=== PATIENT | male | born 1940 | race Caucasian/White ===

== ENCOUNTER 2018-03-20 19:47 | Observation (INO) | payer OTHER ==
--- OUTSIDE RECORDS SUMMARY | 2018-03-20 19:49 | XMS REPORT | Clinical Summary ---
:1940 Author Organization [facility] Address [address] [place] [address] Phone Care Team Providers Name Role Phone Unavailable Primary Care Provider Unavailable Allergies Active Allergy Reactions Severity Noted Date Comments Codeine Other (See Comments) 10/01/2017 Fainted, low BP Current Medications Prescription Sig. Disp. Refills Start Date End Date Status lisinopril Take 10 mg by Active (PRINIVIL,ZESTRIL) 10 mouth daily. MG tablet amLODIPine (NORVASC) Take 2.5 mg by Active 2.5 MG tablet mouth daily. pravastatin Take 40 mg by Active (PRAVACHOL) 40 MG mouth daily. tablet travoprost (TRAVATAN Place 1 drop Active Z) 0.004 % Drop into both eyes ophthalmic drops nightly. traMADol (ULTRAM) 50 Take 1 tablet 30 tablet 0 10/11/2017 10/21/2017 mg tablet (50 mg total) by mouth every 6 (six) hours as needed for up to 10 days. Max Daily Amount: 200 mg ondansetron Take 1 tablet 20 tablet 0 10/11/2017 10/18/2017 (ZOFRAN-ODT) 4 MG (4 mg total) by disintegrating tablet mouth every 8 (eight) hours as needed for up to 7 days. tamsulosin (FLOMAX) Take 1 capsule 30 capsule 0 10/12/2017 11/11/2017 0.4 mg Cp24 24 hr (0.4 mg total) capsule by mouth daily for 30 days. docusate sodium Take 1 capsule 10 capsule 0 10/11/2017 10/18/2017 (COLACE) 100 MG (100 mg total) capsule by mouth 2 (two) times daily for 7 days. polyethylene glycol Take 17 g by 14 each 0 10/11/2017 10/18/2017 (GLYCOLAX) 17 gram mouth daily as packet needed for up to 7 days. HYDROcodone-acetamino Take 1 tablet 30 tablet 0 10/11/2017 10/21/2017 phen (NORCO 10-325) by mouth every 10-325 mg per tablet 4 (four) hours as needed for up to 10 days. Max Daily Amount: 6 tablets aspirin 81 MG EC Take 1 tablet 30 tablet 0 10/12/2017 11/11/2017 tablet (81 mg total) by mouth daily for 30 days. pantoprazole Take 1 tablet 60 tablet 0 10/11/2017 11/10/2017 (PROTONIX) 40 MG (40 mg total) tablet by mouth 2 (two) times daily for 30 days. lidocaine (LIDODERM) Place 1 patch 30 patch 0 10/11/2017 11/10/2017 5 % patch onto the skin daily as needed for up to 30 days Remove & Discard patch within 12 hours or as directed by MD. 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 Hypertension 10/01/2017 Encounters Date Type Specialty Care Team Description 03/08/2018 Orders Only Research Davy Research exam MD Vik (Primary Dx) 11/23/2017 Outside Orders Central Scheduling Yessica Bhatti of MD Vik participant in clinical trial (Primary Dx);Malignant neoplasm of pancreas, unspecified location of malignancy (HCC) 11/05/2017 Hospital Encounter Radiology Davy, Malignant neoplasm MD Vik of body of pancreas (HCC) 11/05/2017 Orders Only Lab Davy Malignant neoplasm MD Vki of body of pancreas (HCC) 10/25/2017 Orders Only Yayo Peng, Malignant neoplasm SUSHANT Caballero of body of pancreas (HCC) (Primary Dx) 10/06/2017 Documentation Vik Tang MD 10/06/2017 Documentation Vik Tang MD 10/06/2017 Procedure Pass 10/06/2017 Surgery Davy, PANCREATECTOMY,W/ MD Vik SPLENECTOMY 10/05/2017 Anesthesia Event Trae Hollins CRNA 10/02/2017 Anesthesia Event Gastroenterology Jessica Hatfield CRNA 10/02/2017 Procedure Pass Gastroenterology 10/02/2017 Surgery Gastroenterology Hardeep, TARI [facility] ENDOSCOPY,ULTRASOUND Hardeep Felix MD 10/01/2017 Hospital Encounter General Internal [facility] - Medicine MD Wendy hypertension;Pancrea 10/11/2017 Kylie Amanda tic mass;Splenic Tricia infarct;Pancreatic MD Karishma adenocarcinoma Chiquita Currie (HCC);Drug-induced MD Maria Guadalupe constipation;Chest Carey, Heather pain, unspecified MD Brigido type;Fever, Darrell, unspecified fever Liban cause;LeukocytosisElfego MD unspecified type;Hypophosphatasi a;Urinary retention;Hypokalemi a after 03/19/2017 Social History Tobacco Use Types Packs/Day Years Used Date Former Smoker Sex Assigned at Date Recorded Not on file Last Filed Vital Signs Vital Sign Reading Time Taken Blood Pressure 154/74 10/11/2017 9:17 PM CDT Pulse 73 10/11/2017 9:17 PM CDT Temperature 36.4 C (97.6 F) 10/11/2017 9:17 PM CDT Respiratory Rate 18 10/11/2017 9:17 PM CDT Oxygen Saturation 97% 10/11/2017 9:17 PM CDT Inhaled Oxygen Concentration - - Weight 87.3 kg (192 lb 8 oz) 10/01/2017 8:11 PM CDT Height 185.4 cm (6' 1") 10/01/2017 8:11 PM CDT Body Mass Index 25.4 10/01/2017 8:11 PM CDT Plan of Treatment Not on file Implants Implanted Type Area Tinning Equipment Tender Device Expiration Model / Identifier Date Serial / Lot Dev Laser Tiss Brooke Device Laser Tissue Welding - Salbu-Green Solder Investigational N/A: LASER TISSUE 34 / Implanted: Qty: 1 on 10/06/2017 by Vik Bhatti MD Devices Pancreas WELD[employer] ALBU-GREEN SOLDER / Dev Laser Tiss Brooke Device Laser Tissue Welding - Sd-Albumin Lamina Investigational N/A: LASER TISSUE DEVICE LASER TISSUE WELDING / Implanted: Qty: 1 on 10/06/2017 by Vik Bhatti MD Devices Pancreas WELDING INC D-ALBUMIN LAMINA / Cath Exp Silv Soak Carbon Electrodes Supervisor 12.5cmx [id number] - Sna Pain N/A: MICHEAL-ABAD [id number] 01/03/2020 [id number] / Implanted: Qty: 1 on 10/06/2017 by Vik Bhatti MD Mgmt/Stimulator Abdomen K NA / [id number] Cath Exp Silv Soak Carbon Electrodes Supervisor 12.5cmx [id number] - Sna Pain N/A: MICHEAL-CLAR [id number] 08/30/2019 [id number] / Implanted: Qty: 1 on 10/06/2017 by Vik Bhatti MD Mgmt/Stimulator Abdomen K NA / [id number] Block Nrv C-Blk 1-7ml/Hr 600ml [id number] - Sna Pain N/A: PRIYAYARD [id number] 11/21/2019 [id number] / Implanted: Qty: 1 on 10/06/2017 by Vik Bhatti MD Mgmt/Stimulator Abdomen HEALTH NA / [id number] Procedures Procedure Name Priority Date/Time Associated Diagnosis Comments PANCREATECTOMY,W/ 10/06/2017 8:15 AM Malignant neoplasm of SPLENECTOMY CDT pancreas, unspecified location of malignancy (HCC) UPPER 10/02/2017 11:00 AM pancreatic mass ENDOSCOPY,ULTRASOUND CDT after 03/19/2017 Results US abdomen complete (11/05/2017 1:27 PM)Only the most recent of2 resultswithin the time period is included. Specimen Performing Laboratory [facility] FINAL REPORT TECHNIQUE: Grayscale ultrasound of the abdomen. INDICATION: 77-year-old man after surgery. COMPARISON: Abdomen and pelvis CT 10/11/2017. FINDINGS: MIDLINE VASCULATURE: The visualized inferior vena cava is patent. Portal vein is patent. The maximum visualized aortic diameter is 2.2 cm. LIVER: The liver is normal in size and echogenicity. Smooth liver contour. No focal lesions. BILIARY: Gallbladder: No gallstones or sludge. Borderline distention of the gallbladder, which measures 4 cm in transverse dimension. No gallbladder wall thickening or pericholecystic fluid. Negative sonographic Estrada sign. Common bile duct measures 0.4 cm, within normal limits. No intrahepatic biliary ductal dilatation. PANCREAS: Prior distal pancreatectomy. SPLEEN: Prior splenectomy. PERITONEUM: No free fluid. KIDNEYS: The right kidney measures 11.4 cm and the left kidney measures 13.2 cm. No hydronephrosis. No sonographically evident solid mass lesion. IMPRESSION: Prior distal pancreatectomy and splenectomy. Nonspecific borderline distention of the gallbladder. Signed: Ann Barton MD Report Verified Date/Time:11/05/2017 15:21:33 Reading Location: [facility] P006J Ultrasound Reading Room Procedure Note Interface, External Ris In - 11/05/2017 3:23 PM CDT FINAL REPORT TECHNIQUE: Grayscale ultrasound of the abdomen. INDICATION: 77-year-old man after surgery. COMPARISON: Abdomen and pelvis CT 10/11/2017. FINDINGS: MIDLINE VASCULATURE: The visualized inferior vena cava is patent. Portal vein is patent. The maximum visualized aortic diameter is 2.2 cm. LIVER: The liver is normal in size and echogenicity. Smooth liver contour. No focal lesions. BILIARY: Gallbladder: No gallstones or sludge. Borderline distention of the gallbladder, which measures 4 cm in transverse dimension. No gallbladder wall thickening or pericholecystic fluid. Negative sonographic Estrada sign. Common bile duct measures 0.4 cm, within normal limits. No intrahepatic biliary ductal dilatation. PANCREAS: Prior distal pancreatectomy. SPLEEN: Prior splenectomy. PERITONEUM: No free fluid. KIDNEYS: The right kidney measures 11.4 cm and the left kidney measures 13.2 cm. No hydronephrosis. No sonographically evident solid mass lesion. IMPRESSION: Prior distal pancreatectomy and splenectomy. Nonspecific borderline distention of the gallbladder. Signed: Ann Barton MD Report Verified Date/Time: 11/05/2017 15:21:33 Reading Location: [facility] P006J Ultrasound Reading Room and Creatinine (11/05/2017 11:24 AM) Component Value Ref Range BUN 9 7 - 21 mg/dL Creatinine 0.81 0.57 - 1.25 mg/dL EGFR 92Comment: ESTIMATED GFR IS NOT ACCURATE mL/min/1.73 sq m CREATININE CLEARANCE IN PREDICTING GLOMERULAR FILTRATION RATE. ESTIMATED GFR IS NOT APPLICABLE FOR DIALYSIS PATIENTS. Specimen Performing Laboratory Blood [facility] [address] [address] CBC with platelet count + automated diff (11/05/2017 11:24 AM)Only the most recent of8 resultswithin the time period is included. Component Value Ref Range WBC 7.2 3.5 - 10.5 K/L RBC 4.67 4.63 - 6.08 M/L Hemoglobin 13.3 (L) 13.7 - 17.5 GM/DL Hematocrit 41.0 40.1 - 51.0 % MCV 87.8 79.0 - 92.2 fL MCH 28.5 25.7 - 32.2 pg MCHC 32.4 32.3 - 36.5 GM/DL RDW 14.5 (H) 11.6 - 14.4 % Platelets 298 150 - 450 K/CU MM MPV 10.8 9.4 - 12.4 fL nRBC 0 0 - 0 /100 WBC % Neutros 53 % % Lymphs 24 % % Monos 10 % % Eos 12 % % Baso 1 % # Neutros 3.79 1.78 - 5.38 K/L # Lymphs 1.72 1.32 - 3.57 K/L # Monos 0.70 0.30 - 0.82 K/L # Eos 0.88 (H) 0.04 - 0.54 K/L # Baso 0.04 0.01 - 0.08 K/L Immature Granulocytes-Relative 0 0 - 1 % Specimen Performing Laboratory Blood [address] [address] Urinalysis w/ Microscopic (11/05/2017 11:24 AM) Component Value Ref Range Color, UA Yellow Clarity, UA Hazy Specific [place], UA 1.010 1.001 - 1.035 pH, UA 7.0 5.0 - 8.0 Protein, UA Negative Negative Glucose, UA Negative Negative Ketones, UA Negative Negative Bilirubin, UA Negative Negative Blood, UA Negative Negative Nitrite, UA Negative Negative Leukocytes, UA Negative Negative Urobilinogen, UA 0.2 0.2 - 1.0 mg/dL RBC, UA 1 /HPF WBC, UA 0 /HPF Specimen Source Specimen Performing Laboratory Urine [address] [address] CBC with platelet count + automated diff (11/05/2017 11:24 AM)Only the most recent of8 resultswithin the time period is included. Specimen Performing Laboratory Blood Narrative The following orders were created for panel order CBC with platelet count + automated diff. Procedure Abnormality Status --------- ------ CBC with platelet count ...[[id number]]AbnormalFinal result Please view results for these tests on the individual orders. Sodium (11/05/2017 11:24 AM) Component Value Ref Range Sodium 138 136 - 145 meq/L Specimen Performing Laboratory Blood [address] [address] Potassium (11/05/2017 11:24 AM) Component Value Ref Range Potassium 5.0 3.5 - 5.1 meq/L Specimen Performing Laboratory Blood [address] [address] Phosphorus (11/05/2017 11:24 AM)Only the most recent of6 resultswithin the time period is included. Component Value Ref Range Phosphorus 4.1 2.3 - 4.7 mg/dL Specimen Performing Laboratory Blood [address] [address] Magnesium (11/05/2017 11:24 AM)Only the most recent of6 resultswithin the time period is included. Component Value Ref Range Magnesium 2.0 1.6 - 2.6 mg/dL Specimen Performing Laboratory [address] [address] Lipase (11/05/2017 11:24 AM)Only the most recent of6 resultswithin the time period is included. Component Value Ref Range Lipase 22 8 - 78 U/L Specimen Performing Laboratory Blood [address] [address] Glucose (11/05/2017 11:24 AM) Component Value Ref Range Glucose 113 (H) 70 - 105 mg/dL Specimen Performing Laboratory [address] [address] Chloride (11/05/2017 11:24 AM) Component Value Ref Range Chloride 102 98 - 107 meq/L Specimen Performing Laboratory [address] [address] Calcium (11/05/2017 11:24 AM)Only the most recent of2 resultswithin the time period is included. Component Value Ref Range Calcium 10.0 8.4 - 10.2 mg/dL Specimen Performing Laboratory Blood [address] [address] Amylase (11/05/2017 11:24 AM)Only the most recent of3 resultswithin the time period is included. Component Value Ref Range Amylase 47 25 - 125 U/L Specimen Performing Laboratory Blood [address] [address] Hepatic function panel (11/05/2017 11:24 AM)Only the most recent of8 resultswithin the time period is included. Component Value Ref Range Protein, Total 7.0 6.0 - 8.3 gm/dL Albumin 4.3 3.5 - 5.0 g/dL Total Bilirubin 0.4 0.2 - 1.2 mg/dL Bilirubin, Direct 0.2 0.1 - 0.5 mg/dL Alkaline Phosphatase 96 40 - 150 U/L AST 27 5 - 34 U/L ALT 24 6 - 55 U/L Specimen Performing Laboratory Blood [address] [address] RHYTHM STRIP - SCAN (10/13/2017 11:20 AM)CT abdomen/pelvis with IV contrast ( 3:35 PM) Specimen Performing Laboratory [facility] Narrative FINAL REPORT CT OF THE ABDOMEN AND PELVIS CLINICAL HISTORY:Pancreatic adenocarcinoma status post distal pancreatectomy and splenectomy, fever TECHNIQUE: CT of the abdomen and pelvis is performed with intravenous contrast administration. This exam was performed according to our departmental dose-optimization program which includes automated exposure control, adjustment of the mA and/or kV according to patient size and/or use of iterative reconstruction technique. COMPARISON FILM:CT of the abdomen and pelvis from 09/25/2017 DISCUSSION: LOWER THORAX: Minimal subsegmental bibasilar atelectasis and consolidation. Trace left pleural effusion. Focal linear hypodensity in a segmental branch of the left lower lobe pulmonary artery seen only on the first image of the axial series. HEPATOBILIARY: Cholelithiasis. Unchanged indeterminate subcentimeter hypodensities in the liver. Main portal vein is patent. No biliary ductal dilation. PANCREAS: Findings of distal pancreatectomy. No drainable peripancreatic fluid collection. SPLEEN: Surgically absent. No drainable fluid collection in the splenic bed. ADRENALS: No nodule. KIDNEYS/URETERS: No obstructing renal or ureteral calculi. No hydronephrosis or hydroureter. PELVIC ORGANS/BLADDER: Unremarkable. GI TRACT: Moderate colonic diverticulosis. No pericolonic inflammatory change. No definite bowel wall thickening or distention. PERITONEUM/RETROPERITONEUM: Minimal stranding in the left upper quadrant. No drainable fluid collection. A surgically placed drainage catheter is seen in the left subphrenic region. Trace foci of air at the anterior midline, likely related to recent surgery and presence of drainage catheter. LYMPH NODES: No upper abdominal, retroperitoneal, mesenteric, or pelvic lymphadenopathy. VESSELS: Abdominal aorta normal in caliber. BONES AND SOFT TISSUES: No destructive osseous lesion. Degenerative changes in the lumbar spine. IMPRESSION: 1. Expected postsurgical changes related to distal pancreatectomy and splenectomy. No drainable fluid collection in the surgical bed. 2. Apparent linear hypodensity in a segmental branch of the left lower lobe pulmonary artery is likely related to volume averaging artifact, however if there is clinical suspicion of a small pulmonary embolism, this could be further evaluated with contrast-enhanced chest CT. 3. Unchanged indeterminate subcentimeter hypodensities in the liver. Recommend attention on follow-up examination. 4. Trace left pleural effusion and minimal bibasilar atelectasis. Signed: Stephen Horne MD Report Verified Date/Time:10/11/2017 16:07:26 Reading Location: [address] Body Reading Room Procedure Note Interface, External Ris In - 10/11/2017 4:09 PM CDT FINAL REPORT CT OF THE ABDOMEN AND PELVIS CLINICAL HISTORY: Pancreatic adenocarcinoma status post distal pancreatectomy and splenectomy, fever TECHNIQUE: CT of the abdomen and pelvis is performed with intravenous contrast administration. This exam was performed according to our departmental dose-optimization program which includes automated exposure control, adjustment of the mA and/or kV according to patient size and/or use of iterative reconstruction technique. COMPARISON FILM: CT of the abdomen and pelvis from 09/25/2017 DISCUSSION: LOWER THORAX: Minimal subsegmental bibasilar atelectasis and consolidation. Trace left pleural effusion. Focal linear hypodensity in a segmental branch of the left lower lobe pulmonary artery seen only on the first image of the axial series. HEPATOBILIARY: Cholelithiasis. Unchanged indeterminate subcentimeter hypodensities in the liver. Main portal vein is patent. No biliary ductal dilation. PANCREAS: Findings of distal pancreatectomy. No drainable peripancreatic fluid collection. SPLEEN: Surgically absent. No drainable fluid collection in the splenic bed. ADRENALS: No nodule. KIDNEYS/URETERS: No obstructing renal or ureteral calculi. No hydronephrosis or hydroureter. PELVIC ORGANS/BLADDER: Unremarkable. GI TRACT: Moderate colonic diverticulosis. No pericolonic inflammatory change. No definite bowel wall thickening or distention. PERITONEUM/RETROPERITONEUM: Minimal stranding in the left upper quadrant. No drainable fluid collection. A surgically placed drainage catheter is seen in the left subphrenic region. Trace foci of air at the anterior midline, likely related to recent surgery and presence of drainage catheter. LYMPH NODES: No upper abdominal, retroperitoneal, mesenteric, or pelvic lymphadenopathy. VESSELS: Abdominal aorta normal in caliber. BONES AND SOFT TISSUES: No destructive osseous lesion. Degenerative changes in the lumbar spine. IMPRESSION: 1. Expected postsurgical changes related to distal pancreatectomy and splenectomy. No drainable fluid collection in the surgical bed. 2. Apparent linear hypodensity in a segmental branch of the left lower lobe pulmonary artery is likely related to volume averaging artifact, however if there is clinical suspicion of a small pulmonary embolism, this could be further evaluated with contrast-enhanced chest CT. 3. Unchanged indeterminate subcentimeter hypodensities in the liver. Recommend attention on follow-up examination. 4. Trace left pleural effusion and minimal bibasilar atelectasis. Signed: Stephen Horne MD Report Verified Date/Time: 10/11/2017 16:07:26 Reading Location: [facility] C013Y CT Body Reading Room Basic Metabolic Panel (10/11/2017 5:03 AM)Only the most recent of8 resultswithin the time period is included. Component Value Ref Range Sodium 135 (L) 136 - 145 meq/L Potassium 3.4 (L) 3.5 - 5.1 meq/L Chloride 99 98 - 107 meq/L CO2 26 22 - 29 meq/L BUN 8 7 - 21 mg/dL Creatinine 0.67 0.57 - 1.25 mg/dL Glucose 114 (H) 70 - 105 mg/dL Calcium 8.9 8.4 - 10.2 mg/dL EGFR 114Comment: ESTIMATED GFR IS NOT ACCURATE mL/min/1.73 sq m CREATININE CLEARANCE IN PREDICTING GLOMERULAR FILTRATION RATE. ESTIMATED GFR IS NOT APPLICABLE FOR DIALYSIS PATIENTS. Specimen Performing Laboratory Blood - Arm, Left [address] [address] Amylase, body fluid (10/09/2017 5:14 PM)Only the most recent of2 resultswithin the time period is included. Component Value Ref Range Amylase, Fluid >[address] U/L Specimen Performing Laboratory Body Fluid - CHIVO Drain [address] [address] Narrative Absence of reference range indicates that normals have not been defined. Assay performance has not been validated for this type of specimen. XR chest 1 view portable / bedside (10/09/2017 11:02 AM) Specimen Performing Laboratory [facility] Narrative FINAL REPORT CHEST ONE VIEW HISTORY: Fever COMPARISON: CT chest of 10/03/2017 FINDINGS: Single portable AP examination of the chest was performed. Mild bibasilar airspace consolidation suggestive of atelectasis or pneumonia, similar in appearance to the prior chest CT. No pleural effusions or pneumothorax are identified. Cardiac shadow normal in size. Degenerative changes are present in the spine and acromioclavicular joints. IMPRESSION: Unchanged bibasilar atelectasis versus pneumonia. Signed: Mary Ingram MD Report Verified Date/Time:10/09/2017 11:20:08 Reading Location: [facility] C0T Transitional Reading Room Procedure Note Interface, External Ris In - 10/09/2017 11:22 AM CDT FINAL REPORT CHEST ONE VIEW HISTORY: Fever COMPARISON: CT chest of 10/03/2017 FINDINGS: Single portable AP examination of the chest was performed. Mild bibasilar airspace consolidation suggestive of atelectasis or pneumonia, similar in appearance to the prior chest CT. No pleural effusions or pneumothorax are identified. Cardiac shadow normal in size. Degenerative changes are present in the spine and acromioclavicular joints. IMPRESSION: Unchanged bibasilar atelectasis versus pneumonia. Signed: Mary Ingram MD Report Verified Date/Time: 10/09/2017 11:20:08 Reading Location: [facility] C013T Transitional Reading Room Troponin I (10/09/2017 9:40 AM)Only the most recent of3 resultswithin the time period is included. Component Value Ref Range Troponin I 0.03 0.00 - 0.03 ng/mL Specimen Performing Laboratory Blood [address] [address] Narrative Troponin I (TnI) levels must be interpreted in the context of the presenting symptoms and the clinical findings. Elevated TnI levels indicate myocardial damage, but are not specific for ischemic heart disease. Elevated TnI levels are seen in patients with other cardiac conditions (including myocarditis and congestive heart failure), and slight TnI elevations occur in patients with other conditions, including sepsis, renal failure, acidosis, acute neurological disease, and persistent tachyarrhythmia. ECHOCARDIOGRAM REPORT - SCAN (10/08/2017 6:20 PM)Calcium, Ionized (10/08/2017 3:31 PM)Only the most recent of5 resultswithin the time period is included. Component Value Ref Range Calcium, Ion 1.05 (L) 1.12 - 1.27 mmol/L pH, Blood 7.41 Specimen Performing Laboratory Blood - Arm, Right [address] [address] Creatine Kinase (CK), Total and MB (10/08/2017 3:31 PM) Component Value Ref Range Total CK 268 (H) 29 - 200 U/L CK-MB 2.9 0.0 - 6.6 ng/mL MB Relative Index 1.1 % Specimen Performing Laboratory Blood [address] [address] Narrative CK-MB Reference Range: <6.7Normal 6.7-10.0Borderline >10.0 Abnormal 2D Echo W/Doppler(CW/PW/Color) (10/08/2017 1:10 PM) Component Value Ref Range Ejection Fraction Specimen Performing Laboratory [facility] ECHO [facility] Narrative Transthoracic Echocardiography Report (TTE) Demographics Patient NameJULIANN MURRIETA Date of Study2017 CRAWLEY Male Visit [id number] Unknown Room Number 1530 Number Date of 1940Referring Ayah Carey MD Age 77 year(s)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 Pollock [facility] Patient Care Director Juan Coleman Interpreting Francesco Love MD Physician Procedure Type of Study TTE procedure:2DECHO W DOPPLER(CW/PW/COLOR) (STAT) Indications:Acute Chest Pain/ Suspected CAD. Clinical History HLD;HTN;CANCER HGB 11.4 HCT 33.5 % Height: 73 inches Weight: 87.09 kg (192 lbs) BSA: 2.11 m^2 BMI: 25.33 kg/m^2 HR: 83 bpm BP: 144/69 mmHg Summary 1. Normal left ventricular chamber size. Normal wall thickness. Normal overall left ventricular systolic function. No apparent segmental wall motion abnormalities. Estimated LVEF by qualitative assessment is normal (>60%) . Grade 1 diastolic dysfunction (impaired relaxation and low-normal LA pressure). LA size is normal . 2. Normal right ventricle structure and function. Normal right atrium. Unable to estimate peak systolic PA pressure; inadequate TR velocity signal. 3. Aortic valve sclerosis. No other significant valvular abnormalities. Previous Study No prior exam available for comparison. Signature Findings Left Ventricle Normal left ventricular chamber size. Normal wall thickness. Normal overall left ventricular systolic function. No apparent segmental wall motion abnormalities. Estimated LVEF by qualitative assessment is normal (>60%) . Grade 1 diastolic dysfunction (impaired relaxation and low-normal LA pressure). Left AtriumLA size is normal . Right VentricleNormal right ventricle structure and function. Right Atrium Normal right atrium. Aortic Valve Mild AoV cusp thickening. Mild AoV cusp calcification. There is no aortic regurgitation. Mitral Valve Mild MV leaflet thickening. Trace mitral regurgitation. Tricuspid ValveA trace of tricuspid regurgitation. Unable to estimate peak systolic PA pressure; inadequate TR velocity signal. Pulmonic Valve Normal PV structure and function by limited views and Doppler. AortaAortic root size (SInus of Valsalva diameter) is normal . PericardiumNo evidence of pericardial effusion. IVC/SVC/PA/PV/PleuralThe estimated RA pressure by IVC dynamics indeterminate . Chambers/Structures Left Atrium LA Dimension: 3.86 cmLA Area: 22.93 cm^2 LA Volume: 69.39 ml LA Vol. Index: 33 ml/m^2 Left Ventricle LVIDd: 4.35 cm LV Septum Diastolic: 1.03 cm LV PW Diastolic: 0.97 cm LVOT Diameter: 2.18 cm Aorta Ao Root S of Ruby.: 3.51 cm Doppler/Quantitative Measurements LVOT Peak Velocity: 1.11 m/s Peak Gradient: 4.9 mmHg Mean Velocity: 0.69 m/s Mean Gradient: 2.32 mmHg LVOT Diameter: 2.18 cmLVOT VTI: 21.72 cm LVOT Area: 3.73 cm^2LVOT SV:81.03 ml LVOT CO: 6.73 l/min LVOT CI: 3.19 l/min/m^2 Procedure Note Interface, External Ris In - 10/08/2017 5:44 PM CDT Transthoracic Echocardiography Report (TTE) Demographics Patient Name JULIANN MURRIETA Date of Study 10/08/2017 ROTAN Gender Male Visit Number [id number] Race Unknown Room Number 1530 Number Date of 1940 Referring Physician Heather Carey MD Age 77 year(s) [employer] Marti Pollock [facility] Patient Care Director Juan Love MD Physician Procedure Type of Study TTE procedure:2DECHO W DOPPLER(CW/PW/COLOR) (STAT) Indications:Acute Chest Pain/ Suspected CAD. Clinical History HLD;HTN;CANCER HGB 11.4 HCT 33.5 % Height: 73 inches Weight: 87.09 kg (192 lbs) BSA: 2.11 m^2 BMI: 25.33 kg/m^2 HR: 83 bpm BP: 144/69 mmHg Summary 1. Normal left ventricular chamber size. Normal wall thickness. Normal overall left ventricular systolic function. No apparent segmental wall motion abnormalities. Estimated LVEF by qualitative assessment is normal (>60%) . Grade 1 diastolic dysfunction (impaired relaxation and low-normal LA pressure). LA size is normal . 2. Normal right ventricle structure and function. Normal right atrium. Unable to estimate peak systolic PA pressure; inadequate TR velocity signal. 3. Aortic valve sclerosis. No other significant valvular abnormalities. Previous Study No prior exam available for comparison. Signature Findings Left Ventricle Normal left ventricular chamber size. Normal wall thickness. Normal overall left ventricular systolic function. No apparent segmental wall motion abnormalities. Estimated LVEF by qualitative assessment is normal (>60%) . Grade 1 diastolic dysfunction (impaired relaxation and low-normal LA pressure). Left Atrium LA size is normal . Right Ventricle Normal right ventricle structure and function. Right Atrium Normal right atrium. Aortic Valve Mild AoV cusp thickening. Mild AoV cusp calcification. There is no aortic regurgitation. Mitral Valve Mild MV leaflet thickening. Trace mitral regurgitation. Tricuspid Valve A trace of tricuspid regurgitation. Unable to estimate peak systolic PA pressure; inadequate TR velocity signal. Pulmonic Valve Normal PV structure and function by limited views and Doppler. Aorta Aortic root size (SInus of Valsalva diameter) is normal . Pericardium No evidence of pericardial effusion. IVC/SVC/PA/PV/Pleural The estimated RA pressure by IVC dynamics indeterminate . Chambers/Structures Left Atrium LA Dimension: 3.86 cm LA Area: 22.93 cm^2 LA Volume: 69.39 ml LA Vol. Index: 33 ml/m^2 Left Ventricle LVIDd: 4.35 cm LV Septum Diastolic: 1.03 cm LV PW Diastolic: 0.97 cm LVOT Diameter: 2.18 cm Aorta Ao Root S of Ruby.: 3.51 cm Doppler/Quantitative Measurements LVOT Peak Velocity: 1.11 m/s Peak Gradient: 4.9 mmHg Mean Velocity: 0.69 m/s Mean Gradient: 2.32 mmHg LVOT Diameter: 2.18 cm LVOT VTI: 21.72 cm LVOT Area: 3.73 cm^2 LVOT SV:81.03 ml LVOT CO: 6.73 l/min LVOT CI: 3.19 l/min/m^2 ECG 12 lead (10/08/2017 8:58 AM) Specimen Performing Laboratory Plerts MUSE Narrative Ventricular Rate 90 BPM Atrial Rate 90 BPM P-R Interval 168 ms QRS Duration 86 ms Q-T Interval 368 ms QTC Calculation(Bazett) 450 ms P [place] 49 degrees R Elgin 36 degrees T Elgin 14 degrees Normal sinus rhythm ST abnormality, possible digitalis effect Abnormal ECG When compared with ECG of 06-OCT-2017 07:25, Premature supraventricular complexes are no longer Present Confirmed by MD GUERRERO JOSEPH P ([id number]) on 10/08/2017 2:53:40 PM Procedure Note Interface, External Ris In - 10/08/2017 2:53 PM CDT Ventricular Rate 90 BPM Atrial Rate 90 BPM P-R Interval 168 ms QRS Duration 86 ms Q-T Interval 368 ms QTC Calculation(Bazett) 450 ms P [place] 49 degrees R [place]gin 36 degrees T [place]gin 14 degrees Normal sinus rhythm ST abnormality, possible digitalis effect Abnormal ECG When compared with ECG of 06-OCT-2017 07:25, Premature supraventricular complexes are no longer Present Confirmed by MD GUERRERO JOSEPH P ([id number]) on 10/08/2017 2:53:40 PM TRANSFUSION SERVICE REPORT - SCAN (10/07/2017 5:41 PM)Tissue Exam (10/06/2017 12:45 PM)Only the most recent of2 resultswithin the time period is included. Component Value Ref Range Case Report Surgical Pathology Report Case: [id number] Authorizing Provider:Vik BhattiJOANNEollected: 10/06/2017 1245 Ordering Location: [address] Received: 10/06/2017 1305 Service Pathologist: Gissel Villanueva MD Specimen:Pancreas, DISTAL PANCREAS AND SPLEEN DIAGNOSIS DISTAL PANCREAS AND SPLEEN, DISTAL PANCREATECTOMY AND SPLENECTOMY: - ADENOSQUAMOUS CARCINOMA - MODERATELY DIFFERENTIATED - TUMOR SIZE 3.5 CM (GREATEST DIMENSION, see comment) - TUMOR EXTENDS TO PERIPANCREATIC FAT - LYMPHOVASCULAR INVASION PRESENT - PERINEURAL INVASION PRESENT - PANCREATIC MARGIN, NEGATIVE FOR CARCINOMA - ONE OF 23 LYMPH NODES, POSITIVE FOR CARCINOMA BY DIRECT EXTENSION (1/23) - 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 Microscopic evaluation of a tissue slice encompassing the whole alfred-white surface (submitted in slides A2-A5), and shows a 3.5 cm focus of invasive carcinoma (A2 and A3). The rest of the alfred-white focus is composed of marked chronic pancreatitis. 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 Tumor Size:Greatest dimension in Centimeters (cm): 3.5 Centimeters (cm) Tumor Extension:Tumor invades peripancreatic soft tissues Treatment Effect:No known presurgical therapy Lymphovascular Invasion:Present Perineural Invasion:Present MARGINS Margins: Proximal Pancreatic Parenchymal Margin:Uninvolved by invasive carcinoma :Involved by pancreatic high-grade intraepithelial neoplasia Distance of Invasive Carcinoma from Margin:1.5 Centimeters (cm) LYMPH NODES Regional Lymph Nodes: Number of Lymph Nodes Involved:1 Number of Lymph Nodes Examined:23 PATHOLOGIC STAGE CLASSIFICATION(pTNM, AJCC 8th Edition) Primary Tumor (pT):pT2 Regional Lymph Nodes (pN):pN1 ADDITIONAL FINDINGS Additional Pathologic Findings:Chronic pancreatitis CPT Code(s) 83092, 71120, 60900, 93862 x1 CLINICAL HISTORY Pancreatic tumor GROSS DESCRIPTION A. Received fresh labeled "pancreas, distal and spleen" is a 7.5 x 5.5 x 3 cm portion of distal pancreas with attached 13 x 9 x 3.5 cm and 300 gm spleen. There is a 5.5 x 3.5 x 2.5 cm alfred-white ill-circ umscribed mass within the pancreas. The distance to the distal margin cannot be assessed due to the ill-circumscription of the mass. The mass appears to be abutting the renal vein and the anterior pancr eatic surface that is inked blue. The pancreatic duct appears to be abutted by the mass. The soft tissue surrounding the external surface of the pancreas is alfred-yellow and fatty with the involvement by the tumor not determined due to the ill-circumscription of the tumor. The grossly uninvolved pancreas is alfred-pink and lobulated but hard to distinguish from the tumor. The splenic capsule is alfred-brown a nd smooth with no grossly identifiable adhesions or masses.The spleen has a aflred-red cut surface with no identifiable nodules or masses. The renal vein appears to be firm and atherosclerotic with approxi mately 75% lumen obliteration. Multiple alfred-brown lymph nodes are identified ranging from 0.1 to 0.2 cm in maximum dimension. The proximal pancreatic resection margin is inked blue. The anterior peripan creatic soft tissue is inked blue and the posterior peripancreatic soft tissue is inked black. Photographs are taken. Countersinker sections are submitted as follows: A1, proximal pancreatic resection margin en face; A2 to A4, anterior superior distal pancreas submitted in its entirety consecutively from proximal to d istal in three consecutive sections with the cut surface inked orange. A5 to A7, anterior inferior distal pancreas submitted in its entirety consecutively from proximal to distal with the cut surface in ked orange; A8 to A11, telesales representative sections of the posterior pancreas; A12 to A15, telesales representative sections of the anterior pancreas to include A13 to A15, tumor and pancreas with splenic vein followi ng light decal; A16, telesales representative section of the spleen; A17, five possible whole lymph nodes; A18, five possible whole lymph nodes; A19, four possible whole lymph nodes; A20, anterior peripancreatic fat; A21, posterior peripancreatic fat. TQ/pl MICROSCOPIC DESCRIPTION Microscopic examination is performed and the findings are incorporated in the diagnostic line. Immunostains for CK5/6 and p63 were performed with appropriate controls. The tumor is positive for p63 (nuclear) and positive for CK5/6. Specimen Performing Laboratory Tissue - Pancreas [address] [address] [facility] (ABG,NA,K,H&H,GLUCOSE) (10/06/2017 12:36 PM)Only the most recent of2 resultswithin the time period is included. Specimen Performing Laboratory Blood, Arterial Narrative The following orders were created for panel order [facility] (ABG,NA,K,H&H,GLUCOSE). Procedure Abnormality Status --------- ------ Blood gas, arterial[[id number]]AbnormalFinal result Sodium Na-Stat Lab[[id number]] NormalFinal result Potassium-Stat Lab[[id number]] AbnormalFinal result Glucose-Stat Lab[[id number]] AbnormalFinal result HGB/HCT (H&H)-Stat Lab[[id number]] Abnormal Final result Please view results for these tests on the individual orders. Potassium-Stat Lab (10/06/2017 12:36 PM)Only the most recent of2 resultswithin the time period is included. Component Value Ref Range Potassium 3.3 (L) 3.6 - 5.5 meq/L Specimen Performing Laboratory Blood, Arterial [address] [address] Sodium Na-Stat Lab (10/06/2017 12:36 PM)Only the most recent of2 resultswithin the time period is included. Component Value Ref Range Sodium 137 135 - 148 meq/L Specimen Performing Laboratory Blood, Arterial [address] [address] Glucose-Stat Lab (10/06/2017 12:36 PM)Only the most recent of2 resultswithin the time period is included. Component Value Ref Range Glucose 142 (H) 70 - 110 mg/dL Specimen Performing Laboratory Blood, [address] [address] HGB/HCT (H&H)-Stat Lab (10/06/2017 12:36 PM)Only the most recent of2 resultswithin the time period is included. Component Value Ref Range Hemoglobin 11.6 (L) 13.0 - 16.8 g/dL Hematocrit 34.0 (L) 40.0 - 50.0 % Specimen Performing Laboratory Blood, Arterial [address] [address] Blood gas, arterial (10/06/2017 12:36 PM)Only the most recent of2 resultswithin the time period is included. Component Value Ref Range pH, Arterial 7.41 7.35 - 7.45 pCO2, Arterial 34 (L) 35 - 45 mmHg pO2, Arterial 194 (H) 80 - 90 mmHg O2 Sat, Arterial 99.3 (H) 96.0 - 97.0 % HCO3, Arterial 21 21 - 29 mmol/L Base Excess, Arterial -3.5 (L) -2.0 - 3.0 mmol/L Patient Temperature 37.0 C FIO2 21.0 % Specimen Performing Laboratory Blood, Arterial [address] [address] ANESTHESIA SPINAL BLOCK (10/06/2017 8:48 AM) Narrative Estevan Hartman MD 10/06/20178:48 AM Spinal Block Patient location during procedure: OR Start time: 10/06/2017 8:31 AM End time: 10/06/2017 8:42 AM Reason for block: procedure for pain, at surgeon's request and post-op pain management Staffing Anesthesiologist: ESTEVAN HARTMAN Preanesthetic Checklist Completed: patient identified, site marked, surgical consent, pre-op evaluation, timeout performed, IV checked, risks and benefits discussed and monitors and equipment checked Spinal Block Patient position: sitting Prep: Betadine Patient monitoring: heart rate, vehicle monitor technician and continuous pulse ox Approach: midline Location: L3-4 Injection technique: single-shot Needle Needle type: Pencan Needle gauge: 25 G Needle length: 13 cm Assessment Sensory level: T10 Events: cerebrospinal fluid Additional Notes Pt tolerated the procedure well. Procedure Note Estevan Hartman MD - 10/06/2017 8:46 AM CDT Spinal Block Patient location during procedure: OR Start time: 10/06/2017 8:31 AM End time: 10/06/2017 8:42 AM Reason for block: procedure for pain, at surgeon's request and post-op pain management Staffing Anesthesiologist: ESTEVAN HARTMAN Preanesthetic Checklist Completed: patient identified, site marked, surgical consent, pre-op evaluation , timeout performed, IV checked, risks and benefits discussed and monitors and equipment checked Spinal Block Patient position: sitting Prep: Betadine Patient monitoring: heart rate, vehicle monitor technician and continuous pulse ox Approach: midline Location: L3-4 Injection technique: single-shot Needle Needle type: Pencan Needle gauge: 25 G Needle length: 13 cm Assessment Sensory level: T10 Events: cerebrospinal fluid Additional Notes Pt tolerated the procedure well. Type and screen, automated (10/06/2017 5:04 AM) Component Value Ref Range ABO/RH AUTOMATED (BEAKER) A NEGATIVE Ab Scrn NEGATIVE Specimen Performing Laboratory Blood - Hand, [facility] [address] [place] [id number] MR abdomen without & with IV contrast (10/05/2017 3:55 AM) Specimen Performing Laboratory Plerts RIS Narrative FINAL REPORT History: Liver lesions Comparison: CT dated 10/03/2017 Technique : Multiplanar imaging with multiple sequences of the abdomen was performed utilizing a 1.5 luna magnet with and without the administration of gadolinium contrast. Comment: In the right lower lobe, there is an area of consolidation that could represent atelectasis or pneumonitis. There are no focal or diffuse abnormalities of the osseous structures. The subcutaneous soft tissues as well as the musculature are within normal limits. The adrenal glands, kidneys, stomach, and duodenum are within normal limits. There is no abdominal or retroperitoneal lymphadenopathy. The visualized portions of the large and small bowel are within normal limits. There are several small hepatic cysts. The largest cyst is seen in segment 4 measuring up to 1.0 cm. Several tiny punctate arterial foci of enhancement are seen towards the periphery of the liver particularly anteriorly and most likely represent areas of vascular shunting. In the body/tail of the pancreas, there is a hypoenhancing T2 hyperintense mass measuring up to 3.4 x 3.2 cm. The findings are most concerning for a pancreatic neoplasm. There is abutment of the splenic vein and splenic artery. There is also stranding adjacent to the celiac trunk. There is thrombosis in the splenic vein near the hilum. The patient does have numerous suspected splenic infarcts. No ascites is identified. The portal vein measures up to a maximum of 1.3 cm in diameter. There is no portal or superior mesenteric venous thrombosis. Impression: 1. Multiple small hepatic cysts. Tiny punctate peripheral foci of arterial hepatic enhancement more likely represent vascular shunting. No definitive findings of hepatic metastatic disease are seen. Close MRI follow-up is recommended. 2. Hypoenhancing pancreatic body mass most consistent with pancreatic adenocarcinoma. 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 There is probable encasement of the celiac trunk. 3. Splenic infarcts. 4. Cholelithiasis. Signed: Marylu Allen MD Report Verified Date/Time:10/05/2017 08:03:49 Reading Location: [facility] Diagnostic Imaging Reading Room - [place] [address] Procedure Note Interface, External Ris In - 10/05/2017 8:06 AM CDT FINAL REPORT History: Liver lesions Comparison: CT dated 10/03/2017 Technique : Multiplanar imaging with multiple sequences of the abdomen was performed utilizing a 1.5 luna magnet with and without the administration of gadolinium contrast. Comment: In the right lower lobe, there is an area of consolidation that could represent atelectasis or pneumonitis. There are no focal or diffuse abnormalities of the osseous structures. The subcutaneous soft tissues as well as the musculature are within normal limits. The adrenal glands, kidneys, stomach, and duodenum are within normal limits. There is no abdominal or retroperitoneal lymphadenopathy. The visualized portions of the large and small bowel are within normal limits. There are several small hepatic cysts. The largest cyst is seen in segment 4 measuring up to 1.0 cm. Several tiny punctate arterial foci of enhancement are seen towards the periphery of the liver particularly anteriorly and most likely represent areas of vascular shunting. In the body/tail of the pancreas, there is a hypoenhancing T2 hyperintense mass measuring up to 3.4 x 3.2 cm. The findings are most concerning for a pancreatic neoplasm. There is abutment of the splenic vein and splenic artery. There is also stranding adjacent to the celiac trunk. There is thrombosis in the splenic vein near the hilum. The patient does have numerous suspected splenic infarcts. No ascites is identified. The portal vein measures up to a maximum of 1.3 cm in diameter. There is no portal or superior mesenteric venous thrombosis. Impression: 1. Multiple small hepatic cysts. Tiny punctate peripheral foci of arterial hepatic enhancement more likely represent vascular shunting. No definitive findings of hepatic metastatic disease are seen. Close MRI follow-up is recommended. 2. Hypoenhancing pancreatic body mass most consistent with pancreatic adenocarcinoma. 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 There is probable encasement of the celiac trunk. 3. Splenic infarcts. 4. Cholelithiasis. Signed: Marylu Allen MD Report Verified Date/Time: 10/05/2017 08:03:49 Reading Location: [facility] Diagnostic Imaging Reading Room - [place] [address] 112 /aPTT (10/04/2017 6:03 AM)Only the most recent of2 resultswithin the time period is included. Component Value Ref Range Protime 16.2 (H) 11.7 - 14.7 seconds INR 1.3 <=5.9 PTT 33.2 22.5 - 36.0 seconds Specimen Performing Laboratory Blood - Arm, [place] [address] Narrative RECOMMENDED COUMADIN/WARFARIN INR THERAPY RANGES STANDARD DOSE: 2.0 - 3.0 Includes: PROPHYLAXIS for venous thrombosis, systemic embolization; TREATMENT for venous thrombosis and/or pulmonary embolus. HIGH RISK: Target INR is 2.5-3.5 for patients with mechanical heart valves. Carbohydrate antigen 19-9 (CA 19-9) (10/03/2017 5:35 PM) Component Value Ref Range CA 19-9 634 (H) <34 U/mL Comment: This test was performed using the Siemens (Taifatech) Chemiluminescent method. Values obtained from different assay methods cannot be used interchangeably. CA19-9 levels, regardless of value, should not be interpreted as absolute evidence of the presence or absence of disease. Specimen Performing Laboratory Blood - Arm, Left [facility] [employer] [address] [facility] [place] [address] Narrative Performing Lab E[facility] [address] [place] [address] Mary Childress MD, PhD CT abd/pelvis - pancreas evaluation (10/03/2017 12:16 PM) Specimen Performing Laboratory GE RIS Narrative Addendum Begins REPORT STATUS:A ADDENDUM: The following addendum is being made to comply with coding criteria, and does not substantially change the findings or recommendations of the original report. Additional technique: CT of the abdomen is also performed without contrast. Signed: Stephen Horne MD Report Verified Date/Time:10/08/2017 12:45:18 Reading Location: [facility] Diagnostic Imaging Reading Room - [place] [address] Addendum Ends FINAL REPORT CT OF THE CHEST, ABDOMEN, AND PELVIS CLINICAL HISTORY:Pancreatic mass seen on outside imaging TECHNIQUE: CT of the chest, abdomen, and pelvis is performed with intravenous contrast administration. This exam was performed according to our departmental dose-optimization program which includes automated exposure control, adjustment of the mA and/or kV according to patient size and/or use of iterative reconstruction technique. COMPARISON FILM:None DISCUSSION: LINES/TUBES: None. LUNGS/AIRWAYS: Linear atelectasis in the right lower lobe. Minimal subsegmental atelectasis in the left lower lobe. Trachea and major airways are otherwise clear. PLEURA: No effusion or pneumothorax. HEART AND MEDIASTINUM: The visualized thyroid is unremarkable. No mediastinal or hilar lymphadenopathy. No pericardial effusion. Coronary artery calcifications. HEPATOBILIARY: Few indeterminate subcentimeter hypodensities, largest measuring 9 mm in segment IV. The liver is mildly heterogeneous. Sludge in the gallbladder lumen. Main portal vein is patent. No biliary ductal dilation. PANCREAS: There is a 3.2 cm hypoenhancing mass in the pancreatic body with abutment of the splenic vein and splenic artery. There is also stranding adjacent to the celiac trunk. Thrombus is seen in the splenic vein at the hilum. There is pancreatic tail atrophy. SPLEEN: Heterogeneous enhancement of the spleen. There is a geographic 8.5 cm hypodensity in the inferior pole, likely representing an evolving infarct. ADRENALS: No nodule. KIDNEYS/URETERS: No hydronephrosis or hydroureter. No solid lesion. PELVIC ORGANS/BLADDER: Enlarged, heterogeneous prostate. Bladder unremarkable. GI TRACT: Severe colonic diverticulosis. No bowel wall thickening or distention. PERITONEUM/RETROPERITONEUM: No free fluid or free air. LYMPH NODES: No upper abdominal, retroperitoneal, mesenteric, or pelvic lymphadenopathy. VESSELS: Scattered aortoiliac atherosclerotic calcifications. BONES AND SOFT TISSUES: Degenerative changes in the thoracolumbar spine. No destructive osseous lesion. IMPRESSION: 1. The 3.2 cm hypoenhancing mass in the pancreatic body is concerning for pancreatic adenocarcinoma. 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 There is likely encasement of the celiac trunk. 2. Subcentimeter indeterminate hypodensities are too small to characterize in the liver, but may represent metastatic disease. Comparison with older outside imaging studies to assess chronicity would be of benefit. 3. No specific findings of intrathoracic metastatic disease. 4. Severe colonic diverticulosis. 5. Cholelithiasis. Signed: Stephen Horne MD Report Verified Date/Time:10/03/2017 13:09:28 Reading Location: [facility] C013Y CT Body Reading Room Procedure Note Interface, External Ris In - 10/08/2017 12:47 PM CDT Addendum Begins REPORT STATUS:A ADDENDUM: The following addendum is being made to comply with coding criteria, and does not substantially change the findings or recommendations of the original report. Additional technique: CT of the abdomen is also performed without contrast. Signed: Stephen Horne MD Report Verified Date/Time: 10/08/2017 12:45:18 Reading Location: [facility] Diagnostic Imaging Reading Room - [facility] F1 1[address] Addendum Ends FINAL REPORT CT OF THE CHEST, ABDOMEN, AND PELVIS CLINICAL HISTORY: Pancreatic mass seen on outside imaging TECHNIQUE: CT of the chest, abdomen, and pelvis is performed with intravenous contrast administration. This exam was performed according to our departmental dose-optimization program which includes automated exposure control, adjustment of the mA and/or kV according to patient size and/or use of iterative reconstruction technique. COMPARISON FILM: None DISCUSSION: LINES/TUBES: None. LUNGS/AIRWAYS: Linear atelectasis in the right lower lobe. Minimal subsegmental atelectasis in the left lower lobe. Trachea and major airways are otherwise clear. PLEURA: No effusion or pneumothorax. HEART AND MEDIASTINUM: The visualized thyroid is unremarkable. No mediastinal or hilar lymphadenopathy. No pericardial effusion. Coronary artery calcifications. HEPATOBILIARY: Few indeterminate subcentimeter hypodensities, largest measuring 9 mm in segment IV. The liver is mildly heterogeneous. Sludge in the gallbladder lumen. Main portal vein is patent. No biliary ductal dilation. PANCREAS: There is a 3.2 cm hypoenhancing mass in the pancreatic body with abutment of the splenic vein and splenic artery. There is also stranding adjacent to the celiac trunk. Thrombus is seen in the splenic vein at the hilum. There is pancreatic tail atrophy. SPLEEN: Heterogeneous enhancement of the spleen. There is a geographic 8.5 cm hypodensity in the inferior pole, likely representing an evolving infarct. ADRENALS: No nodule. KIDNEYS/URETERS: No hydronephrosis or hydroureter. No solid lesion. PELVIC ORGANS/BLADDER: Enlarged, heterogeneous prostate. Bladder unremarkable. GI TRACT: Severe colonic diverticulosis. No bowel wall thickening or distention. PERITONEUM/RETROPERITONEUM: No free fluid or free air. LYMPH NODES: No upper abdominal, retroperitoneal, mesenteric, or pelvic lymphadenopathy. VESSELS: Scattered aortoiliac atherosclerotic calcifications. BONES AND SOFT TISSUES: Degenerative changes in the thoracolumbar spine. No destructive osseous lesion. IMPRESSION: 1. The 3.2 cm hypoenhancing mass in the pancreatic body is concerning for pancreatic adenocarcinoma. 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 There is likely encasement of the celiac trunk. 2. Subcentimeter indeterminate hypodensities are too small to characterize in the liver, but may represent metastatic disease. Comparison with older outside imaging studies to assess chronicity would be of benefit. 3. No specific findings of intrathoracic metastatic disease. 4. Severe colonic diverticulosis. 5. Cholelithiasis. Signed: Stephen Horne MD Report Verified Date/Time: 10/03/2017 13:09:28 Reading Location: [facility] C013Y CT Body Reading Room chest with IV contrast (10/03/2017 12:16 PM) Specimen Performing Laboratory [facility] Narrative Addendum Begins REPORT STATUS:A ADDENDUM: The following addendum is being made to comply with coding criteria, and does not substantially change the findings or recommendations of the original report. Additional technique: CT of the abdomen is also performed without contrast. Signed: Stephen Horne MD Report Verified Date/Time:10/08/2017 12:45:18 Reading Location: [facility] Diagnostic Imaging Reading Room - [facility] F1 1[address] Addendum Ends FINAL REPORT CT OF THE CHEST, ABDOMEN, AND PELVIS CLINICAL HISTORY:Pancreatic mass seen on outside imaging TECHNIQUE: CT of the chest, abdomen, and pelvis is performed with intravenous contrast administration. This exam was performed according to our departmental dose-optimization program which includes automated exposure control, adjustment of the mA and/or kV according to patient size and/or use of iterative reconstruction technique. COMPARISON FILM:None DISCUSSION: LINES/TUBES: None. LUNGS/AIRWAYS: Linear atelectasis in the right lower lobe. Minimal subsegmental atelectasis in the left lower lobe. Trachea and major airways are otherwise clear. PLEURA: No effusion or pneumothorax. HEART AND MEDIASTINUM: The visualized thyroid is unremarkable. No mediastinal or hilar lymphadenopathy. No pericardial effusion. Coronary artery calcifications. HEPATOBILIARY: Few indeterminate subcentimeter hypodensities, largest measuring 9 mm in segment IV. The liver is mildly heterogeneous. Sludge in the gallbladder lumen. Main portal vein is patent. No biliary ductal dilation. PANCREAS: There is a 3.2 cm hypoenhancing mass in the pancreatic body with abutment of the splenic vein and splenic artery. There is also stranding adjacent to the celiac trunk. Thrombus is seen in the splenic vein at the hilum. There is pancreatic tail atrophy. SPLEEN: Heterogeneous enhancement of the spleen. There is a geographic 8.5 cm hypodensity in the inferior pole, likely representing an evolving infarct. ADRENALS: No nodule. KIDNEYS/URETERS: No hydronephrosis or hydroureter. No solid lesion. PELVIC ORGANS/BLADDER: Enlarged, heterogeneous prostate. Bladder unremarkable. GI TRACT: Severe colonic diverticulosis. No bowel wall thickening or distention. PERITONEUM/RETROPERITONEUM: No free fluid or free air. LYMPH NODES: No upper abdominal, retroperitoneal, mesenteric, or pelvic lymphadenopathy. VESSELS: Scattered aortoiliac atherosclerotic calcifications. BONES AND SOFT TISSUES: Degenerative changes in the thoracolumbar spine. No destructive osseous lesion. IMPRESSION: 1. The 3.2 cm hypoenhancing mass in the pancreatic body is concerning for pancreatic adenocarcinoma. 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 There is likely encasement of the celiac trunk. 2. Subcentimeter indeterminate hypodensities are too small to characterize in the liver, but may represent metastatic disease. Comparison with older outside imaging studies to assess chronicity would be of benefit. 3. No specific findings of intrathoracic metastatic disease. 4. Severe colonic diverticulosis. 5. Cholelithiasis. Signed: Stephen Horne MD Report Verified Date/Time:10/03/2017 13:09:28 Reading Location: [facility] C013Y CT Body Reading Room Procedure Note Interface, External Ris In - 10/08/2017 12:47 PM CDT Addendum Begins REPORT STATUS:A ADDENDUM: The following addendum is being made to comply with coding criteria, and does not substantially change the findings or recommendations of the original report. Additional technique: CT of the abdomen is also performed without contrast. Signed: Stephen Horne MD Report Verified Date/Time: 10/08/2017 12:45:18 Reading Location: [facility] Diagnostic Imaging Reading Room - [facility] F1 1120 Addendum Ends FINAL REPORT CT OF THE CHEST, ABDOMEN, AND PELVIS CLINICAL HISTORY: Pancreatic mass seen on outside imaging TECHNIQUE: CT of the chest, abdomen, and pelvis is performed with intravenous contrast administration. This exam was performed according to our departmental dose-optimization program which includes automated exposure control, adjustment of the mA and/or kV according to patient size and/or use of iterative reconstruction technique. COMPARISON FILM: None DISCUSSION: LINES/TUBES: None. LUNGS/AIRWAYS: Linear atelectasis in the right lower lobe. Minimal subsegmental atelectasis in the left lower lobe. Trachea and major airways are otherwise clear. PLEURA: No effusion or pneumothorax. HEART AND MEDIASTINUM: The visualized thyroid is unremarkable. No mediastinal or hilar lymphadenopathy. No pericardial effusion. Coronary artery calcifications. HEPATOBILIARY: Few indeterminate subcentimeter hypodensities, largest measuring 9 mm in segment IV. The liver is mildly heterogeneous. Sludge in the gallbladder lumen. Main portal vein is patent. No biliary ductal dilation. PANCREAS: There is a 3.2 cm hypoenhancing mass in the pancreatic body with abutment of the splenic vein and splenic artery. There is also stranding adjacent to the celiac trunk. Thrombus is seen in the splenic vein at the hilum. There is pancreatic tail atrophy. SPLEEN: Heterogeneous enhancement of the spleen. There is a geographic 8.5 cm hypodensity in the inferior pole, likely representing an evolving infarct. ADRENALS: No nodule. KIDNEYS/URETERS: No hydronephrosis or hydroureter. No solid lesion. PELVIC ORGANS/BLADDER: Enlarged, heterogeneous prostate. Bladder unremarkable. GI TRACT: Severe colonic diverticulosis. No bowel wall thickening or distention. PERITONEUM/RETROPERITONEUM: No free fluid or free air. LYMPH NODES: No upper abdominal, retroperitoneal, mesenteric, or pelvic lymphadenopathy. VESSELS: Scattered aortoiliac atherosclerotic calcifications. BONES AND SOFT TISSUES: Degenerative changes in the thoracolumbar spine. No destructive osseous lesion. IMPRESSION: 1. The 3.2 cm hypoenhancing mass in the pancreatic body is concerning for pancreatic adenocarcinoma. 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 There is likely encasement of the celiac trunk. 2. Subcentimeter indeterminate hypodensities are too small to characterize in the liver, but may represent metastatic disease. Comparison with older outside imaging studies to assess chronicity would be of benefit. 3. No specific findings of intrathoracic metastatic disease. 4. Severe colonic diverticulosis. 5. Cholelithiasis. Signed: Stephen Horne MD Report Verified Date/Time: 10/03/2017 13:09:28 Reading Location: [facility] C013Y CT Body Reading Room RT OF PROCEDURE - ENDOSCOPY URL (10/02/2017 1:08 PM)Fine Needle Aspirate ( 10/02/2017 11:48 AM) Component Value Ref Range Cytology See Separate Report Specimen Performing Laboratory [place] [address] Fine Needle Aspirate by Clinician (10/02/2017 11:48 AM) Component Value Ref Range Case Report Medical Cytology Report Case: [id number] Authorizing Provider:Ravi Meier MDCollected: 10/02/2017 1148 Ordering Location: [address] Received: 10/04/2017 0819 Service Pathologist: Tera Villar MD Specimen:Pancreas, Pancreas mass routine cyto in CRR DIAGNOSIS BODY OF PANCREAS MASS, FNA BY CLINICIAN (CYTOSPINS AND CELL BLOCK OF ASPIRATE): - POSITIVE FOR MALIGNANCY - ADENOCARCINOMA, DUCTAL TYPE Signing Pathologist Direct Phone Line: [phone] CPT Code(s) 34064, 49225 CLINICAL DATA (3.9 x 2.4 cm) irregular mass identified in the body of the pancreas SPECIMEN SOURCE BODY OF PANCREAS MASS FNA GROSS DESCRIPTION Prepared cell block(A2) and 4 cytospins from 22 ml in cytorich red fixative Collected: [id number] Received: [id number] Technical component was performed at [facility], Department of Pathology, [address] [place] [id number], Professional component was performed [facility], at Department of Pathology, [address] [place] [id number], Specimen Performing Laboratory Fine Needle Aspirate - Pancreas [address] [address] Prothrombin time/INR (10/02/2017 5:15 AM) Component Value Ref Range Protime 15.8 (H) 11.7 - 14.7 seconds INR 1.3 <=5.9 Specimen Performing Laboratory Blood - Arm, Left [address] [address] Narrative RECOMMENDED COUMADIN/WARFARIN INR THERAPY RANGES STANDARD DOSE: 2.0 - 3.0 Includes: PROPHYLAXIS for venous thrombosis, systemic embolization; TREATMENT for venous thrombosis and/or pulmonary embolus. HIGH RISK: Target INR is 2.5-3.5 for patients with mechanical heart valves. after 03/19/2017
--- OUTSIDE RECORDS SUMMARY | 2018-03-20 19:50 | XMS REPORT ---
:1940 [facility] Address [address] [place] [id number] Care Team Providers Name Role Phone VIK BHATTI Unavailable Unavailable GREGGKATHY SHELBI Unavailable Unavailable Problems This patient has no known problems. Allergies, Adverse Reactions, Alerts This patient has no known allergies or adverse reactions. Medications This patient has no known medications. Results Test Description Test Time Test Comments Text Results Atomic Results Result Comments URINALYSIS W/ MICROSCOPIC 2017-11-05 15:32:00 Test Item Value Reference Range Comments COLOR (BEAKER) (test qvjl=691) Yellow CLARITY (BEAKER) (test opcj=560) Hazy SPECIFIC GRAVITY UA (BEAKER) (test xnxm=694) 1.010 1.001-1.035 PH UA (BEAKER) (test auho=217) 7.0 5.0-8.0 PROTEIN UA (BEAKER) (test xzmm=184) Negative Negative GLUCOSE UA (BEAKER) (test mwza=117) Negative Negative KETONES UA (BEAKER) (test bskp=543) Negative Negative BILIRUBIN UA (BEAKER) (test ella=709) Negative Negative BLOOD UA (BEAKER) (test hdaa=172) Negative Negative NITRITE UA (BEAKER) (test ihsz=738) Negative Negative LEUKOCYTE ESTERASE UA (BEAKER) (test wrkj=189) Negative Negative UROBILINOGEN UA (BEAKER) (test ryvs=697) 0.2 mg/dL 0.2-1.0 RBC UA (BEAKER) (test lbkl=446) 1 /HPF WBC UA (BEAKER) (test lypn=947) 0 /HPF SOURCE(BEAKER) (test bfiv=6448) U/S, ABDOMINAL, [id number] 15:21:00Reason for exam:->post op f/ uFINAL REPORT TECHNIQUE: Grayscale ultrasound of the abdomen. INDICATION: 77-year-old man after surgery. COMPARISON: Abdomen and pelvis CT 10/11/2017. FINDINGS: MIDLINE VASCULATURE: The visualized inferior vena cava is patent. Portal vein is patent. The maximum visualized aortic diameter is 2.2 cm. LIVER: The liver is normal in size and echogenicity. Smooth liver contour. No focal lesions. BILIARY:Gallbladder: No gallstones or sludge. Borderline distention of the gallbladder, which measures 4 cm in transverse dimension. No gallbladder wall thickening or pericholecystic fluid. Negative sonographic Estrada sign.Common bile duct measures 0.4 cm, within normal limits. No intrahepatic biliary ductal dilatation. PANCREAS: Prior distal pancreatectomy. SPLEEN: Prior splenectomy. PERITONEUM: No free fluid. KIDNEYS: The right kidney measures 11.4 cm and the left kidney measures 13.2 cm. No hydronephrosis. No sonographically evident solid mass lesion. IMPRESSION:Prior distal pancreatectomy and splenectomy. Nonspecific borderline distention of the gallbladder. Signed: Ann JonesMDReport Verified Date/Time: 11/05/2017 15: 21:33 Reading Location: [address] Ultrasound Reading Room [id number] 11 :55:00 Test Item Value Reference Range Comments POTASSIUM (BEAKER) (test njsm=689) 5.0 meq/L 3.5-5.1 [id number] 11:55:00 Test Item Value Reference Range Comments MAGNESIUM (BEAKER) (test fdbg=594) 2.0 mg/dL 1.6-2.6 [id number] 11:55:00 Test Item Value Reference Range Comments PHOSPHORUS (BEAKER) (test dpbv=288) 4.1 mg/dL 2.3-4.7 [id number] 11:55:00 Test Item Value Reference Range Comments SODIUM (BEAKER) (test mvxa=384) 138 meq/L 136-145 HEPATIC FUNCTION [id number] 11:55:00 Test Item Value Reference Range Comments TOTAL PROTEIN (BEAKER) (test wygm=885) 7.0 gm/dL 6.0-8.3 ALBUMIN (BEAKER) (test fhdz=2998) 4.3 g/dL 3.5-5.0 BILIRUBIN TOTAL (BEAKER) (test dpzd=077) 0.4 mg/dL 0.2-1.2 BILIRUBIN DIRECT (BEAKER) (test vrdf=809) 0.2 mg/dL 0.1-0.5 ALKALINE PHOSPHATASE (BEAKER) (test udfz=892) 96 U/L 40-150 AST (SGOT) (BEAKER) (test vwfj=363) 27 U/L 5-34 ALT (SGPT) (BEAKER) (test huzz=338) 24 U/L 6-55 [id number] 11:55:00 Test Item Value Reference Range Comments AMYLASE (BEAKER) (test dtcn=629) 47 U/L 25-125 [id number] 11:55:00 Test Item Value Reference Range Comments CALCIUM (BEAKER) (test oddm=331) 10.0 mg/dL 8.4-10.2 [id number] 11:55:00 Test Item Value Reference Range Comments CHLORIDE (BEAKER) (test bfwq=024) 102 meq/L 98-107 [id number] 11:55:00 Test Item Value Reference Range Comments GLUCOSE RANDOM (BEAKER) (test fxee=936) 113 mg/dL 70-105 [id number] 11:55:00 Test Item Value Reference Range Comments LIPASE (BEAKER) (test trjc=051) 22 U/L 8-78 BUN AND [id number] 11:55:00 Test Item Value Reference Range Comments BLOOD UREA NITROGEN 9 mg/dL 7-21 (BEAKER) (test ebce=968) CREATININE (BEAKER) (test 0.81 mg/dL 0.57-1.25 yvot=443) EGFR (BEAKER) (test 92 mL/min/1.73 sq m ESTIMATED GFR IS NOT govy=5925) ACCURATE CREATININE CLEARANCE IN PREDICTING GLOMERULAR FILTRATION RATE. ESTIMATED GFR IS NOT APPLICABLE FOR DIALYSIS PATIENTS. CBC W/PLT COUNT & AUTO [id number] 11:39:00 Test Item Value Reference Range Comments WHITE BLOOD CELL COUNT (BEAKER) (test vsog=115) 7.2 K/ L 3.5-10.5 RED BLOOD CELL COUNT (BEAKER) (test licj=516) 4.67 M/ L 4.63-6.08 HEMOGLOBIN (BEAKER) (test hxfw=725) 13.3 GM/DL 13.7-17.5 HEMATOCRIT (BEAKER) (test cvyr=939) 41.0 % 40.1-51.0 MEAN CORPUSCULAR VOLUME (BEAKER) (test citv=653) 87.8 fL 79.0-92.2 MEAN CORPUSCULAR HEMOGLOBIN (BEAKER) (test 28.5 pg 25.7-32.2 obum=030) MEAN CORPUSCULAR HEMOGLOBIN CONC (BEAKER) (test 32.4 GM/DL 32.3-36.5 kjhf=354) RED CELL DISTRIBUTION WIDTH (BEAKER) (test 14.5 % 11.6-14.4 lgrg=932) PLATELET COUNT (BEAKER) (test xgyn=436) 298 K/CU MM 150-450 MEAN PLATELET VOLUME (BEAKER) (test fbrf=633) 10.8 fL 9.4-12.4 NUCLEATED RED BLOOD CELLS (BEAKER) (test 0 /100 WBC 0-0 sfra=354) NEUTROPHILS RELATIVE PERCENT (BEAKER) (test 53 % wwav=980) LYMPHOCYTES RELATIVE PERCENT (BEAKER) (test 24 % spec=570) MONOCYTES RELATIVE PERCENT (BEAKER) (test 10 % lqym=208) EOSINOPHILS RELATIVE PERCENT (BEAKER) (test 12 % ipus=744) BASOPHILS RELATIVE PERCENT (BEAKER) (test 1 % pyoa=783) NEUTROPHILS ABSOLUTE COUNT (BEAKER) (test 3.79 K/ L 1.78-5.38 vfnk=209) LYMPHOCYTES ABSOLUTE COUNT (BEAKER) (test 1.72 K/ L 1.32-3.57 svkt=036) MONOCYTES ABSOLUTE COUNT (BEAKER) (test 0.70 K/ L 0.30-0.82 oklc=277) EOSINOPHILS ABSOLUTE COUNT (BEAKER) (test 0.88 K/ L 0.04-0.54 sows=193) BASOPHILS ABSOLUTE COUNT (BEAKER) (test 0.04 K/ L 0.01-0.08 caow=054) IMMATURE GRANULOCYTES-RELATIVE PERCENT (BEAKER) 0 % 0-1 (test ilkr=4479) TISSUE [id number] 17:34:00Surgical Pathology Report Case: [id number] Authorizing Provider: Vik Bhatti MD Collected: 10/06/2017 1245 Ordering Location: [address] Received: 10/06/2017 1305 Service Pathologist: Gissel Villanueva MD Specimen: Pancreas, DISTAL PANCREAS AND SPLEEN DISTAL PANCREAS AND SPLEEN, DISTAL PANCREATECTOMY AND SPLENECTOMY:- ADENOSQUAMOUS CARCINOMA- MODERATELY DIFFERENTIATED- TUMOR SIZE 3.5 CM (GREATEST DIMENSION, see comment)- TUMOR EXTENDS TO PERIPANCREATIC FAT- LYMPHOVASCULAR INVASION PRESENT- PERINEURAL INVASION PRESENT- PANCREATIC MARGIN, NEGATIVE FOR CARCINOMA- ONE OF 23 LYMPH NODES, POSITIVE FOR CARCINOMA BY DIRECT EXTENSION (1/23)- 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 Microscopic evaluation of a tissue slice encompassing the whole alfred-white surface (submitted in slides A2-A5 ), and shows a 3.5 cm focus of invasive carcinoma (A2 and A3). The rest of the alfred-white focus is composed of marked chronic pancreatitis. 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 Tumor Size: Greatest dimension in Centimeters (cm): 3.5 Centimeters (cm) Tumor Extension: Tumor invades peripancreatic soft tissues Treatment Effect: No known presurgical therapy Lymphovascular Invasion: Present Perineural Invasion: Present MARGINS Margins: Proximal Pancreatic Parenchymal Margin: Uninvolved by invasive carcinoma : Involved by pancreatic high-gradeintraepithelial neoplasia Distance of Invasive Carcinoma from Margin: 1.5 Centimeters (cm)LYMPH NODES Regional Lymph Nodes: Number of Lymph Nodes Involved: 1 Number of LymphNodes Examined: 23 PATHOLOGIC STAGE CLASSIFICATION (pTNM, AJCC 8th Edition) Primary Tumor (pT): pT2 Regional Lymph Nodes (pN): pN1 ADDITIONAL FINDINGS Additional Pathologic Findings: Chronic pancreatitis 08632, 92191, 14123, 01577 [id number] tumorA. Received fresh labeled "pancreas , distal and spleen" is a 7.5 x 5.5 x 3 cm portion of distal pancreas with attached 13 x 9 x 3.5 cmand 300 gm spleen. There is a 5.5 x 3.5 x 2.5 cm alfred- white ill-circumscribed mass within the pancreas. The distance to the distal margin cannot be assessed due to the ill-circumscription of the mass. The mass appears to be abutting the renal vein and the anterior pancreatic surface that is inked blue.The pancreatic duct appears to be abutted by the mass. The soft tissue surrounding the external surface of the pancreas is alfred-yellow and fatty with the involvement by the tumor not determined due to the ill-circumscription of the tumor. The grossly uninvolved pancreas is alfred-pink and lobulated but hard to distinguish from the tumor. The splenic capsule is alfred-brown and smooth with no grossly identifiable adhesions or masses.The spleen has a alfred-red cut surface with no identifiable nodules or masses. The renal vein appears to be firm and atherosclerotic with approximately 75% lumen obliteration. Multiple alfred -brown lymph nodes are identified ranging from 0.1 to 0.2 cm in maximum dimension. The proximal pancreatic resection margin is inked blue. The anterior peripancreatic soft tissue is inked blueand the posterior peripancreatic soft tissue is inked black. Photographs are taken. Jumpbasting Facing Baster sections are submitted as follows: A1, proximal pancreatic resection margin en face; A2 to A4 , anterior superior distal pancreas submitted in its entirety consecutively from proximal to distal in three consecutive sections with the cut surface inked orange. A5 to A7, anterior inferior distal pancreas submitted in its entirety consecutively from proximal to distal with the cut surface inked orange ; A8 to A11, hobbies and crafts sales representative sections of the posterior pancreas; A12 to A15, hobbies and crafts sales representative sections of the anterior pancreas to include A13 to A15, tumor and pancreas with splenic vein following light decal; A16, hobbies and crafts sales representative section of the spleen; A17, five possible whole lymph nodes; A18, five possible whole lymph nodes; A19, four possible whole lymph nodes; A20, anterior peripancreatic fat; A21, posterior peripancreatic fat. TQ/plMicroscopic examination is performed and the findings are incorporated in the diagnostic line. Immunostains for CK5/6 and p63 were performed with appropriate controls. 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 This exam was performed according to ourdepartmental dose-optimization program which includes automated exposure control, [...] on the first image of the axial series.HEPATOBILIARY : Cholelithiasis. Unchanged indeterminate subcentimeter hypodensities in the liver. Mainportal vein is patent. No biliary ductal dilation.PANCREAS: Findings of distal pancreatectomy. No drainable peripancreatic fluid collection. SPLEEN: Surgically absent. No drainable fluid collection in the splenic bed. ADRENALS: No nodule. KIDNEYS/URETERS: No obstructing renal or ureteral calculi. No hydronephrosis or hydroureter.PELVIC ORGANS/BLADDER: Unremarkable. GI TRACT: Moderate colonic diverticulosis. No pericolonic inflammatory change. No definite bowel wall thickening or distention. PERITONEUM/RETROPERITONEUM: Minimal stranding in the left upper quadrant. No drainable fluid collection. A surgically placed drainage catheter is seen in the left subphrenic region. Trace foci of air at the anterior midline, likely related to recent surgery and presence of drainage catheter.LYMPH NODES: No upper abdominal, retroperitoneal, mesenteric, or pelvic lymphadenopathy.VESSELS: Abdominal aorta normalin caliber. BONES AND SOFT TISSUES: No destructive osseous lesion. Degenerative changes in the lumbar spine. IMPRESSION:1. Expected postsurgical changes related to distal pancreatectomy and splenectomy. No drainable fluid collection in the surgical bed.2. Apparent linear hypodensity in a segmental branch of the left lower lobe pulmonary artery is likely related to volume averaging artifact , however if there is clinical suspicion of a small pulmonary embolism, this could be further evaluated with contrast-enhanced chest CT.3. Unchanged indeterminate subcentimeter hypodensities in the liver. Recommend attention on follow-up examination.4. Trace left pleural effusion and minimal bibasilar atelectasis. Signed: Stephen Kowalski MDReport Verified Date/Time: 10/11/2017 16:07 :26 Reading Location: [facility] C013Y CT Body Reading Room U/S, ABDOMINAL, [id number] 14:13:00Reason for exam:->Post surgical resection Research ProtocolFINAL REPORT TECHNIQUE: Grayscale ultrasound of the abdomen. INDICATION: 77-year-old man after surgery for research protocol. COMPARISON: Abdomen MRI 10/05/2017. FINDINGS: MIDLINE VASCULATURE: The visualized inferior vena cava is patent. Portal vein is patent. The abdominal aorta is not clearly visualized secondary to overlying bowel gas LIVER: Smooth liver contour. Echogenicity is within normal limits. No focal lesions. BILIARY:Gallbladder: Multiple gallstones. No gallbladderwall thickening, pericholecystic fluid, or distention. Negative sonographic Estrada sign.Common bile duct measures 0.5 cm, within normal limits. No intrahepatic biliary ductal dilatation. PANCREAS: Incompletely visualized due to overlying bowel gas. SPLEEN: Interval splenectomy. PERITONEUM: No free fluid. KIDNEYS: Normal in size bilaterally. No hydronephrosis. No sonographically evident solid mass lesion. IMPRESSION:Interval splenectomy. Cholelithiasis. Signed: Ann Jones MDReport Verified Date/Time: 10/11/2017 14:13:03 Reading Location: [facility] P006J Ultrasound Reading Room [id number] 08:42:00 Test Item Value Reference Range Comments LIPASE (BEAKER) (test zixr=172) 10 U/L 878 HEPATIC FUNCTION [id number] 08:42:00 Test Item Value Reference Range Comments TOTAL PROTEIN (BEAKER) (test hing=274) 5.8 gm/dL 6.0-8.3 ALBUMIN (BEAKER) (test oxux=7090) 3.4 g/dL 3.5-5.0 BILIRUBIN TOTAL (BEAKER) (test lmnp=085) 0.6 mg/dL 0.2-1.2 BILIRUBIN DIRECT (BEAKER) (test xfcc=872) 0.3 mg/dL 0.1-0.5 ALKALINE PHOSPHATASE (BEAKER) (test pskq=155) 93 U/L 40-150 AST (SGOT) (BEAKER) (test iypc=869) 57 U/L 5-34 ALT (SGPT) (BEAKER) (test mxzc=972) 60 U/L 6-55 [id number] 06:45:00 Test Item Value Reference Range Comments PHOSPHORUS (BEAKER) (test jifc=399) 3.9 mg/dL 2.3-4.7 [id number] 06:45:00 Test Item Value Reference Range Comments MAGNESIUM (BEAKER) (test tfuh=482) 2.0 mg/dL 1.6-2.6 BASIC METABOLIC [id number] 06:45:00 Test Item Value Reference Range Comments SODIUM (BEAKER) (test 135 meq/L 136-145 uxrt=479) POTASSIUM (BEAKER) (test 3.4 meq/L 3.5-5.1 wjou=729) CHLORIDE (BEAKER) (test 99 meq/L 98-107 zmal=596) CO2 (BEAKER) (test 26 meq/L 22-29 cpvd=944) BLOOD UREA NITROGEN 8 mg/dL 7-21 (BEAKER) (test ykdb=354) CREATININE (BEAKER) (test 0.67 mg/dL 0.57-1.25 ejqu=677) GLUCOSE RANDOM (BEAKER) 114 mg/dL 70-105 (test gbgr=482) CALCIUM (BEAKER) (test 8.9 mg/dL 8.4-10.2 vtrn=180) EGFR (BEAKER) (test 114 mL/min/1.73 sq m ESTIMATED GFR IS NOT wxxn=4716) ACCURATE CREATININE CLEARANCE IN PREDICTING GLOMERULAR FILTRATION RATE. ESTIMATED GFR IS NOT APPLICABLE FOR DIALYSIS PATIENTS. CBC W/PLT COUNT & AUTO [id number] 06:18:00 Test Item Value Reference Range Comments WHITE BLOOD CELL COUNT (BEAKER) (test civs=928) 10.1 K/ L 3.5-10.5 RED BLOOD CELL COUNT (BEAKER) (test ljsd=358) 4.15 M/ L 4.63-6.08 HEMOGLOBIN (BEAKER) (test cold=304) 11.8 GM/DL 13.7-17.5 HEMATOCRIT (BEAKER) (test loxa=085) 35.6 % 40.1-51.0 MEAN CORPUSCULAR VOLUME (BEAKER) (test qita=482) 85.8 fL 79.0-92.2 MEAN CORPUSCULAR HEMOGLOBIN (BEAKER) (test 28.4 pg 25.7-32.2 tadt=849) MEAN CORPUSCULAR HEMOGLOBIN CONC (BEAKER) (test 33.1 GM/DL 32.3-36.5 ptrv=520) RED CELL DISTRIBUTION WIDTH (BEAKER) (test 12.9 % 11.6-14.4 lpkg=055) PLATELET COUNT (BEAKER) (test eqof=583) 432 K/CU MM 150-450 MEAN PLATELET VOLUME (BEAKER) (test jxfj=016) 10.6 fL 9.4-12.4 NUCLEATED RED BLOOD CELLS (BEAKER) (test 0 /100 WBC 0-0 pjfd=698) NEUTROPHILS RELATIVE PERCENT (BEAKER) (test 61 % rhlj=298) LYMPHOCYTES RELATIVE PERCENT (BEAKER) (test 14 % lluf=263) MONOCYTES RELATIVE PERCENT (BEAKER) (test 10 % vvbz=580) EOSINOPHILS RELATIVE PERCENT (BEAKER) (test 11 % dqot=934) BASOPHILS RELATIVE PERCENT (BEAKER) (test 0 % xfnw=337) NEUTROPHILS ABSOLUTE COUNT (BEAKER) (test 6.14 K/ L 1.78-5.38 hpjn=508) LYMPHOCYTES ABSOLUTE COUNT (BEAKER) (test 1.41 K/ L 1.32-3.57 hsfg=890) MONOCYTES ABSOLUTE COUNT (BEAKER) (test 0.97 K/ L 0.30-0.82 pjxj=145) EOSINOPHILS ABSOLUTE COUNT (BEAKER) (test 1.12 K/ L 0.04-0.54 vkyq=376) BASOPHILS ABSOLUTE COUNT (BEAKER) (test 0.04 K/ L 0.01-0.08 fjfh=320) IMMATURE GRANULOCYTES-RELATIVE PERCENT (BEAKER) 4 % 0-1 (test kkof=3039) [id number] 10:39:00 Test Item Value Reference Range Comments PHOSPHORUS (BEAKER) (test xoih=106) 3.3 mg/dL 2.3-4.7 [id number] 10:39:00 Test Item Value Reference Range Comments MAGNESIUM (BEAKER) (test yxmf=563) 1.8 mg/dL 1.6-2.6 BASIC METABOLIC [id number] 10:39:00 Test Item Value Reference Range Comments SODIUM (BEAKER) (test 135 meq/L 136-145 ztam=923) POTASSIUM (BEAKER) (test 3.3 meq/L 3.5-5.1 fdzi=272) CHLORIDE (BEAKER) (test 100 meq/L 98-107 uvgn=071) CO2 (BEAKER) (test 26 meq/L 22-29 qifh=445) BLOOD UREA NITROGEN 9 mg/dL 7-21 (BEAKER) (test mkkm=228) CREATININE (BEAKER) (test 0.67 mg/dL 0.57-1.25 crba=722) GLUCOSE RANDOM (BEAKER) 110 mg/dL 70-105 (test dwow=259) CALCIUM (BEAKER) (test 8.7 mg/dL 8.4-10.2 qudp=609) EGFR (BEAKER) (test 114 mL/min/1.73 sq m ESTIMATED GFR IS NOT dirf=4224) ACCURATE CREATININE CLEARANCE IN PREDICTING GLOMERULAR FILTRATION RATE. ESTIMATED GFR IS NOT APPLICABLE FOR DIALYSIS PATIENTS. CBC W/PLT COUNT & AUTO [id number] 06:42:00 Test Item Value Reference Range Comments WHITE BLOOD CELL COUNT (BEAKER) (test gzsr=710) 10.4 K/ L 3.5-10.5 RED BLOOD CELL COUNT (BEAKER) (test siff=347) 4.02 M/ L 4.63-6.08 HEMOGLOBIN (BEAKER) (test adoc=220) 11.5 GM/DL 13.7-17.5 HEMATOCRIT (BEAKER) (test hjij=826) 34.5 % 40.1-51.0 MEAN CORPUSCULAR VOLUME (BEAKER) (test srgu=283) 85.8 fL 79.0-92.2 MEAN CORPUSCULAR HEMOGLOBIN (BEAKER) (test 28.6 pg 25.7-32.2 ohwj=472) MEAN CORPUSCULAR HEMOGLOBIN CONC (BEAKER) (test 33.3 GM/DL 32.3-36.5 zqvs=553) RED CELL DISTRIBUTION WIDTH (BEAKER) (test 12.7 % 11.6-14.4 lqop=290) PLATELET COUNT (BEAKER) (test fzem=278) 389 K/CU MM 150-450 MEAN PLATELET VOLUME (BEAKER) (test thoh=390) 10.6 fL 9.4-12.4 NUCLEATED RED BLOOD CELLS (BEAKER) (test 0 /100 WBC 0-0 lhdq=514) NEUTROPHILS RELATIVE PERCENT (BEAKER) (test 72 % bmpu=488) LYMPHOCYTES RELATIVE PERCENT (BEAKER) (test 10 % tvtd=303) MONOCYTES RELATIVE PERCENT (BEAKER) (test 7 % wfoz=348) EOSINOPHILS RELATIVE PERCENT (BEAKER) (test 8 % uyzw=726) BASOPHILS RELATIVE PERCENT (BEAKER) (test 0 % pdvh=398) NEUTROPHILS ABSOLUTE COUNT (BEAKER) (test 7.51 K/ L 1.78-5.38 nzbr=782) LYMPHOCYTES ABSOLUTE COUNT (BEAKER) (test 1.06 K/ L 1.32-3.57 bxuu=072) MONOCYTES ABSOLUTE COUNT (BEAKER) (test 0.76 K/ L 0.30-0.82 clxs=374) EOSINOPHILS ABSOLUTE COUNT (BEAKER) (test 0.84 K/ L 0.04-0.54 wadp=177) BASOPHILS ABSOLUTE COUNT (BEAKER) (test 0.02 K/ L 0.01-0.08 pivb=232) IMMATURE GRANULOCYTES-RELATIVE PERCENT (BEAKER) 2 % 0-1 (test qspq=3356) AMYLASE, BODY [id number] 18:24:00 Test Item Value Reference Range Comments AMYLASE FLUID (BEAKER) (test zmap=838) > U/L Absence of reference range indicates that normals have not been defined.Assay performance has not been validated for this type of specimen.RAD, CHEST, 1 VIEW , NON [id number] 11:20:00Reason for exam:->feverShould this be performed at the bedside?->YesFINAL REPORT CHEST ONE VIEW HISTORY: Fever COMPARISON: [...] IMPRESSION: Unchanged bibasilar atelectasis versus pneumonia. Signed: aMry Ingram MDReport Verified Date/Time: 10/09/2017 11:20: 08 Reading Location: [address] Transitional Reading Room 11:20 AMTROPONIN [id number] 10:37:00 Test Item Value Reference Range Comments TROPONIN I (BEAKER) (test nmcb=234) 0.03 ng/mL 0.00-0.03 Troponin I (TnI) levels must be interpreted [...] failure, acidosis, acute neurological disease, and persistent tachyarrhythmia.[id number] 10:29:00 Test Item Value Reference Range Comments MAGNESIUM (BEAKER) (test 1.9 mg/dL 1.6-2.6 Specimen slightly hemolyzed gmom=669) [id number] 10:29:00 Test Item Value Reference Range Comments PHOSPHORUS (BEAKER) (test 2.5 mg/dL 2.3-4.7 Specimen slightly hemolyzed baxw=395) BASIC METABOLIC [id number] 10:29:00 Test Item Value Reference Range Comments SODIUM (BEAKER) (test 134 meq/L 136-145 nzls=687) POTASSIUM (BEAKER) (test 3.8 meq/L 3.5-5.1 Specimen slightly tokc=898) hemolyzed CHLORIDE (BEAKER) (test 101 meq/L 98-107 lsoq=739) CO2 (BEAKER) (test 19 meq/L 22-29 igax=673) BLOOD UREA NITROGEN 12 mg/dL 7-21 (BEAKER) (test ahcx=491) CREATININE (BEAKER) (test 0.70 mg/dL 0.57-1.25 Specimen slightly vinm=407) hemolyzed GLUCOSE RANDOM (BEAKER) 142 mg/dL 70-105 (test qdcu=654) CALCIUM (BEAKER) (test 8.5 mg/dL 8.4-10.2 pqyd=061) EGFR (BEAKER) (test 109 mL/min/1.73 sq m ESTIMATED GFR IS NOT oczg=0529) ACCURATE CREATININE CLEARANCE IN PREDICTING GLOMERULAR FILTRATION RATE. ESTIMATED GFR IS NOT APPLICABLE FOR DIALYSIS PATIENTS. HEPATIC FUNCTION [id number] 10:29:00 Test Item Value Reference Range Comments TOTAL PROTEIN (BEAKER) (test 5.8 gm/dL 6.0-8.3 Specimen slightly hemolyzed vegy=782) ALBUMIN (BEAKER) (test 3.4 g/dL 3.5-5.0 Specimen slightly hemolyzed dzrz=4958) BILIRUBIN TOTAL (BEAKER) (test 0.6 mg/dL 0.2-1.2 Specimen slightly hemolyzed vpeu=385) BILIRUBIN DIRECT (BEAKER) (test 0.2 mg/dL 0.1-0.5 Specimen slightly hemolyzed fnfm=027) ALKALINE PHOSPHATASE (BEAKER) 83 U/L 40-150 (test vgur=611) AST (SGOT) (BEAKER) (test 39 U/L 5-34 Specimen slightly hemolyzed tewc=174) ALT (SGPT) (BEAKER) (test 33 U/L 6-55 Specimen slightly hemolyzed xnse=579) [id number] 10:29:00 Test Item Value Reference Range Comments AMYLASE (BEAKER) (test zbhr=579) 13 U/L 25-125 Specimen slightly hemolyzed [id number] 10:29:00 Test Item Value Reference Range Comments LIPASE (BEAKER) (test mmbj=083) 12 U/L 8-78 HEPATIC FUNCTION [id number] 16:18:00 Test Item Value Reference Range Comments TOTAL PROTEIN (BEAKER) (test uuco=138) 5.6 gm/dL 6.0-8.3 ALBUMIN (BEAKER) (test apau=2464) 3.6 g/dL 3.5-5.0 BILIRUBIN TOTAL (BEAKER) (test wjtd=189) 0.5 mg/dL 0.2-1.2 BILIRUBIN DIRECT (BEAKER) (test nawg=605) 0.2 mg/dL 0.1-0.5 ALKALINE PHOSPHATASE (BEAKER) (test hqfp=139) 76 U/L 40-150 AST (SGOT) (BEAKER) (test dexi=018) 36 U/L 5-34 ALT (SGPT) (BEAKER) (test ubjn=866) 31 U/L 6-55 CREATINE KINASE (CK), TOTAL AND [id number] 16:10:00 Test Item Value Reference Range Comments CREATINE KINASE TOTAL (BEAKER) (test rolq=331) 268 U/L 29-200 CREATINE KINASE-MB (BEAKER) (test cptp=674) 2.9 ng/mL 0.0-6.6 CREATINE KINASE-MB INDEX (BEAKER) (test pbrh=582) 1.1 % CK-MB Reference Range:<6.7 Normal6.7-10.0 Borderline>10.0 AbnormalTROPONIN [id number] 16:10:00 Test Item Value Reference Range Comments TROPONIN I (BEAKER) (test iitu=997) 0.04 ng/mL 0.00-0.03 Troponin I (TnI) levels must be interpreted [...] failure, acidosis, acute neurological disease, and persistent tachyarrhythmia.[id number] 16:04:00 Test Item Value Reference Range Comments LIPASE (BEAKER) (test mkgl=279) 29 U/L 8-78 CALCIUM, [id number] 15:46:00 Test Item Value Reference Range Comments CALCIUM IONIZED (BEAKER) (test vayk=408) 1.05 mmol/L 1.12-1.27 PH, BLOOD (BEAKER) (test rkew=5030) 7.41 CT, ABDOMEN - PELVIS, PANCREAS [id number] 12:45:00Reason for exam:-&gt ;Pancreatic mass suspectedAddendum BeginsREPORT STATUS:A ADDENDUM:The following addendum is being made to comply with coding criteria, and does not substantially change the findings or recommendations of the original report. Additional technique:CT of the abdomen is also performed without contrast. Signed: Stephen Kowalski MDReport Verified Date/Time: 2017 12:45:18 Reading Location: [facility] DiagnosticImaging Reading Room - [place] [id number] EndsFINAL REPORT CT OF THE CHEST, ABDOMEN, AND PELVIS CLINICAL HISTORY: Pancreatic mass seen on outside imaging TECHNIQUE : CT of thechest, abdomen, and pelvis is performed with intravenous contrast administration. This exam was performed according to our departmental dose- optimization program which includes automated exposure control, adjustment of the mA and/or kV according to patient size and/or use of iterative reconstruction technique. COMPARISON FILM: None DISCUSSION: LINES/TUBES: None. LUNGS/AIRWAYS: Linear atelectasis in the right lower lobe. Minimal subsegmental atelectasis in the left lower lobe. Trachea and major airways are otherwise clear.PLEURA: No effusion or pneumothorax.HEART AND MEDIASTINUM: The visualized thyroid is unremarkable. No mediastinal or hilar lymphadenopathy. No pericardial effusion. Coronary artery calcifications. HEPATOBILIARY: Few indeterminate subcentimeter hypodensities, largest measuring 9 mm in segment IV. The liver is mildly heterogeneous. Sludge in the gallbladder lumen. Main portal vein is patent. No biliary ductal dilation.PANCREAS: There is a 3.2 cm hypoenhancing mass [...] KIDNEYS/URETERS: No hydronephrosis or hydroureter. No solid lesion.PELVIC ORGANS/BLADDER: Enlarged, heterogeneous prostate. Bladder unremarkable. GI TRACT: Severe colonic diverticulosis. No bowel wall thickening or distention. PERITONEUM/RETROPERITONEUM: No free fluid or free air.LYMPH NODES: No upper abdominal, retroperitoneal,mesenteric, or pelvic lymphadenopathy.VESSELS: Scattered aortoiliac atherosclerotic calcifications. BONES AND SOFT TISSUES: Degenerative changes in the thoracolumbar spine. No destructive osseous lesion. IMPRESSION:1. The 3.2 cm hypoenhancing mass in the pancreatic body is concerning for pancreatic adenocarcinoma. There is abutment of the splenic vein and splenic artery with partial thrombosis of thesplenic vein. 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 There is likely encasement of the celiac trunk.2. Subcentimeter indeterminate hypodensities are too small to characterize in the liver, but may represent metastatic disease. Comparison with older outside imaging studies to assess chronicity would be of benefit.3. No specific findings of intrathoracic metastatic disease.4. Severe colonic diverticulosis.5. Cholelithiasis. Signed: Stephen Kowalskieport Verified Date/ Time: 10/03/2017 13:09:28 Reading Location: [facility] B1 C013Y CT Body Reading Room CT, CHEST, WITH [id number] 12:45:00Addendum BeginsREPORT STATUS:A ADDENDUM:The following addendum is being made to comply with coding criteria, and does not substantially change the findings or recommendations of the original report. Additional technique:CT of the abdomen is also performed without contrast. Signed: Stephen Kowalski Verified Date /Time: 10/08/2017 12:45:18 Reading Location: [facility] DiagnosticImaging Reading Room - [place] [address] [id number]AL RE[address] OF THE CHEST, ABDOMEN, AND PELVIS CLINICAL HISTORY: Pancreatic mass seen on outside imaging TECHNIQUE: CT of thechest, abdomen, and pelvis is performed with intravenous contrast administration. This exam was performed according to our departmental dose-optimization program which includes automated exposure control , adjustment of the mA and/or kV according to patient size and/or use of iterative reconstruction technique. COMPARISON FILM: None DISCUSSION: LINES/ TUBES: None. LUNGS/AIRWAYS: Linear atelectasis in the right lower lobe. Minimal subsegmental atelectasis in the left lower lobe. Trachea and major airways are otherwise clear.PLEURA: No effusion or pneumothorax.HEART AND MEDIASTINUM: The visualized thyroid is unremarkable. No mediastinal or hilar lymphadenopathy. No pericardial effusion. Coronary artery calcifications. HEPATOBILIARY: Few indeterminate subcentimeter hypodensities, largest measuring 9 mm in segment IV. The liver is mildly heterogeneous. Sludge in the gallbladder lumen. Main portal vein is patent. No biliary ductal dilation.PANCREAS: There is a 3.2 cm hypoenhancing mass [...] KIDNEYS/URETERS: No hydronephrosis or hydroureter. No solid lesion.PELVIC ORGANS/BLADDER: Enlarged, heterogeneous prostate. Bladder unremarkable. GI TRACT: Severe colonic diverticulosis. No bowel wall thickening or distention. PERITONEUM/RETROPERITONEUM: No free fluid or free air.LYMPH NODES: No upper abdominal, retroperitoneal,mesenteric, or pelvic lymphadenopathy.VESSELS: Scattered aortoiliac atherosclerotic calcifications. BONES AND SOFT TISSUES: Degenerative changes in the thoracolumbar spine. No destructive osseous lesion. IMPRESSION:1. The 3.2 cm hypoenhancing mass in the pancreatic body is concerning for pancreatic adenocarcinoma. There is abutment of the splenic vein and splenic artery with partial thrombosis of thesplenic vein. 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 There is likely encasement of the celiac trunk.2. Subcentimeter indeterminate hypodensities are too small to characterize in the liver, but may represent metastatic disease. Comparison with older outside imaging studies to assess chronicity would be of benefit.3. No specific findings of intrathoracic metastatic disease.4. Severe colonic diverticulosis.5. Cholelithiasis. Signed: Stephen Kowalski MDReport Verified Date/ Time: 10/03/2017 13:09:28 Reading Location: [address] Body Reading Room TROPONIN [id number] 09:44:00 Test Item Value Reference Range Comments TROPONIN I (BEAKER) (test qmuq=204) 0.05 ng/mL 0.00-0.03 Troponin I (TnI) levels must be interpreted [...] failure, acidosis, acute neurological disease, and persistent tachyarrhythmia.[id number] 05:34:00 Test Item Value Reference Range Comments PHOSPHORUS (BEAKER) (test ffks=934) 1.8 mg/dL 2.3-4.7 [id number] 05:34:00 Test Item Value Reference Range Comments MAGNESIUM (BEAKER) (test syog=330) 2.2 mg/dL 1.6-2.6 BASIC METABOLIC [id number] 05:34:00 Test Item Value Reference Range Comments SODIUM (BEAKER) (test 135 meq/L 136-145 fgyu=308) POTASSIUM (BEAKER) (test 3.8 meq/L 3.5-5.1 toax=740) CHLORIDE (BEAKER) (test 102 meq/L 98-107 jrii=881) CO2 (BEAKER) (test 25 meq/L 22-29 flaf=649) BLOOD UREA NITROGEN 14 mg/dL 7-21 (BEAKER) (test ajzt=421) CREATININE (BEAKER) (test 0.72 mg/dL 0.57-1.25 pehr=457) GLUCOSE RANDOM (BEAKER) 118 mg/dL 70-105 (test ydhb=071) CALCIUM (BEAKER) (test 8.5 mg/dL 8.4-10.2 brtp=544) EGFR (BEAKER) (test 105 mL/min/1.73 sq m ESTIMATED GFR IS NOT tmmh=1233) ACCURATE CREATININE CLEARANCE IN PREDICTING GLOMERULAR FILTRATION RATE. ESTIMATED GFR IS NOT APPLICABLE FOR DIALYSIS PATIENTS. CBC W/PLT COUNT & AUTO [id number] 04:57:00 Test Item Value Reference Range Comments WHITE BLOOD CELL COUNT (BEAKER) (test dixn=304) 20.2 K/ L 3.5-10.5 RED BLOOD CELL COUNT (BEAKER) (test rwcu=518) 3.88 M/ L 4.63-6.08 HEMOGLOBIN (BEAKER) (test jgyd=457) 11.4 GM/DL 13.7-17.5 HEMATOCRIT (BEAKER) (test nqvy=162) 33.5 % 40.1-51.0 MEAN CORPUSCULAR VOLUME (BEAKER) (test fupk=956) 86.3 fL 79.0-92.2 MEAN CORPUSCULAR HEMOGLOBIN (BEAKER) (test 29.4 pg 25.7-32.2 hfwv=085) MEAN CORPUSCULAR HEMOGLOBIN CONC (BEAKER) (test 34.0 GM/DL 32.3-36.5 yvyl=991) RED CELL DISTRIBUTION WIDTH (BEAKER) (test 12.8 % 11.6-14.4 qzsu=541) PLATELET COUNT (BEAKER) (test ztbp=850) 298 K/CU MM 150-450 MEAN PLATELET VOLUME (BEAKER) (test rodq=911) 11.3 fL 9.4-12.4 NUCLEATED RED BLOOD CELLS (BEAKER) (test 0 /100 WBC 0-0 hkzk=359) NEUTROPHILS RELATIVE PERCENT (BEAKER) (test 87 % lgiv=462) LYMPHOCYTES RELATIVE PERCENT (BEAKER) (test 6 % aoeh=653) MONOCYTES RELATIVE PERCENT (BEAKER) (test 5 % abdt=712) EOSINOPHILS RELATIVE PERCENT (BEAKER) (test 1 % gcjo=776) BASOPHILS RELATIVE PERCENT (BEAKER) (test 0 % mwit=264) NEUTROPHILS ABSOLUTE COUNT (BEAKER) (test 17.65 K/ L 1.78-5.38 yucy=880) LYMPHOCYTES ABSOLUTE COUNT (BEAKER) (test 1.12 K/ L 1.32-3.57 bdeo=534) MONOCYTES ABSOLUTE COUNT (BEAKER) (test 1.09 K/ L 0.30-0.82 arfz=705) EOSINOPHILS ABSOLUTE COUNT (BEAKER) (test 0.15 K/ L 0.04-0.54 okpx=101) BASOPHILS ABSOLUTE COUNT (BEAKER) (test 0.04 K/ L 0.01-0.08 jevq=286) IMMATURE GRANULOCYTES-RELATIVE PERCENT (BEAKER) 1 % 0-1 (test opwo=2934) CALCIUM, [id number] 16:06:00 Test Item Value Reference Range Comments CALCIUM IONIZED (BEAKER) (test zylm=678) 1.08 mmol/L 1.12-1.27 PH, BLOOD (BEAKER) (test brcx=6852) 7.39 [id number] 14:10:00 Test Item Value Reference Range Comments LIPASE (BEAKER) (test btdn=587) 33 U/L 8-78 HEPATIC FUNCTION [id number] 14:10:00 Test Item Value Reference Range Comments TOTAL PROTEIN (BEAKER) (test jzut=730) 6.5 gm/dL 6.0-8.3 ALBUMIN (BEAKER) (test yyov=1810) 4.2 g/dL 3.5-5.0 BILIRUBIN TOTAL (BEAKER) (test wgzx=538) 0.7 mg/dL 0.2-1.2 BILIRUBIN DIRECT (BEAKER) (test phfj=781) 0.4 mg/dL 0.1-0.5 ALKALINE PHOSPHATASE (BEAKER) (test djrv=417) 74 U/L 40-150 AST (SGOT) (BEAKER) (test vhqm=231) 38 U/L 5-34 ALT (SGPT) (BEAKER) (test fjuk=363) 30 U/L 6-55 BASIC METABOLIC [id number] 04:53:00 Test Item Value Reference Range Comments SODIUM (BEAKER) (test 134 meq/L 136-145 tsjv=375) POTASSIUM (BEAKER) (test 3.8 meq/L 3.5-5.1 wcte=384) CHLORIDE (BEAKER) (test 102 meq/L 98-107 odik=066) CO2 (BEAKER) (test 18 meq/L 22-29 snwe=239) BLOOD UREA NITROGEN 7 mg/dL 7-21 (BEAKER) (test swxd=416) CREATININE (BEAKER) (test 0.73 mg/dL 0.57-1.25 bjbw=704) GLUCOSE RANDOM (BEAKER) 177 mg/dL 70-105 (test twis=629) CALCIUM (BEAKER) (test 8.9 mg/dL 8.4-10.2 cnjb=296) EGFR (BEAKER) (test 104 mL/min/1.73 sq m ESTIMATED GFR IS NOT uwbg=5497) ACCURATE CREATININE CLEARANCE IN PREDICTING GLOMERULAR FILTRATION RATE. ESTIMATED GFR IS NOT APPLICABLE FOR DIALYSIS PATIENTS. [id number] 04:49:00 Test Item Value Reference Range Comments PHOSPHORUS (BEAKER) (test merx=130) 2.9 mg/dL 2.3-4.7 [id number] 04:49:00 Test Item Value Reference Range Comments MAGNESIUM (BEAKER) (test qstg=249) 1.5 mg/dL 1.6-2.6 AMYLASE, BODY [id number] 04:38:00 Test Item Value Reference Range Comments AMYLASE FLUID (BEAKER) (test vmug=019) 2673 U/L Absence of reference range indicates that normals have not been defined.Assay performance has not been validated for this type of specimen.CBC W/PLT COUNT & amp; AUTO [id number] 04:24:00 Test Item Value Reference Range Comments WHITE BLOOD CELL COUNT (BEAKER) (test rkxr=296) 19.1 K/ L 3.5-10.5 RED BLOOD CELL COUNT (BEAKER) (test dxmb=242) 4.48 M/ L 4.63-6.08 HEMOGLOBIN (BEAKER) (test jrax=053) 13.1 GM/DL 13.7-17.5 HEMATOCRIT (BEAKER) (test kmsw=512) 38.3 % 40.1-51.0 MEAN CORPUSCULAR VOLUME (BEAKER) (test skhl=595) 85.5 fL 79.0-92.2 MEAN CORPUSCULAR HEMOGLOBIN (BEAKER) (test 29.2 pg 25.7-32.2 ezvq=855) MEAN CORPUSCULAR HEMOGLOBIN CONC (BEAKER) (test 34.2 GM/DL 32.3-36.5 ways=784) RED CELL DISTRIBUTION WIDTH (BEAKER) (test 12.6 % 11.6-14.4 wxoa=915) PLATELET COUNT (BEAKER) (test ydfg=091) 283 K/CU MM 150-450 MEAN PLATELET VOLUME (BEAKER) (test gong=995) 10.8 fL 9.4-12.4 NUCLEATED RED BLOOD CELLS (BEAKER) (test 0 /100 WBC 0-0 kyfh=139) NEUTROPHILS RELATIVE PERCENT (BEAKER) (test 90 % xiyz=269) LYMPHOCYTES RELATIVE PERCENT (BEAKER) (test 5 % rvpt=766) MONOCYTES RELATIVE PERCENT (BEAKER) (test 4 % amax=056) EOSINOPHILS RELATIVE PERCENT (BEAKER) (test 0 % yjvr=233) BASOPHILS RELATIVE PERCENT (BEAKER) (test 0 % sjou=564) NEUTROPHILS ABSOLUTE COUNT (BEAKER) (test 17.18 K/ L 1.78-5.38 hhxu=083) LYMPHOCYTES ABSOLUTE COUNT (BEAKER) (test 0.86 K/ L 1.32-3.57 eldw=425) MONOCYTES ABSOLUTE COUNT (BEAKER) (test 0.84 K/ L 0.30-0.82 slfe=324) EOSINOPHILS ABSOLUTE COUNT (BEAKER) (test 0.01 K/ L 0.04-0.54 tzyj=169) BASOPHILS ABSOLUTE COUNT (BEAKER) (test 0.04 K/ L 0.01-0.08 biod=846) IMMATURE GRANULOCYTES-RELATIVE PERCENT (BEAKER) 1 % 0-1 (test erct=4408) [id number] 13:44:00 Test Item Value Reference Range Comments CALCIUM (BEAKER) (test lyxa=274) 7.5 mg/dL 8.4-10.2 [id number] 13:42:00 Test Item Value Reference Range Comments LIPASE (BEAKER) (test wmpo=054) 137 U/L 8-78 [id number] 13:42:00 Test Item Value Reference Range Comments AMYLASE (BEAKER) (test lvhn=667) 50 U/L 25-125 CALCIUM, [id number] 13:13:00 Test Item Value Reference Range Comments CALCIUM IONIZED (BEAKER) (test nqhi=084) 0.86 mmol/L 1.12-1.27 PH, BLOOD (BEAKER) (test sdsx=2083) 7.41 BLOOD GAS, [id number] 12:49:00 Test Item Value Reference Range Comments PH ARTERIAL (BEAKER) (test gdza=045) 7.41 7.35-7.45 PCO2 ARTERIAL (BEAKER) (test uqfy=321) 34 mmHg 35-45 PO2 ARTERIAL (BEAKER) (test wyem=329) 194 mmHg 80-90 O2 SATURATION ARTERIAL (BEAKER) (test jblo=663) 99.3 % 96.0-97.0 HCO3 ARTERIAL (BEAKER) (test hswz=011) 21 mmol/L 21-29 BASE EXCESS ARTERIAL (BEAKER) (test etxl=584) -3.5 mmol/L -2.0-3.0 PATIENT TEMPERATURE (BEAKER) (test lime=8568) 37.0 C FIO2 (BEAKER) (test viid=9535) 21.0 % CALCIUM, [id number] 12:49:00 Test Item Value Reference Range Comments CALCIUM IONIZED (BEAKER) (test ispy=583) 0.98 mmol/L 1.12-1.27 PH, BLOOD (BEAKER) (test lnmc=9496) 7.41 GLUCOSE-STAT [id number] 12:49:00 Test Item Value Reference Range Comments GLUCOSE RANDOM (BEAKER) (test hdvd=018) 142 mg/dL 70-110 POTASSIUM-STAT [id number] 12:49:00 Test Item Value Reference Range Comments POTASSIUM (BEAKER) (test lyqy=232) 3.3 meq/L 3.6-5.5 HGB/HCT (H&H) - STAT [id number] 12:49:00 Test Item Value Reference Range Comments HEMOGLOBIN (BEAKER) (test svjc=342) 11.6 g/dL 13.0-16.8 HEMATOCRIT (BEAKER) (test qfku=786) 34.0 % 40.0-50.0 SODIUM NA-STAT [id number] 12:48:00 Test Item Value Reference Range Comments SODIUM (BEAKER) (test vayx=053) 137 meq/L 135-148 BLOOD GAS, [id number] 11:16:00 Test Item Value Reference Range Comments PH ARTERIAL (BEAKER) (test rfoj=781) 7.44 7.35-7.45 PCO2 ARTERIAL (BEAKER) (test uumn=824) 34 mmHg 35-45 PO2 ARTERIAL (BEAKER) (test gbxl=701) 204 mmHg 80-90 O2 SATURATION ARTERIAL (BEAKER) (test ekys=969) 99.4 % 96.0-97.0 HCO3 ARTERIAL (BEAKER) (test uvmn=968) 23 mmol/L 21-29 BASE EXCESS ARTERIAL (BEAKER) (test vhtg=932) -1.5 mmol/L -2.0-3.0 PATIENT TEMPERATURE (BEAKER) (test agjd=4268) 35.3 C FIO2 (BEAKER) (test hpdz=6988) 50.0 % POTASSIUM-STAT [id number] 11:16:00 Test Item Value Reference Range Comments POTASSIUM (BEAKER) (test uvdy=165) 3.3 meq/L 3.6-5.5 GLUCOSE-STAT [id number] 11:16:00 Test Item Value Reference Range Comments GLUCOSE RANDOM (BEAKER) (test fcdz=705) 130 mg/dL 70-110 HGB/HCT (H&H) - STAT [id number] 11:16:00 Test Item Value Reference Range Comments HEMOGLOBIN (BEAKER) (test jnye=373) 12.4 g/dL 13.0-16.8 HEMATOCRIT (BEAKER) (test xirq=318) 36.0 % 40.0-50.0 CALCIUM, [id number] 11:16:00 Test Item Value Reference Range Comments CALCIUM IONIZED (BEAKER) (test iabc=961) 0.90 mmol/L 1.12-1.27 PH, BLOOD (BEAKER) (test sbgs=5926) 7.41 SODIUM NA-STAT [id number] 11:15:00 Test Item Value Reference Range Comments SODIUM (BEAKER) (test lwgd=605) 136 meq/L 135-148 FINE NEEDLE ASPIRATION BY [id number] 10:55:00Medical Cytology Report Case: [id number] Authorizing Provider: Ravi Meier MD Collected: 2017 1148 Ordering Location: [address] Received : 10/04/2017 0819 Service Pathologist: Tera Villar MD Specimen: Pancreas, Pancreas mass routine cyto in CRR BODY OF PANCREAS MASS, FNA BY CLINICIAN ( CYTOSPINS AND CELL BLOCK OF ASPIRATE): - POSITIVE FOR MALIGNANCY - ADENOCARCINOMA, DUCTAL TYPE Signing Pathologist Direct Phone Line: [phone](3.9 x 2.4 cm) irregular mass identified in the body of the pancreasBODY OF PANCREAS MASS FNAPrepared cell block(A2) and 4 cytospins from 22 ml in cytorich red fixativeCollected: [id number]: [id number] [facility], Department of Pathology, [address] [place] [address], [facility] [place] , [address] [place] [address], [place], ABDOMEN, [id number] 08:03:00FINAL REPORT History: Liver lesions Comparison: CT dated 10/03/2017 Technique : Multiplanar imaging with multiple sequences of the abdomen was performed utilizing a 1.5 luna magnet with and without the administration of gadolinium contrast. Comment: In the right lower lobe, there is an area of consolidation that could represent atelectasis or pneumonitis. There are no focal ordiffuse abnormalities of the osseous structures. The subcutaneous [...] concerning for a pancreatic neoplasm. There is abutmentof the splenic vein and splenic artery. There [...] Splenic infarcts. 4. Cholelithiasis. Signed: Marylu Allen [facility] Verified Date/Time: 10/05/2017 08:03:49 Reading Location: [facility] Diagnostic Imaging Reading Room - [place] [address] TISSUE [id number] 15:08:00Surgical Pathology Report Case: [id number] Authorizing Provider: Ravi Meier MD Collected: 10/02/2017 1153 Ordering Location: [address] Received: 10/04/2017 0748 Service Pathologist: Sander Munoz MD Specimen: Mass, PANCREATIC MASS FNA BX PART A PANCREATICMASS, BIOPSY:ADENOCARCINOMA. Signing Pathologist Direct Phone Line: [phone] signed by Sander Munoz MD on 10/04/2017 at 3:08 [id number] massPancreatic mass FNA biopsy The specimen is received in a formalin-filled container labeled with the patient's informationand labeled "pancreatic mass FNA biopsy" and consists of multiple fragments of alfred-red stringy soft tissue measuring 1 x 0.3 x 0.2 cm in aggregate , submitted entirely in A1. CG/ewHEPATIC FUNCTION [id number] 10:31:00 Test Item Value Reference Range Comments TOTAL PROTEIN (BEAKER) (test rjio=406) 5.9 gm/dL 6.0-8.3 ALBUMIN (BEAKER) (test lsbj=9210) 3.5 g/dL 3.5-5.0 BILIRUBIN TOTAL (BEAKER) (test vtnj=065) 0.5 mg/dL 0.2-1.2 BILIRUBIN DIRECT (BEAKER) (test axth=175) 0.3 mg/dL 0.1-0.5 ALKALINE PHOSPHATASE (BEAKER) (test baln=346) 83 U/L 40-150 AST (SGOT) (BEAKER) (test gzvm=793) 30 U/L 5-34 ALT (SGPT) (BEAKER) (test rsgo=964) 22 U/L 6-55 BASIC METABOLIC [id number] 10:31:00 Test Item Value Reference Range Comments SODIUM (BEAKER) (test 134 meq/L 136-145 skuc=269) POTASSIUM (BEAKER) (test 3.9 meq/L 3.5-5.1 nrix=710) CHLORIDE (BEAKER) (test 102 meq/L 98-107 caky=330) CO2 (BEAKER) (test 23 meq/L 22-29 hqfi=807) BLOOD UREA NITROGEN 7 mg/dL 7-21 (BEAKER) (test hfff=703) CREATININE (BEAKER) (test 0.74 mg/dL 0.57-1.25 ydzf=160) GLUCOSE RANDOM (BEAKER) 104 mg/dL 70-105 (test gqqt=163) CALCIUM (BEAKER) (test 8.5 mg/dL 8.4-10.2 vmyy=395) EGFR (BEAKER) (test 102 mL/min/1.73 sq m ESTIMATED GFR IS NOT bspx=2825) ACCURATE CREATININE CLEARANCE IN PREDICTING GLOMERULAR FILTRATION RATE. ESTIMATED GFR IS NOT APPLICABLE FOR DIALYSIS PATIENTS. FINE NEEDLE ASPIRATE (FNA) [id number] 10:00:00 Test Item Value Reference Range Comments CYTOLOGY RESULT POINTER (BEAKER) (test See Separate Report lxpn=8848) [id number] 07:38:00 Test Item Value Reference Range Comments PROTIME (BEAKER) (test hvhq=147) 16.2 seconds 11.7-14.7 INR (BEAKER) (test zhqn=025) 1.3 <=5.9 PARTIAL THROMBOPLASTIN TIME (BEAKER) (test 33.2 seconds 22.5-36.0 wakt=194) RECOMMENDED COUMADIN/WARFARIN INR THERAPY RANGESSTANDARD DOSE: 2.0 - 3.0 Includes: PROPHYLAXIS forvenous thrombosis, systemic embolization; TREATMENT for venous thrombosis and/or pulmonary embolus.HIGH RISK: Target INR is 2.5-3.5 for patients with mechanical heart valves.CBC W/PLT COUNT & AUTO [id number] 06:51:00 Test Item Value Reference Range Comments WHITE BLOOD CELL COUNT (BEAKER) (test epih=491) 5.7 K/ L 3.5-10.5 RED BLOOD CELL COUNT (BEAKER) (test exql=434) 4.22 M/ L 4.63-6.08 HEMOGLOBIN (BEAKER) (test zddw=319) 12.3 GM/DL 13.7-17.5 HEMATOCRIT (BEAKER) (test hoex=311) 36.9 % 40.1-51.0 MEAN CORPUSCULAR VOLUME (BEAKER) (test tccj=352) 87.4 fL 79.0-92.2 MEAN CORPUSCULAR HEMOGLOBIN (BEAKER) (test 29.1 pg 25.7-32.2 ykad=171) MEAN CORPUSCULAR HEMOGLOBIN CONC (BEAKER) (test 33.3 GM/DL 32.3-36.5 gqzt=441) RED CELL DISTRIBUTION WIDTH (BEAKER) (test 12.3 % 11.6-14.4 vvbe=106) PLATELET COUNT (BEAKER) (test tohz=152) 196 K/CU MM 150-450 MEAN PLATELET VOLUME (BEAKER) (test zpac=975) 11.2 fL 9.4-12.4 NUCLEATED RED BLOOD CELLS (BEAKER) (test 0 /100 WBC 0-0 vjql=235) NEUTROPHILS RELATIVE PERCENT (BEAKER) (test 66 % rhtr=840) LYMPHOCYTES RELATIVE PERCENT (BEAKER) (test 21 % liah=525) MONOCYTES RELATIVE PERCENT (BEAKER) (test 9 % tpca=484) EOSINOPHILS RELATIVE PERCENT (BEAKER) (test 3 % wzhc=096) BASOPHILS RELATIVE PERCENT (BEAKER) (test 1 % gori=469) NEUTROPHILS ABSOLUTE COUNT (BEAKER) (test 3.76 K/ L 1.78-5.38 vwcs=908) LYMPHOCYTES ABSOLUTE COUNT (BEAKER) (test 1.22 K/ L 1.32-3.57 yzks=669) MONOCYTES ABSOLUTE COUNT (BEAKER) (test 0.52 K/ L 0.30-0.82 ldhc=308) EOSINOPHILS ABSOLUTE COUNT (BEAKER) (test 0.17 K/ L 0.04-0.54 oxkc=603) BASOPHILS ABSOLUTE COUNT (BEAKER) (test 0.03 K/ L 0.01-0.08 kyzy=448) IMMATURE GRANULOCYTES-RELATIVE PERCENT (BEAKER) 1 % 0-1 (test hdtv=7763) HEPATIC FUNCTION [id number] 07:40:00 Test Item Value Reference Range Comments TOTAL PROTEIN (BEAKER) (test jriq=310) 6.7 gm/dL 6.0-8.3 ALBUMIN (BEAKER) (test coov=9835) 4.0 g/dL 3.5-5.0 BILIRUBIN TOTAL (BEAKER) (test zmrq=331) 0.7 mg/dL 0.2-1.2 BILIRUBIN DIRECT (BEAKER) (test oxyy=109) 0.4 mg/dL 0.1-0.5 ALKALINE PHOSPHATASE (BEAKER) (test ibpj=124) 97 U/L 40-150 AST (SGOT) (BEAKER) (test jahb=319) 31 U/L 5-34 ALT (SGPT) (BEAKER) (test dfcy=035) 22 U/L 6-55 BASIC METABOLIC [id number] 07:40:00 Test Item Value Reference Range Comments SODIUM (BEAKER) (test 136 meq/L 136-145 skwo=048) POTASSIUM (BEAKER) (test 4.2 meq/L 3.5-5.1 uwvm=578) CHLORIDE (BEAKER) (test 101 meq/L 98-107 qqom=892) CO2 (BEAKER) (test 25 meq/L 22-29 wdhg=809) BLOOD UREA NITROGEN 8 mg/dL 7-21 (BEAKER) (test rysd=164) CREATININE (BEAKER) (test 0.78 mg/dL 0.57-1.25 yiuu=781) GLUCOSE RANDOM (BEAKER) 102 mg/dL 70-105 (test ixhs=186) CALCIUM (BEAKER) (test 9.4 mg/dL 8.4-10.2 sbzc=309) EGFR (BEAKER) (test 96 mL/min/1.73 sq m ESTIMATED GFR IS NOT eicn=8124) ACCURATE CREATININE CLEARANCE IN PREDICTING GLOMERULAR FILTRATION RATE. ESTIMATED GFR IS NOT APPLICABLE FOR DIALYSIS PATIENTS. CBC W/PLT COUNT & AUTO [id number] 07:08:00 Test Item Value Reference Range Comments WHITE BLOOD CELL COUNT (BEAKER) (test eubs=940) 6.9 K/ L 3.5-10.5 RED BLOOD CELL COUNT (BEAKER) (test kjmd=339) 4.57 M/ L 4.63-6.08 HEMOGLOBIN (BEAKER) (test yugc=177) 13.4 GM/DL 13.7-17.5 HEMATOCRIT (BEAKER) (test pnyi=274) 40.3 % 40.1-51.0 MEAN CORPUSCULAR VOLUME (BEAKER) (test vuxs=651) 88.2 fL 79.0-92.2 MEAN CORPUSCULAR HEMOGLOBIN (BEAKER) (test 29.3 pg 25.7-32.2 agbl=678) MEAN CORPUSCULAR HEMOGLOBIN CONC (BEAKER) (test 33.3 GM/DL 32.3-36.5 erue=127) RED CELL DISTRIBUTION WIDTH (BEAKER) (test 12.5 % 11.6-14.4 urva=163) PLATELET COUNT (BEAKER) (test hvka=943) 192 K/CU MM 150-450 MEAN PLATELET VOLUME (BEAKER) (test zbrb=889) 11.7 fL 9.4-12.4 NUCLEATED RED BLOOD CELLS (BEAKER) (test 0 /100 WBC 0-0 fvja=639) NEUTROPHILS RELATIVE PERCENT (BEAKER) (test 67 % uzzc=191) LYMPHOCYTES RELATIVE PERCENT (BEAKER) (test 22 % yqet=657) MONOCYTES RELATIVE PERCENT (BEAKER) (test 9 % otph=197) EOSINOPHILS RELATIVE PERCENT (BEAKER) (test 2 % sxki=109) BASOPHILS RELATIVE PERCENT (BEAKER) (test 1 % klet=727) NEUTROPHILS ABSOLUTE COUNT (BEAKER) (test 4.59 K/ L 1.78-5.38 jszs=159) LYMPHOCYTES ABSOLUTE COUNT (BEAKER) (test 1.50 K/ L 1.32-3.57 owup=715) MONOCYTES ABSOLUTE COUNT (BEAKER) (test 0.60 K/ L 0.30-0.82 iete=503) EOSINOPHILS ABSOLUTE COUNT (BEAKER) (test 0.13 K/ L 0.04-0.54 orbp=266) BASOPHILS ABSOLUTE COUNT (BEAKER) (test 0.04 K/ L 0.01-0.08 ydwd=786) IMMATURE GRANULOCYTES-RELATIVE PERCENT (BEAKER) 0 % 0-1 (test lpzm=2261) HEPATIC FUNCTION [id number] 06:42:00 Test Item Value Reference Range Comments TOTAL PROTEIN (BEAKER) (test nydv=446) 5.9 gm/dL 6.0-8.3 ALBUMIN (BEAKER) (test kpvu=3214) 3.7 g/dL 3.5-5.0 BILIRUBIN TOTAL (BEAKER) (test mokl=274) 0.7 mg/dL 0.2-1.2 BILIRUBIN DIRECT (BEAKER) (test gxqk=959) 0.4 mg/dL 0.1-0.5 ALKALINE PHOSPHATASE (BEAKER) (test ktrf=093) 87 U/L 40-150 AST (SGOT) (BEAKER) (test iuzg=319) 20 U/L 5-34 ALT (SGPT) (BEAKER) (test vgen=480) 16 U/L 6-55 BASIC METABOLIC [id number] 06:42:00 Test Item Value Reference Range Comments SODIUM (BEAKER) (test 134 meq/L 136-145 elfb=565) POTASSIUM (BEAKER) (test 4.0 meq/L 3.5-5.1 qkea=048) CHLORIDE (BEAKER) (test 102 meq/L 98-107 mghe=767) CO2 (BEAKER) (test 25 meq/L 22-29 oyxc=188) BLOOD UREA NITROGEN 9 mg/dL 7-21 (BEAKER) (test blaa=197) CREATININE (BEAKER) (test 0.83 mg/dL 0.57-1.25 roxz=271) GLUCOSE RANDOM (BEAKER) 101 mg/dL 70-105 (test lmqq=100) CALCIUM (BEAKER) (test 8.9 mg/dL 8.4-10.2 ovno=435) EGFR (BEAKER) (test 89 mL/min/1.73 sq m ESTIMATED GFR IS NOT zxap=9148) ACCURATE CREATININE CLEARANCE IN PREDICTING GLOMERULAR FILTRATION RATE. ESTIMATED GFR IS NOT APPLICABLE FOR DIALYSIS PATIENTS. [id number] 06:09:00 Test Item Value Reference Range Comments PROTIME (BEAKER) (test tdcj=620) 15.8 seconds 11.7-14.7 INR (BEAKER) (test wqlb=302) 1.3 <=5.9 PARTIAL THROMBOPLASTIN TIME (BEAKER) (test 34.8 seconds 22.5-36.0 vtjk=722) RECOMMENDED COUMADIN/WARFARIN INR THERAPY RANGESSTANDARD DOSE: 2.0 - 3.0 Includes: PROPHYLAXIS forvenous thrombosis, systemic embolization; TREATMENT for venous thrombosis and/or pulmonary embolus.HIGH RISK: Target INR is 2.5-3.5 for patients with mechanical heart valves.PROTHROMBIN [id number] 06:08: 00 Test Item Value Reference Range Comments PROTIME (BEAKER) (test udzd=706) 15.8 seconds 11.7-14.7 INR (BEAKER) (test wbxd=639) 1.3 <=5.9 RECOMMENDED COUMADIN/WARFARIN INR THERAPY RANGESSTANDARD DOSE: 2.0 - 3.0 Includes: PROPHYLAXIS forvenous thrombosis, systemic embolization; TREATMENT for venous thrombosis and/or pulmonary embolus.HIGH RISK: Target INR is 2.5-3.5 for patients with mechanical heart valves.CBC W/PLT COUNT & AUTO [id number] 05:59:00 Test Item Value Reference Range Comments WHITE BLOOD CELL COUNT (BEAKER) (test vsvz=134) 7.2 K/ L 3.5-10.5 RED BLOOD CELL COUNT (BEAKER) (test ivgn=154) 4.34 M/ L 4.63-6.08 HEMOGLOBIN (BEAKER) (test gwql=178) 12.8 GM/DL 13.7-17.5 HEMATOCRIT (BEAKER) (test ofqe=058) 38.5 % 40.1-51.0 MEAN CORPUSCULAR VOLUME (BEAKER) (test pkpx=432) 88.7 fL 79.0-92.2 MEAN CORPUSCULAR HEMOGLOBIN (BEAKER) (test 29.5 pg 25.7-32.2 stti=198) MEAN CORPUSCULAR HEMOGLOBIN CONC (BEAKER) (test 33.2 GM/DL 32.3-36.5 xtbu=042) RED CELL DISTRIBUTION WIDTH (BEAKER) (test 12.5 % 11.6-14.4 fnbf=595) PLATELET COUNT (BEAKER) (test xvfz=883) 165 K/CU MM 150-450 MEAN PLATELET VOLUME (BEAKER) (test yatd=465) 11.4 fL 9.4-12.4 NUCLEATED RED BLOOD CELLS (BEAKER) (test 0 /100 WBC 0-0 omkj=354) NEUTROPHILS RELATIVE PERCENT (BEAKER) (test 63 % lioo=083) LYMPHOCYTES RELATIVE PERCENT (BEAKER) (test 24 % qxbd=681) MONOCYTES RELATIVE PERCENT (BEAKER) (test 11 % xhwu=329) EOSINOPHILS RELATIVE PERCENT (BEAKER) (test 2 % dbbv=316) BASOPHILS RELATIVE PERCENT (BEAKER) (test 0 % jeqm=183) NEUTROPHILS ABSOLUTE COUNT (BEAKER) (test 4.52 K/ L 1.78-5.38 jvpj=906) LYMPHOCYTES ABSOLUTE COUNT (BEAKER) (test 1.73 K/ L 1.32-3.57 uzhj=988) MONOCYTES ABSOLUTE COUNT (BEAKER) (test 0.78 K/ L 0.30-0.82 rndc=463) EOSINOPHILS ABSOLUTE COUNT (BEAKER) (test 0.13 K/ L 0.04-0.54 cjyi=137) BASOPHILS ABSOLUTE COUNT (BEAKER) (test 0.03 K/ L 0.01-0.08 itnt=684) IMMATURE GRANULOCYTES-RELATIVE PERCENT (BEAKER) 0 % 0-1 (test avyc=2801)
[2018-03-20] MEDS ORDERED: NA CHLORIDE 0.9% 500 ML ONE (20:31)
[2018-03-20] MEDS ORDERED: NA CHLORIDE 0.9% 2,000 ML ONE (20:31)
[2018-03-20] MEDS ORDERED: ACETAMINOPHEN 500 MG TAB ONE (20:32)
[2018-03-20 21:01] LABS: Protime INR 1.13
[2018-03-20] MEDS ORDERED: MORPHINE 4 MG/ML SYR ONE ×2 (21:01→21:57)
--- NOTE | 2018-03-20 21:11 | RAD REPORT ---
EXAM DESCRIPTION: Nadiat Single View03/20/2018 8:36 pm CLINICAL HISTORY: CHEST PAIN COMPARISON: Chest Pa/Lat (2 Views) dated 09/09/2016 FINDINGS: The lungs appear clear of acute infiltrate. The heart is normal size IMPRESSION: No acute abnormalities displayed
[2018-03-20 21:22] LABS: ALT/SGPT 29 U/L (12-78); AST/SGOT 32 U/L (15-37); Albumin 3.3 g/dL (3.4-5.0); Alkaline Phosphatase 87 U/L (45-117); Amylase Level 46 U/L (25-115); BUN Blood Urea Nitrogen 19 mg/dL (7-18); Bicarbonate 25 mmol/L (21-32); Bilirubin Direct 0.3 mg/dL (0-0.2); CKMB Creatine Kinase MB < 1.0 ng/mL (0.3-3.6); Creatine Phosphokinase 56 U/L (39-308); Glucose Level 137 mg/dL (74-106); Lipase 312 U/L (73-393); Potassium 4.5 mmol/L (3.5-5.1); Protein, Total 6.2 g/dL (6.4-8.2); Sodium Level 128 mmol/L (136-145); Troponin (Emerg Dept Use Only) < 0.02 ng/mL (0.0-0.045)
[2018-03-20 21:30] LABS: Absolute Lymphocytes (CBC) 0.8 K/uL (0.7-4.9); Absolute Monocytes 0.2 K/uL (0.1-1.3); Absolute Neutrophil 10.6 K/uL (1.8-8.0); Basophils % 0.4 % (0-1.3); Eosinophils % 0.9 % (0-4.4); Hematocrit 34.5 % (39.6-49.0); Lymphocytes % 7.1 % (15.3-44.8); MCH 35.4 pg (27.0-35.0); MCV 101.1 fL (80-100); MPV 10.9 fL (7.6-11.3); Monocytes % 1.3 % (3.3-12.3); RBC Red Blood Cell Count 3.41 M/uL (4.33-5.43)
[2018-03-20 22:36] LABS: Blood Morphology Comment NOTED (NOT SEEN); Platelet Estimate ADEQ
[2018-03-20 22:37] LABS: Burr Cells 4+
[2018-03-21] MEDS ORDERED: ONDANSETRON 4 MG/2 ML VIAL IV PRN (00:08)
[2018-03-21] MEDS ORDERED: PIPER/TAZO/NS 3.375gm 3.375 GM/100 ML BAG ONE ×2 (00:11→04:42)
[2018-03-21 00:22] LABS: Urine Blood TRACE (NEG); Urine Glucose NEGATIVE (NEG); Urine Protein NEGATIVE (NEG)
--- NOTE | 2018-03-21 00:39 | EDPHYS ---
Physician Documentation [facility] Name: Bruce France Age: 77 yrs Sex: Male : 1940 Arrival Date: 03/20/2018 Time: 19:48 Bed 24 Private MD: Rikki Karimi ED Physician Chalino Vaughan HPI: 03/21 06:06 This 77 yrs old Male presents to ER via Wheelchair with complaints of tw4 Abdominal Pain, Nausea, Headache, Fever. 06:06 The patient presents to the emergency department with nausea, vomiting. Onset: The tw4 symptoms/episode began/occurred today. Possible causes: unknown. The symptoms are aggravated by nothing. The symptoms are alleviated by nothing. Associated signs and symptoms: The patient has no apparent associated signs or symptoms. Severity of symptoms: At their worst the symptoms were moderate in the emergency department the symptoms are unchanged. The patient has not experienced similar symptoms in the past. Historical: - Allergies: 03/20 20:05 Codeine; fc - Home Meds: 20:05 pantoprazole 40 mg oral TbEC 1 tab once daily [Active]; irbesartan 300 mg oral tab 1 fc tab once daily [Active]; metoprolol tartrate 50 mg Oral tab 1 tab 2 times per day [Active]; tamsulosin 0.4 mg oral cp24 1 cap once daily [Active]; sertraline 50 mg oral tab 1 tab once daily [Active]; Zofran (as hydrochloride) 4 mg oral tab as needed [Active]; tramadol 50 mg oral tab as needed [Active]; aspirin 81 mg Oral TbEC 1 tab once daily [Active]; Senna Lax 8.6 mg oral tab 2 tabs twice a day [Active]; Stool Softener oral oral three times a day [Active]; Fish Oil oral oral daily [Active]; Super B-50 Complex oral oral daily [Active]; [place] Oil-1000 oral oral daily [Active]; multivitamin oral tab daily [Active]; - PMHx: 20:05 Hypertension; skin cancer; Pancreatitc cancer; Atrial Fib; GERD; fc - PSHx: 20:05 spleenectomy; 2/3 of pancreas removal; fc - Immunization history:: Last tetanus immunization: up to date. - Social history:: Smoking status: Patient/guardian denies using tobacco. - Ebola Screening: : Patient negative for fever greater than or equal to 101.5 degrees Fahrenheit, and additional compatible Ebola Virus Disease symptoms Patient denies exposure to infectious person Patient denies travel to an Ebola-affected area in the 21 days before illness onset. ROS: 03/21 06:06 Constitutional: Negative for fever, chills, and weight loss, Cardiovascular: Negative tw4 for chest pain, palpitations, and edema, Respiratory: Negative for shortness of breath, cough, wheezing, and pleuritic chest pain, Abdomen/GI: Negative for abdominal pain, nausea, vomiting, diarrhea, and constipation, Back: Negative for injury and pain, MS/Extremity: Negative for injury and deformity. Exam: 06:07 Constitutional: This is a well developed, well nourished patient who is awake, alert, tw4 and in no acute distress. Head/Face: Normocephalic, atraumatic. Chest/axilla: Normal chest wall appearance and motion. Nontender with no deformity. No lesions are appreciated. Cardiovascular: Regular rate and rhythm with a normal S1 and S2. No gallops, murmurs, or rubs. Normal PMI, no JVD. No pulse deficits. Respiratory: Lungs have equal breath sounds bilaterally, clear to auscultation and percussion. No rales, rhonchi or wheezes noted. No increased work of breathing, no retractions or nasal flaring. Abdomen/GI: Soft, non-tender, with normal bowel sounds. No distension or tympany. No guarding or rebound. No evidence of tenderness throughout. Back: No spinal tenderness. No costovertebral tenderness. Full range of motion. MS/ Extremity: Pulses equal, no cyanosis. Neurovascular intact. Full, normal range of motion. Neuro: Awake and alert, GCS 15, oriented to person, place, time, and situation. Cranial nerves II-XII grossly intact. Motor strength 5/5 in all extremities. Sensory grossly intact. Cerebellar exam normal. Normal gait. Vital Signs: 03/20 19:55 BP 123 / 66; Pulse 73; Resp 18; Temp 99.4(O); Pulse Ox 96% on R/A; Weight 83.01 kg (R); fc Height 6 ft. 1 in. (185.42 cm) (R); Pain 4/10; 21:26 BP 146 / 69; Pulse 72; Resp 18; Pulse Ox 100% on R/A; Pain 6/10; mg2 22:24 BP 131 / 71; Pulse 70; Resp 18; Pulse Ox 100% on R/A; Pain 3/10; mg2 23:34 BP 141 / 68; Pulse 71; Resp 18; Pulse Ox 100% on R/A; Pain 0/10; mg2 23:41 Temp 97.9(O); mg2 03/21 01:00 BP 167 / 79; Pulse 72; Resp 18; Pulse Ox 98% on R/A; Pain 2/10; mg2 01:09 BP 153 / 85; Pulse 64; Resp 18; Pulse Ox 98% on R/A; Pain 2/10; mg2 03/20 19:55 Body Mass Index 24.14 (83.01 kg, 185.42 cm) fc 01:09 patient is sleeping mg2 MDM: 03/20 20:21 Patient medically screened. tw4 03/21 06:07 Differential diagnosis: Nonspecific abd pain, gastritis, cholecystitis. Data reviewed: [facility] vital signs, nurses notes. Data interpreted: Pulse oximetry: Interpretation: normal. Counseling: I had a detailed discussion with the patient and/or guardian regarding: the historical points, exam findings, and any diagnostic results supporting the discharge/admit diagnosis. Physician consultation: Ralph Wyatt MD and will see patient in inpatient room. Admission orders: after a detailed discussion of the patient's condition and case, the admit orders are written by me. 03/20 20:23 Order name: Bilirubin, Direct [facility] 03/20 20:23 Order name: Urine Culture tw 03/20 20:23 Order name: Amylase, Serum tw4 03/20 20:23 Order name: Basic Metabolic Panel tw 03/20 20:23 Order name: Blood Culture Adult (2) tw 03/20 20:23 Order name: C-Reactive Protein tw 03/20 20:23 Order name: CBC with Diff tw4 03/20 20:23 Order name: Ckmb tw4 03/20 20:23 Order name: CPK tw 03/20 20:23 Order name: Lactate tw 03/20 20:23 Order name: LFT's [facility] 03/20 20:23 Order name: Lipase; Complete Time: 22:[address] [facility] 03/20 22:02 Interpretation: Within normal limits: LIP 312. tw4 03/20 20:23 Order name: Procalcitonin; Complete Time: 22:[address] [facility] 03/20 22:02 Interpretation: Within normal limits: Procalcitonin < 0.05. [facility] 03/20 20:23 Order name: Protime (+inr); Complete Time: 22:[address] [facility] 03/20 22:02 Interpretation: Within normal limits: PT 13.3. 03/20 20:23 Order name: Ptt, Activated; Complete Time: 22:[address] [facility] 03/20 20:23 Order name: Sed Rate; Complete Time: 23:[address] [facility] 03/20 20:23 Order name: Troponin (emerg Dept Use Only); Complete Time: 22: [facility] 03/20 20:24 Order name: Urine Culture [facility] 03/20 20:24 Order name: Amylase Level; Complete Time: 22:01 [facility] 03/20 20:24 Order name: Basic Metabolic Panel; Complete Time: 22:01 [facility] 03/20 22:02 Interpretation: NA 128; CL 94; GLUC 137; BUN 19. tw 03/20 20:24 Order name: Blood Culture EDAL 03/20 20:24 Order name: C-Reactive Protein; Complete Time: 22:01 [facility] 03/20 22:02 Interpretation: Normal except: C-REACTIVE PROT 118.00. [facility] 03/20 20:24 Order name: CBC with Automated Diff; Complete Time: 23:04 [facility] 03/20 20:24 Order name: CKMB Creatine Kinase MB; Complete Time: 22:01 [facility] 03/20 20:24 Order name: Creatine Phosphokinase; Complete Time: 22: [facility] 03/20 20:24 Order name: Lactate; Complete Time: 22:01 [facility] 03/20 20:24 Order name: Liver (Hepatic) Function; Complete Time: 22:01 [facility] 03/20 22:02 Interpretation: Normal except: BILID 0.3; TP 6.2; ALB 3.3. [facility] 03/20 21:33 Order name: Manual Differential; Complete Time: 23:04 [facility] 03/20 23:04 Interpretation: Normal except: SEGS 86; BANDS [F] 7; LYM [address]. [facility] 03/20 23:47 Order name: Urine Dipstick--Ancillary (enter results); Complete Time: 00:48 ms 03/20 20:23 Order name: Chest Single View XRAY; Complete Time: 22:01 tw4 03/20 20:23 Order name: Accucheck; Complete Time: 20:44 tw4 03/20 20:23 Order name: Cardiac monitoring; Complete Time: 20:44 tw4 03/20 20:23 Order name: EKG - Nurse/Tech; Complete Time: 20:55 tw4 03/20 20:23 Order name: IV Saline Lock - Large Bore; Complete Time: 20:38 tw4 03/20 20:23 Order name: Labs collected and sent; Complete Time: 20:45 tw4 03/20 20:23 Order name: O2 Per Protocol; Complete Time: 20:45 tw4 03/20 20:23 Order name: O2 Sat Monitoring; Complete Time: 20:45 tw4 03/20 20:23 Order name: Urine Dipstick-Ancillary (obtain specimen); Complete Time: 00:05 tw4 03/20 23:05 Order name: Abdomen 1 View XRAY tw4 03/21 00:14 Order name: Lactate EDMS 03/21 00:14 Order name: Comprehensive Metabolic Panel EDMS 03/21 00:14 Order name: Comprehensive Metabolic Panel EDMS 03/21 00:14 Order name: Comprehensive Metabolic Panel EDMS 03/21 00:14 Order name: Magnesium EDMS 03/21 00:14 Order name: Magnesium EDMS 03/21 00:14 Order name: Magnesium EDMS 03/21 00:14 Order name: Phosphorus EDMS 03/21 00:14 Order name: Phosphorus EDMS 03/21 00:14 Order name: Phosphorus EDMS 03/21 00:15 Order name: CONS Physician Consult EDMS 03/21 00:15 Order name: Heart Healthy EDMS 03/21 00:15 Order name: CBC with Automated Diff EDMS Administered Medications: 03/20 20:44 Drug: NS 0.9% (30 ml/kg) 30 ml/kg Route: IV; Rate: bolus; Site: right antecubital; mg2 03/21 01:05 Follow up: Response: No adverse reaction; IV Status: Completed infusion mg2 03/20 21:22 Drug: morphine 4 mg Route: IVP; Site: right antecubital; mg2 22:27 Follow up: Response: No adverse reaction; Marked relief of symptoms mg2 21:23 Drug: Acetaminophen 1000 mg Route: PO; mg2 03/21 00:25 Follow up: Response: No adverse reaction; Marked relief of symptoms mg2 03/20 21:57 Drug: morphine 2 mg Route: IVP; Site: right antecubital; mg2 22:27 Follow up: Response: No adverse reaction; Marked relief of symptoms mg2 23:41 Follow up: Response: No adverse reaction; Pain is decreased mg2 03/21 00:18 Drug: Zosyn 3.375 grams Route: IVPB; Infused Over: 60 mins; Site: right antecubital; mg2 Disposition: 03/21/18 00:37 Hospitalization ordered by Ralph Wyatt for Inpatient Admission. Preliminary diagnosis are Fever, unspecified, Unspecified abdominal pain, Immunodeficiency, unspecified. - Bed requested for Telemetry/MedSurg (Inpatient). - Status is Inpatient Admission. mg2 - Condition is Stable. - Problem is new. - Symptoms are unchanged. UTI on Admission? No Signatures: [facility] Elizabeth Carreon RN RN Geetha Teryr RN RN Chalino Vaughan MD MD tw4 Pool Guerrero RN RN [facility] [place] [place] Corrections: (The following items were deleted from the chart) 03/20 20:25 20:24 Bilirubin Direct ordered. [facility] 03/21 00:56 00:37 Hospitalization Ordered by Ralph Wyatt MD for Inpatient Admission. Preliminary diagnosis is Fever, unspecified; Unspecified abdominal pain; Immunodeficiency, unspecified. Bed requested for Telemetry/MedSurg (Inpatient). Status is Inpatient Admission. Condition is Stable. Problem is new. Symptoms are unchanged. UTI on Admission? No. tw4 01:39 00:56 03/21/2018 00:37 Hospitalization Ordered by Ralph Wyatt MD for Inpatient mg2 Admission. Preliminary diagnosis is Fever, unspecified; Unspecified abdominal pain; Immunodeficiency, unspecified. Bed requested for Telemetry/MedSurg (Inpatient). Status is Inpatient Admission. Condition is Stable. Problem is new. Symptoms are unchanged. UTI on Admission? No. mw
--- NOTE | 2018-03-21 00:39 | ER ---
Nurse's Notes [facility] Name: Bruce France Age: 77 yrs Sex: Male : 1940 Arrival Date: 03/20/2018 Time: 19:48 Bed 24 Private MD: Rikki Karimi Diagnosis: Fever, unspecified;Unspecified abdominal pain;Immunodeficiency, unspecified Presentation: 03/20 19:55 Presenting complaint: Patient states: that he has been having abd pain and nausea x 2 fc weeks. Hx of pancreatic cancer with removal of 2/3 of it. Has hernia which is also causing a lot of the pain. Started low grade fever 2 days ago. Also has headache. Transition of care: patient was not received from another setting of care. Onset of symptoms was February 2018. Risk Assessment: Do you want to hurt yourself or someone else? Patient reports no desire to harm self or others. Initial Sepsis Screen: Does the patient meet any 2 criteria? No. Patient's initial sepsis screen is negative. Does the patient have a suspected source of infection? No. Patient's initial sepsis screen is negative. Care prior to arrival: Medication(s) given: Tylenol, last at 1800. 19:55 Method Of Arrival: Wheelchair 19:55 Acuity: BASSEM 2 fc Triage Assessment: 19:55 General: Appears uncomfortable, Behavior is calm, cooperative, appropriate for age. fc Pain: Complains of pain in abdomen Pain currently is 4 out of 10 on a pain scale. at worst was 8 out of 10 on a pain scale. Quality of pain is described as aching, crampy, dull, sharp, Pain began 2 weeks ago Is continuous. EENT: No deficits noted. Neuro: Level of Consciousness is awake, alert, obeys commands, Oriented to person, place, time, situation, Reports headache. Cardiovascular: No deficits noted. Respiratory: No deficits noted. GI: Reports upper abdominal pain, nausea. : No deficits noted. Derm: Skin is pink, warm \T\ dry. Musculoskeletal: Circulation, motion, and sensation intact. Capillary refill < 3 seconds, Range of motion: intact in all extremities. Historical: - Allergies: 20:05 Codeine; fc - Home Meds: 20:05 pantoprazole 40 mg oral TbEC 1 tab once daily [Active]; irbesartan 300 mg oral tab 1 fc tab once daily [Active]; metoprolol tartrate 50 mg Oral tab 1 tab 2 times per day [Active]; tamsulosin 0.4 mg oral cp24 1 cap once daily [Active]; sertraline 50 mg oral tab 1 tab once daily [Active]; Zofran (as hydrochloride) 4 mg oral tab as needed [Active]; tramadol 50 mg oral tab as needed [Active]; aspirin 81 mg Oral TbEC 1 tab once daily [Active]; Senna Lax 8.6 mg oral tab 2 tabs twice a day [Active]; Stool Softener oral oral three times a day [Active]; Fish Oil oral oral daily [Active]; Super B-50 Complex oral oral daily [Active]; [place] Oil-1000 oral oral daily [Active]; multivitamin oral tab daily [Active]; - PMHx: 20:05 Hypertension; skin cancer; Pancreatitc cancer; Atrial Fib; GERD; fc - PSHx: 20:05 spleenectomy; 2/3 of pancreas removal; fc - Immunization history:: Last tetanus immunization: up to date. - Social history:: Smoking status: Patient/guardian denies using tobacco. - Ebola Screening: : Patient negative for fever greater than or equal to 101.5 degrees Fahrenheit, and additional compatible Ebola Virus Disease symptoms Patient denies exposure to infectious person Patient denies travel to an Ebola-affected area in the 21 days before illness onset. Screenin:45 Abuse screen: Denies threats or abuse. Denies injuries from another. Nutritional mg2 screening: No deficits noted. Tuberculosis screening: No symptoms or risk factors identified. Fall Risk IV access (20 points). Assessment: 21:23 General: Appears in no apparent distress. comfortable, Behavior is calm, cooperative. mg2 Pain: Complains of pain in abdomen and head Pain does not radiate. Pain currently is 8 out of 10 on a pain scale. Quality of pain is described as aching, Pain began gradually, Is intermittent, Alleviated by medications, rest, Aggravated by repositioning. Neuro: Level of Consciousness is awake, alert, obeys commands, Oriented to person, place, time, situation. Cardiovascular: Capillary refill < 3 seconds Patient's skin is warm and dry. Respiratory: Airway is patent Respiratory effort is even, unlabored, Respiratory pattern is regular, symmetrical. GI: Abdomen is flat, Bowel sounds present X 4 quads. Abd is soft and non tender. : No signs and/or symptoms were reported regarding the genitourinary system. EENT: No signs and/or symptoms were reported regarding the EENT system. Derm: Skin is intact, Skin is pink, warm \T\ dry. normal. Musculoskeletal: Circulation, motion, and sensation intact. 22:25 Reassessment: Patient appears in no apparent distress at this time. Patient and/or mg2 family updated on plan of care and expected duration. Pain level reassessed. Patient is alert, oriented x 3, equal unlabored respirations, skin warm/dry/pink. 23:35 Reassessment: Patient appears in no apparent distress at this time. Patient and/or mg2 family updated on plan of care and expected duration. Pain level reassessed. Patient is alert, oriented x 3, equal unlabored respirations, skin warm/dry/pink. 03/21 00:56 Reassessment: Patient appears in no apparent distress at this time. Patient and/or mg2 family updated on plan of care and expected duration. Pain level reassessed. Patient is alert, oriented x 3, equal unlabored respirations, skin warm/dry/pink. patient informed about the plan for hospitalization. family agreed. Vital Signs: 03/20 19:55 BP 123 / 66; Pulse 73; Resp 18; Temp 99.4(O); Pulse Ox 96% on R/A; Weight 83.01 kg (R); fc Height 6 ft. 1 in. (185.42 cm) (R); Pain 4/10; 21:26 BP 146 / 69; Pulse 72; Resp 18; Pulse Ox 100% on R/A; Pain 6/10; mg2 22:24 BP 131 / 71; Pulse 70; Resp 18; Pulse Ox 100% on R/A; Pain 3/10; mg2 23:34 BP 141 / 68; Pulse 71; Resp 18; Pulse Ox 100% on R/A; Pain 0/10; mg2 23:41 Temp 97.9(O); mg2 03/21 01:00 BP 167 / 79; Pulse 72; Resp 18; Pulse Ox 98% on R/A; Pain 2/10; mg2 01:09 BP 153 / 85; Pulse 64; Resp 18; Pulse Ox 98% on R/A; Pain 2/10; mg2 03/20 19:55 Body Mass Index 24.14 (83.01 kg, 185.42 cm) fc 01:09 patient is sleeping mg2 ED Course: 03/20 19:48 Patient arrived in ED. ds1 19:48 Rikki Karimi DO is Private Physician. ds1 19:57 Triage completed. fc 20:00 Arm band placed on Patient placed in an exam room, on a stretcher. fc 20:21 Chalino Vaughan MD is Attending Physician. tw4 20:23 Pool Guerrero RN is Primary Nurse. mg2 20:30 Initial lab(s) drawn, by me, sent to lab. First set of blood cultures drawn by me. bb Inserted saline lock: 20 gauge in right antecubital area, using aseptic technique. Blood collected. 20:34 X-ray completed. Portable x-ray completed in exam room. Patient tolerated procedure jb2 well. 20:35 Chest Single View XRAY In Process Unspecified. EDMS 21:15 Second set of blood cultures drawn by me. mg2 21:25 No provider procedures requiring assistance completed. mg2 23:40 Abdomen 1 View XRAY In Process Unspecified. EDMS 23:40 X-ray completed. Portable x-ray completed in exam room. Patient tolerated procedure tm4 well. 03/21 00:37 Ralph Wyatt MD is Hospitalizing Provider. tw4 00:59 Patient has correct armband on for positive identification. Bed in low position. Call mg2 light in reach. Side rails up X2. warp doffer on. Pulse ox on. NIBP on. 01:15 Patient admitted, IV remains in place. mg2 Administered Medications: 03/20 20:44 Drug: NS 0.9% (30 ml/kg) 30 ml/kg Route: IV; Rate: bolus; Site: right antecubital; mg2 03/21 01:05 Follow up: Response: No adverse reaction; IV Status: Completed infusion mg2 03/20 21:22 Drug: morphine 4 mg Route: IVP; Site: right antecubital; mg2 22:27 Follow up: Response: No adverse reaction; Marked relief of symptoms mg2 21:23 Drug: Acetaminophen 1000 mg Route: PO; mg2 03/21 00:25 Follow up: Response: No adverse reaction; Marked relief of symptoms mg2 03/20 21:57 Drug: morphine 2 mg Route: IVP; Site: right antecubital; mg2 22:27 Follow up: Response: No adverse reaction; Marked relief of symptoms mg2 23:41 Follow up: Response: No adverse reaction; Pain is decreased mg2 03/21 00:18 Drug: Zosyn 3.375 grams Route: IVPB; Infused Over: 60 mins; Site: right antecubital; mg2 Outcome: 00:37 Decision to Hospitalize by Provider. tw4 01:14 Admitted to Tele accompanied by nurse, via wheelchair, room 417, with chart, Report mg2 called to SUSHANT Carr 01:14 Condition: stable 01:14 Instructed on the need for admit, Demonstrated understanding of instructions. 01:39 Patient left the ED. mg2 Signatures: Dispatcher [employer] EDMS Nael Multani jb2 Tita Deutsch tm4 Geetha Terry, RN RN Marichuy Dalton ds1 Aviva Barlow RN RN Chalino Catalan MD MD tw4 Pool Guerrero RN RN mg2
[2018-03-21] MEDS: ALBUTEROL 2.5 MG/3 ML NEB SOL NEB SCH ×4 (02:00→20:00)
[2018-03-21] MEDS: NA CHLORIDE 0.9% 1,000 ML IV SCH ×2 (02:31→14:20)
[2018-03-21] MEDS: ALPRAZOLAM 0.25 MG TABLET PO PRN ×2 (02:35→21:53)
[2018-03-21 03:46] VITALS: BMI 24.1
[2018-03-21 04:23] LABS: Absolute Lymphocytes (CBC) 1.5 K/uL (0.7-4.9); Absolute Monocytes 0.6 K/uL (0.1-1.3); Eosinophils % 2.6 % (0-4.4); Hematocrit 28.9 % (39.6-49.0); Lymphocytes % 12.7 % (15.3-44.8); MCH 35.3 pg (27.0-35.0); MCV 102.2 fL (80-100); MPV 9.9 fL (7.6-11.3); Monocytes % 5.5 % (3.3-12.3); RBC Red Blood Cell Count 2.83 M/uL (4.33-5.43)
[2018-03-21 05:11] LABS: ALT/SGPT 22 U/L (12-78); AST/SGOT 24 U/L (15-37); Albumin 2.6 g/dL (3.4-5.0); Alkaline Phosphatase 72 U/L (45-117); BUN Blood Urea Nitrogen 14 mg/dL (7-18); Bicarbonate 26 mmol/L (21-32); Bilirubin Total 0.6 mg/dL (0.2-1.0); Glucose Level 154 mg/dL (74-106); Phosphorus 2.6 mg/dL (2.5-4.9); Potassium 3.9 mmol/L (3.5-5.1); Protein, Total 5.5 g/dL (6.4-8.2); Sodium Level 136 mmol/L (136-145)
[2018-03-21] MEDS ORDERED: PIPER/TAZO/NS 3.375gm 3.375 GM/100 ML BAG IVPB SCH (06:00)
[2018-03-21] MEDS ORDERED: POTASSIUM 25 MEQ EFFERV TAB PO ONE (06:04)
--- NOTE | 2018-03-21 08:07 | RAD REPORT ---
EXAM DESCRIPTION: RAD - Abdomen Single View - 03/20/2018 11:40 pm CLINICAL HISTORY: ABD PAIN<Reason For Exam>ABD PAIN COMPARISON: Abdomen Pelvis W Contrast dated 03/09/2018<Comparisons> FINDINGS: Moderately large stool volume is seen filling in colon. No overall colon dilatation. A few nondilated air-filled small bowel loops are seen in the right mid abdomen. No obstruction, free air or pneumatosis. No suspicious calcifications. Cholecystectomy clips seen in the right upper quadrant. No significant bony findings IMPRESSION: Nonspecific bowel gas pattern. No obstruction, free air or emergent finding seen.
[2018-03-21] MEDS: PIPER/TAZO/NS 3.375gm 3.375 GM/100 ML BAG IVPB SCH ×2 (09:00→17:51)
--- NOTE | 2018-03-21 09:20 | P.HP ---
Certification for Inpatient Patient admitted to: Inpatient With expected LOS: >2 Midnights Patient will require the following post-hospital care: None Practitioner: I am a practitioner with admitting privileges, knowledge of patient current condition, hospital course, and medical plan of care. Services: Services provided to patient in accordance with Admission requirements found in Title 42 Section 412.3 of the Code of Federal Regulations Patient History Date of Service: 03/21/18 History of Present Illness: Patient is a 77-year-old gentleman who came into the hospital with abdominal pain and nausea and vomiting. This been going on for the last couple of days. He has had vomiting x2. He has a history of pancreatic cancer and he had a partial resection. This was done at [facility]. He developed a hernia afterwards but overall he states he has been doing well. He had a CT scan done 2 weeks ago which did not reveal any significant abnormality. However , he has been having more and more abdominal pain any spiked a fever 48 hr ago. He took a Tylenol but that did not alleviate the fever and pain was getting worse. He decided to come into the emergency room and his labs revealed a leukocytosis. He has been on chemotherapy any said his last chemo was a few weeks ago. He was admitted to the hospital for further treatment. Allergies codeine Adverse Reaction (Verified 03/21/18 02:22) Nausea/Vomiting Home Medications: Multivitamin [Multivitamins] 1 each PO DAILY 09/09/16 Aspirin [Aspir-Low] 81 mg PO DAILY 03/21/18 Diazepam [Valium] 5 mg PO DAILY PRN 03/21/18 Docosahexanoic AC/Epa [Fish Oil 1,000 MG*] 1,000 mg PO DAILY 03/21/18 Docusate Sodium [Stool Softener] 3 tab PO DAILY 03/21/18 Ferrous Fumarate/Vit Bcomp&C [Super B-Complex Caplet] 1 tab PO DAILY 03/21/18 Green Tea [place] Extract [Green Tea] 1 cap PO DAILY 03/21/18 Irbesartan [Avapro] 300 mg PO DAILY 03/21/18 Metoprolol Succinate [Toprol Xl] 50 mg PO BID 03/21/18 Ondansetron [Zofran (Odt)*] 4 mg PO Q4HP PRN 03/21/18 Pantoprazole Sodium [Protonix] 40 mg PO DAILY 03/21/18 [place] Oil/[place]-3 Fatty Acids [Sv [place] Oil 1,000 mg Softgel] 1 cap PO DAILY 03/21/18 Sennosides [Senna Lax] 2 tab PO BID 03/21/18 Sertraline HCl 50 mg PO DAILY 03/21/18 Tamsulosin [Flomax*] 0.4 mg PO DAILY 03/21/18 Tramadol HCl [Ultram] 50 mg PO Q4H PRN 03/21/18 - Past Medical/Surgical History Has patient received pneumonia vaccine in the past: Yes Diabetic: No -: Pancreatic cancer -: Afib -: Enlarge prostate -: GERD -: Depression -: Pancreatic resection - Family History Mother Medical History: Heart disease - Social History Smoking Status: Never smoker Alcohol use: No CD- Drugs: No Caffeine use: Yes Place of Residence: Home Review of Systems 10-point ROS is otherwise unremarkable Physical Examination - Vital Signs Temperature: 98.1 F Blood Pressure: 183/84 Pulse: 58 Respirations: 16 Pulse Ox (%): 100 - Physical Exam General: Alert, In no apparent distress, Oriented x3 HEENT: Atraumatic, PERRLA, Mucous membr. moist/pink, EOMI, Sclerae nonicteric Neck: Supple, 2+ carotid pulse no bruit, No LAD, Without JVD or thyroid abnormality Respiratory: Clear to auscultation bilaterally, Normal air movement Cardiovascular: Regular rate/rhythm, Normal S1 S2, No murmurs Gastrointestinal: Normal bowel sounds, Soft and benign, Distended, Tenderness, Rebound, Guarding Musculoskeletal: No clubbing, No swelling, No tenderness Integumentary: No rashes Neurological: Normal speech, Normal tone, Sensation intact, Cranial nerves 3-12 intact, Normal affect, Abnormal gait, Abnormal strength Lymphatics: No axilla or inguinal lymphadenopathy - Studies Laboratory Data (last 24 hrs) 03/20/18 20:30: PT 13.3 H, INR 1.13, APTT 28.2 03/20/18 20:30: WBC 11.8 H, Hgb 12.1 L, Hct 34.5 L, Plt Count 505 H 03/20/18 20:30: Sodium 128 L, Potassium 4.5, BUN 19 H, Creatinine 0.80, Glucose 137 H, Total Bilirubin 1.0, AST 32, ALT 29, Alkaline Phosphatase 87, Amylase 46 , Lipase 312 Assessment & Plan - Problems (Diagnosis) (1) Fever Current Visit: Yes Status: Acute (2) Abdominal pain Current Visit: Yes Status: Acute (3) Intractable nausea and vomiting Current Visit: Yes Status: Acute (4) History of pancreatic cancer Current Visit: Yes Status: Acute (5) History of resection of pancreas Current Visit: Yes Status: Acute - Plan 1. Continue with IV hydration 2. Continue with IV antibiotics; blood culture times 2 3. Continue with pain control 4. NPO 5. Infectious disease and oncology consultation; repeat CT of the abdomen and pelvis 6. Serial H&H, and we will monitor CBC, BMP, LFTs and lipase along with electrolytes. 7. Physical therapy evaluation 8. GI and DVT prophylaxis Discharge Plan: Home Plan to discharge in: Greater than 2 days - Advance Directives Does patient have a Living Will: Yes Does patient have a Durable POA for Healthcare: Yes - Code Status/Comfort Care Code Status Assessed: Yes Code Status: Full Code Critical Care: No Time Spent Managing PTS Care (In Minutes): 50
[2018-03-21] MEDS: ACETAMINOPHEN 500 MG TAB PO PRN ×2 (10:46→21:53)
[2018-03-21] MEDS ORDERED: DIAZEPAM 5 MG PO PRN (10:53)
--- NOTE | 2018-03-21 11:24 | RAD REPORT ---
EXAM DESCRIPTION: CT - Abdomen Pelvis W Contrast - 03/21/2018 10:32 am CLINICAL HISTORY: abdominal pain<Reason For Exam>abdominal pain Fever, history of pancreatic cancer with surgical wrist section, prior hernia repair COMPARISON: Abdomen Pelvis W Contrast dated 03/09/2018 TECHNIQUE: Biphasic, helical CT imaging of the abdomen and pelvis was performed following 100 ml non -ionic IV contrast. Oral contrast was given. All CT scans are performed using dose optimization technique as appropriate and may include automated exposure control or mA/KV adjustment according to patient size. FINDINGS: No pleural effusion or pleural thickening in either base. No dense consolidation. There is some hazy ground-glass opacification in the posterior gutter on the right. This is not substantially different from March 09. This is favored to be atelectasis over pneumonia. Correlation is needed with any posterior right lung base exam findings. Low-density areas superior right lobe of the liver are believed to be cysts rather than metastatic or other aggressive process. No worrisome liver finding seen. Spleen has been resected. Detail and most of the body of the pancreas have been resected. There are scarring changes present. Minimal remnant postsurgical soft tissue or scarring. No new finding of the remnant pancreatic parenchyma. Multiple small gallstones are present. No biliary tree dilatation. Symmetric renal function is seen with no hydronephrosis or suspicious renal mass. No pyelonephritis o r acute renal parenchymal process. No urinary bladder wall thickening. No prostate edema or adjacent fat stranding. Nonspecific stranding in the perinephric fat present similar to comparison. No dilated bowel loops or bowel wall thickening. No appendicitis findings. There is a large amount of stool present filling but not dilating the entire colon. No focal area of mass or wall thickening in the large intestine. No free air, free fluid or inflammatory stranding. No mass or bulky lymphadeno haroon. No omental thickening. Postsurgical changes are noted to the anterior abdominal wall. Minimal hernia defects seen in the ventral supraumbilical abdominal wall. No acute component or interval eduardo ge. No adrenal abnormality. Disc and bony degenerative changes are present. Vascular calcifications are seen. IMPRESSION: No CT abdomen or pelvis abnormality to explain fever. Cholelithiasis without evidence for an active gallbladder process. No acute or GI process seen. There is a large amount of stool filling but not dilating the colon. Airspace opacification in the posterior gutter on the right is favored to be atelectasis rather than pneumonia. Given the fever history, correlation is needed with any physical exam findings in the post erior gutter on the right.
[2018-03-21] MEDS ORDERED: FLEET ENEMA ADULT PR ONE (12:50)
--- NOTE | 2018-03-21 13:18 | PN ---
Date of Progress Note: 03/21/2018 Subjective: The patient seen and examined. Chart reviewed and case discussed with RN and Dr. Mike. The patient still having some pain, nausea. Complains of constipation. Review of Systems: Negative except as above. Medications: Reviewed. Physical Examination: Vital signs: Temperature 98, heart rate 60, blood pressure 144/65, respirations 16, O2 of 99% on room air. General: Awake, alert, oriented x3. Some mild distress. Elderly male, somewhat ill-appearing. CV: S1, S2. No murmurs. Peripheral pulses present. Respiratory: Moving air well bilaterally. Some diminished breath sounds at the bases. No wheezing or stridor. Gastrointestinal: Abdomen is soft. Tenderness to palpation. Some voluntary guarding. No rigidity. No rebound tenderness. Bowel sounds are hypoactive. Extremities: No clubbing, cyanosis, or edema. Neurologic: Nonfocal. Laboratory Data: Sodium 136, potassium 3.9, chloride 102, CO2 of 26, BUN 14, creatinine 0.8, glucose 154, lactic acid 1.4, calcium 7.9, phosphorus 2.6, magnesium 2. WBC 11.5, H and H of 10 and 28.9, platelets 454, neutrophils 72%. No bands. Albumin 2.6. CT scan of the abdomen and pelvis shows no CT abdomen and pelvis abnormality to explain fever, cholelithiasis without evidence of active gallbladder process. No acute or GI process seen. Large amount of stool filling, but not dilating the colon. An airspace opacification in the posterior gutter on the right is favored to be atelectasis rather than pneumonia. Assessment And Plan: A 77-year-old male with: 1. Fever. No apparent source of infection. The patient's last chemotherapy was Wednesday, Dr. Mike has been consulted. We will continue to monitor blood cultures and continue antibiotics. 2. Generalized abdominal pain. The patient has a history of pancreatic cancer with resection. No acute findings on abdomen CT. The patient is very constipated. 3. Intractable nausea and vomiting. Advance diet as tolerated. Continue antiemetics. 4. History of pancreatic cancer status post chemotherapy, radiation, and resection. 5. Moderate protein-calorie malnutrition. Albumin 2.6. 6. Macrocytic hyperchromic anemia. H and H are stable. Continue to monitor. Plan: 1. We will continue home medications as appropriate. The patient wants to take his own pills from home. We will reconcile his medications. 2. Continue with bowel regimen and stool softeners. Code status: Full SA/MODL Voice ID: [id number] Report ID: [id number] MTDD
[2018-03-21] MEDS: ENOXAPARIN 40 MG/0.4 ML SQ SCH (17:00)
--- NOTE | 2018-03-21 18:18 | CON ---
History Of Present Illness: The patient is a 77-year-old male with significant history of pancreatic cancer and recent resection of tumor and 23 lymph nodes, coming in with abdominal discomfort and fev er of 102.2. The patient came to the emergency room. Currently being treated with chemotherapy by [facility] cancer team. The patient was also seen at [facility] in [place] [facility] where he was operat ed and cancer was removed. The patient is also being followed by Cardiology team here who has been m anaging his elevated heart rate and blood pressure. Past Medical History: Pancreatic cancer, atrial fibrillation, enlarged prostate, GERD, depression, p ancreatic resection with lymph node resection. Surgical History: Nonsmoker, nondrinker. Family History: Noncontributory. Medications: Currently being treated with Zosyn. Allergies: CODEINE. Review of Systems: A 10-point review was performed. Physical Examination: General: This is a 77-year-old male, lying in bed, not in any acute cardiopulmonary distress. Vital Signs: Temperature 98, pulse 60, respirations 16, blood pressure 144/65. HEENT: Unremarkable. Neck: Supple. Lungs: Basal crackles. Heart: S1, S2. Regular. Abdomen: Soft bowel sounds present. Tenderness in all 4 quadrants with periumbilical tenderness wit h guarding. EXTREMITIES: No edema. Laboratory Data: Shows WBC 11.5, hemoglobin 10, platelets are 454. Chemistry shows sodium 136, pota ssium 3.9, chloride 102, bicarb 26, BUN 14, creatinine 0.8, glucose 154, albumin 2.6. CT scan negati ve for any cancerous spread. It shows large amount of stool filling, but no dilation of colon or arnoldo e air noted. Assessment And Plan: A 77-year-old male with significant history of pancreatic cancer, on chemothera py, coming in with fever of 102 and abdominal pain, most likely leukocytosis. Most likely reasons co uld be bacterial infection versus tumor versus immune system deficiency. Can continue broad-spectrum Zosyn. We will monitor patient. Continue supportive care. Consider transferring patient to [facility] in [place] [facility] where the patient is being followed by the surgical team and cancer team. NF/MODL Voice ID: [id number] Report ID: [id number]
[2018-03-21] MEDS ORDERED: SENNOSIDES PO SCH (21:00)
[2018-03-21] MEDS ORDERED: METOPROLOL SUCCINATE 50 MG PO SCH (21:00)
[2018-03-22] MEDS: PIPER/TAZO/NS 3.375gm 3.375 GM/100 ML BAG IVPB SCH ×2 (00:02→08:48)
[2018-03-22] MEDS: NA CHLORIDE 0.9% 1,000 ML IV SCH ×2 (00:05→03:40)
[2018-03-22] MEDS: ALBUTEROL 2.5 MG/3 ML NEB SOL NEB SCH ×2 (02:00→08:05)
--- NOTE | 2018-03-22 07:10 | EKG ---
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
[2018-03-22 08:27] LABS: Absolute Lymphocytes (CBC) 1.3 K/uL (0.7-4.9); Absolute Monocytes 0.6 K/uL (0.1-1.3); Absolute Neutrophil 3.5 K/uL (1.8-8.0); Basophils % 2.3 % (0-1.3); Eosinophils % 4.8 % (0-4.4); Hematocrit 30.8 % (39.6-49.0); Lymphocytes % 22.5 % (15.3-44.8); MCH 35.1 pg (27.0-35.0); MPV 10.3 fL (7.6-11.3); Monocytes % 10.1 % (3.3-12.3); RBC Red Blood Cell Count 3.02 M/uL (4.33-5.43)
[2018-03-22 08:37] LABS: ALT/SGPT 28 U/L (12-78); AST/SGOT 33 U/L (15-37); Albumin 2.6 g/dL (3.4-5.0); Alkaline Phosphatase 74 U/L (45-117); BUN Blood Urea Nitrogen 9 mg/dL (7-18); Bicarbonate 28 mmol/L (21-32); Bilirubin Total 0.4 mg/dL (0.2-1.0); Glucose Level 103 mg/dL (74-106); Phosphorus 2.9 mg/dL (2.5-4.9); Potassium 3.8 mmol/L (3.5-5.1); Protein, Total 5.3 g/dL (6.4-8.2); Sodium Level 137 mmol/L (136-145)
[2018-03-22] MEDS: ENOXAPARIN 40 MG/0.4 ML SQ SCH (08:49)
[2018-03-22] MEDS ORDERED: POTASSIUM CL SA 10 MEQ TAB PO ONE (08:59)
[2018-03-22] MEDS ORDERED: HOME MED 1 EA UNK (Polyethylene Glycol 3350 [Miralax] 17 GM) PO SCH (09:00)
[2018-03-22] MEDS ORDERED: HOME MED 1 EA UNK (Pantoprazole Sodium [Protonix] 40 MG) PO SCH (09:00)
[2018-03-22] MEDS ORDERED: [UNRECOGNIZED DRUG - OTHER] PO SCH (09:00)
[2018-03-22] MEDS ORDERED: VIT BCOMP PO SCH (09:00)
[2018-03-22] MEDS ORDERED: FERROUS FUMARATE PO SCH (09:00)
[2018-03-22] MEDS ORDERED: SERTRALINE HCL 50 MG PO SCH (09:00)
[2018-03-22] MEDS ORDERED: HOME MED 1 EA UNK (Tamsulosin [Flomax*] 0.4 MG) PO SCH (09:00)
[2018-03-22] MEDS ORDERED: DOCUSATE SODIUM PO SCH (09:00)
[2018-03-22 09:17] VITALS: O2SAT 96
[2018-03-22] MEDS: ACETAMINOPHEN 500 MG TAB PO PRN (10:03)
[2018-03-22 10:24] LABS: Urine Appearance CLEAR; Urine Bilirubin NEGATIVE (NEG); Urine Blood NEGATIVE (NEG); Urine Color YELLOW; Urine Glucose NEGATIVE (NEG); Urine Protein NEGATIVE (NEG); Urine Urobilinogen 0.2 mg/dL (0.2-1.0); Urine pH 7.5 (5.0-7.0)
[2018-03-22 10:25] LABS: Urine Microscopic Reflex NO UMIC
[2018-03-22 12:36] VITALS: BP 132/60; TEMP 98.3
--- NOTE | 2018-03-22 18:42 | P.DS ---
Admission Date: 03/21/18 Discharge Date: 03/22/18 Primary Care Provider: Oncology-Dr. Calderon Disposition: ROUTINE DISCHARGE Discharge Condition: GOOD - Problems (1) Abdominal pain Onset Date: 03/22/18 Status: Acute Qualifiers: Abdominal location: generalized Qualified Code(s): R10.84 - Generalized abdominal pain (2) History of pancreatic cancer Status: Chronic (3) History of resection of pancreas Status: Chronic (4) Intractable nausea and vomiting Onset Date: 03/22/18 Status: Chronic Brief History of Present Illness: 77-year-old male presented emergency room with abdominal pain. Patient with history of pancreatic cancer with prior partial resection. Patient presented with nausea and vomiting. CT scan did not reveal any significant abnormalities. Patient admitted for further evaluation Hospital Course: Patient presented with abdominal pain. CT scan showed showed no acute findings. CT did not showing knee abdominal or pelvic abnormality. No acute or GI process was noted amount of stool was identified. Atelectasis was likely to the right lung base. Blood cultures negative. Urine culture negative. Patient did not have any fever during the course of his stay. Patient was evaluated by infectious disease. No antibiotics were required at discharge. Patient with history of constipation. Patient will continue with his medications including stool softener and MiraLax. Patient has history of abdominal hernia. Patient may continue with abdominal binder as needed. Patient may follow up with surgery to further address. Case was discussed at length with oncology. Oncology agrees with current plan. Patient also with history of pancreatic cancer with partial resection currently on chemotherapy. Patient will follow up with Oncology tomorrow to further address and monitor. At discharge patient denied any significant abdominal pain. Patient able tolerate his diet. Neurontin 100 mg 1 pill twice daily as needed for pain will be provided. Patient has hypertension. Patient will continue with his medication--Avapro daily and metoprolol 50 mg 1 pill twice daily. Patient has GERD. Patient continue with Protonix 40 mg 1 pill once daily. Patient has depression with anxiety. Patient continue with sertraline 50 mg daily and Valium 5 mg 1 pill daily as needed. Patient has BPH. Patient will continue with Flomax 0.4 mg daily. Vital Signs/Physical Exam: Temp Pulse Resp BP Pulse Ox 98.3 F 56 18 132/60 96 03/22/18 12:00 03/22/18 12:00 03/22/18 12:00 03/22/18 12:00 03/22/18 12:00 General: Alert, In no apparent distress, Oriented x3, Cooperative HEENT: Atraumatic, Mucous membr. moist/pink Neck: Supple Respiratory: Clear to auscultation bilaterally, Normal air movement Cardiovascular: Normal pulses, Regular rate/rhythm Gastrointestinal: Normal bowel sounds, Soft and benign, Non-distended, No tenderness, No masses, No rebound, No guarding Musculoskeletal: No contractures, No erythema, No tenderness, No warmth Integumentary: No tenderness/swelling, No erythema, No warmth, No cyanosis Neurological: Normal speech, Normal strength at 5/5 x4 extr, Normal tone, Normal affect Lymphatics: No axilla or inguinal lymphadenopathy Laboratory Data at Discharge: WBC 5.8 K/uL (4.3-10.9) D 03/22/18 08:00 Hgb 10.6 g/dL (13.6-17.9) L 03/22/18 08:00 Hct 30.8 % (39.6-49.0) L 03/22/18 08:00 Plt Count 446 K/uL (152-406) H 03/22/18 08:00 PT 13.3 SECONDS (9.5-12.5) H 03/20/18 20:30 INR 1.13 03/20/18 20:30 APTT 28.2 SECONDS (24.3-36.9) 03/20/18 20:30 Sodium 137 mmol/L (136-145) 03/22/18 08:00 Potassium 3.8 mmol/L (3.5-5.1) 03/22/18 08:00 BUN 9 mg/dL (7-18) 03/22/18 08:00 Creatinine 0.70 mg/dL (0.55-1.3) 03/22/18 08:00 Glucose 103 mg/dL (74-106) 03/22/18 08:00 Phosphorus 2.9 mg/dL (2.5-4.9) 03/22/18 08:00 Magnesium 2.0 mg/dL (1.8-2.4) 03/22/18 08:00 Total Bilirubin 0.4 mg/dL (0.2-1.0) 03/22/18 08:00 AST 33 U/L (15-37) 03/22/18 08:00 ALT 28 U/L (12-78) 03/22/18 08:00 Alkaline Phosphatase 74 U/L (45-117) 03/22/18 08:00 Amylase 46 U/L (25-115) 03/20/18 20:30 Lipase 312 U/L (73-393) 03/20/18 20:30 Home Medications: Multivitamin [Multivitamins] 1 each PO DAILY 09/09/16 Aspirin [Aspir-Low] 81 mg PO DAILY 03/21/18 Diazepam [Valium] 5 mg PO DAILY PRN 03/21/18 Docosahexanoic AC/Epa [Fish Oil 1,000 MG*] 1,000 mg PO DAILY 03/21/18 Docusate Sodium [Stool Softener] 3 tab PO DAILY 03/21/18 Ferrous Fumarate/Vit Bcomp&C [Super B-Complex Caplet] 1 tab PO DAILY 03/21/18 Green Tea [place] Extract [Green Tea] 1 cap PO DAILY 03/21/18 Irbesartan [Avapro] 300 mg PO DAILY 03/21/18 Metoprolol Succinate [Toprol Xl] 50 mg PO BID 03/21/18 Ondansetron [Zofran (Odt)*] 4 mg PO Q4HP PRN 03/21/18 Pantoprazole Sodium [Protonix] 40 mg PO DAILY 03/21/18 Polyethylene Glycol 3350 [Miralax] 17 gm PO DAILY 03/21/18 [place] Oil/Island-3 Fatty Acids [Sv [place] Oil 1,000 mg Softgel] 1 cap PO DAILY 03/21/18 Sennosides [Senna Lax] 2 tab PO BID 03/21/18 Sertraline HCl 50 mg PO DAILY 03/21/18 Tamsulosin [Flomax*] 0.4 mg PO DAILY 03/21/18 Tramadol HCl [Ultram] 50 mg PO Q4H PRN 03/21/18 Gabapentin [Neurontin] 100 mg PO BID #15 cap 03/22/18 New Medications: Gabapentin [Neurontin] 100 mg PO BID #15 cap Patient Discharge Instructions: 1. Patient will need a follow up with PCP in 1 week to follow up this hospitalization. 2. Patient presented with abdominal pain showed no acute findings. Patient with increased stool. Patient with history of constipation. Patient will continue with his medications including stool softener and MiraLax. Patient has history of abdominal hernia. Patient may continue with abdominal binder as needed. Patient may follow up with surgery to further address. Patient also with history of pancreatic cancer with partial resection currently on chemotherapy. Patient will follow up with Oncology in 1 week to further addressed. Neurontin 100 mg 1 pill twice daily as needed for pain will be provided. 3. Patient has hypertension. Patient will continue with his medication--Avapro daily and metoprolol 50 mg 1 pill twice daily. 4. Patient has GERD. Patient continue with Protonix 40 mg 1 pill once daily. 5. Patient has depression with anxiety. Patient continue with sertraline 50 mg daily and Valium 5 mg 1 pill daily as needed. 6. Patient has BPH. Patient will continue with Flomax 0.4 mg daily. Diet: AHA Activity: Fall precautions Time spent managing pt's care (in minutes): 55
--- NOTE | 2018-03-22 18:46 | PN ---
Subjective: The patient is lying in bed. Denies any headache, nausea, vomiting. Continued to have mild discomfort. Had a bowel movement today. The patient denies any fevers. Objective: Vital Signs: Temperature 98, pulse 56, respirations 18, blood pressure 130/60. Lungs: Basal crackles. Heart: S1, S2. Regular. Abdomen: Soft. Bowel sounds present. Mild tenderness in all 4 quadrants. Extremities: No edema. Laboratory Data: WBC 5.8, hemoglobin 10.6, platelets are 446. Chemistry shows sodium 137, potassium 3.8, chloride 105, bicarb 28, BUN 9, creatinine 0.7, glucose 103. Assessment And Plan: A 77-year-old male with abdominal pain, fever, and constipation. Consider Leva heike and Flagyl for 10 days. The patient seems to be improving. We will follow the patient as sy [email or web address] Voice ID: [id number] Report ID: [id number]
== END 2018-03-22 14:27 | disposition home or self-care (01) ==
LOC: ER 19:47 → ERHOLD 03-21 00:09 → INTOOBSV 03-21 00:09 → 4TH 03-21 01:18 → INTOOBSV 03-21 21:01 → OBSVTOIN 03-21 21:01
PROVIDERS: ADMIT Hospitalist; ATTEND Hospitalist
DX: R10.84 Generalized abdominal pain (principal); R50.9 Fever, unspecified; N40.0 Benign prostatic hyperplasia without lower urinary tract symptoms; K21.9 Gastro-esophageal reflux disease without esophagitis; F41.8 Other specified anxiety disorders; I10 Essential (primary) hypertension; C25.9 Malignant neoplasm of pancreas, unspecified; E44.0 Moderate protein-calorie malnutrition; Z68.24 Body mass index [BMI] 24.0-24.9, adult; I48.91 Unspecified atrial fibrillation
CPT/HCPCS: 36415; 71045; 74018; 74177; 80048; 80053; 80076; 81003; 82150; 82550; 82553; 83605; 83690; 83735; 84100; 84145; 84484; 85025; 85610; 85652; 85730; 86140; 87040; 87086; 87088; 93005; 96361; 96365; 96366; 96374; 96375; 97163; 99285; G0378; J1650; J2405; J2543; J7030; Q9967

== ENCOUNTER 2018-04-03 23:47 | Inpatient (IN) | payer OTHER ==
[2018-04-04] MEDS ORDERED: NA CHLORIDE 0.9% 1,000 ML ONE ×3 (00:30→02:58)
--- OUTSIDE RECORDS SUMMARY | 2018-04-04 00:38 | XMS REPORT | Clinical Summary ---
:1940 Author Organization [facility] Address [address] [place] [address] Phone Care Team Providers Name Role Phone [...] Orders Only Lab Davy Malignant neoplasm MD Vik of body of pancreas (HCC) 10/25/2017 Orders Only Yayo Peng, Malignant neoplasm SUSHANT Caballero of body of pancreas (HCC) (Primary Dx) 10/06/2017 Documentation Vik Tang MD 10/06/2017 Documentation Vik Tang MD 10/06/2017 Procedure Pass 10/06/2017 Surgery Davy, PANCREATECTOMY,W/ MD Vik SPLENECTOMY 10/05/2017 Anesthesia Event Trae Hollins CRNA 10/02/2017 Anesthesia Event Gastroenterology Jessica Hatfield CRNA 10/02/2017 Procedure Pass Gastroenterology 10/02/2017 Surgery Gastroenterology Hardeep, [facility] ENDOSCOPY,ULTRASOUND Hardeep Felix MD 10/01/2017 Hospital Encounter General Internal [facility] - Medicine MD Wendy hypertension;Pancrea 10/11/2017 Kylie Amanda tic mass;Splenic Tricia infarct;Pancreatic MD Karishma adenocarcinoma Chiquita Currie (HCC);Drug-induced MD Maria Guadalupe constipation;Chest Carey, Heather pain, unspecified MD Brigido type;Fever, Darrell, unspecified fever Liban cause;LeukocytosisElfego MD unspecified type;Hypophosphatasi a;Urinary retention;Hypokalemi a after 04/02/2017 Social History Tobacco Use Types Packs/Day Years [...] Not on file Implants Implanted Type 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 Device Expiration Model / Identifier Date Serial / Lot Dev Laser Tiss Gregory Device Laser Tissue Welding - Salbu-Green Solder Investigational N/A: LASER TISSUE 34 / Implanted: Qty: 1 on 10/06/2017 by Vik Bhatti MD Devices Pancreas W[employer] ALBU-GREEN SOLDER / Dev Laser Tiss Gregory Device Laser Tissue Welding - Sd-Albumin Lamina Investigational N/A: LASER TISSUE DEVICE LASER TISSUE WELDING / Implanted: Qty: 1 on 10/06/2017 by Vik Bhatti MD Devices Pancreas WELDING INC D-ALBUMIN LAMINA / Cath Exp Silv Soak Airframe Design Engineer 12.5cmx [id number] - Sna Pain N/A: MICHEAL-ABAD [id number] 01/03/2020 [id number] / Implanted: Qty: 1 on 10/06/2017 by Vik Bhatti MD Mgmt/Stimulator Abdomen K NA / [id number] Cath Exp Silv Soak Airframe Design Engineer 12.5cmx [id number] - Sna Pain N/A: MICHEAL-CLAR [id number] 08/30/2019 [id number] / Implanted: Qty: 1 on 10/06/2017 by Vik Bhatti MD Mgmt/Stimulator Abdomen K NA / [id number] Block Nrv C-Blk 1-7ml/Hr 600ml [id number] - Sna Pain N/A: HALYARD [id number] 11/21/2019 [id number] / Implanted: Qty: 1 on 10/06/2017 by Vik Bhatti MD Mgmt/Stimulator Abdomen HEALTH NA / [id number] Procedures Procedure Name Priority Date/Time Associated Diagnosis Comments PANCREATECTOMY,W/ 10/06/2017 8:15 AM Malignant neoplasm of SPLENECTOMY CDT pancreas, unspecified location of malignancy (HCC) UPPER 10/02/2017 11:00 AM pancreatic mass ENDOSCOPY,ULTRASOUND CDT after 04/02/2017 Results US abdomen complete (11/05/2017 1:27 PM)Only the most recent of2 resultswithin the time period is included. Specimen Performing Laboratory [employer] FINAL REPORT TECHNIQUE: Grayscale ultrasound of the [...] MD Report Verified Date/Time:11/05/2017 15:21:33 Reading Location: [facility] P006J Ultrasound Reading Room Procedure Note Interface, [...] Report Verified Date/Time: 11/05/2017 15:21:33 Reading Location: [facility] P006J Ultrasound Reading Room and Creatinine (11/05/2017 11:24 AM) Component Value Ref Range BUN 9 7 - 21 mg/dL Creatinine 0.81 0.57 - 1.25 mg/dL EGFR 92Comment: ESTIMATED GFR IS NOT ACCURATE mL/min/1.73 sq m CREATININE CLEARANCE IN PREDICTING GLOMERULAR FILTRATION RATE. ESTIMATED GFR IS NOT APPLICABLE FOR DIALYSIS PATIENTS. Specimen Performing Laboratory Blood [facility] [address] [address] CBC with platelet count + automated diff [...] - 1 % Specimen Performing Laboratory Blood [address] [address] Urinalysis w/ Microscopic (11/05/2017 11:24 AM) Component Value Ref Range Color, UA Yellow Clarity, UA Hazy Specific Rio, UA 1.010 1.001 - 1.035 pH, UA 7.0 5.0 - 8.0 Protein, UA Negative Negative Glucose, UA Negative Negative Ketones, UA Negative Negative Bilirubin, UA Negative Negative Blood, UA Negative Negative Nitrite, UA Negative Negative Leukocytes, UA Negative Negative Urobilinogen, UA 0.2 0.2 - 1.0 mg/dL RBC, UA 1 /HPF WBC, UA 0 /HPF Specimen Source Specimen Performing Laboratory Urine [address] [address] CBC with platelet count + automated diff (11/05/2017 11:24 AM)Only the most recent of8 resultswithin the time period is included. Specimen Performing Laboratory Blood Narrative The following orders were created for panel order CBC with platelet count + automated diff. Procedure Abnormality Status --------- ------ CBC with platelet count ...[[id number]]AbnormalFinal result Please view results for these tests on the individual orders. Sodium (11/05/2017 11:24 AM) Component Value Ref Range Sodium 138 136 - 145 meq/L Specimen Performing Laboratory Blood [address] [address] Potassium (11/05/2017 11:24 AM) Component Value Ref Range Potassium 5.0 3.5 - 5.1 meq/L Specimen Performing Laboratory Blood [address] [address] Phosphorus (11/05/2017 11:24 AM)Only the most recent of6 resultswithin the time period is included. Component Value Ref Range Phosphorus 4.1 2.3 - 4.7 mg/dL Specimen Performing Laboratory Blood [address] [address] Magnesium (11/05/2017 11:24 AM)Only the most recent of6 resultswithin the time period is included. Component Value Ref Range Magnesium 2.0 1.6 - 2.6 mg/dL Specimen Performing Laboratory [address] [address] Lipase (11/05/2017 11:24 AM)Only the most recent of6 resultswithin the time period is included. Component Value Ref Range Lipase 22 8 - 78 U/L Specimen Performing Laboratory Blood [address] [address] Glucose (11/05/2017 11:24 AM) Component Value Ref Range Glucose 113 (H) 70 - 105 mg/dL Specimen Performing Laboratory [address] [address] Chloride (11/05/2017 11:24 AM) Component Value Ref Range Chloride 102 98 - 107 meq/L Specimen Performing Laboratory [address] [address] Calcium (11/05/2017 11:24 AM)Only the most recent of2 resultswithin the time period is included. Component Value Ref Range Calcium 10.0 8.4 - 10.2 mg/dL Specimen Performing Laboratory Blood [address] [address] Amylase (11/05/2017 11:24 AM)Only the most recent of3 resultswithin the time period is included. Component Value Ref Range Amylase 47 25 - 125 U/L Specimen Performing Laboratory Blood [address] [address] Hepatic function panel (11/05/2017 11:24 AM)Only the [...] - 55 U/L Specimen Performing Laboratory Blood [address] [address] RHYTHM STRIP - SCAN (10/13/2017 11:20 AM)CT [...] MD Report Verified Date/Time:10/11/2017 16:07:26 Reading Location: [address] Body Reading Room Procedure Note [...] Report Verified Date/Time: 10/11/2017 16:07:26 Reading Location: [facility] C013Y CT Body Reading Room Basic Metabolic [...] Specimen Performing Laboratory Blood - Arm, Left [address] [address] Amylase, body fluid (10/09/2017 5:14 PM)Only the most recent of2 resultswithin the time period is included. Component Value Ref Range Amylase, Fluid >26469 U/L Specimen Performing Laboratory Body Fluid - CHIVO Drain [address] [address] Narrative Absence of reference range indicates that [...] MD Report Verified Date/Time:10/09/2017 11:20:08 Reading Location: [facility] C0T Transitional Reading Room Procedure Note Interface, [...] Report Verified Date/Time: 10/09/2017 11:20:08 Reading Location: [facility] C013T Transitional Reading Room Troponin I (10/09/2017 9:40 AM)Only the most recent of3 resultswithin the time period is included. Component Value Ref Range Troponin I 0.03 0.00 - 0.03 ng/mL Specimen Performing Laboratory Blood [address] [address] Narrative Troponin I (TnI) levels must be [...] Specimen Performing Laboratory Blood - Arm, Right [address] [address] Creatine Kinase (CK), Total and MB (10/08/2017 3:31 PM) Component Value Ref Range Total CK 268 (H) 29 - 200 U/L CK-MB 2.9 0.0 - 6.6 ng/mL MB Relative Index 1.1 % Specimen Performing Laboratory Blood [address] [address] Narrative CK-MB Reference Range: <6.7Normal 6.7-10.0Borderline >10.0 Abnormal 2D Echo W/Doppler(CW/PW/Color) (10/08/2017 1:10 PM) Component Value Ref Range Ejection Fraction Specimen Performing Laboratory [facility] ECHO 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 Pollock [facility] Life Educator Juan Love MD Physician Procedure Type of [...] lead (10/08/2017 8:58 AM) Specimen Performing Laboratory [employer] MUSE Narrative Ventricular Rate 90 BPM Atrial Rate 90 BPM P-R Interval 168 ms QRS Duration 86 ms Q-T Interval 368 ms QTC Calculation(Bazett) 450 ms P [place] 49 degrees R [place] 36 degrees T [place] 14 degrees Normal sinus rhythm ST abnormality, possible digitalis effect Abnormal ECG When compared with ECG of 06-OCT-2017 07:25, Premature supraventricular complexes are no longer Present Confirmed by MD GUERRERO JOSEPH P ([id number]) on 10/08/2017 2:53:40 PM Procedure Note Interface, External Ris In - 10/08/2017 2:53 PM CDT Ventricular Rate 90 BPM Atrial Rate 90 BPM P-R Interval 168 ms QRS Duration 86 ms Q-T Interval 368 ms QTC Calculation(Bazett) 450 ms P [place] 49 degrees R [place] 36 degrees T [place] 14 degrees Normal sinus rhythm ST abnormality, possible digitalis effect Abnormal ECG When compared with ECG of 06-OCT-2017 07:25, Premature supraventricular complexes are no longer Present Confirmed by MD GUERRERO JOSEPH P ([id number]) on 10/08/2017 2:53:40 PM TRANSFUSION SERVICE REPORT - SCAN (10/07/2017 5:41 PM)Tissue Exam (10/06/2017 12:45 PM)Only the most recent of2 resultswithin the time period is included. Component Value Ref Range Case Report Surgical Pathology Report Case: [id number] Authorizing Provider:Vik BhattiJOANNEollected: 10/06/2017 1245 Ordering Location: [address] Received: 10/06/2017 1305 Service Pathologist: Gissel [...] pT2 N1 Signing Pathologist Direct Phone Line: [phone] COMMENT Gross evaluation of pancreas reveals a [...] FINDINGS Additional Pathologic Findings:Chronic pancreatitis CPT Code(s) 31163, 92686, 89271, 14537 x1 CLINICAL HISTORY Pancreatic tumor GROSS DESCRIPTION [...] tissue is inked black. Photographs are taken. Concrete Sculptor sections are submitted as follows: A1, proximal [...] surface in ked orange; A8 to A11, sales representative gas service sections of the posterior pancreas; A12 to A15, sales representative gas service sections of the anterior pancreas to include A13 to A15, tumor and pancreas with splenic vein followi ng light decal; A16, sales representative gas service section of the spleen; A17, five possible [...] CK5/6. Specimen Performing Laboratory Tissue - Pancreas [address] [address] RRL CRITICAL LABS (ABG,NA,K,H&H,GLUCOSE) (10/06/2017 12:36 PM)Only the most recent of2 resultswithin the time period is included. Specimen Performing Laboratory Blood, Arterial Narrative The following orders were created for panel order RRL CRITICAL LABS (ABG,NA,K,H&H,GLUCOSE). Procedure Abnormality Status --------- ------ Blood gas, arterial[[id number]]AbnormalFinal result Sodium Na-Stat Lab[[id number]] NormalFinal result Potassium-Stat Lab[[id number]] AbnormalFinal result Glucose-Stat Lab[[id number]] AbnormalFinal result HGB/HCT (H&H)-Stat Lab[[id number]] Abnormal Final result Please view results for these tests on the individual orders. Potassium-Stat Lab (10/06/2017 12:36 PM)Only the most recent of2 resultswithin the time period is included. Component Value Ref Range Potassium 3.3 (L) 3.6 - 5.5 meq/L Specimen Performing Laboratory Blood, Arterial [address] [address] Sodium Na-Stat Lab (10/06/2017 12:36 PM)Only the most recent of2 resultswithin the time period is included. Component Value Ref Range Sodium 137 135 - 148 meq/L Specimen Performing Laboratory Blood, Arterial [address] [address] Glucose-Stat Lab (10/06/2017 12:36 PM)Only the most recent of2 resultswithin the time period is included. Component Value Ref Range Glucose 142 (H) 70 - 110 mg/dL Specimen Performing Laboratory Blood, [address] [address] HGB/HCT (H&H)-Stat Lab (10/06/2017 12:36 PM)Only the most recent of2 resultswithin the time period is included. Component Value Ref Range Hemoglobin 11.6 (L) 13.0 - 16.8 g/dL Hematocrit 34.0 (L) 40.0 - 50.0 % Specimen Performing Laboratory Blood, Arterial [address] [address] Blood gas, arterial (10/06/2017 12:36 PM)Only the [...] 21.0 % Specimen Performing Laboratory Blood, Arterial [address] [address] ANESTHESIA SPINAL BLOCK (10/06/2017 8:48 AM) Narrative [...] sitting Prep: Betadine Patient monitoring: heart rate, monitor worker and continuous pulse ox Approach: midline Location: [...] sitting Prep: Betadine Patient monitoring: heart rate, monitor worker and continuous pulse ox Approach: midline Location: L3-4 Injection technique: single-shot Needle Needle type: Pencan Needle gauge: 25 G Needle length: 13 cm Assessment Sensory level: T10 Events: cerebrospinal fluid Additional Notes Pt tolerated the procedure well. Type and screen, automated (10/06/2017 5:04 AM) Component Value Ref Range ABO/RH AUTOMATED (BEAKER) A NEGATIVE Ab Scrn NEGATIVE Specimen Performing Laboratory Blood - Hand, [facility] [address] [place] [address] MR abdomen without & with IV contrast (10/05/2017 3:55 AM) Specimen Performing Laboratory [employer] RIS Narrative FINAL REPORT History: Liver lesions [...] MD Report Verified Date/Time:10/05/2017 08:03:49 Reading Location: [facility] Diagnostic Imaging Reading Room - [place] [address] Procedure Note Interface, External Ris In [...] Report Verified Date/Time: 10/05/2017 08:03:49 Reading Location: [facility] Diagnostic Imaging Reading Room - [place] [address] /aPTT (10/04/2017 6:03 AM)Only the most recent of2 resultswithin the time period is included. Component Value Ref Range Protime 16.2 (H) 11.7 - 14.7 seconds INR 1.3 <=5.9 PTT 33.2 22.5 - 36.0 seconds Specimen Performing Laboratory Blood - Arm, [place] [address] Narrative RECOMMENDED COUMADIN/WARFARIN INR THERAPY RANGES STANDARD DOSE: 2.0 - 3.0 Includes: PROPHYLAXIS for venous thrombosis, systemic embolization; TREATMENT for venous thrombosis and/or pulmonary embolus. HIGH RISK: Target INR is 2.5-3.5 for patients with mechanical heart valves. Carbohydrate antigen 19-9 (CA 19-9) (10/03/2017 5:35 PM) Component Value Ref Range CA 19-9 634 (H) <34 U/mL Comment: This test was performed using the Siemens ([employer]) Chemiluminescent method. Values obtained from different assay methods cannot be used interchangeably. CA19-9 levels, regardless of value, should not be interpreted as absolute evidence of the presence or absence of disease. Specimen Performing Laboratory Blood - Arm, Left [facility] [employer] [address] [place] [address] Narrative Performing Lab [facility] [address] [place] [address] Mary Childress MD, PhD CT abd/pelvis - [...] MD Report Verified Date/Time:10/08/2017 12:45:18 Reading Location: [facility] Diagnostic Imaging Reading Room - [place] [address] Addendum Ends FINAL REPORT CT OF THE [...] MD Report Verified Date/Time:10/03/2017 13:09:28 Reading Location: [facility] C013Y CT Body Reading Room Procedure Note [...] Report Verified Date/Time: 10/08/2017 12:45:18 Reading Location: [facility] Diagnostic Imaging Reading Room - [facility] F1 [address] Addendum Ends FINAL REPORT [...] Report Verified Date/Time: 10/03/2017 13:09:28 Reading Location: [facility] C013Y CT Body Reading Room chest with IV contrast (10/03/2017 12:16 PM) Specimen Performing Laboratory [employer] Narrative Addendum Begins REPORT STATUS:A ADDENDUM: The following addendum is being made to comply with coding criteria, and does not substantially change the findings or recommendations of the original report. Additional technique: CT of the abdomen is also performed without contrast. Signed: Stephen Horne MD Report Verified Date/Time:10/08/2017 12:45:18 Reading Location: [facility] Diagnostic Imaging Reading Room - [facility] F1 1120 Addendum Ends FINAL REPORT [...] MD Report Verified Date/Time:10/03/2017 13:09:28 Reading Location: [facility] C013Y CT Body Reading Room Procedure Note [...] Report Verified Date/Time: 10/08/2017 12:45:18 Reading Location: [facility] Diagnostic Imaging Reading Room - [facility] F1 [address]120 Addendum Ends FINAL REPORT [...] Report Verified Date/Time: 10/03/2017 13:09:28 Reading Location: [facility] C013Y CT Body Reading Room RT OF PROCEDURE - ENDOSCOPY URL (10/02/2017 1:08 PM)Fine Needle Aspirate ( 10/02/2017 11:48 AM) Component Value Ref Range Cytology See Separate Report Specimen Performing Laboratory [place] [address] Fine Needle Aspirate by Clinician (10/02/2017 11:48 AM) Component Value Ref Range Case Report Medical Cytology Report Case: [id number] Authorizing Provider:Ravi Meier MDCollected: 10/02/2017 1148 Ordering Location: [address] Received: 10/04/2017 0819 Service Pathologist: Tera Villar MD Specimen:Pancreas, Pancreas mass routine cyto in CRR DIAGNOSIS BODY OF PANCREAS MASS, FNA BY CLINICIAN (CYTOSPINS AND CELL BLOCK OF ASPIRATE): - POSITIVE FOR MALIGNANCY - ADENOCARCINOMA, DUCTAL TYPE Signing Pathologist Direct Phone Line: [phone] CPT Code(s) 89943, 82709 CLINICAL DATA (3.9 x 2.4 cm) irregular mass identified in the body of the pancreas SPECIMEN SOURCE BODY OF PANCREAS MASS FNA GROSS DESCRIPTION Prepared cell block(A2) and 4 cytospins from 22 ml in cytorich red fixative Collected: [id number] Received: [id number] Technical component was performed at [facility], Department of Pathology, [address] [place] [address], Professional component was performed [facility], at Department of Pathology, [address] [place] [address], Specimen Performing Laboratory Fine Needle Aspirate - Pancreas [address] [address] Prothrombin time/INR (10/02/2017 5:15 AM) Component Value Ref Range Protime 15.8 (H) 11.7 - 14.7 seconds INR 1.3 <=5.9 Specimen Performing Laboratory Blood - Arm, Left [address] [address] Narrative RECOMMENDED COUMADIN/WARFARIN INR THERAPY RANGES STANDARD DOSE: 2.0 - 3.0 Includes: PROPHYLAXIS for venous thrombosis, systemic embolization; TREATMENT for venous thrombosis and/or pulmonary embolus. HIGH RISK: Target INR is 2.5-3.5 for patients with mechanical heart valves. after 04/02/2017
--- OUTSIDE RECORDS SUMMARY | 2018-04-04 00:39 | XMS REPORT ---
:1940 Author Organization [facility] Address [address] [place] [id number] Care Team Providers Name Role Phone VIK [...] Value Reference Range Comments COLOR (BEAKER) (test phuf=980) Yellow CLARITY (BEAKER) (test xnxt=296) Hazy SPECIFIC GRAVITY UA (BEAKER) (test asdp=252) 1.010 1.001-1.035 PH UA (BEAKER) (test fgek=603) 7.0 5.0-8.0 PROTEIN UA (BEAKER) (test xdxr=250) Negative Negative GLUCOSE UA (BEAKER) (test qxee=400) Negative Negative KETONES UA (BEAKER) (test lnhz=933) Negative Negative BILIRUBIN UA (BEAKER) (test yapd=723) Negative Negative BLOOD UA (BEAKER) (test btrj=043) Negative Negative NITRITE UA (BEAKER) (test ppht=295) Negative Negative LEUKOCYTE ESTERASE UA (BEAKER) (test ydpg=202) Negative Negative UROBILINOGEN UA (BEAKER) (test benu=920) 0.2 mg/dL 0.2-1.0 RBC UA (BEAKER) (test lnhq=461) 1 /HPF WBC UA (BEAKER) (test rvrv=714) 0 /HPF SOURCE(BEAKER) (test kqiz=5386) U/S, ABDOMINAL, [id number] 15:21:00Reason for exam:->post op f/ uFINAL REPORT [...] Verified Date/Time: 11/05/2017 15: 21:33 Reading Location: [address] Ultrasound Reading Room [id number] 11 :55:00 Test Item Value Reference Range Comments POTASSIUM (BEAKER) (test fbxl=217) 5.0 meq/L 3.5-5.1 [id number] 11:55:00 Test Item Value Reference Range Comments MAGNESIUM (BEAKER) (test tvdi=913) 2.0 mg/dL 1.6-2.6 [id number] 11:55:00 Test Item Value Reference Range Comments PHOSPHORUS (BEAKER) (test uivq=500) 4.1 mg/dL 2.3-4.7 [id number] 11:55:00 Test Item Value Reference Range Comments SODIUM (BEAKER) (test cnry=303) 138 meq/L 136-145 HEPATIC FUNCTION [id number] 11:55:00 Test Item Value Reference Range Comments TOTAL PROTEIN (BEAKER) (test itug=064) 7.0 gm/dL 6.0-8.3 ALBUMIN (BEAKER) (test rixj=5320) 4.3 g/dL 3.5-5.0 BILIRUBIN TOTAL (BEAKER) (test oqtq=267) 0.4 mg/dL 0.2-1.2 BILIRUBIN DIRECT (BEAKER) (test hvcn=976) 0.2 mg/dL 0.1-0.5 ALKALINE PHOSPHATASE (BEAKER) (test nbdx=360) 96 U/L 40-150 AST (SGOT) (BEAKER) (test kerg=713) 27 U/L 5-34 ALT (SGPT) (BEAKER) (test lycv=115) 24 U/L 6-55 [id number] 11:55:00 Test Item Value Reference Range Comments AMYLASE (BEAKER) (test vjmt=036) 47 U/L 25-125 [id number] 11:55:00 Test Item Value Reference Range Comments CALCIUM (BEAKER) (test wqlq=747) 10.0 mg/dL 8.4-10.2 [id number] 11:55:00 Test Item Value Reference Range Comments CHLORIDE (BEAKER) (test wuns=893) 102 meq/L 98-107 [id number] 11:55:00 Test Item Value Reference Range Comments GLUCOSE RANDOM (BEAKER) (test suew=411) 113 mg/dL 70-105 [id number] 11:55:00 Test Item Value Reference Range Comments LIPASE (BEAKER) (test mhqx=196) 22 U/L 8-78 BUN AND [id number] 11:55:00 Test Item Value Reference Range Comments BLOOD UREA NITROGEN 9 mg/dL 7-21 (BEAKER) (test tmmx=464) CREATININE (BEAKER) (test 0.81 mg/dL 0.57-1.25 emih=426) EGFR (BEAKER) (test 92 mL/min/1.73 sq m ESTIMATED GFR IS NOT lhvr=1214) ACCURATE CREATININE CLEARANCE IN PREDICTING GLOMERULAR FILTRATION RATE. ESTIMATED GFR IS NOT APPLICABLE FOR DIALYSIS PATIENTS. CBC W/PLT COUNT & AUTO [id number] 11:39:00 Test Item Value Reference Range Comments WHITE BLOOD CELL COUNT (BEAKER) (test tvuu=450) 7.2 K/ L 3.5-10.5 RED BLOOD CELL COUNT (BEAKER) (test bbin=120) 4.67 M/ L 4.63-6.08 HEMOGLOBIN (BEAKER) (test lmvb=382) 13.3 GM/DL 13.7-17.5 HEMATOCRIT (BEAKER) (test wvme=490) 41.0 % 40.1-51.0 MEAN CORPUSCULAR VOLUME (BEAKER) (test okeq=701) 87.8 fL 79.0-92.2 MEAN CORPUSCULAR HEMOGLOBIN (BEAKER) (test 28.5 pg 25.7-32.2 fzmf=592) MEAN CORPUSCULAR HEMOGLOBIN CONC (BEAKER) (test 32.4 GM/DL 32.3-36.5 nuub=808) RED CELL DISTRIBUTION WIDTH (BEAKER) (test 14.5 % 11.6-14.4 olil=514) PLATELET COUNT (BEAKER) (test ufnc=896) 298 K/CU MM 150-450 MEAN PLATELET VOLUME (BEAKER) (test nnbg=040) 10.8 fL 9.4-12.4 NUCLEATED RED BLOOD CELLS (BEAKER) (test 0 /100 WBC 0-0 neti=389) NEUTROPHILS RELATIVE PERCENT (BEAKER) (test 53 % dzhc=000) LYMPHOCYTES RELATIVE PERCENT (BEAKER) (test 24 % osht=458) MONOCYTES RELATIVE PERCENT (BEAKER) (test 10 % pdck=677) EOSINOPHILS RELATIVE PERCENT (BEAKER) (test 12 % qapn=468) BASOPHILS RELATIVE PERCENT (BEAKER) (test 1 % gloq=687) NEUTROPHILS ABSOLUTE COUNT (BEAKER) (test 3.79 K/ L 1.78-5.38 zdgg=216) LYMPHOCYTES ABSOLUTE COUNT (BEAKER) (test 1.72 K/ L 1.32-3.57 bedz=090) MONOCYTES ABSOLUTE COUNT (BEAKER) (test 0.70 K/ L 0.30-0.82 oemp=129) EOSINOPHILS ABSOLUTE COUNT (BEAKER) (test 0.88 K/ L 0.04-0.54 zwak=835) BASOPHILS ABSOLUTE COUNT (BEAKER) (test 0.04 K/ L 0.01-0.08 mqga=371) IMMATURE GRANULOCYTES-RELATIVE PERCENT (BEAKER) 0 % 0-1 (test ubjn=1090) TISSUE [id number] 17:34:00Surgical Pathology Report Case: [id number] Authorizing Provider: Vik Bhatti MD Collected: 10/06/2017 1245 Ordering Location: [address] Received: 10/06/2017 1305 Service Pathologist: Gissel [...] STAGE pT2 N1 Signing Pathologist Direct PhoneLine: [phone] signed by Gissel Villanueva MD on 10/19/2017 [...] ADDITIONAL FINDINGS Additional Pathologic Findings: Chronic pancreatitis 66786, 44281, 13922, 97647 m9Gxhnddsabs tumorA. Received fresh labeled "pancreas , distal [...] tissue is inked black. Photographs are taken. Liquor Rectifier sections are submitted as follows: A1, proximal [...] surface inked orange ; A8 to A11, technology sales representative sections of the posterior pancreas; A12 to A15, technology sales representative sections of the anterior pancreas to include A13 to A15, tumor and pancreas with splenic vein following light decal; A16, technology sales representative section of the spleen; A17, [...] for p63 (nuclear) and positive for CK5/6.CT, [id number] 16:07:00Patient will need PO contrast; will [...] Verified Date/Time: 10/11/2017 16:07 :26 Reading Location: [facility] C013Y CT Body Reading Room U/S, ABDOMINAL, [id number] 14:13:00Reason for exam:->Post surgical resection Research ProtocolFINAL [...] MDReport Verified Date/Time: 10/11/2017 14:13:03 Reading Location: [facility] P006J Ultrasound Reading Room [id number] 08:42:00 Test Item Value Reference Range Comments LIPASE (BEAKER) (test ibjo=637) 10 U/L 878 HEPATIC FUNCTION [id number] 08:42:00 Test Item Value Reference Range Comments TOTAL PROTEIN (BEAKER) (test ieyv=823) 5.8 gm/dL 6.0-8.3 ALBUMIN (BEAKER) (test knlk=6948) 3.4 g/dL 3.5-5.0 BILIRUBIN TOTAL (BEAKER) (test jilp=662) 0.6 mg/dL 0.2-1.2 BILIRUBIN DIRECT (BEAKER) (test elht=523) 0.3 mg/dL 0.1-0.5 ALKALINE PHOSPHATASE (BEAKER) (test wbpf=476) 93 U/L 40-150 AST (SGOT) (BEAKER) (test uviw=596) 57 U/L 5-34 ALT (SGPT) (BEAKER) (test cefn=022) 60 U/L 6-55 [id number] 06:45:00 Test Item Value Reference Range Comments PHOSPHORUS (BEAKER) (test fulm=371) 3.9 mg/dL 2.3-4.7 [id number] 06:45:00 Test Item Value Reference Range Comments MAGNESIUM (BEAKER) (test tccg=915) 2.0 mg/dL 1.6-2.6 BASIC METABOLIC [id number] 06:45:00 Test Item Value Reference Range Comments SODIUM (BEAKER) (test 135 meq/L 136-145 bohg=863) POTASSIUM (BEAKER) (test 3.4 meq/L 3.5-5.1 birr=529) CHLORIDE (BEAKER) (test 99 meq/L 98-107 lnpq=675) CO2 (BEAKER) (test 26 meq/L 22-29 uzbw=894) BLOOD UREA NITROGEN 8 mg/dL 7-21 (BEAKER) (test rhvw=088) CREATININE (BEAKER) (test 0.67 mg/dL 0.57-1.25 stae=752) GLUCOSE RANDOM (BEAKER) 114 mg/dL 70-105 (test rwec=627) CALCIUM (BEAKER) (test 8.9 mg/dL 8.4-10.2 hhmp=422) EGFR (BEAKER) (test 114 mL/min/1.73 sq m ESTIMATED GFR IS NOT himt=1766) ACCURATE CREATININE CLEARANCE IN PREDICTING GLOMERULAR FILTRATION RATE. ESTIMATED GFR IS NOT APPLICABLE FOR DIALYSIS PATIENTS. CBC W/PLT COUNT & AUTO [id number] 06:18:00 Test Item Value Reference Range Comments WHITE BLOOD CELL COUNT (BEAKER) (test rwrq=923) 10.1 K/ L 3.5-10.5 RED BLOOD CELL COUNT (BEAKER) (test lukr=909) 4.15 M/ L 4.63-6.08 HEMOGLOBIN (BEAKER) (test ydwu=762) 11.8 GM/DL 13.7-17.5 HEMATOCRIT (BEAKER) (test dkxv=289) 35.6 % 40.1-51.0 MEAN CORPUSCULAR VOLUME (BEAKER) (test ftcp=860) 85.8 fL 79.0-92.2 MEAN CORPUSCULAR HEMOGLOBIN (BEAKER) (test 28.4 pg 25.7-32.2 haip=556) MEAN CORPUSCULAR HEMOGLOBIN CONC (BEAKER) (test 33.1 GM/DL 32.3-36.5 laip=988) RED CELL DISTRIBUTION WIDTH (BEAKER) (test 12.9 % 11.6-14.4 gxon=512) PLATELET COUNT (BEAKER) (test cwuh=555) 432 K/CU MM 150-450 MEAN PLATELET VOLUME (BEAKER) (test nweq=687) 10.6 fL 9.4-12.4 NUCLEATED RED BLOOD CELLS (BEAKER) (test 0 /100 WBC 0-0 cups=326) NEUTROPHILS RELATIVE PERCENT (BEAKER) (test 61 % hyyl=096) LYMPHOCYTES RELATIVE PERCENT (BEAKER) (test 14 % mmae=290) MONOCYTES RELATIVE PERCENT (BEAKER) (test 10 % lfcg=299) EOSINOPHILS RELATIVE PERCENT (BEAKER) (test 11 % zrnd=980) BASOPHILS RELATIVE PERCENT (BEAKER) (test 0 % xsdc=747) NEUTROPHILS ABSOLUTE COUNT (BEAKER) (test 6.14 K/ L 1.78-5.38 zicm=912) LYMPHOCYTES ABSOLUTE COUNT (BEAKER) (test 1.41 K/ L 1.32-3.57 alcn=881) MONOCYTES ABSOLUTE COUNT (BEAKER) (test 0.97 K/ L 0.30-0.82 wtto=601) EOSINOPHILS ABSOLUTE COUNT (BEAKER) (test 1.12 K/ L 0.04-0.54 tzzk=953) BASOPHILS ABSOLUTE COUNT (BEAKER) (test 0.04 K/ L 0.01-0.08 ovnb=651) IMMATURE GRANULOCYTES-RELATIVE PERCENT (BEAKER) 4 % 0-1 (test rxpn=6921) [id number] 10:39:00 Test Item Value Reference Range Comments PHOSPHORUS (BEAKER) (test ytsn=488) 3.3 mg/dL 2.3-4.7 [id number] 10:39:00 Test Item Value Reference Range Comments MAGNESIUM (BEAKER) (test uceo=358) 1.8 mg/dL 1.6-2.6 BASIC METABOLIC [id number] 10:39:00 Test Item Value Reference Range Comments SODIUM (BEAKER) (test 135 meq/L 136-145 dypl=284) POTASSIUM (BEAKER) (test 3.3 meq/L 3.5-5.1 fhmp=287) CHLORIDE (BEAKER) (test 100 meq/L 98-107 ocar=448) CO2 (BEAKER) (test 26 meq/L 22-29 wpox=891) BLOOD UREA NITROGEN 9 mg/dL 7-21 (BEAKER) (test cqmj=609) CREATININE (BEAKER) (test 0.67 mg/dL 0.57-1.25 tqdf=491) GLUCOSE RANDOM (BEAKER) 110 mg/dL 70-105 (test kluc=202) CALCIUM (BEAKER) (test 8.7 mg/dL 8.4-10.2 jjnc=536) EGFR (BEAKER) (test 114 mL/min/1.73 sq m ESTIMATED GFR IS NOT bexn=1258) ACCURATE CREATININE CLEARANCE IN PREDICTING GLOMERULAR FILTRATION RATE. ESTIMATED GFR IS NOT APPLICABLE FOR DIALYSIS PATIENTS. CBC W/PLT COUNT & AUTO [id number] 06:42:00 Test Item Value Reference Range Comments WHITE BLOOD CELL COUNT (BEAKER) (test qumk=067) 10.4 K/ L 3.5-10.5 RED BLOOD CELL COUNT (BEAKER) (test pkjv=135) 4.02 M/ L 4.63-6.08 HEMOGLOBIN (BEAKER) (test nhqz=036) 11.5 GM/DL 13.7-17.5 HEMATOCRIT (BEAKER) (test xbrn=649) 34.5 % 40.1-51.0 MEAN CORPUSCULAR VOLUME (BEAKER) (test xsbl=429) 85.8 fL 79.0-92.2 MEAN CORPUSCULAR HEMOGLOBIN (BEAKER) (test 28.6 pg 25.7-32.2 hbtr=094) MEAN CORPUSCULAR HEMOGLOBIN CONC (BEAKER) (test 33.3 GM/DL 32.3-36.5 adlf=192) RED CELL DISTRIBUTION WIDTH (BEAKER) (test 12.7 % 11.6-14.4 vovg=611) PLATELET COUNT (BEAKER) (test ysyx=099) 389 K/CU MM 150-450 MEAN PLATELET VOLUME (BEAKER) (test qmag=485) 10.6 fL 9.4-12.4 NUCLEATED RED BLOOD CELLS (BEAKER) (test 0 /100 WBC 0-0 ihux=258) NEUTROPHILS RELATIVE PERCENT (BEAKER) (test 72 % tgey=435) LYMPHOCYTES RELATIVE PERCENT (BEAKER) (test 10 % juuw=160) MONOCYTES RELATIVE PERCENT (BEAKER) (test 7 % aqkm=341) EOSINOPHILS RELATIVE PERCENT (BEAKER) (test 8 % lssp=047) BASOPHILS RELATIVE PERCENT (BEAKER) (test 0 % tjmc=969) NEUTROPHILS ABSOLUTE COUNT (BEAKER) (test 7.51 K/ L 1.78-5.38 zkwz=521) LYMPHOCYTES ABSOLUTE COUNT (BEAKER) (test 1.06 K/ L 1.32-3.57 axhz=469) MONOCYTES ABSOLUTE COUNT (BEAKER) (test 0.76 K/ L 0.30-0.82 occo=450) EOSINOPHILS ABSOLUTE COUNT (BEAKER) (test 0.84 K/ L 0.04-0.54 umeu=761) BASOPHILS ABSOLUTE COUNT (BEAKER) (test 0.02 K/ L 0.01-0.08 zhpt=800) IMMATURE GRANULOCYTES-RELATIVE PERCENT (BEAKER) 2 % 0-1 (test ebql=4609) AMYLASE, BODY [id number] 18:24:00 Test Item Value Reference Range Comments AMYLASE FLUID (BEAKER) (test uudv=520) > U/L Absence of reference range indicates that normals have not been defined.Assay performance has not been validated for this type of specimen.RAD, CHEST, 1 VIEW , NON [id number] 11:20:00Reason for exam:->feverShould this be performed at [...] bibasilar atelectasis versus pneumonia. Signed: Mary Ingram MDReport Verified Date/Time: 10/09/2017 11:20: 08 Reading Location: [address] Transitional Reading Room 11:20 AMTROPONIN [id number] 10:37:00 Test Item Value Reference Range Comments TROPONIN I (BEAKER) (test ktpk=176) 0.03 ng/mL 0.00-0.03 Troponin I (TnI) levels [...] failure, acidosis, acute neurological disease, and persistent tachyarrhythmia.[id number] 10:29:00 Test Item Value Reference Range Comments MAGNESIUM (BEAKER) (test 1.9 mg/dL 1.6-2.6 Specimen slightly hemolyzed nvrp=582) [id number] 10:29:00 Test Item Value Reference Range Comments PHOSPHORUS (BEAKER) (test 2.5 mg/dL 2.3-4.7 Specimen slightly hemolyzed fmvh=278) BASIC METABOLIC [id number] 10:29:00 Test Item Value Reference Range Comments SODIUM (BEAKER) (test 134 meq/L 136-145 tixb=378) POTASSIUM (BEAKER) (test 3.8 meq/L 3.5-5.1 Specimen slightly dwxt=331) hemolyzed CHLORIDE (BEAKER) (test 101 meq/L 98-107 gysk=801) CO2 (BEAKER) (test 19 meq/L 22-29 tykf=976) BLOOD UREA NITROGEN 12 mg/dL 7-21 (BEAKER) (test foyb=958) CREATININE (BEAKER) (test 0.70 mg/dL 0.57-1.25 Specimen slightly tyco=428) hemolyzed GLUCOSE RANDOM (BEAKER) 142 mg/dL 70-105 (test tgab=134) CALCIUM (BEAKER) (test 8.5 mg/dL 8.4-10.2 myzc=272) EGFR (BEAKER) (test 109 mL/min/1.73 sq m ESTIMATED GFR IS NOT bqlu=8152) ACCURATE CREATININE CLEARANCE IN PREDICTING GLOMERULAR FILTRATION RATE. ESTIMATED GFR IS NOT APPLICABLE FOR DIALYSIS PATIENTS. HEPATIC FUNCTION [id number] 10:29:00 Test Item Value Reference Range Comments TOTAL PROTEIN (BEAKER) (test 5.8 gm/dL 6.0-8.3 Specimen slightly hemolyzed cbph=591) ALBUMIN (BEAKER) (test 3.4 g/dL 3.5-5.0 Specimen slightly hemolyzed apkh=1809) BILIRUBIN TOTAL (BEAKER) (test 0.6 mg/dL 0.2-1.2 Specimen slightly hemolyzed haje=495) BILIRUBIN DIRECT (BEAKER) (test 0.2 mg/dL 0.1-0.5 Specimen slightly hemolyzed gcdf=018) ALKALINE PHOSPHATASE (BEAKER) 83 U/L 40-150 (test kadu=889) AST (SGOT) (BEAKER) (test 39 U/L 5-34 Specimen slightly hemolyzed kumo=850) ALT (SGPT) (BEAKER) (test 33 U/L 6-55 Specimen slightly hemolyzed dnvj=706) [id number] 10:29:00 Test Item Value Reference Range Comments AMYLASE (BEAKER) (test fvtw=816) 13 U/L 25-125 Specimen slightly hemolyzed [id number] 10:29:00 Test Item Value Reference Range Comments LIPASE (BEAKER) (test nhur=860) 12 U/L 8-78 HEPATIC FUNCTION [id number] 16:18:00 Test Item Value Reference Range Comments TOTAL PROTEIN (BEAKER) (test aqou=833) 5.6 gm/dL 6.0-8.3 ALBUMIN (BEAKER) (test zwcz=7305) 3.6 g/dL 3.5-5.0 BILIRUBIN TOTAL (BEAKER) (test hopy=029) 0.5 mg/dL 0.2-1.2 BILIRUBIN DIRECT (BEAKER) (test iwlc=041) 0.2 mg/dL 0.1-0.5 ALKALINE PHOSPHATASE (BEAKER) (test vzqs=943) 76 U/L 40-150 AST (SGOT) (BEAKER) (test zoet=914) 36 U/L 5-34 ALT (SGPT) (BEAKER) (test vbzc=569) 31 U/L 6-55 CREATINE KINASE (CK), TOTAL AND [id number] 16:10:00 Test Item Value Reference Range Comments CREATINE KINASE TOTAL (BEAKER) (test tgpc=600) 268 U/L 29-200 CREATINE KINASE-MB (BEAKER) (test mqif=079) 2.9 ng/mL 0.0-6.6 CREATINE KINASE-MB INDEX (BEAKER) (test ukkz=339) 1.1 % CK-MB Reference Range:<6.7 Normal6.7-10.0 Borderline>10.0 AbnormalTROPONIN [id number] 16:10:00 Test Item Value Reference Range Comments TROPONIN I (BEAKER) (test yhzp=676) 0.04 ng/mL 0.00-0.03 Troponin I (TnI) levels [...] failure, acidosis, acute neurological disease, and persistent tachyarrhythmia.[id number] 16:04:00 Test Item Value Reference Range Comments LIPASE (BEAKER) (test mjfn=253) 29 U/L 8-78 CALCIUM, [id number] 15:46:00 Test Item Value Reference Range Comments CALCIUM IONIZED (BEAKER) (test frgr=757) 1.05 mmol/L 1.12-1.27 PH, BLOOD (BEAKER) (test dogg=6205) 7.41 CT, ABDOMEN - PELVIS, PANCREAS [id number] 12:45:00Reason for exam:-&gt ;Pancreatic mass suspectedAddendum BeginsREPORT STATUS:A ADDENDUM:The following addendum is being made to comply with coding criteria, and does not substantially change the findings or recommendations of the original report. Additional technique:CT of the abdomen is also performed without contrast. Signed: Stephen Kowalski MDReport Verified Date/Time: 2017 12:45:18 Reading Location: [facility] DiagnosticImaging Reading Room - [place] [address]Addendum EndsFINAL REPORT CT OF THE CHEST, ABDOMEN, [...] Verified Date/ Time: 10/03/2017 13:09:28 Reading Location: [facility] B1 C013Y CT Body Reading Room CT, CHEST, WITH [id number] 12:45:00Addendum BeginsREPORT STATUS:A ADDENDUM:The following addendum is being made to comply with coding criteria, and does not substantially change the findings or recommendations of the original report. Additional technique:CT of the abdomen is also performed without contrast. Signed: Stephen Kowalski Verified Date /Time: 10/08/2017 12:45:18 Reading Location: [facility] DiagnosticImaging Reading Room - [place] [address] [id number] RE[address] OF THE CHEST, [...] Verified Date/ Time: 10/03/2017 13:09:28 Reading Location: [address] Body Reading Room TROPONIN [id number] 09:44:00 Test Item Value Reference Range Comments TROPONIN I (BEAKER) (test tkxo=731) 0.05 ng/mL 0.00-0.03 Troponin I (TnI) levels [...] failure, acidosis, acute neurological disease, and persistent tachyarrhythmia.[id number] 05:34:00 Test Item Value Reference Range Comments PHOSPHORUS (BEAKER) (test unjs=671) 1.8 mg/dL 2.3-4.7 [id number] 05:34:00 Test Item Value Reference Range Comments MAGNESIUM (BEAKER) (test yfmk=087) 2.2 mg/dL 1.6-2.6 BASIC METABOLIC [id number] 05:34:00 Test Item Value Reference Range Comments SODIUM (BEAKER) (test 135 meq/L 136-145 ojjw=165) POTASSIUM (BEAKER) (test 3.8 meq/L 3.5-5.1 pzlc=282) CHLORIDE (BEAKER) (test 102 meq/L 98-107 dmsd=966) CO2 (BEAKER) (test 25 meq/L 22-29 vded=654) BLOOD UREA NITROGEN 14 mg/dL 7-21 (BEAKER) (test rjsn=369) CREATININE (BEAKER) (test 0.72 mg/dL 0.57-1.25 qqki=480) GLUCOSE RANDOM (BEAKER) 118 mg/dL 70-105 (test sqth=324) CALCIUM (BEAKER) (test 8.5 mg/dL 8.4-10.2 cmhy=680) EGFR (BEAKER) (test 105 mL/min/1.73 sq m ESTIMATED GFR IS NOT dpgv=7819) ACCURATE CREATININE CLEARANCE IN PREDICTING GLOMERULAR FILTRATION RATE. ESTIMATED GFR IS NOT APPLICABLE FOR DIALYSIS PATIENTS. CBC W/PLT COUNT & AUTO [id number] 04:57:00 Test Item Value Reference Range Comments WHITE BLOOD CELL COUNT (BEAKER) (test jkem=983) 20.2 K/ L 3.5-10.5 RED BLOOD CELL COUNT (BEAKER) (test kwto=857) 3.88 M/ L 4.63-6.08 HEMOGLOBIN (BEAKER) (test defu=357) 11.4 GM/DL 13.7-17.5 HEMATOCRIT (BEAKER) (test eoop=561) 33.5 % 40.1-51.0 MEAN CORPUSCULAR VOLUME (BEAKER) (test uylv=587) 86.3 fL 79.0-92.2 MEAN CORPUSCULAR HEMOGLOBIN (BEAKER) (test 29.4 pg 25.7-32.2 hcly=484) MEAN CORPUSCULAR HEMOGLOBIN CONC (BEAKER) (test 34.0 GM/DL 32.3-36.5 phxw=506) RED CELL DISTRIBUTION WIDTH (BEAKER) (test 12.8 % 11.6-14.4 hmiq=914) PLATELET COUNT (BEAKER) (test onac=271) 298 K/CU MM 150-450 MEAN PLATELET VOLUME (BEAKER) (test qyfk=804) 11.3 fL 9.4-12.4 NUCLEATED RED BLOOD CELLS (BEAKER) (test 0 /100 WBC 0-0 mgkd=692) NEUTROPHILS RELATIVE PERCENT (BEAKER) (test 87 % caus=465) LYMPHOCYTES RELATIVE PERCENT (BEAKER) (test 6 % ljbt=401) MONOCYTES RELATIVE PERCENT (BEAKER) (test 5 % pitu=709) EOSINOPHILS RELATIVE PERCENT (BEAKER) (test 1 % jyze=371) BASOPHILS RELATIVE PERCENT (BEAKER) (test 0 % pewj=999) NEUTROPHILS ABSOLUTE COUNT (BEAKER) (test 17.65 K/ L 1.78-5.38 zahe=763) LYMPHOCYTES ABSOLUTE COUNT (BEAKER) (test 1.12 K/ L 1.32-3.57 gmnn=372) MONOCYTES ABSOLUTE COUNT (BEAKER) (test 1.09 K/ L 0.30-0.82 gvla=078) EOSINOPHILS ABSOLUTE COUNT (BEAKER) (test 0.15 K/ L 0.04-0.54 clpi=295) BASOPHILS ABSOLUTE COUNT (BEAKER) (test 0.04 K/ L 0.01-0.08 cvsb=340) IMMATURE GRANULOCYTES-RELATIVE PERCENT (BEAKER) 1 % 0-1 (test unlz=5571) CALCIUM, [id number] 16:06:00 Test Item Value Reference Range Comments CALCIUM IONIZED (BEAKER) (test vpou=480) 1.08 mmol/L 1.12-1.27 PH, BLOOD (BEAKER) (test qiop=2805) 7.39 [id number] 14:10:00 Test Item Value Reference Range Comments LIPASE (BEAKER) (test rvdt=506) 33 U/L 8-78 HEPATIC FUNCTION [id number] 14:10:00 Test Item Value Reference Range Comments TOTAL PROTEIN (BEAKER) (test fyya=001) 6.5 gm/dL 6.0-8.3 ALBUMIN (BEAKER) (test rxlb=0429) 4.2 g/dL 3.5-5.0 BILIRUBIN TOTAL (BEAKER) (test fsdx=506) 0.7 mg/dL 0.2-1.2 BILIRUBIN DIRECT (BEAKER) (test vite=509) 0.4 mg/dL 0.1-0.5 ALKALINE PHOSPHATASE (BEAKER) (test tigl=625) 74 U/L 40-150 AST (SGOT) (BEAKER) (test olrd=607) 38 U/L 5-34 ALT (SGPT) (BEAKER) (test kswx=359) 30 U/L 6-55 BASIC METABOLIC [id number] 04:53:00 Test Item Value Reference Range Comments SODIUM (BEAKER) (test 134 meq/L 136-145 qfdg=803) POTASSIUM (BEAKER) (test 3.8 meq/L 3.5-5.1 qiaa=432) CHLORIDE (BEAKER) (test 102 meq/L 98-107 zgzx=606) CO2 (BEAKER) (test 18 meq/L 22-29 icfn=979) BLOOD UREA NITROGEN 7 mg/dL 7-21 (BEAKER) (test ppag=557) CREATININE (BEAKER) (test 0.73 mg/dL 0.57-1.25 kyhm=103) GLUCOSE RANDOM (BEAKER) 177 mg/dL 70-105 (test weau=338) CALCIUM (BEAKER) (test 8.9 mg/dL 8.4-10.2 yelc=376) EGFR (BEAKER) (test 104 mL/min/1.73 sq m ESTIMATED GFR IS NOT ohfx=2942) ACCURATE CREATININE CLEARANCE IN PREDICTING GLOMERULAR FILTRATION RATE. ESTIMATED GFR IS NOT APPLICABLE FOR DIALYSIS PATIENTS. [id number] 04:49:00 Test Item Value Reference Range Comments PHOSPHORUS (BEAKER) (test juou=565) 2.9 mg/dL 2.3-4.7 [id number] 04:49:00 Test Item Value Reference Range Comments MAGNESIUM (BEAKER) (test zpwi=517) 1.5 mg/dL 1.6-2.6 AMYLASE, BODY [id number] 04:38:00 Test Item Value Reference Range Comments AMYLASE FLUID (BEAKER) (test rebj=742) 2673 U/L Absence of reference range indicates that normals have not been defined.Assay performance has not been validated for this type of specimen.CBC W/PLT COUNT & amp; AUTO [id number] 04:24:00 Test Item Value Reference Range Comments WHITE BLOOD CELL COUNT (BEAKER) (test bbax=905) 19.1 K/ L 3.5-10.5 RED BLOOD CELL COUNT (BEAKER) (test dzka=836) 4.48 M/ L 4.63-6.08 HEMOGLOBIN (BEAKER) (test koeg=578) 13.1 GM/DL 13.7-17.5 HEMATOCRIT (BEAKER) (test luaw=915) 38.3 % 40.1-51.0 MEAN CORPUSCULAR VOLUME (BEAKER) (test wztp=107) 85.5 fL 79.0-92.2 MEAN CORPUSCULAR HEMOGLOBIN (BEAKER) (test 29.2 pg 25.7-32.2 setg=867) MEAN CORPUSCULAR HEMOGLOBIN CONC (BEAKER) (test 34.2 GM/DL 32.3-36.5 onqd=833) RED CELL DISTRIBUTION WIDTH (BEAKER) (test 12.6 % 11.6-14.4 ksxb=729) PLATELET COUNT (BEAKER) (test yqwz=910) 283 K/CU MM 150-450 MEAN PLATELET VOLUME (BEAKER) (test bbpk=018) 10.8 fL 9.4-12.4 NUCLEATED RED BLOOD CELLS (BEAKER) (test 0 /100 WBC 0-0 cupd=795) NEUTROPHILS RELATIVE PERCENT (BEAKER) (test 90 % bbgx=806) LYMPHOCYTES RELATIVE PERCENT (BEAKER) (test 5 % apbh=673) MONOCYTES RELATIVE PERCENT (BEAKER) (test 4 % ldxq=617) EOSINOPHILS RELATIVE PERCENT (BEAKER) (test 0 % bmwr=737) BASOPHILS RELATIVE PERCENT (BEAKER) (test 0 % ltbn=103) NEUTROPHILS ABSOLUTE COUNT (BEAKER) (test 17.18 K/ L 1.78-5.38 xegl=764) LYMPHOCYTES ABSOLUTE COUNT (BEAKER) (test 0.86 K/ L 1.32-3.57 oeka=754) MONOCYTES ABSOLUTE COUNT (BEAKER) (test 0.84 K/ L 0.30-0.82 eict=603) EOSINOPHILS ABSOLUTE COUNT (BEAKER) (test 0.01 K/ L 0.04-0.54 vieo=671) BASOPHILS ABSOLUTE COUNT (BEAKER) (test 0.04 K/ L 0.01-0.08 gbpg=851) IMMATURE GRANULOCYTES-RELATIVE PERCENT (BEAKER) 1 % 0-1 (test xkzv=9547) [id number] 13:44:00 Test Item Value Reference Range Comments CALCIUM (BEAKER) (test dius=859) 7.5 mg/dL 8.4-10.2 [id number] 13:42:00 Test Item Value Reference Range Comments LIPASE (BEAKER) (test fgte=116) 137 U/L 8-78 [id number] 13:42:00 Test Item Value Reference Range Comments AMYLASE (BEAKER) (test aatz=920) 50 U/L 25-125 CALCIUM, [id number] 13:13:00 Test Item Value Reference Range Comments CALCIUM IONIZED (BEAKER) (test mifh=526) 0.86 mmol/L 1.12-1.27 PH, BLOOD (BEAKER) (test lpvy=1578) 7.41 BLOOD GAS, [id number] 12:49:00 Test Item Value Reference Range Comments PH ARTERIAL (BEAKER) (test bnou=920) 7.41 7.35-7.45 PCO2 ARTERIAL (BEAKER) (test vxzg=491) 34 mmHg 35-45 PO2 ARTERIAL (BEAKER) (test yzlr=505) 194 mmHg 80-90 O2 SATURATION ARTERIAL (BEAKER) (test imbg=126) 99.3 % 96.0-97.0 HCO3 ARTERIAL (BEAKER) (test iabl=040) 21 mmol/L 21-29 BASE EXCESS ARTERIAL (BEAKER) (test djqt=577) -3.5 mmol/L -2.0-3.0 PATIENT TEMPERATURE (BEAKER) (test kmlc=0276) 37.0 C FIO2 (BEAKER) (test phxx=7890) 21.0 % CALCIUM, [id number] 12:49:00 Test Item Value Reference Range Comments CALCIUM IONIZED (BEAKER) (test tqzb=525) 0.98 mmol/L 1.12-1.27 PH, BLOOD (BEAKER) (test nowr=3638) 7.41 GLUCOSE-STAT [id number] 12:49:00 Test Item Value Reference Range Comments GLUCOSE RANDOM (BEAKER) (test orjy=185) 142 mg/dL 70-110 POTASSIUM-STAT [id number] 12:49:00 Test Item Value Reference Range Comments POTASSIUM (BEAKER) (test syic=059) 3.3 meq/L 3.6-5.5 HGB/HCT (H&H) - STAT [id number] 12:49:00 Test Item Value Reference Range Comments HEMOGLOBIN (BEAKER) (test kvim=081) 11.6 g/dL 13.0-16.8 HEMATOCRIT (BEAKER) (test zztw=322) 34.0 % 40.0-50.0 SODIUM NA-STAT [id number] 12:48:00 Test Item Value Reference Range Comments SODIUM (BEAKER) (test oepf=157) 137 meq/L 135-148 BLOOD GAS, [id number] 11:16:00 Test Item Value Reference Range Comments PH ARTERIAL (BEAKER) (test odxy=730) 7.44 7.35-7.45 PCO2 ARTERIAL (BEAKER) (test wrsq=823) 34 mmHg 35-45 PO2 ARTERIAL (BEAKER) (test mtfo=638) 204 mmHg 80-90 O2 SATURATION ARTERIAL (BEAKER) (test dyyp=340) 99.4 % 96.0-97.0 HCO3 ARTERIAL (BEAKER) (test iaix=177) 23 mmol/L 21-29 BASE EXCESS ARTERIAL (BEAKER) (test bipb=000) -1.5 mmol/L -2.0-3.0 PATIENT TEMPERATURE (BEAKER) (test cusp=3566) 35.3 C FIO2 (BEAKER) (test zdfd=1174) 50.0 % POTASSIUM-STAT [id number] 11:16:00 Test Item Value Reference Range Comments POTASSIUM (BEAKER) (test nbag=443) 3.3 meq/L 3.6-5.5 GLUCOSE-STAT [id number] 11:16:00 Test Item Value Reference Range Comments GLUCOSE RANDOM (BEAKER) (test runk=571) 130 mg/dL 70-110 HGB/HCT (H&H) - STAT [id number] 11:16:00 Test Item Value Reference Range Comments HEMOGLOBIN (BEAKER) (test amce=322) 12.4 g/dL 13.0-16.8 HEMATOCRIT (BEAKER) (test ircf=890) 36.0 % 40.0-50.0 CALCIUM, [id number] 11:16:00 Test Item Value Reference Range Comments CALCIUM IONIZED (BEAKER) (test bwtw=059) 0.90 mmol/L 1.12-1.27 PH, BLOOD (BEAKER) (test kitq=0272) 7.41 SODIUM NA-STAT [id number] 11:15:00 Test Item Value Reference Range Comments SODIUM (BEAKER) (test tzds=729) 136 meq/L 135-148 FINE NEEDLE ASPIRATION BY [id number] 10:55:00Medical Cytology Report Case: [id number] Authorizing Provider: Ravi Meier MD Collected: 2017 1148 Ordering Location: [address] Received : 10/04/2017 0819 Service Pathologist: Tera Villar MD Specimen: Pancreas, Pancreas mass routine cyto in CRR BODY OF PANCREAS MASS, FNA BY CLINICIAN ( CYTOSPINS AND CELL BLOCK OF ASPIRATE): - POSITIVE FOR MALIGNANCY - ADENOCARCINOMA, DUCTAL TYPE Signing Pathologist Direct Phone Line: [phone] [phone] 2.4 cm) irregular mass identified in the body of the pancreasBODY OF PANCREAS MASS FNAPrepared cell block(A2) and 4 cytospins from 22 ml in cytorich red fixativeCollected: [id number]: [id number] [facility], Department of Pathology, [address] [place] [address], [facility] , [address] [place] [address], EF, ABDOMEN, [id number] 08:03:00FINAL REPORT History: Liver lesions Comparison: CT [...] Splenic infarcts. 4. Cholelithiasis. Signed: Marylu [facility] Verified Date/Time: 10/05/2017 08:03:49 Reading Location: [facility] Diagnostic Imaging Reading Room - [place] [address] TISSUE [id number] 15:08:00Surgical Pathology Report Case: [id number] Authorizing Provider: Ravi Meier MD Collected: 10/02/2017 1153 Ordering Location: [address] Received: 10/04/2017 0748 Service Pathologist: Sander Munoz MD Specimen: Mass, PANCREATIC MASS FNA BX PART A PANCREATICMASS, BIOPSY:ADENOCARCINOMA. Signing Pathologist Direct Phone Line: [phone] signed by Sander Munoz MD on 10/04/2017 at 3:08 [id number] massPancreatic mass FNA biopsy The specimen is received in a formalin-filled container labeled with the patient's informationand labeled "pancreatic mass FNA biopsy" and consists of multiple fragments of alfred-red stringy soft tissue measuring 1 x 0.3 x 0.2 cm in aggregate , submitted entirely in A1. CG/ewHEPATIC FUNCTION [id number] 10:31:00 Test Item Value Reference Range Comments TOTAL PROTEIN (BEAKER) (test kojj=409) 5.9 gm/dL 6.0-8.3 ALBUMIN (BEAKER) (test npit=2733) 3.5 g/dL 3.5-5.0 BILIRUBIN TOTAL (BEAKER) (test hxdg=169) 0.5 mg/dL 0.2-1.2 BILIRUBIN DIRECT (BEAKER) (test xgiu=984) 0.3 mg/dL 0.1-0.5 ALKALINE PHOSPHATASE (BEAKER) (test erdk=856) 83 U/L 40-150 AST (SGOT) (BEAKER) (test ynlb=889) 30 U/L 5-34 ALT (SGPT) (BEAKER) (test tdoy=968) 22 U/L 6-55 BASIC METABOLIC [id number] 10:31:00 Test Item Value Reference Range Comments SODIUM (BEAKER) (test 134 meq/L 136-145 etwf=659) POTASSIUM (BEAKER) (test 3.9 meq/L 3.5-5.1 ehfl=610) CHLORIDE (BEAKER) (test 102 meq/L 98-107 klia=127) CO2 (BEAKER) (test 23 meq/L 22-29 phzm=919) BLOOD UREA NITROGEN 7 mg/dL 7-21 (BEAKER) (test urpz=263) CREATININE (BEAKER) (test 0.74 mg/dL 0.57-1.25 cdsx=069) GLUCOSE RANDOM (BEAKER) 104 mg/dL 70-105 (test ikja=850) CALCIUM (BEAKER) (test 8.5 mg/dL 8.4-10.2 dgkv=399) EGFR (BEAKER) (test 102 mL/min/1.73 sq m ESTIMATED GFR IS NOT smrp=6643) ACCURATE CREATININE CLEARANCE IN PREDICTING GLOMERULAR FILTRATION RATE. ESTIMATED GFR IS NOT APPLICABLE FOR DIALYSIS PATIENTS. FINE NEEDLE ASPIRATE (FNA) [id number] 10:00:00 Test Item Value Reference Range Comments CYTOLOGY RESULT POINTER (BEAKER) (test See Separate Report pwba=8007) [id number] 07:38:00 Test Item Value Reference Range Comments PROTIME (BEAKER) (test jiji=774) 16.2 seconds 11.7-14.7 INR (BEAKER) (test ojam=712) 1.3 <=5.9 PARTIAL THROMBOPLASTIN TIME (BEAKER) (test 33.2 seconds 22.5-36.0 cjbp=160) RECOMMENDED COUMADIN/WARFARIN INR THERAPY RANGESSTANDARD DOSE: 2.0 - 3.0 Includes: PROPHYLAXIS forvenous thrombosis, systemic embolization; TREATMENT for venous thrombosis and/or pulmonary embolus.HIGH RISK: Target INR is 2.5-3.5 for patients with mechanical heart valves.CBC W/PLT COUNT & AUTO [id number] 06:51:00 Test Item Value Reference Range Comments WHITE BLOOD CELL COUNT (BEAKER) (test qqsc=354) 5.7 K/ L 3.5-10.5 RED BLOOD CELL COUNT (BEAKER) (test ilfr=394) 4.22 M/ L 4.63-6.08 HEMOGLOBIN (BEAKER) (test hpth=050) 12.3 GM/DL 13.7-17.5 HEMATOCRIT (BEAKER) (test attn=287) 36.9 % 40.1-51.0 MEAN CORPUSCULAR VOLUME (BEAKER) (test vvmc=180) 87.4 fL 79.0-92.2 MEAN CORPUSCULAR HEMOGLOBIN (BEAKER) (test 29.1 pg 25.7-32.2 ndhf=777) MEAN CORPUSCULAR HEMOGLOBIN CONC (BEAKER) (test 33.3 GM/DL 32.3-36.5 zilf=441) RED CELL DISTRIBUTION WIDTH (BEAKER) (test 12.3 % 11.6-14.4 ocin=148) PLATELET COUNT (BEAKER) (test ulfp=389) 196 K/CU MM 150-450 MEAN PLATELET VOLUME (BEAKER) (test frjg=082) 11.2 fL 9.4-12.4 NUCLEATED RED BLOOD CELLS (BEAKER) (test 0 /100 WBC 0-0 zepp=735) NEUTROPHILS RELATIVE PERCENT (BEAKER) (test 66 % rhqp=948) LYMPHOCYTES RELATIVE PERCENT (BEAKER) (test 21 % hdtu=700) MONOCYTES RELATIVE PERCENT (BEAKER) (test 9 % uyqa=802) EOSINOPHILS RELATIVE PERCENT (BEAKER) (test 3 % mixt=411) BASOPHILS RELATIVE PERCENT (BEAKER) (test 1 % ylee=065) NEUTROPHILS ABSOLUTE COUNT (BEAKER) (test 3.76 K/ L 1.78-5.38 htip=295) LYMPHOCYTES ABSOLUTE COUNT (BEAKER) (test 1.22 K/ L 1.32-3.57 uvyn=960) MONOCYTES ABSOLUTE COUNT (BEAKER) (test 0.52 K/ L 0.30-0.82 cedt=541) EOSINOPHILS ABSOLUTE COUNT (BEAKER) (test 0.17 K/ L 0.04-0.54 nwla=242) BASOPHILS ABSOLUTE COUNT (BEAKER) (test 0.03 K/ L 0.01-0.08 iynd=684) IMMATURE GRANULOCYTES-RELATIVE PERCENT (BEAKER) 1 % 0-1 (test mqem=6898) HEPATIC FUNCTION [id number] 07:40:00 Test Item Value Reference Range Comments TOTAL PROTEIN (BEAKER) (test wbbn=552) 6.7 gm/dL 6.0-8.3 ALBUMIN (BEAKER) (test ueii=3845) 4.0 g/dL 3.5-5.0 BILIRUBIN TOTAL (BEAKER) (test xgrv=297) 0.7 mg/dL 0.2-1.2 BILIRUBIN DIRECT (BEAKER) (test zmge=678) 0.4 mg/dL 0.1-0.5 ALKALINE PHOSPHATASE (BEAKER) (test buxt=110) 97 U/L 40-150 AST (SGOT) (BEAKER) (test binu=524) 31 U/L 5-34 ALT (SGPT) (BEAKER) (test xlji=812) 22 U/L 6-55 BASIC METABOLIC [id number] 07:40:00 Test Item Value Reference Range Comments SODIUM (BEAKER) (test 136 meq/L 136-145 znah=272) POTASSIUM (BEAKER) (test 4.2 meq/L 3.5-5.1 muty=654) CHLORIDE (BEAKER) (test 101 meq/L 98-107 wopw=741) CO2 (BEAKER) (test 25 meq/L 22-29 dvwo=133) BLOOD UREA NITROGEN 8 mg/dL 7-21 (BEAKER) (test wxjy=252) CREATININE (BEAKER) (test 0.78 mg/dL 0.57-1.25 dcne=915) GLUCOSE RANDOM (BEAKER) 102 mg/dL 70-105 (test ochc=539) CALCIUM (BEAKER) (test 9.4 mg/dL 8.4-10.2 opie=689) EGFR (BEAKER) (test 96 mL/min/1.73 sq m ESTIMATED GFR IS NOT zoed=4220) ACCURATE CREATININE CLEARANCE IN PREDICTING GLOMERULAR FILTRATION RATE. ESTIMATED GFR IS NOT APPLICABLE FOR DIALYSIS PATIENTS. CBC W/PLT COUNT & AUTO [id number] 07:08:00 Test Item Value Reference Range Comments WHITE BLOOD CELL COUNT (BEAKER) (test txbw=710) 6.9 K/ L 3.5-10.5 RED BLOOD CELL COUNT (BEAKER) (test agep=291) 4.57 M/ L 4.63-6.08 HEMOGLOBIN (BEAKER) (test houq=156) 13.4 GM/DL 13.7-17.5 HEMATOCRIT (BEAKER) (test vvee=830) 40.3 % 40.1-51.0 MEAN CORPUSCULAR VOLUME (BEAKER) (test vbhp=157) 88.2 fL 79.0-92.2 MEAN CORPUSCULAR HEMOGLOBIN (BEAKER) (test 29.3 pg 25.7-32.2 vbpv=207) MEAN CORPUSCULAR HEMOGLOBIN CONC (BEAKER) (test 33.3 GM/DL 32.3-36.5 onsw=791) RED CELL DISTRIBUTION WIDTH (BEAKER) (test 12.5 % 11.6-14.4 jpry=856) PLATELET COUNT (BEAKER) (test ckki=964) 192 K/CU MM 150-450 MEAN PLATELET VOLUME (BEAKER) (test avnq=313) 11.7 fL 9.4-12.4 NUCLEATED RED BLOOD CELLS (BEAKER) (test 0 /100 WBC 0-0 wfak=835) NEUTROPHILS RELATIVE PERCENT (BEAKER) (test 67 % atmf=836) LYMPHOCYTES RELATIVE PERCENT (BEAKER) (test 22 % glrp=328) MONOCYTES RELATIVE PERCENT (BEAKER) (test 9 % uksj=025) EOSINOPHILS RELATIVE PERCENT (BEAKER) (test 2 % iopk=417) BASOPHILS RELATIVE PERCENT (BEAKER) (test 1 % opbo=856) NEUTROPHILS ABSOLUTE COUNT (BEAKER) (test 4.59 K/ L 1.78-5.38 zsyf=954) LYMPHOCYTES ABSOLUTE COUNT (BEAKER) (test 1.50 K/ L 1.32-3.57 dqyh=006) MONOCYTES ABSOLUTE COUNT (BEAKER) (test 0.60 K/ L 0.30-0.82 cjzq=473) EOSINOPHILS ABSOLUTE COUNT (BEAKER) (test 0.13 K/ L 0.04-0.54 lpdl=038) BASOPHILS ABSOLUTE COUNT (BEAKER) (test 0.04 K/ L 0.01-0.08 btpj=257) IMMATURE GRANULOCYTES-RELATIVE PERCENT (BEAKER) 0 % 0-1 (test svty=8580) HEPATIC FUNCTION [id number] 06:42:00 Test Item Value Reference Range Comments TOTAL PROTEIN (BEAKER) (test csjd=772) 5.9 gm/dL 6.0-8.3 ALBUMIN (BEAKER) (test ezpv=4871) 3.7 g/dL 3.5-5.0 BILIRUBIN TOTAL (BEAKER) (test nnym=970) 0.7 mg/dL 0.2-1.2 BILIRUBIN DIRECT (BEAKER) (test jhbl=735) 0.4 mg/dL 0.1-0.5 ALKALINE PHOSPHATASE (BEAKER) (test tkfz=578) 87 U/L 40-150 AST (SGOT) (BEAKER) (test qizv=086) 20 U/L 5-34 ALT (SGPT) (BEAKER) (test jssv=789) 16 U/L 6-55 BASIC METABOLIC [id number] 06:42:00 Test Item Value Reference Range Comments SODIUM (BEAKER) (test 134 meq/L 136-145 mwmo=055) POTASSIUM (BEAKER) (test 4.0 meq/L 3.5-5.1 ecsa=496) CHLORIDE (BEAKER) (test 102 meq/L 98-107 cwxx=426) CO2 (BEAKER) (test 25 meq/L 22-29 jmez=714) BLOOD UREA NITROGEN 9 mg/dL 7-21 (BEAKER) (test ewnj=059) CREATININE (BEAKER) (test 0.83 mg/dL 0.57-1.25 odbo=857) GLUCOSE RANDOM (BEAKER) 101 mg/dL 70-105 (test qgto=987) CALCIUM (BEAKER) (test 8.9 mg/dL 8.4-10.2 klib=697) EGFR (BEAKER) (test 89 mL/min/1.73 sq m ESTIMATED GFR IS NOT mphf=3892) ACCURATE CREATININE CLEARANCE IN PREDICTING GLOMERULAR FILTRATION RATE. ESTIMATED GFR IS NOT APPLICABLE FOR DIALYSIS PATIENTS. [id number] 06:09:00 Test Item Value Reference Range Comments PROTIME (BEAKER) (test coka=837) 15.8 seconds 11.7-14.7 INR (BEAKER) (test bqmc=360) 1.3 <=5.9 PARTIAL THROMBOPLASTIN TIME (BEAKER) (test 34.8 seconds 22.5-36.0 riis=870) RECOMMENDED COUMADIN/WARFARIN INR THERAPY RANGESSTANDARD DOSE: 2.0 - 3.0 Includes: PROPHYLAXIS forvenous thrombosis, systemic embolization; TREATMENT for venous thrombosis and/or pulmonary embolus.HIGH RISK: Target INR is 2.5-3.5 for patients with mechanical heart valves.PROTHROMBIN [id number] 06:08: 00 Test Item Value Reference Range Comments PROTIME (BEAKER) (test ddfn=867) 15.8 seconds 11.7-14.7 INR (BEAKER) (test tupq=704) 1.3 <=5.9 RECOMMENDED COUMADIN/WARFARIN INR THERAPY RANGESSTANDARD DOSE: 2.0 - 3.0 Includes: PROPHYLAXIS forvenous thrombosis, systemic embolization; TREATMENT for venous thrombosis and/or pulmonary embolus.HIGH RISK: Target INR is 2.5-3.5 for patients with mechanical heart valves.CBC W/PLT COUNT & AUTO [id number] 05:59:00 Test Item Value Reference Range Comments WHITE BLOOD CELL COUNT (BEAKER) (test rxug=766) 7.2 K/ L 3.5-10.5 RED BLOOD CELL COUNT (BEAKER) (test tqgd=221) 4.34 M/ L 4.63-6.08 HEMOGLOBIN (BEAKER) (test xnvw=271) 12.8 GM/DL 13.7-17.5 HEMATOCRIT (BEAKER) (test jizu=293) 38.5 % 40.1-51.0 MEAN CORPUSCULAR VOLUME (BEAKER) (test wvgw=867) 88.7 fL 79.0-92.2 MEAN CORPUSCULAR HEMOGLOBIN (BEAKER) (test 29.5 pg 25.7-32.2 xbbk=565) MEAN CORPUSCULAR HEMOGLOBIN CONC (BEAKER) (test 33.2 GM/DL 32.3-36.5 drhe=602) RED CELL DISTRIBUTION WIDTH (BEAKER) (test 12.5 % 11.6-14.4 ltdm=189) PLATELET COUNT (BEAKER) (test daxx=821) 165 K/CU MM 150-450 MEAN PLATELET VOLUME (BEAKER) (test afnx=028) 11.4 fL 9.4-12.4 NUCLEATED RED BLOOD CELLS (BEAKER) (test 0 /100 WBC 0-0 ufoh=327) NEUTROPHILS RELATIVE PERCENT (BEAKER) (test 63 % ghyb=554) LYMPHOCYTES RELATIVE PERCENT (BEAKER) (test 24 % btei=240) MONOCYTES RELATIVE PERCENT (BEAKER) (test 11 % khce=698) EOSINOPHILS RELATIVE PERCENT (BEAKER) (test 2 % zcnk=024) BASOPHILS RELATIVE PERCENT (BEAKER) (test 0 % rhal=416) NEUTROPHILS ABSOLUTE COUNT (BEAKER) (test 4.52 K/ L 1.78-5.38 efko=457) LYMPHOCYTES ABSOLUTE COUNT (BEAKER) (test 1.73 K/ L 1.32-3.57 vwvu=180) MONOCYTES ABSOLUTE COUNT (BEAKER) (test 0.78 K/ L 0.30-0.82 bsgj=490) EOSINOPHILS ABSOLUTE COUNT (BEAKER) (test 0.13 K/ L 0.04-0.54 pudn=168) BASOPHILS ABSOLUTE COUNT (BEAKER) (test 0.03 K/ L 0.01-0.08 zgtf=036) IMMATURE GRANULOCYTES-RELATIVE PERCENT (BEAKER) 0 % 0-1 (test sikj=7239)
[2018-04-04 00:43] LABS: Absolute Lymphocytes (CBC) 0.4 K/uL (0.7-4.9); Absolute Monocytes 0.1 K/uL (0.1-1.3); Absolute Neutrophil 14.4 K/uL (1.8-8.0); Basophils % 0.3 % (0-1.3); Eosinophils % 1.1 % (0-4.4); Hematocrit 31.3 % (39.6-49.0); Lymphocytes % 2.8 % (15.3-44.8); MCH 35.7 pg (27.0-35.0); MCV 102.2 fL (80-100); MPV 9.9 fL (7.6-11.3); Monocytes % 0.7 % (3.3-12.3); Protime INR 1.2; RBC Red Blood Cell Count 3.06 M/uL (4.33-5.43)
[2018-04-04 00:59] LABS: ALT/SGPT 50 U/L (12-78); AST/SGOT 34 U/L (15-37); Albumin 2.6 g/dL (3.4-5.0); Alkaline Phosphatase 80 U/L (45-117); BUN Blood Urea Nitrogen 18 mg/dL (7-18); Bicarbonate 25 mmol/L (21-32); Bilirubin Direct 0.2 mg/dL (0-0.2); Bilirubin Total 0.7 mg/dL (0.2-1.0); Creatine Phosphokinase 48 U/L (39-308); Glucose Level 139 mg/dL (74-106); Lipase 75 U/L (73-393); Potassium 4.4 mmol/L (3.5-5.1); Protein, Total 5.7 g/dL (6.4-8.2); Sodium Level 128 mmol/L (136-145); Troponin (Emerg Dept Use Only) < 0.02 ng/mL (0.0-0.045)
[2018-04-04] MEDS ORDERED: PIPER/TAZO/NS 3.375gm 3.375 GM/100 ML BAG ONE (01:23)
[2018-04-04 02:22] LABS: Anisocytosis 1+; Blood Morphology Comment NOTED (NOT SEEN); Burr Cells 3+; Platelet Estimate ADEQ
--- NOTE | 2018-04-04 02:22 | EDPHYS ---
Physician Documentation [facility] Name: Bruce France Age: 77 yrs Sex: Male : 1940 Arrival Date: 04/03/2018 Time: 23:48 Bed 7 Private MD: Rikki Karimi ED Physician Calvin Ruiz HPI: 04/04 02:54 This 77 yrs old Male presents to ER via EMS with complaints of Fever. gs 02:54 Onset: The symptoms/episode began/occurred acutely, yesterday. Modifying factors: there gs are no obvious modifying factors. Associated signs and symptoms: Pertinent positives: arthralgias, chills. Severity of symptoms: At their worst the symptoms were moderate in the emergency department the symptoms are unchanged. The patient has experienced similar episodes in the past, a few times. The patient has been recently been admitted at [facility], was discharged a couple of weeks ago. Historical: - Allergies: 04/03 23:58 Codeine; ak1 - Home Meds: 23:58 aspirin 81 mg Oral TbEC 1 tab once daily [Active]; Fish Oil Oral daily [Active]; ak1 irbesartan 300 mg Oral tab 1 tab once daily [Active]; metoprolol tartrate 50 mg Oral tab 1 tab 2 times per day [Active]; multivitamin Oral tab daily [Active]; pantoprazole 40 mg Oral TbEC 1 tab once daily [Active]; [place] Oil-1000 Oral daily [Active]; Senna Lax 8.6 mg Oral tab 2 tabs twice a day [Active]; sertraline 50 mg Oral tab 1 tab once daily [Active]; Stool Softener Oral three times a day [Active]; Super B-50 Complex Oral daily [Active]; tamsulosin 0.4 mg Oral cp24 1 cap once daily [Active]; tramadol 50 mg Oral tab as needed [Active]; Zofran (as hydrochloride) 4 mg Oral tab as needed [Active]; - PMHx: 23:58 Atrial Fib; GERD; Hypertension; skin cancer; Pancreatitc cancer; Hernia; ak1 - PSHx: 23:58 spleenectomy; 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 - Social history:: Smoking status: unknown. - Ebola Screening: : No symptoms or risks identified at this time. ROS: 04/04 02:54 All other systems are negative. Exam: 02:54 Head/Face: Normocephalic, atraumatic. Eyes: Pupils equal round and reactive to light, gs extra-ocular motions intact. Lids and lashes normal. Conjunctiva and sclera are non-icteric and not injected. Cornea within normal limits. Periorbital areas with no swelling, redness, or edema. ENT: Nares patent. No nasal discharge, no septal abnormalities noted. Tympanic membranes are normal and external auditory canals are clear. Oropharynx with no redness, swelling, or masses, exudates, or evidence of obstruction, uvula midline. Mucous membranes moist. Neck: Trachea midline, no thyromegaly or masses palpated, and no cervical lymphadenopathy. Supple, full range of motion without nuchal rigidity, or vertebral point tenderness. No Meningismus. Chest/axilla: Normal chest wall appearance and motion. Nontender with no deformity. No lesions are appreciated. Cardiovascular: Regular rate and rhythm with a normal S1 and S2. No gallops, murmurs, or rubs. Normal PMI, no JVD. No pulse deficits. Respiratory: Lungs have equal breath sounds bilaterally, clear to auscultation and percussion. No rales, rhonchi or wheezes noted. No increased work of breathing, no retractions or nasal flaring. Abdomen/GI: Soft, non-tender, with normal bowel sounds. No distension or tympany. No guarding or rebound. No evidence of tenderness throughout. Back: No spinal tenderness. No costovertebral tenderness. Full range of motion. Neuro: Awake and alert, GCS 15, oriented to person, place, time, and situation. Cranial nerves II-XII grossly intact. Motor strength 5/5 in all extremities. Sensory grossly intact. Cerebellar exam normal. Normal gait. 02:54 Constitutional: The patient appears alert, awake, uncomfortable. 02:54 Musculoskeletal/extremity: Circulation is intact in all extremities. Edema, 2+ to the left ankle and left foot is noted. 02:54 Skin: cellulitis, that is moderate, on the left chan, anterior aspect of left ankle and dorsum of left foot. 03:13 ECG was reviewed by the Attending Physician. Vital Signs: 04/03 23:53 BP 159 / 79; Pulse 82; Resp 16; Temp 98.5(O); Pulse Ox 99% on R/A; Weight 81.65 kg (R); ak1 Height 6 ft. 0 in. (182.88 cm) (R); Pain 0/10; 04/04 00:33 BP 130 / 74; Pulse 83; Resp 16; Pulse Ox 98% on R/A; Pain 0/10; ak1 02:34 BP 125 / 50; Pulse 90; Resp 16; Temp 100.4(O); Pulse Ox 98% on R/A; Pain 0/10; ak1 09 23:53 Body Mass Index 24.41 (81.65 kg, 182.88 cm) ak1 MDM: 00:14 Patient medically screened. 02:54 Differential diagnosis: viral Infection, bacterial infection, pneumonia UTI, gs cellulitis,dvt. Data reviewed: vital signs, nurses notes. 02:54 Test interpretation: by ED physician or midlevel provider: ECG. Physician consultation: Ralph Wyatt MD and will see patient in inpatient room. 04/04 00:16 Order name: Basic Metabolic Panel; Complete Time: 01:12 04/04 00:16 Order name: Blood Culture Adult (2) 04/04 00:16 Order name: CBC with Diff 04/04 00:16 Order name: CPK; Complete Time: 01:12 04/04 00:16 Order name: Lactate; Complete Time: 01:12 04/04 00:16 Order name: LFT's; Complete Time: 01:12 04/04 00:16 Order name: Lipase; Complete Time: 01:12 04/04 00:16 Order name: Procalcitonin 04/04 00:16 Order name: Protime (+inr); Complete Time: 01:12 04/04 00:16 Order name: Troponin (emerg Dept Use Only); Complete Time: 01:12 04/04 00:19 Order name: Flu 04/04 00:53 Order name: Manual Differential EDMS 04/04 02:53 Order name: Urine Dipstick--Ancillary (enter results) ms 04/04 00:16 Order name: Chest Single View XRAY 04/04 00:16 Order name: Cardiac monitoring; Complete Time: 00:25 04/04 00:16 Order name: EKG - Nurse/Tech; Complete Time: 00:58 04/04 00:16 Order name: IV Saline Lock - Large Bore; Complete Time: 00:26 04/04 00:16 Order name: Labs collected and sent; Complete Time: 00:26 04/04 00:16 Order name: O2 Per Protocol; Complete Time: 00:26 04/04 02:59 Order name: US Extremity Venous Unilateral Ltd 04/04 03:32 Order name: Lactate Sepsis 2 HR Follow-up EDFL 04/04 00:16 Order name: O2 Sat Monitoring; Complete Time: 00:26 04/04 00:16 Order name: Urine Dipstick-Ancillary (obtain specimen); Complete Time: 02:47 gs EC:13 Rate is 85 beats/min. Rhythm is regular. [place] interval is normal. QRS interval is normal. gs T waves are Normal. No ST changes noted. Clinical impression: Normal ECG. Interpreted by me. Administered Medications: 00:29 Drug: NS 0.9% 1000 ml Route: IV; Rate: 1 bolus; Site: right antecubital; ak1 02:30 Follow up: IV Status: Completed infusion ak1 01:27 Drug: NS 0.9% 1000 ml Route: IV; Rate: 1 bolus; Site: right antecubital; ak1 02:34 Follow up: IV Status: Completed infusion ak1 01:27 Drug: Zosyn 3.375 grams Route: IVPB; Infused Over: 60 mins; Site: right antecubital; ak1 02:30 Follow up: IV Status: Completed infusion ak1 03:10 Drug: NS 0.9% 1000 ml Route: IV; Rate: 125 ml/hr; Site: right antecubital; ak1 03:19 Follow up: IV Status: Infusion continued upon admission ak1 03:10 Drug: vancoMYCIN 1 grams Route: IVPB; Infused Over: 2 hrs; Site: right antecubital; ak1 03:55 Follow up: IV Status: Infusion continued upon admission ak1 03:10 Drug: Tylenol 1000 mg Route: PO; ak1 03:19 Follow up: Response: No adverse reaction ak1 Disposition: 04/04/18 02:21 Hospitalization ordered by Ralph Wyatt for Inpatient Admission. Preliminary diagnosis are Gram-negative sepsis, unspecified, Cellulitis of left lower limb. - Bed requested for Telemetry/MedSurg (Inpatient). - Status is Inpatient Admission. ak1 - Condition is Stable. - Problem is new. - Symptoms have improved. UTI on Admission? No Critical care time excluding procedures: 02:54 Critical care time: Bedside Care: 10 minutes, Consultation: 10 minutes, Family gs Intervention: 10 minutes. Total time: 30 minutes Signatures: Dispatcher [employer] EDFL Elizabeth Carreon RN RN Dayna Kramer RN SUSHANT ak1 Juan Franks RN RN ao Calvin Ruiz MD MD gs Corrections: (The following items were deleted from the chart) 01:15 00:16 Accucheck ordered. gs ak1 02:02 01:13 Stone Protocol+CT.RAD.BRZ ordered. EDFL EDFL 02:48 02:21 Hospitalization Ordered by Ralph Wyatt MD for Inpatient Admission. Preliminary gs diagnosis is Gram-negative sepsis, unspecified. Bed requested for Telemetry/MedSurg (Inpatient). Status is Inpatient Admission. Condition is Stable. Problem is new. Symptoms have improved. UTI on Admission? No. gs 03:03 02:48 04/04/2018 02:21 Hospitalization Ordered by Ralph Wyatt MD for Inpatient mw Admission. Preliminary diagnosis is Gram-negative sepsis, unspecified; Cellulitis of left lower limb. Bed requested for Telemetry/MedSurg (Inpatient). Status is Inpatient Admission. Condition is Stable. Problem is new. Symptoms have improved. UTI on Admission? No. gs 03:08 0916 23:58 Allergies: Acetaminophen; ak1 ao 04/04 03:12 02:56 LACTATE+C.LAB.BRZ ordered. EDFL EDMS 04:10 03:03 04/04/2018 02:21 Hospitalization Ordered by Ralph Wyatt MD for Inpatient ak1 Admission. Preliminary diagnosis is Gram-negative sepsis, unspecified; Cellulitis of left lower limb. Bed requested for Telemetry/MedSurg (Inpatient). Status is Inpatient Admission. Condition is Stable. Problem is new. Symptoms have improved. UTI on Admission? No. mw
--- NOTE | 2018-04-04 02:22 | ER ---
Nurse's Notes [facility] Name: Bruce France Age: 77 yrs Sex: Male : 1940 Arrival Date: 04/03/2018 Time: 23:48 Bed 7 Private MD: Rikki Karimi Diagnosis: Gram-negative sepsis, unspecified;Cellulitis of left lower limb Presentation: 04/03 23:54 Presenting complaint: Patient states: generalized weakness and fever. pt has chemo ak1 Wednesday. pt stated pt was unable to stand and walk to bed tonight. pt sees Dr. Peralta, Dr. Calderon, Dr. Benites at [facility] was pt's surgeon. Transition of care: patient was not received from another setting of care. Onset of symptoms was April 03, 2018. Risk Assessment: Do you want to hurt yourself or someone else? Patient reports no desire to harm self or others. Initial Sepsis Screen: Does the patient meet any 2 criteria? No. Patient's initial sepsis screen is negative. Does the patient have a suspected source of infection? No. Patient's initial sepsis screen is negative. Care prior to arrival: None. 23:54 Method Of Arrival: EMS: [facility] ak1 23:54 Acuity: BASSEM 3 ak1 Triage Assessment: 23:58 General: Appears uncomfortable, Behavior is cooperative. Pain: Denies pain. EENT: No ak1 signs and/or symptoms were reported regarding the EENT system. Neuro: Level of Consciousness is awake, alert, obeys commands, Oriented to person, place, time, situation, Staff Air Defense Officer are equal bilaterally Weakness Gait is pt with weakness, stated pt unable to stand. Speech is normal. Cardiovascular: No deficits noted. Respiratory: No deficits noted. GI: Abdomen is round non-distended, Bowel sounds present X 4 quads. Reports nausea. : No signs and/or symptoms were reported regarding the genitourinary system. Derm: Reports fever started tonight. Musculoskeletal: Reports weakness in right arm, left arm, right leg and left leg general fatigue. Historical: - Allergies: 23:58 Codeine; ak1 - Home Meds: 23:58 aspirin 81 mg Oral TbEC 1 tab once daily [Active]; Fish Oil Oral daily [Active]; ak1 irbesartan 300 mg Oral tab 1 tab once daily [Active]; metoprolol tartrate 50 mg Oral tab 1 tab 2 times per day [Active]; multivitamin Oral tab daily [Active]; pantoprazole 40 mg Oral TbEC 1 tab once daily [Active]; [place] Oil-1000 Oral daily [Active]; Senna Lax 8.6 mg Oral tab 2 tabs twice a day [Active]; sertraline 50 mg Oral tab 1 tab once daily [Active]; Stool Softener Oral three times a day [Active]; Super B-50 Complex Oral daily [Active]; tamsulosin 0.4 mg Oral cp24 1 cap once daily [Active]; tramadol 50 mg Oral tab as needed [Active]; Zofran (as hydrochloride) 4 mg Oral tab as needed [Active]; - PMHx: 23:58 Atrial Fib; GERD; Hypertension; skin cancer; Pancreatitc cancer; Hernia; ak1 - PSHx: 23:58 spleenectomy; 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 - Social history:: Smoking status: unknown. - Ebola Screening: : No symptoms or risks identified at this time. Screenin/17 00:01 Abuse screen: Denies threats or abuse. Denies injuries from another. Nutritional ak1 screening: No deficits noted. Tuberculosis screening: No symptoms or risk factors identified. Fall Risk Gait- Weak (10 pts.). Assessment: 00:00 Reassessment: Patient appears in no apparent distress at this time. see triage ak1 assessment. pt was seen in ER 10 days [employer] for same s/s. 01:27 Reassessment: Patient states symptoms have improved. pt refused CT scan since having ak1 one on 03/21/18, Dr. Ruiz notified. pt did agree to antibiotics and fluids at this time. pt appears to be resting comfortably, family at bedside. will continue to monitor. . 02:45 Reassessment: pt c/o swelling to left lower leg prior to Wednesday's fall. pt denies any ak1 injury to left lower leg, ERP notified and at bedside for assessment as well as update on admission status. . Vital Signs: 04/03 23:53 BP 159 / 79; Pulse 82; Resp 16; Temp 98.5(O); Pulse Ox 99% on R/A; Weight 81.65 kg (R); ak1 Height 6 ft. 0 in. (182.88 cm) (R); Pain 0/10; 04/04 00:33 BP 130 / 74; Pulse 83; Resp 16; Pulse Ox 98% on R/A; Pain 0/10; ak1 02:34 BP 125 / 50; Pulse 90; Resp 16; Temp 100.4(O); Pulse Ox 98% on R/A; Pain 0/10; ak1 04/03 23:53 Body Mass Index 24.41 (81.65 kg, 182.88 cm) ak1 ED Course: 04/03 23:48 Patient arrived in ED. ds1 23:48 Rikki Karimi DO is Private Physician. ds1 23:53 Dayna Kramer, RN is Primary Nurse. ak1 23:55 Triage completed. ak1 23:57 Calvin Ruiz MD is Attending Physician. 04/04 00:01 Arm band placed on Patient placed in an exam room, on a stretcher, on pulse oximetry, ak1 Patient notified of wait time. 00:01 Patient has correct armband on for positive identification. Bed in low position. Call ak1 light in reach. Side rails up X2. Adult w/ patient. Pulse ox on. NIBP on. Door closed. Lights dimmed. Warm blanket given. 00:15 Initial lab(s) drawn, by me, sent to lab. First set of blood cultures drawn by me, ak1 Second set of blood cultures drawn by me, Flu and/or RSV swab sent to lab. 00:29 Inserted saline lock: 22 gauge in left antecubital area, using aseptic technique. Blood ak1 collected. 00:33 No provider procedures requiring assistance completed. ak1 01:07 Notified ED physician of a critical lab result(s). lactate of 2.6. fc 01:08 X-ray completed. Portable x-ray completed in exam room. Patient tolerated procedure kw well. 01:40 Chest Single View XRAY In Process Unspecified. EDMS 02:20 Ralph Wyatt MD is Hospitalizing Provider. gs 03:10 Patient admitted, IV remains in place. ak1 03:32 Ultrasound completed. Patient tolerated well. aa4 Administered Medications: 00:29 Drug: NS 0.9% 1000 ml Route: IV; Rate: 1 bolus; Site: right antecubital; ak1 02:30 Follow up: IV Status: Completed infusion ak1 01:27 Drug: NS 0.9% 1000 ml Route: IV; Rate: 1 bolus; Site: right antecubital; ak1 02:34 Follow up: IV Status: Completed infusion ak1 01:27 Drug: Zosyn 3.375 grams Route: IVPB; Infused Over: 60 mins; Site: right antecubital; ak1 02:30 Follow up: IV Status: Completed infusion ak1 03:10 Drug: NS 0.9% 1000 ml Route: IV; Rate: 125 ml/hr; Site: right antecubital; ak1 03:19 Follow up: IV Status: Infusion continued upon admission ak1 03:10 Drug: vancoMYCIN 1 grams Route: IVPB; Infused Over: 2 hrs; Site: right antecubital; ak1 03:55 Follow up: IV Status: Infusion continued upon admission ak1 03:10 Drug: Tylenol 1000 mg Route: PO; ak1 03:19 Follow up: Response: No adverse reaction ak1 Outcome: 02:21 Decision to Hospitalize by Provider. gs 03:10 Condition: stable ak1 03:10 Instructed on the need for admit. 03:55 Admitted to Tele accompanied by tech, family with patient, via stretcher, room 421, ak1 with chart, Report called to Marjan 04:10 Patient left the ED. ak1 Signatures: Dispatcher [employer] EDMS Geetha Terry RN RN fc Sanford, Demi ds1 Anabell Skelton Kimberlee kw Krenek, Amber, RN RN ak1 Juan Franks RN RN ao Starr, Gregory, MD MD Corrections: (The following items were deleted from the chart) 03:08 09/16 23:58 Allergies: Acetaminophen; ak1 ao
[2018-04-04] MEDS ORDERED: VANCOMYCIN 1 GM/VIAL ONE (02:57)
[2018-04-04] MEDS ORDERED: NA CHLORIDE 0.9% 250 ML ONE (02:57)
[2018-04-04] MEDS ORDERED: ACETAMINOPHEN 500 MG TAB ONE ×2 (03:08)
[2018-04-04] MEDS ORDERED: ACETAMINOPHEN 500 MG TAB PO PRN (03:10)
[2018-04-04] MEDS: NA CHLORIDE 0.9% 1,000 ML IV SCH ×2 (04:00→12:31)
[2018-04-04 04:04] LABS: Urine Blood TRACE (NEG); Urine Glucose NEGATIVE (NEG); Urine Protein NEGATIVE (NEG); Urine pH 6.5 (5.0-7.0)
--- NOTE | 2018-04-04 04:20 | P.HP ---
Certification for Inpatient Patient admitted to: Inpatient With expected LOS: >2 Midnights Patient will require the following post-hospital care: None Practitioner: I am a practitioner with admitting privileges, knowledge of patient current condition, hospital course, and medical plan of care. Services: Services provided to patient in accordance with Admission requirements found in Title 42 Section 412.3 of the Code of Federal Regulations Patient History Date of Service: 04/04/18 Reason for admission: Fever, sepsis, lactic acidosis History of Present Illness: Patient is a 77-year-old gentleman who was recently in the hospital about a week ago with similar complaints. Initially it was felt that he may have diverticulitis or colitis. He was started on IV antibiotics infectious Disease saw the patient as well. They recommended a 10 day course of oral antibiotics. Patient was discharged to follow with Oncology. Patient states that he was not given any antibiotics at the time of discharge as he was told his blood cultures were negative. Patient followed up with Oncology and he has been having the abdominal pain on and off since discharge. The pain has gradually gotten worse and this evening he started having fevers once again of 102. He was having fevers in the emergency room when I saw him of about 101. He was admitted to the hospital for IV hydration and IV antibiotic therapy. Will Consult Oncology and Infectious Disease for further evaluation. Patient states he has been having bowel movement with his bowel regimen. Will continue to monitor him closely on the floor in and if his blood pressure decreases will transfer him to ICU. He will be admitted and treated for sepsis. However, because of his bilateral lower extremity edema if ran because his blood pressure is stable will not bolus him per sepsis protocol because of his blood pressure being stable. Will continue maintenance fluids however and will also get a Doppler of his lower extremity. He does have some swelling in the left lower extremity. Allergies codeine Adverse Reaction (Verified 03/21/18 02:22) Nausea/Vomiting Home Medications: Multivitamin [Multivitamins] 1 each PO DAILY 09/09/16 Aspirin [Aspir-Low] 81 mg PO DAILY 03/21/18 Diazepam [Valium] 5 mg PO DAILY PRN 03/21/18 Docosahexanoic AC/Epa [Fish Oil 1,000 MG*] 1,000 mg PO DAILY 03/21/18 Docusate Sodium [Stool Softener] 3 tab PO DAILY 03/21/18 Ferrous Fumarate/Vit Bcomp&C [Super B-Complex Caplet] 1 tab PO DAILY 03/21/18 Green Tea [place] Extract [Green Tea] 1 cap PO DAILY 03/21/18 Irbesartan [Avapro] 300 mg PO DAILY 03/21/18 Metoprolol Succinate [Toprol Xl] 50 mg PO BID 03/21/18 Ondansetron [Zofran (Odt)*] 4 mg PO Q4HP PRN 03/21/18 Pantoprazole Sodium [Protonix] 40 mg PO DAILY 03/21/18 Polyethylene Glycol 3350 [Miralax] 17 gm PO DAILY 03/21/18 [place] Oil/[place]-3 Fatty Acids [Sv [place] Oil 1,000 mg Softgel] 1 cap PO DAILY 03/21/18 Sennosides [Senna Lax] 2 tab PO BID 03/21/18 Sertraline HCl 50 mg PO DAILY 03/21/18 Tamsulosin [Flomax*] 0.4 mg PO DAILY 03/21/18 Tramadol HCl [Ultram] 50 mg PO Q4H PRN 03/21/18 Gabapentin [Neurontin] 100 mg PO BID #15 cap 03/22/18 - Past Medical/Surgical History Diabetic: No -: Pancreatic cancer -: Afib -: Enlarge prostate -: GERD -: Depression -: Pancreatic resection - Family History Mother Medical History: Heart disease - Social History Alcohol use: No CD- Drugs: No Caffeine use: Yes Review of Systems 10-point ROS is otherwise unremarkable Physical Examination - Vital Signs Temperature: 101 F Blood Pressure: 140/80 Pulse: 105 Respirations: 18 Pulse Ox (%): 96 - Physical Exam General: Alert, In no apparent distress, Oriented x3 HEENT: Atraumatic, PERRLA, Mucous membr. moist/pink, EOMI, Sclerae nonicteric Neck: Supple, 2+ carotid pulse no bruit, No LAD, Without JVD or thyroid abnormality Respiratory: Clear to auscultation bilaterally, Normal air movement Cardiovascular: Regular rate/rhythm, Normal S1 S2, No murmurs Gastrointestinal: Normal bowel sounds, Soft and benign, No guarding, Tenderness (Diffuse), Rebound Musculoskeletal: No clubbing, No tenderness, Swelling Integumentary: No rashes Neurological: Normal gait, Normal speech, Normal tone, Sensation intact, Cranial nerves 3-12 intact, Normal affect, Abnormal strength (4/5) Lymphatics: No axilla or inguinal lymphadenopathy - Studies Laboratory Data (last 24 hrs) 04/04/18 00:20: PT 14.2 H, INR 1.20 04/04/18 00:20: WBC 15.2 H D, Hgb 10.9 L, Hct 31.3 L, Plt Count 259 D 04/04/18 00:20: Sodium 128 L, Potassium 4.4, BUN 18, Creatinine 1.00, Glucose 139 H, Total Bilirubin 0.7, AST 34, ALT 50, Alkaline Phosphatase 80, Lipase 75 Assessment & Plan - Plan Assessment: 1. Abdominal pain 2. Fever 3. History of pancreatic cancer 4. Colitis versus diverticulitis 5. History of constipation 6. Leukocytosis 7. Bandemia 8. Atrial fibrillation 9. Left lower extremity edema 10. Hyponatremia 11. Lactic acidosis 12. Macrocytic anemia 13. Hypoalbuminemia 14. Coagulopathy Plan: 1. Continue with IV hydration 2. Continue with IV antibiotics 3. Continue with pain control 4. NPO 5. Infectious disease and oncology consultation 6. Serial H&H, and we will monitor CBC, BMP, LFTs and lipase along with electrolytes. 7. Workup anemia with iron studies and nutritional studies 8. Monitor sodium level and lactic acid level closely 9. If nutritional supplementation to help protein deficiency 10. Resume medication for atrial fibrillation; hold anti coagulation pending Doppler of the left lower extremity. If there is a DVT then will resume 11. GI and DVT prophylaxis Discharge Plan: Home Plan to discharge in: Greater than 2 days - Advance Directives Does patient have a Living Will: Yes Does patient have a Durable POA for Healthcare: Yes - Code Status/Comfort Care Code Status Assessed: Yes Code Status: Full Code Critical Care: No Time Spent Managing PTS Care (In Minutes): 60
[2018-04-04] MEDS: Levofloxacin500mg IV 500 MG/100 ML BAG IV SCH (05:09)
[2018-04-04] MEDS: METRONIDAZOLE 500mg IVPB 500 MG/100 ML BAG IV SCH ×3 (05:14→17:31)
[2018-04-04 05:40] VITALS: O2SAT 93; BMI 24.4
--- NOTE | 2018-04-04 07:01 | RAD REPORT ---
EXAM DESCRIPTION: US - Extremity Venous Uni Ltd - 04/04/2018 3:38 am CLINICAL HISTORY: Left leg pain and swelling Preliminary findings provided at the time of the study. COMPARISON: None. TECHNIQUE: Real-time sonographic evaluation of the left lower extremity deep venous system was perfo rmed. FINDINGS: Normal compressibility, flow augmentation, phasic flow and spontaneous flow are identified in the left lower extremity common femoral, superficial femoral, popliteal and posterior tibial vein s. No intraluminal filling defects seen. IMPRESSION: No DVT in the left lower extremity.
[2018-04-04 07:05] LABS: ALT/SGPT 39 U/L (12-78); AST/SGOT 32 U/L (15-37); Albumin 2.2 g/dL (3.4-5.0); Alkaline Phosphatase 67 U/L (45-117); BUN Blood Urea Nitrogen 15 mg/dL (7-18); Bicarbonate 24 mmol/L (21-32); Bilirubin Total 0.6 mg/dL (0.2-1.0); Glucose Level 119 mg/dL (74-106); Magnesium 1.8 mg/dL (1.8-2.4); Potassium 4.2 mmol/L (3.5-5.1); Protein, Total 4.8 g/dL (6.4-8.2); Sodium Level 131 mmol/L (136-145)
[2018-04-04 07:15] LABS: Absolute Lymphocytes (CBC) 0.9 K/uL (0.7-4.9); Absolute Monocytes 0.2 K/uL (0.1-1.3); Basophils % 0.5 % (0-1.3); Eosinophils % 1.5 % (0-4.4); Hematocrit 27.4 % (39.6-49.0); MCH 35.5 pg (27.0-35.0); MCV 102.6 fL (80-100); MPV 9.1 fL (7.6-11.3); Monocytes % 1.8 % (3.3-12.3); RBC Red Blood Cell Count 2.67 M/uL (4.33-5.43)
[2018-04-04] MEDS: ONDANSETRON 4 MG/2 ML VIAL IV PRN ×2 (07:49→12:31)
[2018-04-04 08:06] LABS: Anisocytosis 1+; Blood Morphology Comment NOTED (NOT SEEN); Macrocytosis 1+; Platelet Estimate ADEQ; Poikilocytosis 1+; Urine White Blood Cell Casts OK
[2018-04-04] MEDS: HYDROMORPHONE HCL 1 MG/ML INJ IV PRN (08:10)
--- NOTE | 2018-04-04 08:10 | RAD REPORT ---
EXAM DESCRIPTION: RAD - Chest Single View - 04/04/2018 1:40 am CLINICAL HISTORY: Weakness, fever, chemotherapy patient COMPARISON: March 20, 2018 TECHNIQUE: AP portable chest image was obtained 0038 hours . FINDINGS: Lungs are clear. Lung markings are similar to comparison. Heart and vasculature are normal . No measurable pleural effusion and no pneumothorax. No gross bony abnormality seen. No acute aortic findings suspected. IMPRESSION: No acute cardiopulmonary process. No significant interval change.
[2018-04-04] MEDS: ENOXAPARIN 40 MG/0.4 ML SQ SCH (08:13)
[2018-04-04] MEDS: DOCOSAHEXANOIC AC/EPA 1000 MG PO SCH (08:14)
[2018-04-04] MEDS: METOPROLOL XL 50 MG TAB PO SCH ×2 (08:14→20:10)
[2018-04-04] MEDS: IRBESARTAN 150 MG TAB PO SCH (08:15)
[2018-04-04] MEDS: ASPIRIN EC 81 MG TAB PO SCH (08:16)
[2018-04-04] MEDS: SERTRALINE HCL 50 MG TAB PO SCH ×2 (08:16→08:20)
[2018-04-04] MEDS ORDERED: TAMSULOSIN 0.4 MG SR CAP PO SCH (09:00)
--- NOTE | 2018-04-04 09:39 | RAD REPORT ---
EXAM DESCRIPTION: RAD - Abdomen W Erect - 04/04/2018 9:05 am CLINICAL HISTORY: Abdominal pain, weakness, history of pancreatic cancer, history of complicated pos toperative course with hernia COMPARISON: CT study March 21 TECHNIQUE: Supine and upright views of the abdomen were obtained. FINDINGS: Moderate stool volume is seen in the ascending and descending portions of the colon. A few minimally prominent small bowel loops are present. No overall bowel obstruction pattern. No free air or pneumatosis seen. Numerous clips are present in the upper abdomen presumed to be related to parti al pancreatic mass resection. No suspicious calcification pattern. No free air or pneumatosis. Bony degenerative change present. IMPRESSION: No bowel obstruction, free air or surgically emergent finding. Bowel gas pattern is nonspecific. There is moderately large stool volume filling much of the colon.
[2018-04-04] MEDS ORDERED: MAGNESIUM SULFATE 1 gm IVPB 1 GM/100 ML BAG IV ONE (11:34)
[2018-04-04] MEDS: SENOSIDES 8.6 MG TAB PO SCH ×2 (12:42→20:10)
[2018-04-04] MEDS: DOCUSATE NA 100 MG CAP PO SCH (12:42)
[2018-04-04] MEDS: POLYETHYL GLY 3350 17 GM/DOSE PO SCH (12:43)
[2018-04-04] MEDS: ACETAMINOPHEN 500 MG TAB PO PRN ×2 (13:48→21:07)
[2018-04-04] MEDS: PANTOPRAZOLE 40MG TABLET PO SCH (13:48)
--- NOTE | 2018-04-04 19:26 | EKG ---
Test Date: 2018-04-04 Test Time: 00:54:36 Per Diem Registered Nurse: REANNA MEASUREMENT RESULTS: Intervals: Rate: 85 PA: 176 QRSD: 88 QT: 366 QTc: 435 [place]: P: 63 PA: 176 QRS: 78 T: 58 INTERPRETIVE STATEMENTS: Normal sinus rhythm Normal ECG Compared to ECG 03/20/2018 20:48:16 No significant changes Electronically Signed On 04-04-18 19:23:00 CDT by Tim Magdaleno
--- NOTE | 2018-04-04 19:36 | CON ---
History Of Present Illness: This is a 77-year-old male recently admitted to the hospital. The patie nt was being treated with antibiotic. The patient also has significant history of pancreatic cancer for which he has been getting chemotherapy on weekly basis. The patient was found to have diverticul itis and colitis and was initiated on antibiotic. The patient came to the hospital because he was no t able to get up from weakness. Also was having abdominal pain, a fever of 102 T-max and in emergenc y room it was 101. The patient was started on IV hydration and IV antibiotic and was admitted for fu rther evaluation. The patient is currently being treated with IV Levaquin and IV hydration. Past Medical History: Includes pancreatic cancer, atrial fibrillation, enlarged prostate, gastroesop hageal reflux disease, depression, status post pancreatic surgery. Surgical History: Nonsmoker, nondrinker. Family History: Noncontributory. Medication: Levaquin, see [facility] for other medication. Allergies: CODEINE. Review of Systems: A 10-point review was performed. Physical Examination: General: This is a 77-year-old male, lying in bed, not in any acute cardiopulmonary distress. Vital Signs: Temperature 98, pulse 70, respiration 18, blood pressure 120/54. HEENT: Unremarkable. Neck: Supple. Lungs: Basal crackles. Heart: S1, S2. Regular. Abdomen: Soft. Bowel sounds present. Tenderness in lower quadrant elicited. Extremity: No edema. Laboratory Data: WBC 13.4 down from 15.2, hemoglobin 9.5, platelets are 210. Chemistry shows sodium 131, potassium 4.2, chloride 101, bicarb 24, BUN 15, creatinine 0.8, glucose 119. Abdominal x-ray, no bowel obstruction noted. Venous studies of the lower extremity shows no DVT. Chest x-ray shows n o acute pulmonary process. Assessment And Plan: A 77-year-old male with significant history of pancreatic cancer, coming in wit h generalized weakness and abdominal pain and leukocytosis. We will continue antibiotic treatment at this time. Consider getting CT of abdomen and pelvis for further evaluation. Continue supportive c are and antibiotics. We will follow the patient as needed. Thank you Dr. Wyatt for consult. EVERETT/UMBERTO Voice ID: [id number] Report ID: [id number]
[2018-04-04] MEDS: TAMSULOSIN 0.4 MG SR CAP PO SCH (20:10)
[2018-04-04] MEDS: DIAZEPAM 5 MG TABLET PO PRN (21:20)
--- NOTE | 2018-04-04 21:28 | P.CNS ---
Date of Consult: 04/04/18 Reason for Consult: Hyponatremia Requesting Physician: Nakita Abarca Chief Complaint: Fever, sepsis, lactic acidosis History of Present Illness: Patient is a 77-year-old gentleman who was recently in the hospital about a week ago with similar complaints. Initially it was felt that he may have diverticulitis or colitis. He was started on IV antibiotics infectious Disease saw the patient as well. They recommended a 10 day course of oral antibiotics. Patient was discharged to follow with Oncology. Patient states that he was not given any antibiotics at the time of discharge as he was told his blood cultures were negative. Patient followed up with Oncology and he has been having the abdominal pain on and off since discharge. The pain has gradually gotten worse and this evening he started having fevers once again of 102. He was having fevers in the emergency room when I saw him of about 101. He was admitted to the hospital for IV hydration and IV antibiotic therapy. Will Consult Oncology and Infectious Disease for further evaluation. Patient states he has been having bowel movement with his bowel regimen. Will continue to monitor him closely on the floor in and if his blood pressure decreases will transfer him to ICU. He will be admitted and treated for sepsis. However, because of his bilateral lower extremity edema if ran because his blood pressure is stable will not bolus him per sepsis protocol because of his blood pressure being stable. Will continue maintenance fluids however and will also get a Doppler of his lower extremity. He does have some swelling in the left lower extremity. 02:54 This 77 yrs old Male presents to ER via EMS with complaints of Fever. gs 02:54 Onset: The symptoms/episode began/occurred acutely, yesterday. Modifying factors: there gs are no obvious modifying factors. Associated signs and symptoms: Pertinent positives: arthralgias, chills. Severity of symptoms: At their worst the symptoms were moderate in the emergency department the symptoms are unchanged. The patient has experienced similar episodes in the past, a few times. The patient has been recently been admitted at [facility], was discharged a couple of weeks ago Allergies codeine Adverse Reaction (Verified 04/04/18 05:28) Nausea/Vomiting Home medications list reviewed: Yes Home Medications: Multivitamin [Multivitamins] 1 each PO DAILY 09/09/16 Aspirin [Aspir-Low] 81 mg PO DAILY 03/21/18 Diazepam [Valium] 5 mg PO DAILY PRN 03/21/18 Docosahexanoic AC/Epa [Fish Oil 1,000 MG*] 1,000 mg PO DAILY 03/21/18 Docusate Sodium [Stool Softener] 3 tab PO DAILY 03/21/18 Ferrous Fumarate/Vit Bcomp&C [Super B-Complex Caplet] 1 tab PO DAILY 03/21/18 Green Tea [place] Extract [Green Tea] 1 cap PO DAILY 03/21/18 Irbesartan [Avapro] 300 mg PO DAILY 03/21/18 Metoprolol Succinate [Toprol Xl] 50 mg PO BID 03/21/18 Ondansetron [Zofran (Odt)*] 4 mg PO Q4HP PRN 03/21/18 Pantoprazole Sodium [Protonix] 40 mg PO DAILY 03/21/18 Polyethylene Glycol 3350 [Miralax] 17 gm PO DAILY 03/21/18 [place] Oil/[place]-3 Fatty Acids [Sv [place] Oil 1,000 mg Softgel] 1 cap PO DAILY 03/21/18 Sennosides [Senna Lax] 2 tab PO BID 03/21/18 Sertraline HCl 50 mg PO DAILY 03/21/18 Tamsulosin [Flomax*] 0.4 mg PO DAILY 03/21/18 Tramadol HCl [Ultram] 50 mg PO Q4H PRN 03/21/18 - Past Medical/Surgical History Diabetic: No -: Pancreatic cancer -: Afib -: Enlarge prostate -: GERD -: Depression -: Pancreatic resection - Family History Mother Medical History: Heart disease - Social History Smoking Status: Unknown if ever smoked Alcohol use: No CD- Drugs: No Caffeine use: Yes Place of Residence: Home Review of Systems 10-point ROS is otherwise unremarkable General: Weakness, Malaise Respiratory: SOB with Excertion Cardiovascular: Edema Gastrointestinal: Nausea, Abdominal Pain, Constipation Neurological: Weakness Physical Examination Temp Pulse Resp BP Pulse Ox 97.6 F 69 20 172/77 H 100 04/04/18 19:45 04/04/18 20:10 04/04/18 19:45 04/04/18 20:10 04/04/18 19:45 General: Alert, Oriented x3, Cooperative HEENT: Atraumatic Neck: Supple Respiratory: Clear to auscultation bilaterally Cardiovascular: Regular rate/rhythm, Edema Gastrointestinal: Soft and benign, Non-distended Musculoskeletal: No clubbing, No contractures Integumentary: No rashes, No cyanosis Neurological: Normal speech Laboratory Data (last 24 hrs) 04/04/18 00:20: PT 14.2 H, INR 1.20 04/04/18 00:20: WBC 15.2 H D, Hgb 10.9 L, Hct 31.3 L, Plt Count 259 D 04/04/18 00:20: Sodium 128 L, Potassium 4.4, BUN 18, Creatinine 1.00, Glucose 139 H, Total Bilirubin 0.7, AST 34, ALT 50, Alkaline Phosphatase 80, Lipase 75 Imagings Data: EXAM DESCRIPTION: RAD - Abdomen W Erect - 04/04/2018 9:05 am CLINICAL HISTORY: Abdominal pain, weakness, history of pancreatic cancer, history of complicated postoperative course with hernia COMPARISON: CT study March 21 TECHNIQUE: Supine and upright views of the abdomen were obtained. FINDINGS: Moderate stool volume is seen in the ascending and descending portions of the colon. A few minimally prominent small bowel loops are present. No overall bowel obstruction pattern. No free air or pneumatosis seen. Numerous clips are present in the upper abdomen presumed to be related to partial pancreatic mass resection. No suspicious calcification pattern. No free air or pneumatosis. Bony degenerative change present. IMPRESSION: No bowel obstruction, free air or surgically emergent finding. Bowel gas pattern is nonspecific. There is moderately large stool volume filling much of the colon. Conclusions/Impression: A/ Hyponatremia. Hypocalcemia. HTN. Macrocytic Anemia. BPH. Moderate malnutrition. Pancreatic cancer. P/ Continue current POC and Medications. Agree with IVF. Give Vitamin D. Maintain nutrition. AM labs. Daily weight. Thank you kindly for the consultation. Case discussed with Dr. Abarca.
[2018-04-05] MEDS: METRONIDAZOLE 500mg IVPB 500 MG/100 ML BAG IV SCH ×5 (00:24→22:45)
[2018-04-05] MEDS: NA CHLORIDE 0.9% 1,000 ML IV SCH (00:24)
[2018-04-05] MEDS: ACETAMINOPHEN 500 MG TAB PO PRN ×2 (01:15→06:57)
[2018-04-05] MEDS: Levofloxacin500mg IV 500 MG/100 ML BAG IV SCH (04:52)
[2018-04-05 08:00] LABS: BUN Blood Urea Nitrogen 10 mg/dL (7-18); Bicarbonate 24 mmol/L (21-32); Glucose Level 113 mg/dL (74-106); Magnesium 1.9 mg/dL (1.8-2.4); Potassium 4.6 mmol/L (3.5-5.1); Sodium Level 132 mmol/L (136-145); Uric Acid 2.7 mg/dL (3.5-7.2)
[2018-04-05] MEDS: SERTRALINE HCL 50 MG TAB PO SCH (08:34)
[2018-04-05] MEDS ORDERED: MAGNESIUM HYDROXIDE 8% 30 ML PO ONE (08:37)
[2018-04-05] MEDS ORDERED: FUROSEMIDE 20 MG/ 2ML VIAL IV ONE (08:38)
[2018-04-05] MEDS: POLYETHYL GLY 3350 17 GM/DOSE PO SCH (08:52)
[2018-04-05] MEDS: IRBESARTAN 150 MG TAB PO SCH (08:52)
[2018-04-05] MEDS: ENOXAPARIN 40 MG/0.4 ML SQ SCH (08:53)
[2018-04-05] MEDS: DOCUSATE NA 100 MG CAP PO SCH (08:54)
[2018-04-05] MEDS: METOPROLOL XL 50 MG TAB PO SCH ×2 (08:55→20:39)
[2018-04-05] MEDS: VITAMIN B COMPLEX 1 CAP PO SCH (08:56)
[2018-04-05] MEDS: PANTOPRAZOLE 40MG TABLET PO SCH (08:56)
[2018-04-05] MEDS: ASPIRIN EC 81 MG TAB PO SCH (08:56)
[2018-04-05] MEDS: SENOSIDES 8.6 MG TAB PO SCH ×2 (08:56→20:38)
[2018-04-05] MEDS: VITAMIN D 5,000 UNIT CAP PO SCH ×2 (08:56→08:58)
[2018-04-05] MEDS: DOCOSAHEXANOIC AC/EPA 1000 MG PO SCH ×2 (08:56→08:58)
--- NOTE | 2018-04-05 14:13 | P.PN ---
Subjective Date of Service: 04/05/18 Chief Complaint: Fever, sepsis, lactic acidosis Patient seen and examined at bedside with RN. Chart reviewed. Case discussed with patient and patient's family at bedside in length. Currently patient states that he has no abdominal pain is feeling much better than before however continues to have some nausea. Patient did have a big bowel movement last night and has been doing well overall after that. Review of Systems 10-point ROS is otherwise unremarkable Physical Examination - Vital Signs Temperature: 97.2 F Blood Pressure: 192/85 Pulse: 59 Respirations: 18 Pulse Ox (%): 98 - Physical Exam General: Alert, In no apparent distress HEENT: Atraumatic, PERRLA, EOMI Neck: Supple, JVD not distended Respiratory: Clear to auscultation bilaterally, Normal air movement Cardiovascular: Regular rate/rhythm, Normal S1 S2 Gastrointestinal: Normal bowel sounds, Tenderness Musculoskeletal: No tenderness Integumentary: No rashes Neurological: Normal speech, Normal tone, Normal affect Lymphatics: No axilla or inguinal lymphadenopathy - Studies Microbiology Data (last 24 hrs): 04/04/18 00:00 Blood - Blood Anaerobic Blood Culture - Final Medications List Reviewed: Yes Assessment And Plan - Plan Assessment and plan: 1. Abdominal pain with nausea and vomiting: Most likely secondary to chemotherapy versus constipation -IV antibiotics for possible gastroenteritis -currently on stool softeners with Colace and Senokot along with MOM -patient refusing abdominal CT at this time. -abdominal x-ray with extensive stool throughout the -IV Zofran for nausea -encourage ambulation and p.o. intake for improvement 2. History of pancreatic cancer -status post resection of the tumor -currently on 5th month of chemotherapy. -patient to follow up with oncology outpatient once stable for discharge 3. Acute kidney injury: Most likely secondary to dehydration -now resolved -IV fluids as needed 4. Hyponatremia -improving here in the hospital -nephrology on board. -continue fluids as needed Disposition: Currently awaiting clinical improvement at this time. Continue with fluids as needed. Encourage ambulation along with p.o. intake today. Patient doing well anticipate discharge in next 24-48 hr Discharge Plan: Home Plan to discharge in: 48 Hours - Code Status/Comfort Care Code Status Assessed: Yes Critical Care: No
[2018-04-05] MEDS: ONDANSETRON 4 MG/2 ML VIAL IV PRN ×3 (14:50→22:44)
[2018-04-05] MEDS: HYDROMORPHONE HCL 1 MG/ML INJ IV PRN ×2 (18:02→22:45)
[2018-04-05] MEDS: TAMSULOSIN 0.4 MG SR CAP PO SCH (20:39)
--- NOTE | 2018-04-05 22:14 | P.PN ---
Date of Service: 04/05/18 Vital Signs Temp Pulse Resp BP Pulse Ox 97.1 F 65 18 176/73 H 100 04/05/18 16:00 04/05/18 18:41 04/05/18 16:00 04/05/18 18:41 04/05/18 16:00 Medications Acetaminophen (Tylenol -Extra Strength) 500 mg PO Q4HP PRN PRN Reason: [id number] Stop: 05/04/18 03:11 Last Admin: 04/05/18 06:57 Dose: 500 mg Acetaminophen (Tylenol -Extra Strength) 500 mg PO Q6H PRN PRN Reason: FEVER Stop: 05/04/18 03:11 Aspirin (Aspirin Ec) 81 mg PO DAILY [facility] Stop: 05/04/18 09:01 Last Admin: 04/05/18 08:56 Dose: 81 mg Cholecalciferol (Vitamin D 5,000 Iu Cap) 5,000 unit PO DAILY [facility] Stop: 05/05/18 09:01 Last Admin: 04/05/18 08:58 Dose: 5,000 unit Diazepam (Valium) 5 mg PO DAILY PRN PRN Reason: anxiety Stop: 05/04/18 03:18 Last Admin: 04/04/18 21:20 Dose: 5 mg Docusate Sodium (Colace Cap) 300 mg PO DAILY [facility] Stop: 05/05/18 09:01 Last Admin: 04/05/18 08:54 Dose: 300 mg Enoxaparin Sodium (Lovenox 40 Mg Inj) 40 mg SQ DAILY [facility] Stop: 05/04/18 09:01 Last Admin: 04/05/18 08:53 Dose: 40 mg Fish Oil (Fish Oil 1,000 Mg Cap) 1,000 mg PO DAILY [facility] Stop: 05/04/18 09:01 Last Admin: 04/05/18 08:58 Dose: 1,000 mg Hydromorphone HCl (Dilaudid) 1 mg IV Q6H PRN PRN Reason: PAIN MODERATE TO SEVERE Stop: 05/04/18 03:11 Last Admin: 04/05/18 18:02 Dose: 1 mg Metronidazole/Sodium Chloride (Flagyl 500mg/100 Ml Iv Premix) 500 mg in 100 mls @ 200 mls/hr IV Q6HR [facility]; Protocol Stop: 05/04/18 06:01 Last Admin: 04/05/18 18:03 Dose: 100 mls Levofloxacin/Dextrose (Levaquin 500 Mg/100 Ml Ivpb) 500 mg in 100 mls @ 100 mls /hr IV Q24H [facility]; Protocol Stop: 05/04/18 04:01 Last Admin: 04/05/18 04:52 Dose: 100 mls Irbesartan (Avapro) 300 mg PO DAILY [facility] Stop: 05/04/18 09:01 Last Admin: 04/05/18 08:52 Dose: 300 mg Metoprolol Succinate (Toprol Xl) 50 mg PO BID [facility] Stop: 05/04/18 09:01 Last Admin: 04/05/18 20:39 Dose: 50 mg Ondansetron HCl (Zofran) 4 mg IV Q4H PRN PRN Reason: NAUSEA / VOMITING Stop: 05/04/18 03:11 Last Admin: 04/05/18 18:03 Dose: 4 mg Pantoprazole Sodium (Protonix Tab) 40 mg PO DAILY [facility] Stop: 05/05/18 09:01 Last Admin: 04/05/18 08:56 Dose: 40 mg Polyethylene Glycol (Glycolax) 17 gm PO DAILY [facility] Stop: 05/05/18 09:01 Last Admin: 04/05/18 08:52 Dose: 17 gm Senna (Senokot) 17.2 mg PO BID [facility] Stop: 05/04/18 21:01 Last Admin: 04/05/18 20:38 Dose: 17.2 mg Sertraline HCl (Zoloft) 50 mg PO DAILY [facility] Stop: 05/04/18 09:01 Last Admin: 04/05/18 08:34 Dose: Not Given Sodium Chloride (Normal Saline Flush) 10 ml IV BID [facility] Stop: 05/04/18 09:01 Last Admin: 04/05/18 20:39 Dose: 10 ml Tamsulosin HCl (Flomax) 0.4 mg PO 2100 [facility] Stop: 05/04/18 09:01 Last Admin: 04/05/18 20:39 Dose: 0.4 mg Vitamin B Complex (B-Complex Vitamin) 1 cap PO DAILY [facility] Stop: 05/05/18 09:01 Last Admin: 04/05/18 08:56 Dose: 1 cap Microbiology Results 04/04/18 00:15 Blood - Blood Aerobic Blood Culture - Preliminary No growth in 24 hours. 04/04/18 00:15 Blood - Blood Anaerobic Blood Culture - Preliminary No growth in 24 hours. 04/04/18 00:00 Blood - Blood Aerobic Blood Culture - Preliminary No growth in 24 hours. 04/04/18 00:00 Blood - Blood Anaerobic Blood Culture - Final 04/04/18 00:15 Nasopharnyx Influenza Type A Antigen Screen - Final 04/04/18 00:15 Nasopharnyx Influenza Type B Antigen Screen - Final Assessment/ Plan: Nephrology. Malaise and weakness. Constipation. CPS stable without CP or SOB. No acute events overnight. Vitals, medications, blood work and imaging reviewed in the chart. General: Alert, Oriented x3, Cooperative HEENT: Atraumatic Neck: Supple Respiratory: Clear to auscultation bilaterally Cardiovascular: Regular rate/rhythm, Edema Gastrointestinal: Soft and benign, Non-distended Musculoskeletal: No clubbing, No contractures Integumentary: No rashes, No cyanosis Neurological: Normal speech Laboratory Data (last 24 hrs) 04/04/18 00:20: PT 14.2 H, INR 1.20 04/04/18 00:20: WBC 15.2 H D, Hgb 10.9 L, Hct 31.3 L, Plt Count 259 D 04/04/18 00:20: Sodium 128 L, Potassium 4.4, BUN 18, Creatinine 1.00, Glucose 139 H, Total Bilirubin 0.7, AST 34, ALT 50, Alkaline Phosphatase 80, Lipase 75 Imagings Data: EXAM DESCRIPTION: RAD - Abdomen W Erect - 04/04/2018 9:05 am CLINICAL HISTORY: Abdominal pain, weakness, history of pancreatic cancer, history of complicated postoperative course with hernia COMPARISON: CT study March 21 TECHNIQUE: Supine and upright views of the abdomen were obtained. FINDINGS: Moderate stool volume is seen in the ascending and descending portions of the colon. A few minimally prominent small bowel loops are present. No overall bowel obstruction pattern. No free air or pneumatosis seen. Numerous clips are present in the upper abdomen presumed to be related to partial pancreatic mass resection. No suspicious calcification pattern. No free air or pneumatosis. Bony degenerative change present. IMPRESSION: No bowel obstruction, free air or surgically emergent finding. Bowel gas pattern is nonspecific. There is moderately large stool volume filling much of the colon. Conclusions/Impression: A/ Hyponatremia. Hypocalcemia. HTN. Macrocytic Anemia. BPH. Moderate malnutrition. Pancreatic cancer. Constipation, uncontrolled. P/ Continue current POC and Medications. DC IVF. Give Lasix. Give MoM. Soap Suds Enema X1. Maintain nutrition. AM labs. Daily weight.
[2018-04-05] MEDS: DIAZEPAM 5 MG TABLET PO PRN (22:45)
[2018-04-06] MEDS: Levofloxacin500mg IV 500 MG/100 ML BAG IV SCH (04:50)
[2018-04-06] MEDS: HYDROMORPHONE HCL 1 MG/ML INJ IV PRN (04:51)
[2018-04-06] MEDS: ONDANSETRON 4 MG/2 ML VIAL IV PRN ×2 (04:52→18:10)
[2018-04-06] MEDS: METRONIDAZOLE 500mg IVPB 500 MG/100 ML BAG IV SCH ×3 (04:52→18:00)
[2018-04-06] MEDS: SERTRALINE HCL 50 MG TAB PO SCH (09:00)
[2018-04-06] MEDS: METOPROLOL XL 50 MG TAB PO SCH (10:25)
[2018-04-06] MEDS: DOCUSATE NA 100 MG CAP PO SCH (10:25)
[2018-04-06] MEDS: ENOXAPARIN 40 MG/0.4 ML SQ SCH (10:25)
[2018-04-06] MEDS: IRBESARTAN 150 MG TAB PO SCH (10:25)
[2018-04-06] MEDS: PANTOPRAZOLE 40MG TABLET PO SCH (10:25)
[2018-04-06] MEDS: VITAMIN B COMPLEX 1 CAP PO SCH (10:25)
[2018-04-06] MEDS: ASPIRIN EC 81 MG TAB PO SCH (10:25)
[2018-04-06] MEDS: POLYETHYL GLY 3350 17 GM/DOSE PO SCH (10:25)
[2018-04-06] MEDS: SENOSIDES 8.6 MG TAB PO SCH (10:25)
--- NOTE | 2018-04-06 14:03 | RAD REPORT ---
EXAM DESCRIPTION: CT - Abdomen Wo Contrast CLINICAL HISTORY: abdominal pain Abdominal pain COMPARISON: Abdomen Pelvis W Contrast dated 03/21/2018; Abdomen Pelvis W Contrast dated 03/09/2018; Abdomen Pelvis W Contrast dated 11/16/[address] scans are performed using dose optimization technique as appropriate and may includ e automated exposure control or mA/KV adjustment according to patient size. FINDINGS: Linear subsegmental atelectasis is present in both lung bases. Small hiatal hernia. Prominent fatty liver is identified with several low-density hepatic lesions again seen, incompletely assessed but appearing unchanged. The spleen appears absent. Partial pancreatectomy changes are note d. The adrenal glands and kidneys are within normal limits. No hydronephrosis. Cholelithiasis is seen. No bowel obstruction, free fluid or abscess. No significant adenopathy in the abdomen. No significant bony finding. Moderate fecal retention is seen in the colon. IMPRESSION: Cholelithiasis. Fatty liver is noted with small low-density liver lesions again noted, unchanged.
[2018-04-06 14:15] LABS: BUN Blood Urea Nitrogen 8 mg/dL (7-18); Bicarbonate 28 mmol/L (21-32); Glucose Level 119 mg/dL (74-106); Magnesium 1.9 mg/dL (1.8-2.4); Phosphorus 3.4 mg/dL (2.5-4.9); Potassium 4.2 mmol/L (3.5-5.1); Sodium Level 135 mmol/L (136-145)
--- NOTE | 2018-04-06 14:39 | P.PN ---
Subjective Date of Service: 04/06/18 Chief Complaint: Fever, sepsis, lactic acidosis Patient seen and examined at bedside with RN. Chart reviewed. Case discussed with patient and patient's family at bedside in length. Family at this time Considering SNF vs HH. Pt and family has been needing lot of education about disease process and Chemotherapy. Review of Systems 10-point ROS is otherwise unremarkable Physical Examination - Vital Signs Temperature: 97.7 F Blood Pressure: 156/79 Pulse: 61 Respirations: 16 Pulse Ox (%): 97 - Physical Exam General: Alert, In no apparent distress HEENT: Atraumatic, PERRLA, EOMI Neck: Supple, JVD not distended Respiratory: Clear to auscultation bilaterally, Normal air movement Cardiovascular: Regular rate/rhythm, Normal S1 S2 Gastrointestinal: Normal bowel sounds, No tenderness Musculoskeletal: No tenderness Integumentary: No rashes Neurological: Normal speech, Normal tone, Normal affect Lymphatics: No axilla or inguinal lymphadenopathy - Studies Medications List Reviewed: Yes Assessment And Plan - Plan Assessment and plan: 1. Abdominal pain with nausea and vomiting: Most likely secondary to chemotherapy versus constipation -IV antibiotics for possible gastroenteritis -currently on stool softeners with Colace and Senokot along with MOM -patient agreeable to CT today. -abdominal x-ray with extensive stool throughout the colon -IV Zofran for nausea -encourage ambulation and p.o. intake for improvement 2. History of pancreatic cancer -status post resection of the tumor -currently on 5th month of chemotherapy. -patient to follow up with oncology outpatient once stable for discharge 3. Acute kidney injury: Most likely secondary to dehydration -now resolved -IV fluids as needed 4. Hyponatremia -improving here in the hospital -nephrology on board. -continue fluids as needed Disposition: Currently awaiting clinical improvement at this time. Continue with fluids as needed. Encourage ambulation along with p.o. intake today. Working with PT. May need SNF vs HH. Patient doing well anticipate discharge in next 24-48 hr Discharge Plan: Other Plan to discharge in: 48 Hours - Code Status/Comfort Care Code Status Assessed: Yes Critical Care: No
[2018-04-06 17:48] VITALS: BP 168/75; TEMP 98
[2018-04-06] MEDS: ACETAMINOPHEN 500 MG TAB PO PRN (19:13)
--- NOTE | 2018-04-07 15:51 | P.DS ---
Admission Date: 04/04/18 Discharge Date: 04/07/18 Disposition: ROUTINE DISCHARGE Discharge Condition: FAIR Reason for Admission: Fever, sepsis, lactic acidosis Brief History of Present Illness: Patient is a 77-year-old gentleman who was recently in the hospital about a week ago with similar complaints. Initially it was felt that he may have diverticulitis or colitis. He was started on IV antibiotics infectious Disease saw the patient as well. They recommended a 10 day course of oral antibiotics. Patient was discharged to follow with Oncology. Patient states that he was not given any antibiotics at the time of discharge as he was told his blood cultures were negative. Patient followed up with Oncology and he has been having the abdominal pain on and off since discharge. The pain has gradually gotten worse and this evening he started having fevers once again of 102. He was having fevers in the emergency room when I saw him of about 101. He was admitted to the hospital for IV hydration and IV antibiotic therapy. Will Consult Oncology and Infectious Disease for further evaluation. Patient states he has been having bowel movement with his bowel regimen. Will continue to monitor him closely on the floor in and if his blood pressure decreases will transfer him to ICU. He will be admitted and treated for sepsis. However, because of his bilateral lower extremity edema if ran because his blood pressure is stable will not bolus him per sepsis protocol because of his blood pressure being stable. Will continue maintenance fluids however and will also get a Doppler of his lower extremity. He does have some swelling in the left lower extremity. Hospital Course: Discharge diagnosis 1. Abdominal pain with nausea and vomiting: Most likely secondary to chemotherapy versus constipation 2. History of pancreatic cancer 3. Acute kidney injury: Most likely secondary to dehydration 4. Hyponatremia Hospital Course Overall patient remained stable while here in the hospital The patient was initially admitted to the hospital for abdominal pain with nausea and vomiting most likely secondary to chemotherapy gastritis. Abdominal CT done here in the hospital was negative for any acute abnormality and was consistent with just fatty infiltrate of the liver. Patient's nausea vomiting did resolve while here in the hospital in about 24-48 hr. Patient continued to have some abdominal pain also secondary to chronic constipation. Patient was started on some extensive laxative therapy here which did relieve his constipation and some pain that he had in his abdomen. Patient and family were educated extensively on the disease process the side affects from chemotherapy drug and things to expect post chemotherapy as well. Patient and family demonstrated understanding and then was discharged home under stable condition. Of note patient was hypernatremic while here in the hospital and had some generalized weakness. Patient was kept on IV fluids here which did bring up his sodium and he did work with physical therapy here who recommended home health. Patient was then transferred to home health to receive at home and was discharged home under stable condition. Time spent during discharge is more than 30 min I personally examined the patient on the day of discharge Vital Signs/Physical Exam: Temp Pulse Resp BP Pulse Ox 98.0 F 66 16 168/75 H 98 04/06/18 16:00 04/06/18 16:00 04/06/18 16:00 04/06/18 16:00 04/06/18 16:00 General: Alert, In no apparent distress HEENT: Atraumatic, PERRLA, EOMI Neck: Supple, JVD not distended Respiratory: Clear to auscultation bilaterally, Normal air movement Cardiovascular: Regular rate/rhythm, Normal S1 S2 Gastrointestinal: Normal bowel sounds, No tenderness Musculoskeletal: No tenderness Integumentary: No rashes Neurological: Normal speech, Normal tone, Normal affect Lymphatics: No axilla or inguinal lymphadenopathy Laboratory Data at Discharge: WBC 13.4 K/uL (4.3-10.9) H 04/04/18 06:28 Hgb 9.5 g/dL (13.6-17.9) L 04/04/18 06:28 Hct 27.4 % (39.6-49.0) L 04/04/18 06:28 Plt Count 210 K/uL (152-406) 04/04/18 06:28 PT 14.2 SECONDS (9.5-12.5) H 04/04/18 00:20 INR 1.20 04/04/18 00:20 Sodium 135 mmol/L (136-145) L 04/06/18 07:12 Potassium 4.2 mmol/L (3.5-5.1) 04/06/18 07:12 BUN 8 mg/dL (7-18) 04/06/18 07:12 Creatinine 0.60 mg/dL (0.55-1.3) 04/06/18 07:12 Glucose 119 mg/dL (74-106) H 04/06/18 07:12 Uric Acid 2.7 mg/dL (3.5-7.2) L 04/05/18 07:07 Phosphorus 3.4 mg/dL (2.5-4.9) 04/06/18 07:12 Magnesium 1.9 mg/dL (1.8-2.4) 04/06/18 07:12 Total Bilirubin 0.6 mg/dL (0.2-1.0) 04/04/18 06:28 AST 32 U/L (15-37) 04/04/18 06:28 ALT 39 U/L (12-78) 04/04/18 06:28 Alkaline Phosphatase 67 U/L (45-117) 04/04/18 06:28 Lipase 75 U/L (73-393) 04/04/18 00:20 Home Medications: Multivitamin [Multivitamins] 1 each PO DAILY 09/09/16 Aspirin [Aspir-Low] 81 mg PO DAILY 03/21/18 Diazepam [Valium] 5 mg PO DAILY PRN 03/21/18 Docosahexanoic AC/Epa [Fish Oil 1,000 MG*] 1,000 mg PO DAILY 03/21/18 Docusate Sodium [Stool Softener] 3 tab PO DAILY 03/21/18 Ferrous Fumarate/Vit Bcomp&C [Super B-Complex Caplet] 1 tab PO DAILY 03/21/18 Green Tea [place] Extract [Green Tea] 1 cap PO DAILY 03/21/18 Irbesartan [Avapro] 300 mg PO DAILY 03/21/18 Metoprolol Succinate [Toprol Xl] 50 mg PO BID 03/21/18 Ondansetron [Zofran (Odt)*] 4 mg PO Q4HP PRN 03/21/18 Pantoprazole Sodium [Protonix] 40 mg PO DAILY 03/21/18 Polyethylene Glycol 3350 [Miralax] 17 gm PO DAILY 03/21/18 [place] Oil/[place]-3 Fatty Acids [Sv [place] Oil 1,000 mg Softgel] 1 cap PO DAILY 03/21/18 Sennosides [Senna Lax] 2 tab PO BID 03/21/18 Sertraline HCl 50 mg PO DAILY 03/21/18 Tamsulosin [Flomax*] 0.4 mg PO DAILY 03/21/18 Tramadol HCl [Ultram] 50 mg PO Q4H PRN 03/21/18 Levofloxacin [Levaquin] 500 mg PO DAILY 10 Days #10 tablet 04/06/18 Pantoprazole Sodium [Protonix] 40 mg PO BID #60 tablet. 04/06/18 metroNIDAZOLE [Flagyl] 500 mg PO Q8H 10 Days #30 tablet 04/06/18 New Medications: Levofloxacin [Levaquin] 500 mg PO DAILY 10 Days #10 tablet metroNIDAZOLE [Flagyl] 500 mg PO Q8H 10 Days #30 tablet Pantoprazole Sodium [Protonix] 40 mg PO BID #60 tablet.dr Followup: Gracie Hearn MD [ACTIVE - CAN ADMIT] - (call to schedule appointment )
== END 2018-04-06 19:40 | disposition home health service (06) | DRG 872 ==
LOC: ER 23:47 → ERHOLD 04-04 02:32 → 4TH 04-04 03:45
PROVIDERS: ADMIT Hospitalist; ATTEND Hospitalist
DX: A41.9 Sepsis, unspecified organism (principal); E87.1 Hypo-osmolality and hyponatremia; N17.9 Acute kidney failure, unspecified; C25.9 Malignant neoplasm of pancreas, unspecified; E46 Unspecified protein-calorie malnutrition; E87.2 Acidosis; K52.9 Noninfective gastroenteritis and colitis, unspecified; K59.00 Constipation, unspecified; E86.0 Dehydration; Z68.27 Body mass index [BMI] 27.0-27.9, adult
CPT/HCPCS: 36415; 71045; 74019; 74150; 80048; 80053; 80076; 81003; 82550; 83605; 83690; 83735; 84100; 84145; 84484; 84550; 85025; 85610; 87040; 87804; 93005; 93971; 96361; 96365; 96367; 97163; 99285; J1170; J1650; J1940; J2405; J2543; J3475; J7030

== ENCOUNTER 2018-05-03 12:10 | Emergency (ER) | payer OTHER ==
--- OUTSIDE RECORDS SUMMARY | 2018-05-03 12:14 | XMS REPORT | Clinical Summary ---
:1940 Author Organization [facility] Address [address] [place] [address] Phone Care Team Providers Name Role Phone [...] Pass Gastroenterology 10/02/2017 Surgery Gastroenterology Hardeep, [facility] ENDOSCOPY,ULTRASOUND Hardeep Felix MD 10/01/2017 Hospital Encounter General Internal [facility], [facility] - Medicine MD Wendy hypertension;Pancrea 10/11/2017 Kylie Amanda tic mass;Splenic Tricia infarct;Pancreatic MD Karishma adenocarcinoma Chiquita Currie (HCC);Drug-induced MD Maria Guadalupe constipation;Chest Carey, Heather pain, unspecified MD Brigido type;Fever, Darrell, unspecified fever Liban cause;LeukocytosisElfego MD unspecified type;Hypophosphatasi a;Urinary retention;Hypokalemi a after 05/02/2017 Social History Tobacco Use Types Packs/Day Years [...] Not on file Implants Implanted Type Area Map Colorer Device Expiration Model / Identifier Date Serial / Lot Dev Laser Tiss Luce Device Laser Tissue Welding - Salbu-Green Solder Investigational N/A: LASER TISSUE 34 / Implanted: Qty: 1 on 10/06/2017 by Vik Bhatti MD Devices Pancreas [employer] ALBU-GREEN SOLDER / Dev Laser Tiss Luce Device Laser Tissue Welding - Sd-Albumin Lamina Investigational N/A: LASER TISSUE DEVICE LASER TISSUE WELDING / Implanted: Qty: 1 on 10/06/2017 by Vik Bhatti MD Devices Pancreas [employer]ELD[employer] D-ALBUMIN LAMINA / Cath Exp Silv Soak Package Drier 12.5cmx [id number] - Sna Pain N/A: MICHEAL-ABAD [id number] 01/03/2020 [id number] / Implanted: Qty: 1 on 10/06/2017 by Vik Bhatti MD Mgmt/Stimulator Abdomen K NA / [id number] Cath Exp Silv Soak Package Drier 12.5cmx [id number] - Sna Pain N/A: MICHEAL-CLAR [id number] 08/30/2019 [id number] / Implanted: Qty: 1 on 10/06/2017 by Vik Bhatti MD Mgmt/Stimulator Abdomen K NA / [id number] Block Nrv C-Blk 1-7ml/Hr 600ml [id number] - Sna Pain N/A: HALYARD [id number] 11/21/2019 [id number] / Implanted: Qty: 1 on 10/06/2017 by Vik Bhatti MD Mgmt/Stimulator Abdomen HEALTH NA / [id number] Procedures Procedure Name Priority Date/Time Associated Diagnosis Comments PANCREATECTOMY,W/ 10/06/2017 8:15 AM Malignant neoplasm of SPLENECTOMY CDT pancreas, unspecified location of malignancy (HCC) UPPER 10/02/2017 11:00 AM pancreatic mass ENDOSCOPY,ULTRASOUND CDT after 05/02/2017 Results US abdomen complete (11/05/2017 1:27 PM)Only the most recent of2 resultswithin the time period is included. Specimen Performing Laboratory [employer] FINAL REPORT TECHNIQUE: Grayscale ultrasound of the [...] MD Report Verified Date/Time:11/05/2017 15:21:33 Reading Location: [facility] P006J Ultrasound Reading Room Procedure Note Interface, [...] Report Verified Date/Time: 11/05/2017 15:21:33 Reading Location: [facility] P006J Ultrasound Reading Room and Creatinine (11/05/2017 11:24 AM) Component Value Ref Range BUN 9 7 - 21 mg/dL Creatinine 0.81 0.57 - 1.25 mg/dL EGFR 92Comment: ESTIMATED GFR IS NOT ACCURATE mL/min/1.73 sq m CREATININE CLEARANCE IN PREDICTING GLOMERULAR FILTRATION RATE. ESTIMATED GFR IS NOT APPLICABLE FOR DIALYSIS PATIENTS. Specimen Performing Laboratory Blood [facility] [address] [address] CBC with platelet count + automated diff [...] - 1 % Specimen Performing Laboratory Blood [address] [address] Urinalysis w/ Microscopic (11/05/2017 11:24 AM) Component Value Ref Range Color, UA Yellow Clarity, UA Hazy Specific [place], UA 1.010 1.001 - 1.035 pH, UA 7.0 5.0 - 8.0 Protein, UA Negative Negative Glucose, UA Negative Negative Ketones, UA Negative Negative Bilirubin, UA Negative Negative Blood, UA Negative Negative Nitrite, UA Negative Negative Leukocytes, UA Negative Negative Urobilinogen, UA 0.2 0.2 - 1.0 mg/dL RBC, UA 1 /HPF WBC, UA 0 /HPF Specimen Source Specimen Performing Laboratory Urine [address] [address] CBC with platelet count + automated diff (11/05/2017 11:24 AM)Only the most recent of8 resultswithin the time period is included. Specimen Performing Laboratory Blood Narrative The following orders were created for panel order CBC with platelet count + automated diff. Procedure Abnormality Status --------- ------ CBC with platelet count ...[[id number]]AbnormalFinal result Please view results for these tests on the individual orders. Sodium (11/05/2017 11:24 AM) Component Value Ref Range Sodium 138 136 - 145 meq/L Specimen Performing Laboratory Blood [address] [address] Potassium (11/05/2017 11:24 AM) Component Value Ref Range Potassium 5.0 3.5 - 5.1 meq/L Specimen Performing Laboratory Blood [address] [address] Phosphorus (11/05/2017 11:24 AM)Only the most recent of6 resultswithin the time period is included. Component Value Ref Range Phosphorus 4.1 2.3 - 4.7 mg/dL Specimen Performing Laboratory Blood [address] [address] Magnesium (11/05/2017 11:24 AM)Only the most recent of6 resultswithin the time period is included. Component Value Ref Range Magnesium 2.0 1.6 - 2.6 mg/dL Specimen Performing Laboratory [address] [address] Lipase (11/05/2017 11:24 AM)Only the most recent of6 resultswithin the time period is included. Component Value Ref Range Lipase 22 8 - 78 U/L Specimen Performing Laboratory Blood [address] [address] Glucose (11/05/2017 11:24 AM) Component Value Ref Range Glucose 113 (H) 70 - 105 mg/dL Specimen Performing Laboratory [address] [address] Chloride (11/05/2017 11:24 AM) Component Value Ref Range Chloride 102 98 - 107 meq/L Specimen Performing Laboratory [address] [address] Calcium (11/05/2017 11:24 AM)Only the most recent of2 resultswithin the time period is included. Component Value Ref Range Calcium 10.0 8.4 - 10.2 mg/dL Specimen Performing Laboratory Blood [address] [address] Amylase (11/05/2017 11:24 AM)Only the most recent of3 resultswithin the time period is included. Component Value Ref Range Amylase 47 25 - 125 U/L Specimen Performing Laboratory Blood [address] [address] Hepatic function panel (11/05/2017 11:24 AM)Only the [...] - 55 U/L Specimen Performing Laboratory Blood [address] [address] RHYTHM STRIP - SCAN (10/13/2017 11:20 AM)CT [...] MD Report Verified Date/Time:10/11/2017 16:07:26 Reading Location: [address] Body Reading Room Procedure Note [...] Report Verified Date/Time: 10/11/2017 16:07:26 Reading Location: [facility] C013Y CT Body Reading Room Basic Metabolic [...] Specimen Performing Laboratory Blood - Arm, Left [address] [address] Amylase, body fluid (10/09/2017 5:14 PM)Only the most recent of2 resultswithin the time period is included. Component Value Ref Range Amylase, Fluid >[address] U/L Specimen Performing Laboratory Body Fluid - CHIVO Drain [address] [address] Narrative Absence of reference range indicates that [...] MD Report Verified Date/Time:10/09/2017 11:20:08 Reading Location: [facility] C0T Transitional Reading Room Procedure Note Interface, [...] Report Verified Date/Time: 10/09/2017 11:20:08 Reading Location: [facility] C013T Transitional Reading Room Troponin I (10/09/2017 9:40 AM)Only the most recent of3 resultswithin the time period is included. Component Value Ref Range Troponin I 0.03 0.00 - 0.03 ng/mL Specimen Performing Laboratory Blood [address] [address] Narrative Troponin I (TnI) levels must be [...] Specimen Performing Laboratory Blood - Arm, Right [address] [address] Creatine Kinase (CK), Total and MB (10/08/2017 3:31 PM) Component Value Ref Range Total CK 268 (H) 29 - 200 U/L CK-MB 2.9 0.0 - 6.6 ng/mL MB Relative Index 1.1 % Specimen Performing Laboratory Blood [address] [address] Narrative CK-MB Reference Range: <6.7Normal 6.7-10.0Borderline >10.0 Abnormal 2D Echo W/Doppler(CW/PW/Color) (10/08/2017 1:10 PM) Component Value Ref Range Ejection Fraction Specimen Performing Laboratory [facility] ECHO HEARTLAB [facility] Narrative Transthoracic Echocardiography Report (TTE) Demographics Patient NameJULIANN MURRIETA Date of Study2017 [place] Male Visit [id number] Unknown Room Number 1530 Number Date of 1940Referring Ayah Carey MD Age 77 year(s)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 Pollock [facility] Licensed Psychologist Director Juan Coleman Interpreting Francesco Love MD [...] Name JULIANN MURRIETA Date of Study 10/08/2017 [place] Gender Male Visit Number [id number] Race Unknown Room Number 1530 Number Date of 1940 Referring Physician Heather Carey MD Age 77 year(s) Radiologic Technologist Marti Pollock [facility] Licensed Psychologist Director Juan Love MD Physician Procedure Type [...] lead (10/08/2017 8:58 AM) Specimen Performing Laboratory [employer] Narrative Ventricular Rate 90 BPM Atrial Rate 90 BPM P-R Interval 168 ms QRS Duration 86 ms Q-T Interval 368 ms QTC Calculation(Bazett) 450 ms P Chinle 49 degrees R Chinle 36 degrees T Chinle 14 degrees Normal sinus rhythm ST abnormality, possible digitalis effect Abnormal ECG When compared with ECG of 06-OCT-2017 07:25, Premature supraventricular complexes are no longer Present Confirmed by MD GUERRERO JOSEPH P ([id number]) on 10/08/2017 2:53:40 PM Procedure Note Interface, External Ris In - 10/08/2017 2:53 PM CDT Ventricular Rate 90 BPM Atrial Rate 90 BPM P-R Interval 168 ms QRS Duration 86 ms Q-T Interval 368 ms QTC Calculation(Bazett) 450 ms P Chinle 49 degrees R Chinle 36 degrees T Chinle 14 degrees Normal sinus rhythm ST abnormality, possible digitalis effect Abnormal ECG When compared with ECG of 06-OCT-2017 07:25, Premature supraventricular complexes are no longer Present Confirmed by MD GUERRERO JOSEPH P ([id number]) on 10/08/2017 2:53:40 PM TRANSFUSION SERVICE REPORT - SCAN (10/07/2017 5:41 PM)Tissue Exam (10/06/2017 12:45 PM)Only the most recent of2 resultswithin the time period is included. Component Value Ref Range Case Report Surgical Pathology Report Case: [id number] Authorizing Provider:Vik BhattiJOANNEollected: 10/06/2017 1245 Ordering Location: [address] Received: 10/06/2017 1305 Service Pathologist: Gissel [...] pT2 N1 Signing Pathologist Direct Phone Line: [phone] COMMENT Gross evaluation of pancreas reveals a [...] FINDINGS Additional Pathologic Findings:Chronic pancreatitis CPT Code(s) 25374, 71877, 87811, 32287 x1 CLINICAL HISTORY Pancreatic tumor GROSS DESCRIPTION [...] tissue is inked black. Photographs are taken. Senior Ssis Developer sections are submitted as follows: A1, proximal [...] in ked orange; A8 to A11, sales donor recruitment representative sections of the posterior pancreas; A12 to A15, sales donor recruitment representative sections of the anterior pancreas to include A13 to A15, tumor and pancreas with splenic vein followi ng light decal; A16, sales donor recruitment representative section of the spleen; A17, five [...] CK5/6. Specimen Performing Laboratory Tissue - Pancreas [address] [address] [facility] CRITICAL LABS (ABG,NA,K,H&H,GLUCOSE) (10/06/2017 12:36 PM)Only the most recent of2 resultswithin the time period is included. Specimen Performing Laboratory Blood, Arterial Narrative The following orders were created for panel order [facility] CRITICAL LABS (ABG,NA,K,H&H,GLUCOSE). Procedure Abnormality Status --------- ------ Blood gas, arterial[[id number]]AbnormalFinal result Sodium Na-Stat Lab[[id number]] NormalFinal result Potassium-Stat Lab[[id number]] AbnormalFinal result Glucose-Stat Lab[[id number]] AbnormalFinal result HGB/HCT (H&H)-Stat Lab[[id number]] Abnormal Final result Please view results for these tests on the individual orders. Potassium-Stat Lab (10/06/2017 12:36 PM)Only the most recent of2 resultswithin the time period is included. Component Value Ref Range Potassium 3.3 (L) 3.6 - 5.5 meq/L Specimen Performing Laboratory Blood, Arterial [address] [address] Sodium Na-Stat Lab (10/06/2017 12:36 PM)Only the most recent of2 resultswithin the time period is included. Component Value Ref Range Sodium 137 135 - 148 meq/L Specimen Performing Laboratory Blood, Arterial [address] [address] Glucose-Stat Lab (10/06/2017 12:36 PM)Only the most recent of2 resultswithin the time period is included. Component Value Ref Range Glucose 142 (H) 70 - 110 mg/dL Specimen Performing Laboratory Blood, [address] [address] HGB/HCT (H&H)-Stat Lab (10/06/2017 12:36 PM)Only the most recent of2 resultswithin the time period is included. Component Value Ref Range Hemoglobin 11.6 (L) 13.0 - 16.8 g/dL Hematocrit 34.0 (L) 40.0 - 50.0 % Specimen Performing Laboratory Blood, Arterial [address] [address] Blood gas, arterial (10/06/2017 12:36 PM)Only the [...] 21.0 % Specimen Performing Laboratory Blood, Arterial [address] [address] ANESTHESIA SPINAL BLOCK (10/06/2017 8:48 AM) Narrative [...] sitting Prep: Betadine Patient monitoring: heart rate, groundwater monitoring technician and continuous pulse ox Approach: midline [...] sitting Prep: Betadine Patient monitoring: heart rate, groundwater monitoring technician and continuous pulse ox Approach: midline Location: L3-4 Injection technique: single-shot Needle Needle type: Pencan Needle gauge: 25 G Needle length: 13 cm Assessment Sensory level: T10 Events: cerebrospinal fluid Additional Notes Pt tolerated the procedure well. Type and screen, automated (10/06/2017 5:04 AM) Component Value Ref Range ABO/RH AUTOMATED (BEAKER) A NEGATIVE Ab Scrn NEGATIVE Specimen Performing Laboratory Blood - Hand, [facility] [address] [place] [address] MR abdomen without & with IV contrast (10/05/2017 3:55 AM) Specimen Performing Laboratory [facility] Narrative FINAL REPORT History: Liver lesions [...] MD Report Verified Date/Time:10/05/2017 08:03:49 Reading Location: [facility] Diagnostic Imaging Reading Room - [place] [address] Procedure Note Interface, External Ris In [...] Report Verified Date/Time: 10/05/2017 08:03:49 Reading Location: [facility] Diagnostic Imaging Reading Room - [place] [address] 112 /aPTT (10/04/2017 6:03 AM)Only the most recent of2 resultswithin the time period is included. Component Value Ref Range Protime 16.2 (H) 11.7 - 14.7 seconds INR 1.3 <=5.9 PTT 33.2 22.5 - 36.0 seconds Specimen Performing Laboratory Blood - Arm, [place] [address] Narrative RECOMMENDED COUMADIN/WARFARIN INR THERAPY RANGES STANDARD DOSE: 2.0 - 3.0 Includes: PROPHYLAXIS for venous thrombosis, systemic embolization; TREATMENT for venous thrombosis and/or pulmonary embolus. HIGH RISK: Target INR is 2.5-3.5 for patients with mechanical heart valves. Carbohydrate antigen 19-9 (CA 19-9) (10/03/2017 5:35 PM) Component Value Ref Range CA 19-9 634 (H) <34 U/mL Comment: This test was performed using the Siemens ([employer]) Chemiluminescent method. Values obtained from different assay methods cannot be used interchangeably. CA19-9 levels, regardless of value, should not be interpreted as absolute evidence of the presence or absence of disease. Specimen Performing Laboratory Blood - Arm, Left [facility] [employer] [address] [place] [address] Narrative Performing Lab [facility] [address] [place] [address] Mary Childress MD, PhD CT abd/pelvis - [...] MD Report Verified Date/Time:10/08/2017 12:45:18 Reading Location: [facility] Diagnostic Imaging Reading Room - [place] [id number] Addendum Ends FINAL REPORT CT OF THE [...] MD Report Verified Date/Time:10/03/2017 13:09:28 Reading Location: [facility] C013Y CT Body Reading Room Procedure Note [...] Report Verified Date/Time: 10/08/2017 12:45:18 Reading Location: [facility] Diagnostic Imaging Reading Room - [facility] F1 [address] Addendum Ends FINAL REPORT [...] Report Verified Date/Time: 10/03/2017 13:09:28 Reading Location: [facility] C013Y CT Body Reading Room chest with IV contrast (10/03/2017 12:16 PM) Specimen Performing Laboratory [email or web address] Narrative Addendum Begins REPORT STATUS:A ADDENDUM: The following addendum is being made to comply with coding criteria, and does not substantially change the findings or recommendations of the original report. Additional technique: CT of the abdomen is also performed without contrast. Signed: Stephen Horne MD Report Verified Date/Time:10/08/2017 12:45:18 Reading Location: [facility] Diagnostic Imaging Reading Room - [facility] F1 1120 Addendum Ends FINAL REPORT [...] MD Report Verified Date/Time:10/03/2017 13:09:28 Reading Location: [facility] C013Y CT Body Reading Room Procedure Note [...] Report Verified Date/Time: 10/08/2017 12:45:18 Reading Location: [facility] Diagnostic Imaging Reading Room - [facility] F1 [address] Addendum Ends FINAL REPORT [...] Report Verified Date/Time: 10/03/2017 13:09:28 Reading Location: [facility] C013Y CT Body Reading Room RT OF PROCEDURE - ENDOSCOPY URL (10/02/2017 1:08 PM)Fine Needle Aspirate ( 10/02/2017 11:48 AM) Component Value Ref Range Cytology See Separate Report Specimen Performing Laboratory [place] [address] Fine Needle Aspirate by Clinician (10/02/2017 11:48 AM) Component Value Ref Range Case Report Medical Cytology Report Case: [id number] Authorizing Provider:Ravi Meier MDCollected: 10/02/2017 1148 Ordering Location: [address] Received: 10/04/2017 0819 Service Pathologist: Tera Villar MD Specimen:Pancreas, Pancreas mass routine cyto in CRR DIAGNOSIS BODY OF PANCREAS MASS, FNA BY CLINICIAN (CYTOSPINS AND CELL BLOCK OF ASPIRATE): - POSITIVE FOR MALIGNANCY - ADENOCARCINOMA, DUCTAL TYPE Signing Pathologist Direct Phone Line: [phone] CPT Code(s) 33158, 585[address] CLINICAL DATA (3.9 x 2.4 cm) irregular mass identified in the body of the pancreas SPECIMEN SOURCE BODY OF PANCREAS MASS FNA GROSS DESCRIPTION Prepared cell block(A2) and 4 cytospins from 22 ml in cytorich red fixative Collected: [id number] Received: 302131 Technical component was performed at [facility], Department of Pathology, [address] [place] [address], Professional component was performed [facility], at Department of Pathology, [address] [place] [address], Specimen Performing Laboratory Fine Needle Aspirate - Pancreas [address] [address] Prothrombin time/INR (10/02/2017 5:15 AM) Component Value Ref Range Protime 15.8 (H) 11.7 - 14.7 seconds INR 1.3 <=5.9 Specimen Performing Laboratory Blood - Arm, Left [address] [address] Narrative RECOMMENDED COUMADIN/WARFARIN INR THERAPY RANGES STANDARD DOSE: 2.0 - 3.0 Includes: PROPHYLAXIS for venous thrombosis, systemic embolization; TREATMENT for venous thrombosis and/or pulmonary embolus. HIGH RISK: Target INR is 2.5-3.5 for patients with mechanical heart valves. after 05/02/2017
--- OUTSIDE RECORDS SUMMARY | 2018-05-03 12:15 | XMS REPORT ---
:1940 [facility] Address [address] [place] [id number] Care Team Providers Name Role Phone VIK [...] Value Reference Range Comments COLOR (BEAKER) (test cqod=577) Yellow CLARITY (BEAKER) (test tbay=324) Hazy SPECIFIC GRAVITY UA (BEAKER) (test fhyr=027) 1.010 1.001-1.035 PH UA (BEAKER) (test issk=033) 7.0 5.0-8.0 PROTEIN UA (BEAKER) (test xtnn=960) Negative Negative GLUCOSE UA (BEAKER) (test svgx=825) Negative Negative KETONES UA (BEAKER) (test seii=277) Negative Negative BILIRUBIN UA (BEAKER) (test ycyu=580) Negative Negative BLOOD UA (BEAKER) (test pvps=573) Negative Negative NITRITE UA (BEAKER) (test asfx=267) Negative Negative LEUKOCYTE ESTERASE UA (BEAKER) (test gcmf=992) Negative Negative UROBILINOGEN UA (BEAKER) (test mzwr=550) 0.2 mg/dL 0.2-1.0 RBC UA (BEAKER) (test aoct=695) 1 /HPF WBC UA (BEAKER) (test zyud=116) 0 /HPF SOURCE(BEAKER) (test klhf=3650) U/S, ABDOMINAL, [id number] 15:21:00Reason for exam:->post op f/ uFINAL REPORT [...] Verified Date/Time: 11/05/2017 15: 21:33 Reading Location: [address] Ultrasound Reading Room [id number] 11 :55:00 Test Item Value Reference Range Comments POTASSIUM (BEAKER) (test syix=991) 5.0 meq/L 3.5-5.1 [id number] 11:55:00 Test Item Value Reference Range Comments MAGNESIUM (BEAKER) (test caoz=436) 2.0 mg/dL 1.6-2.6 [id number] 11:55:00 Test Item Value Reference Range Comments PHOSPHORUS (BEAKER) (test wyfn=739) 4.1 mg/dL 2.3-4.7 [id number] 11:55:00 Test Item Value Reference Range Comments SODIUM (BEAKER) (test kygw=870) 138 meq/L 136-145 HEPATIC FUNCTION [id number] 11:55:00 Test Item Value Reference Range Comments TOTAL PROTEIN (BEAKER) (test rqty=641) 7.0 gm/dL 6.0-8.3 ALBUMIN (BEAKER) (test tbob=7605) 4.3 g/dL 3.5-5.0 BILIRUBIN TOTAL (BEAKER) (test otqp=876) 0.4 mg/dL 0.2-1.2 BILIRUBIN DIRECT (BEAKER) (test htij=442) 0.2 mg/dL 0.1-0.5 ALKALINE PHOSPHATASE (BEAKER) (test vxlz=569) 96 U/L 40-150 AST (SGOT) (BEAKER) (test owwc=517) 27 U/L 5-34 ALT (SGPT) (BEAKER) (test fcyk=528) 24 U/L 6-55 [id number] 11:55:00 Test Item Value Reference Range Comments AMYLASE (BEAKER) (test imte=375) 47 U/L 25-125 [id number] 11:55:00 Test Item Value Reference Range Comments CALCIUM (BEAKER) (test yzsu=569) 10.0 mg/dL 8.4-10.2 [id number] 11:55:00 Test Item Value Reference Range Comments CHLORIDE (BEAKER) (test waic=608) 102 meq/L 98-107 [id number] 11:55:00 Test Item Value Reference Range Comments GLUCOSE RANDOM (BEAKER) (test wtlc=876) 113 mg/dL 70-105 [id number] 11:55:00 Test Item Value Reference Range Comments LIPASE (BEAKER) (test fcgc=449) 22 U/L 8-78 BUN AND [id number] 11:55:00 Test Item Value Reference Range Comments BLOOD UREA NITROGEN 9 mg/dL 7-21 (BEAKER) (test akti=388) CREATININE (BEAKER) (test 0.81 mg/dL 0.57-1.25 cesg=097) EGFR (BEAKER) (test 92 mL/min/1.73 sq m ESTIMATED GFR IS NOT quoz=2169) ACCURATE CREATININE CLEARANCE IN PREDICTING GLOMERULAR FILTRATION RATE. ESTIMATED GFR IS NOT APPLICABLE FOR DIALYSIS PATIENTS. CBC W/PLT COUNT & AUTO [id number] 11:39:00 Test Item Value Reference Range Comments WHITE BLOOD CELL COUNT (BEAKER) (test pnfj=533) 7.2 K/ L 3.5-10.5 RED BLOOD CELL COUNT (BEAKER) (test nryd=556) 4.67 M/ L 4.63-6.08 HEMOGLOBIN (BEAKER) (test cloq=461) 13.3 GM/DL 13.7-17.5 HEMATOCRIT (BEAKER) (test bplt=086) 41.0 % 40.1-51.0 MEAN CORPUSCULAR VOLUME (BEAKER) (test yxtr=213) 87.8 fL 79.0-92.2 MEAN CORPUSCULAR HEMOGLOBIN (BEAKER) (test 28.5 pg 25.7-32.2 wkqu=886) MEAN CORPUSCULAR HEMOGLOBIN CONC (BEAKER) (test 32.4 GM/DL 32.3-36.5 dxgv=986) RED CELL DISTRIBUTION WIDTH (BEAKER) (test 14.5 % 11.6-14.4 nvgv=829) PLATELET COUNT (BEAKER) (test uwex=138) 298 K/CU MM 150-450 MEAN PLATELET VOLUME (BEAKER) (test phgz=228) 10.8 fL 9.4-12.4 NUCLEATED RED BLOOD CELLS (BEAKER) (test 0 /100 WBC 0-0 dvls=960) NEUTROPHILS RELATIVE PERCENT (BEAKER) (test 53 % nmlb=273) LYMPHOCYTES RELATIVE PERCENT (BEAKER) (test 24 % krfz=652) MONOCYTES RELATIVE PERCENT (BEAKER) (test 10 % nndn=099) EOSINOPHILS RELATIVE PERCENT (BEAKER) (test 12 % gcwx=449) BASOPHILS RELATIVE PERCENT (BEAKER) (test 1 % ponp=013) NEUTROPHILS ABSOLUTE COUNT (BEAKER) (test 3.79 K/ L 1.78-5.38 wbei=767) LYMPHOCYTES ABSOLUTE COUNT (BEAKER) (test 1.72 K/ L 1.32-3.57 nppf=778) MONOCYTES ABSOLUTE COUNT (BEAKER) (test 0.70 K/ L 0.30-0.82 ecgq=539) EOSINOPHILS ABSOLUTE COUNT (BEAKER) (test 0.88 K/ L 0.04-0.54 ivrp=499) BASOPHILS ABSOLUTE COUNT (BEAKER) (test 0.04 K/ L 0.01-0.08 srlb=789) IMMATURE GRANULOCYTES-RELATIVE PERCENT (BEAKER) 0 % 0-1 (test gsyc=3031) TISSUE [id number] 17:34:00Surgical Pathology Report Case: [id number] Authorizing Provider: Vik Bhatti MD Collected: 10/06/2017 1245 Ordering Location: [address] Received: 10/06/2017 1305 Service Pathologist: Gissel [...] STAGE pT2 N1 Signing Pathologist Direct PhoneLine: [phone] signed by Gissel Villanueva MD on 10/19/2017 [...] ADDITIONAL FINDINGS Additional Pathologic Findings: Chronic pancreatitis 17653, 73744, 00507, 05595 [id number] tumorA. Received fresh labeled "pancreas , distal [...] tissue is inked black. Photographs are taken. [employer] sections are submitted as follows: A1, proximal [...] surface inked orange ; A8 to A11, artist's representative sections of the posterior pancreas; A12 to A15, artist's representative sections of the anterior pancreas to include A13 to A15, tumor and pancreas with splenic vein following light decal; A16, artist's representative section of the spleen; A17, five [...] for p63 (nuclear) and positive for CK5/6.CT, [id number] 16:07:00Patient will need PO contrast; will [...] C013Y CT Body Reading Room U/S, ABDOMINAL, [id number] 14:13:00Reason for exam:->Post surgical resection Research ProtocolFINAL [...] Location: [facility] P006J Ultrasound Reading Room [id number] 08:42:00 Test Item Value Reference Range Comments LIPASE (BEAKER) (test zjtn=382) 10 U/L 878 HEPATIC FUNCTION [id number] 08:42:00 Test Item Value Reference Range Comments TOTAL PROTEIN (BEAKER) (test kwfw=553) 5.8 gm/dL 6.0-8.3 ALBUMIN (BEAKER) (test cmdv=2880) 3.4 g/dL 3.5-5.0 BILIRUBIN TOTAL (BEAKER) (test caou=217) 0.6 mg/dL 0.2-1.2 BILIRUBIN DIRECT (BEAKER) (test hxvi=284) 0.3 mg/dL 0.1-0.5 ALKALINE PHOSPHATASE (BEAKER) (test tkuc=742) 93 U/L 40-150 AST (SGOT) (BEAKER) (test azxl=804) 57 U/L 5-34 ALT (SGPT) (BEAKER) (test ameu=667) 60 U/L 6-55 [id number] 06:45:00 Test Item Value Reference Range Comments PHOSPHORUS (BEAKER) (test plor=034) 3.9 mg/dL 2.3-4.7 [id number] 06:45:00 Test Item Value Reference Range Comments MAGNESIUM (BEAKER) (test swrp=148) 2.0 mg/dL 1.6-2.6 BASIC METABOLIC [id number] 06:45:00 Test Item Value Reference Range Comments SODIUM (BEAKER) (test 135 meq/L 136-145 xkaf=248) POTASSIUM (BEAKER) (test 3.4 meq/L 3.5-5.1 rida=182) CHLORIDE (BEAKER) (test 99 meq/L 98-107 yilg=270) CO2 (BEAKER) (test 26 meq/L 22-29 ymol=429) BLOOD UREA NITROGEN 8 mg/dL 7-21 (BEAKER) (test bnes=259) CREATININE (BEAKER) (test 0.67 mg/dL 0.57-1.25 hzhc=315) GLUCOSE RANDOM (BEAKER) 114 mg/dL 70-105 (test fkjn=147) CALCIUM (BEAKER) (test 8.9 mg/dL 8.4-10.2 zfrg=426) EGFR (BEAKER) (test 114 mL/min/1.73 sq m ESTIMATED GFR IS NOT fkfb=5464) ACCURATE CREATININE CLEARANCE IN PREDICTING GLOMERULAR FILTRATION RATE. ESTIMATED GFR IS NOT APPLICABLE FOR DIALYSIS PATIENTS. CBC W/PLT COUNT & AUTO [id number] 06:18:00 Test Item Value Reference Range Comments WHITE BLOOD CELL COUNT (BEAKER) (test ehhe=807) 10.1 K/ L 3.5-10.5 RED BLOOD CELL COUNT (BEAKER) (test ztgv=735) 4.15 M/ L 4.63-6.08 HEMOGLOBIN (BEAKER) (test jiag=717) 11.8 GM/DL 13.7-17.5 HEMATOCRIT (BEAKER) (test qvjb=359) 35.6 % 40.1-51.0 MEAN CORPUSCULAR VOLUME (BEAKER) (test lqli=821) 85.8 fL 79.0-92.2 MEAN CORPUSCULAR HEMOGLOBIN (BEAKER) (test 28.4 pg 25.7-32.2 krfs=657) MEAN CORPUSCULAR HEMOGLOBIN CONC (BEAKER) (test 33.1 GM/DL 32.3-36.5 sidp=723) RED CELL DISTRIBUTION WIDTH (BEAKER) (test 12.9 % 11.6-14.4 xqmk=544) PLATELET COUNT (BEAKER) (test wysf=982) 432 K/CU MM 150-450 MEAN PLATELET VOLUME (BEAKER) (test ghog=281) 10.6 fL 9.4-12.4 NUCLEATED RED BLOOD CELLS (BEAKER) (test 0 /100 WBC 0-0 wvqw=854) NEUTROPHILS RELATIVE PERCENT (BEAKER) (test 61 % qfls=477) LYMPHOCYTES RELATIVE PERCENT (BEAKER) (test 14 % fvgn=426) MONOCYTES RELATIVE PERCENT (BEAKER) (test 10 % xfoh=246) EOSINOPHILS RELATIVE PERCENT (BEAKER) (test 11 % vgmp=098) BASOPHILS RELATIVE PERCENT (BEAKER) (test 0 % hkal=447) NEUTROPHILS ABSOLUTE COUNT (BEAKER) (test 6.14 K/ L 1.78-5.38 mrhl=263) LYMPHOCYTES ABSOLUTE COUNT (BEAKER) (test 1.41 K/ L 1.32-3.57 odvj=016) MONOCYTES ABSOLUTE COUNT (BEAKER) (test 0.97 K/ L 0.30-0.82 gjip=614) EOSINOPHILS ABSOLUTE COUNT (BEAKER) (test 1.12 K/ L 0.04-0.54 qrme=745) BASOPHILS ABSOLUTE COUNT (BEAKER) (test 0.04 K/ L 0.01-0.08 dfny=487) IMMATURE GRANULOCYTES-RELATIVE PERCENT (BEAKER) 4 % 0-1 (test pplw=7832) [id number] 10:39:00 Test Item Value Reference Range Comments PHOSPHORUS (BEAKER) (test mnur=224) 3.3 mg/dL 2.3-4.7 [id number] 10:39:00 Test Item Value Reference Range Comments MAGNESIUM (BEAKER) (test sywl=507) 1.8 mg/dL 1.6-2.6 BASIC METABOLIC [id number] 10:39:00 Test Item Value Reference Range Comments SODIUM (BEAKER) (test 135 meq/L 136-145 zrft=597) POTASSIUM (BEAKER) (test 3.3 meq/L 3.5-5.1 tloh=341) CHLORIDE (BEAKER) (test 100 meq/L 98-107 bqsb=870) CO2 (BEAKER) (test 26 meq/L 22-29 zskx=548) BLOOD UREA NITROGEN 9 mg/dL 7-21 (BEAKER) (test tint=338) CREATININE (BEAKER) (test 0.67 mg/dL 0.57-1.25 agbe=892) GLUCOSE RANDOM (BEAKER) 110 mg/dL 70-105 (test lfwf=817) CALCIUM (BEAKER) (test 8.7 mg/dL 8.4-10.2 judw=329) EGFR (BEAKER) (test 114 mL/min/1.73 sq m ESTIMATED GFR IS NOT oiwr=9970) ACCURATE CREATININE CLEARANCE IN PREDICTING GLOMERULAR FILTRATION RATE. ESTIMATED GFR IS NOT APPLICABLE FOR DIALYSIS PATIENTS. CBC W/PLT COUNT & AUTO [id number] 06:42:00 Test Item Value Reference Range Comments WHITE BLOOD CELL COUNT (BEAKER) (test nvwl=085) 10.4 K/ L 3.5-10.5 RED BLOOD CELL COUNT (BEAKER) (test qipc=394) 4.02 M/ L 4.63-6.08 HEMOGLOBIN (BEAKER) (test mkzp=052) 11.5 GM/DL 13.7-17.5 HEMATOCRIT (BEAKER) (test xzmv=041) 34.5 % 40.1-51.0 MEAN CORPUSCULAR VOLUME (BEAKER) (test kiwo=781) 85.8 fL 79.0-92.2 MEAN CORPUSCULAR HEMOGLOBIN (BEAKER) (test 28.6 pg 25.7-32.2 nfbd=129) MEAN CORPUSCULAR HEMOGLOBIN CONC (BEAKER) (test 33.3 GM/DL 32.3-36.5 oith=270) RED CELL DISTRIBUTION WIDTH (BEAKER) (test 12.7 % 11.6-14.4 mfsx=561) PLATELET COUNT (BEAKER) (test vkma=294) 389 K/CU MM 150-450 MEAN PLATELET VOLUME (BEAKER) (test byff=366) 10.6 fL 9.4-12.4 NUCLEATED RED BLOOD CELLS (BEAKER) (test 0 /100 WBC 0-0 cixi=942) NEUTROPHILS RELATIVE PERCENT (BEAKER) (test 72 % iwcw=964) LYMPHOCYTES RELATIVE PERCENT (BEAKER) (test 10 % pvrd=920) MONOCYTES RELATIVE PERCENT (BEAKER) (test 7 % cxot=478) EOSINOPHILS RELATIVE PERCENT (BEAKER) (test 8 % cwxq=448) BASOPHILS RELATIVE PERCENT (BEAKER) (test 0 % bmel=562) NEUTROPHILS ABSOLUTE COUNT (BEAKER) (test 7.51 K/ L 1.78-5.38 yxis=113) LYMPHOCYTES ABSOLUTE COUNT (BEAKER) (test 1.06 K/ L 1.32-3.57 emal=449) MONOCYTES ABSOLUTE COUNT (BEAKER) (test 0.76 K/ L 0.30-0.82 xgxa=274) EOSINOPHILS ABSOLUTE COUNT (BEAKER) (test 0.84 K/ L 0.04-0.54 tzia=209) BASOPHILS ABSOLUTE COUNT (BEAKER) (test 0.02 K/ L 0.01-0.08 qkrr=005) IMMATURE GRANULOCYTES-RELATIVE PERCENT (BEAKER) 2 % 0-1 (test mbna=8056) AMYLASE, BODY [id number] 18:24:00 Test Item Value Reference Range Comments AMYLASE FLUID (BEAKER) (test fpcb=558) > U/L Absence of reference range indicates that normals have not been defined.Assay performance has not been validated for this type of specimen.RAD, CHEST, 1 VIEW , NON [id number] 11:20:00Reason for exam:->feverShould this be performed at [...] Verified Date/Time: 10/09/2017 11:20: 08 Reading Location: [address] Transitional Reading Room 11:20 AMTROPONIN [id number] 10:37:00 Test Item Value Reference Range Comments TROPONIN I (BEAKER) (test fjtj=501) 0.03 ng/mL 0.00-0.03 Troponin I (TnI) levels [...] failure, acidosis, acute neurological disease, and persistent tachyarrhythmia.[id number] 10:29:00 Test Item Value Reference Range Comments MAGNESIUM (BEAKER) (test 1.9 mg/dL 1.6-2.6 Specimen slightly hemolyzed oips=302) [id number] 10:29:00 Test Item Value Reference Range Comments PHOSPHORUS (BEAKER) (test 2.5 mg/dL 2.3-4.7 Specimen slightly hemolyzed ujfb=021) BASIC METABOLIC [id number] 10:29:00 Test Item Value Reference Range Comments SODIUM (BEAKER) (test 134 meq/L 136-145 kugx=054) POTASSIUM (BEAKER) (test 3.8 meq/L 3.5-5.1 Specimen slightly vebb=825) hemolyzed CHLORIDE (BEAKER) (test 101 meq/L 98-107 oqrl=850) CO2 (BEAKER) (test 19 meq/L 22-29 rehh=373) BLOOD UREA NITROGEN 12 mg/dL 7-21 (BEAKER) (test xegt=688) CREATININE (BEAKER) (test 0.70 mg/dL 0.57-1.25 Specimen slightly upln=545) hemolyzed GLUCOSE RANDOM (BEAKER) 142 mg/dL 70-105 (test caxf=260) CALCIUM (BEAKER) (test 8.5 mg/dL 8.4-10.2 nthg=371) EGFR (BEAKER) (test 109 mL/min/1.73 sq m ESTIMATED GFR IS NOT lduz=5450) ACCURATE CREATININE CLEARANCE IN PREDICTING GLOMERULAR FILTRATION RATE. ESTIMATED GFR IS NOT APPLICABLE FOR DIALYSIS PATIENTS. HEPATIC FUNCTION [id number] 10:29:00 Test Item Value Reference Range Comments TOTAL PROTEIN (BEAKER) (test 5.8 gm/dL 6.0-8.3 Specimen slightly hemolyzed xstv=497) ALBUMIN (BEAKER) (test 3.4 g/dL 3.5-5.0 Specimen slightly hemolyzed sdyn=1203) BILIRUBIN TOTAL (BEAKER) (test 0.6 mg/dL 0.2-1.2 Specimen slightly hemolyzed wkpe=228) BILIRUBIN DIRECT (BEAKER) (test 0.2 mg/dL 0.1-0.5 Specimen slightly hemolyzed kgpr=073) ALKALINE PHOSPHATASE (BEAKER) 83 U/L 40-150 (test wopx=762) AST (SGOT) (BEAKER) (test 39 U/L 5-34 Specimen slightly hemolyzed rnck=005) ALT (SGPT) (BEAKER) (test 33 U/L 6-55 Specimen slightly hemolyzed rkgq=181) [id number] 10:29:00 Test Item Value Reference Range Comments AMYLASE (BEAKER) (test yetm=706) 13 U/L 25-125 Specimen slightly hemolyzed [id number] 10:29:00 Test Item Value Reference Range Comments LIPASE (BEAKER) (test bpkh=377) 12 U/L 8-78 HEPATIC FUNCTION [id number] 16:18:00 Test Item Value Reference Range Comments TOTAL PROTEIN (BEAKER) (test iavo=588) 5.6 gm/dL 6.0-8.3 ALBUMIN (BEAKER) (test votv=9844) 3.6 g/dL 3.5-5.0 BILIRUBIN TOTAL (BEAKER) (test cmfk=652) 0.5 mg/dL 0.2-1.2 BILIRUBIN DIRECT (BEAKER) (test yxyk=834) 0.2 mg/dL 0.1-0.5 ALKALINE PHOSPHATASE (BEAKER) (test sfwm=921) 76 U/L 40-150 AST (SGOT) (BEAKER) (test faxe=672) 36 U/L 5-34 ALT (SGPT) (BEAKER) (test udpc=970) 31 U/L 6-55 CREATINE KINASE (CK), TOTAL AND [id number] 16:10:00 Test Item Value Reference Range Comments CREATINE KINASE TOTAL (BEAKER) (test ropl=694) 268 U/L 29-200 CREATINE KINASE-MB (BEAKER) (test pnvc=614) 2.9 ng/mL 0.0-6.6 CREATINE KINASE-MB INDEX (BEAKER) (test ubtp=584) 1.1 % CK-MB Reference Range:<6.7 Normal6.7-10.0 Borderline>10.0 AbnormalTROPONIN [id number] 16:10:00 Test Item Value Reference Range Comments TROPONIN I (BEAKER) (test ggiv=060) 0.04 ng/mL 0.00-0.03 Troponin I (TnI) levels [...] failure, acidosis, acute neurological disease, and persistent tachyarrhythmia.[id number] 16:04:00 Test Item Value Reference Range Comments LIPASE (BEAKER) (test knmk=044) 29 U/L 8-78 CALCIUM, [id number] 15:46:00 Test Item Value Reference Range Comments CALCIUM IONIZED (BEAKER) (test ogzt=605) 1.05 mmol/L 1.12-1.27 PH, BLOOD (BEAKER) (test zool=8858) 7.41 CT, ABDOMEN - PELVIS, PANCREAS [id number] 12:45:00Reason for exam:-&gt ;Pancreatic mass suspectedAddendum BeginsREPORT STATUS:A ADDENDUM:The following addendum is being made to comply with coding criteria, and does not substantially change the findings or recommendations of the original report. Additional technique:CT of the abdomen is also performed without contrast. Signed: Stephen Kowalski MDReport Verified Date/Time: 2017 12:45:18 Reading Location: [facility] DiagnosticImaging Reading Room - [place] [address]Addendum EndsFINAL REPORT CT OF THE CHEST, ABDOMEN, [...] Date/ Time: 10/03/2017 13:09:28 Reading Location: [facility] B1 C013Y CT Body Reading Room CT, CHEST, WITH [id number] 12:45:00Addendum BeginsREPORT STATUS:A ADDENDUM:The following addendum is being made to comply with coding criteria, and does not substantially change the findings or recommendations of the original report. Additional technique:CT of the abdomen is also performed without contrast. Signed: Stephen Kowalski Verified Date /Time: 10/08/2017 12:45:18 Reading Location: [facility] DiagnosticImaging Reading Room - [place] [address] [id number] RE[address] OF THE CHEST, [...] Verified Date/ Time: 10/03/2017 13:09:28 Reading Location: [address] Body Reading Room TROPONIN [id number] 09:44:00 Test Item Value Reference Range Comments TROPONIN I (BEAKER) (test xtnw=641) 0.05 ng/mL 0.00-0.03 Troponin I (TnI) levels [...] failure, acidosis, acute neurological disease, and persistent tachyarrhythmia.[id number] 05:34:00 Test Item Value Reference Range Comments PHOSPHORUS (BEAKER) (test kkly=832) 1.8 mg/dL 2.3-4.7 [id number] 05:34:00 Test Item Value Reference Range Comments MAGNESIUM (BEAKER) (test roea=425) 2.2 mg/dL 1.6-2.6 BASIC METABOLIC [id number] 05:34:00 Test Item Value Reference Range Comments SODIUM (BEAKER) (test 135 meq/L 136-145 ybjm=263) POTASSIUM (BEAKER) (test 3.8 meq/L 3.5-5.1 reqm=956) CHLORIDE (BEAKER) (test 102 meq/L 98-107 ywsi=178) CO2 (BEAKER) (test 25 meq/L 22-29 bdbt=347) BLOOD UREA NITROGEN 14 mg/dL 7-21 (BEAKER) (test cxss=405) CREATININE (BEAKER) (test 0.72 mg/dL 0.57-1.25 qbix=041) GLUCOSE RANDOM (BEAKER) 118 mg/dL 70-105 (test jsya=608) CALCIUM (BEAKER) (test 8.5 mg/dL 8.4-10.2 zkpc=528) EGFR (BEAKER) (test 105 mL/min/1.73 sq m ESTIMATED GFR IS NOT jinm=6188) ACCURATE CREATININE CLEARANCE IN PREDICTING GLOMERULAR FILTRATION RATE. ESTIMATED GFR IS NOT APPLICABLE FOR DIALYSIS PATIENTS. CBC W/PLT COUNT & AUTO [id number] 04:57:00 Test Item Value Reference Range Comments WHITE BLOOD CELL COUNT (BEAKER) (test ccac=327) 20.2 K/ L 3.5-10.5 RED BLOOD CELL COUNT (BEAKER) (test yeuy=997) 3.88 M/ L 4.63-6.08 HEMOGLOBIN (BEAKER) (test ianj=142) 11.4 GM/DL 13.7-17.5 HEMATOCRIT (BEAKER) (test nyeo=495) 33.5 % 40.1-51.0 MEAN CORPUSCULAR VOLUME (BEAKER) (test gaee=745) 86.3 fL 79.0-92.2 MEAN CORPUSCULAR HEMOGLOBIN (BEAKER) (test 29.4 pg 25.7-32.2 nypl=983) MEAN CORPUSCULAR HEMOGLOBIN CONC (BEAKER) (test 34.0 GM/DL 32.3-36.5 pxvw=337) RED CELL DISTRIBUTION WIDTH (BEAKER) (test 12.8 % 11.6-14.4 wmxy=913) PLATELET COUNT (BEAKER) (test tamg=034) 298 K/CU MM 150-450 MEAN PLATELET VOLUME (BEAKER) (test xpis=452) 11.3 fL 9.4-12.4 NUCLEATED RED BLOOD CELLS (BEAKER) (test 0 /100 WBC 0-0 uxni=896) NEUTROPHILS RELATIVE PERCENT (BEAKER) (test 87 % owud=054) LYMPHOCYTES RELATIVE PERCENT (BEAKER) (test 6 % fufa=288) MONOCYTES RELATIVE PERCENT (BEAKER) (test 5 % fyml=594) EOSINOPHILS RELATIVE PERCENT (BEAKER) (test 1 % rwgj=438) BASOPHILS RELATIVE PERCENT (BEAKER) (test 0 % qogh=662) NEUTROPHILS ABSOLUTE COUNT (BEAKER) (test 17.65 K/ L 1.78-5.38 vbqm=107) LYMPHOCYTES ABSOLUTE COUNT (BEAKER) (test 1.12 K/ L 1.32-3.57 enrh=249) MONOCYTES ABSOLUTE COUNT (BEAKER) (test 1.09 K/ L 0.30-0.82 wtil=951) EOSINOPHILS ABSOLUTE COUNT (BEAKER) (test 0.15 K/ L 0.04-0.54 psvi=654) BASOPHILS ABSOLUTE COUNT (BEAKER) (test 0.04 K/ L 0.01-0.08 ewrm=974) IMMATURE GRANULOCYTES-RELATIVE PERCENT (BEAKER) 1 % 0-1 (test pvrv=7665) CALCIUM, [id number] 16:06:00 Test Item Value Reference Range Comments CALCIUM IONIZED (BEAKER) (test jwdf=601) 1.08 mmol/L 1.12-1.27 PH, BLOOD (BEAKER) (test svua=3927) 7.39 [id number] 14:10:00 Test Item Value Reference Range Comments LIPASE (BEAKER) (test tols=231) 33 U/L 8-78 HEPATIC FUNCTION [id number] 14:10:00 Test Item Value Reference Range Comments TOTAL PROTEIN (BEAKER) (test azfm=835) 6.5 gm/dL 6.0-8.3 ALBUMIN (BEAKER) (test npzj=0756) 4.2 g/dL 3.5-5.0 BILIRUBIN TOTAL (BEAKER) (test bjuv=629) 0.7 mg/dL 0.2-1.2 BILIRUBIN DIRECT (BEAKER) (test dhdw=492) 0.4 mg/dL 0.1-0.5 ALKALINE PHOSPHATASE (BEAKER) (test efyv=677) 74 U/L 40-150 AST (SGOT) (BEAKER) (test poiu=432) 38 U/L 5-34 ALT (SGPT) (BEAKER) (test shkg=161) 30 U/L 6-55 BASIC METABOLIC [id number] 04:53:00 Test Item Value Reference Range Comments SODIUM (BEAKER) (test 134 meq/L 136-145 rsef=373) POTASSIUM (BEAKER) (test 3.8 meq/L 3.5-5.1 vdcn=158) CHLORIDE (BEAKER) (test 102 meq/L 98-107 bfkg=670) CO2 (BEAKER) (test 18 meq/L 22-29 erja=253) BLOOD UREA NITROGEN 7 mg/dL 7-21 (BEAKER) (test akwi=000) CREATININE (BEAKER) (test 0.73 mg/dL 0.57-1.25 ybsi=024) GLUCOSE RANDOM (BEAKER) 177 mg/dL 70-105 (test ayfz=716) CALCIUM (BEAKER) (test 8.9 mg/dL 8.4-10.2 zhuk=367) EGFR (BEAKER) (test 104 mL/min/1.73 sq m ESTIMATED GFR IS NOT jnhc=9124) ACCURATE CREATININE CLEARANCE IN PREDICTING GLOMERULAR FILTRATION RATE. ESTIMATED GFR IS NOT APPLICABLE FOR DIALYSIS PATIENTS. [id number] 04:49:00 Test Item Value Reference Range Comments PHOSPHORUS (BEAKER) (test rohx=315) 2.9 mg/dL 2.3-4.7 [id number] 04:49:00 Test Item Value Reference Range Comments MAGNESIUM (BEAKER) (test uxci=610) 1.5 mg/dL 1.6-2.6 AMYLASE, BODY [id number] 04:38:00 Test Item Value Reference Range Comments AMYLASE FLUID (BEAKER) (test kahp=274) 2673 U/L Absence of reference range indicates that normals have not been defined.Assay performance has not been validated for this type of specimen.CBC W/PLT COUNT & amp; AUTO [id number] 04:24:00 Test Item Value Reference Range Comments WHITE BLOOD CELL COUNT (BEAKER) (test wdmo=360) 19.1 K/ L 3.5-10.5 RED BLOOD CELL COUNT (BEAKER) (test mkze=661) 4.48 M/ L 4.63-6.08 HEMOGLOBIN (BEAKER) (test jmnq=823) 13.1 GM/DL 13.7-17.5 HEMATOCRIT (BEAKER) (test vurp=402) 38.3 % 40.1-51.0 MEAN CORPUSCULAR VOLUME (BEAKER) (test ykbs=004) 85.5 fL 79.0-92.2 MEAN CORPUSCULAR HEMOGLOBIN (BEAKER) (test 29.2 pg 25.7-32.2 olvw=643) MEAN CORPUSCULAR HEMOGLOBIN CONC (BEAKER) (test 34.2 GM/DL 32.3-36.5 oope=980) RED CELL DISTRIBUTION WIDTH (BEAKER) (test 12.6 % 11.6-14.4 gmzo=560) PLATELET COUNT (BEAKER) (test vrxj=773) 283 K/CU MM 150-450 MEAN PLATELET VOLUME (BEAKER) (test aexv=169) 10.8 fL 9.4-12.4 NUCLEATED RED BLOOD CELLS (BEAKER) (test 0 /100 WBC 0-0 qsic=656) NEUTROPHILS RELATIVE PERCENT (BEAKER) (test 90 % jcnv=203) LYMPHOCYTES RELATIVE PERCENT (BEAKER) (test 5 % xphj=958) MONOCYTES RELATIVE PERCENT (BEAKER) (test 4 % pjxs=303) EOSINOPHILS RELATIVE PERCENT (BEAKER) (test 0 % knjv=321) BASOPHILS RELATIVE PERCENT (BEAKER) (test 0 % zjis=129) NEUTROPHILS ABSOLUTE COUNT (BEAKER) (test 17.18 K/ L 1.78-5.38 kwgf=503) LYMPHOCYTES ABSOLUTE COUNT (BEAKER) (test 0.86 K/ L 1.32-3.57 aiaf=451) MONOCYTES ABSOLUTE COUNT (BEAKER) (test 0.84 K/ L 0.30-0.82 revv=053) EOSINOPHILS ABSOLUTE COUNT (BEAKER) (test 0.01 K/ L 0.04-0.54 qikz=842) BASOPHILS ABSOLUTE COUNT (BEAKER) (test 0.04 K/ L 0.01-0.08 wnzs=258) IMMATURE GRANULOCYTES-RELATIVE PERCENT (BEAKER) 1 % 0-1 (test unws=0522) [id number] 13:44:00 Test Item Value Reference Range Comments CALCIUM (BEAKER) (test yufw=473) 7.5 mg/dL 8.4-10.2 [id number] 13:42:00 Test Item Value Reference Range Comments LIPASE (BEAKER) (test gpod=724) 137 U/L 8-78 [id number] 13:42:00 Test Item Value Reference Range Comments AMYLASE (BEAKER) (test auvz=500) 50 U/L 25-125 CALCIUM, [id number] 13:13:00 Test Item Value Reference Range Comments CALCIUM IONIZED (BEAKER) (test kvtx=903) 0.86 mmol/L 1.12-1.27 PH, BLOOD (BEAKER) (test wzmg=9992) 7.41 BLOOD GAS, [id number] 12:49:00 Test Item Value Reference Range Comments PH ARTERIAL (BEAKER) (test xlan=086) 7.41 7.35-7.45 PCO2 ARTERIAL (BEAKER) (test afkz=285) 34 mmHg 35-45 PO2 ARTERIAL (BEAKER) (test jirs=399) 194 mmHg 80-90 O2 SATURATION ARTERIAL (BEAKER) (test cpbc=324) 99.3 % 96.0-97.0 HCO3 ARTERIAL (BEAKER) (test mehl=914) 21 mmol/L 21-29 BASE EXCESS ARTERIAL (BEAKER) (test bypa=966) -3.5 mmol/L -2.0-3.0 PATIENT TEMPERATURE (BEAKER) (test oagi=7625) 37.0 C FIO2 (BEAKER) (test mxwi=4496) 21.0 % CALCIUM, [id number] 12:49:00 Test Item Value Reference Range Comments CALCIUM IONIZED (BEAKER) (test ymix=075) 0.98 mmol/L 1.12-1.27 PH, BLOOD (BEAKER) (test dksx=2710) 7.41 GLUCOSE-STAT [id number] 12:49:00 Test Item Value Reference Range Comments GLUCOSE RANDOM (BEAKER) (test ohtf=195) 142 mg/dL 70-110 POTASSIUM-STAT [id number] 12:49:00 Test Item Value Reference Range Comments POTASSIUM (BEAKER) (test babn=330) 3.3 meq/L 3.6-5.5 HGB/HCT (H&H) - STAT [id number] 12:49:00 Test Item Value Reference Range Comments HEMOGLOBIN (BEAKER) (test bpbj=425) 11.6 g/dL 13.0-16.8 HEMATOCRIT (BEAKER) (test iqfj=415) 34.0 % 40.0-50.0 SODIUM NA-STAT [id number] 12:48:00 Test Item Value Reference Range Comments SODIUM (BEAKER) (test lwvp=723) 137 meq/L 135-148 BLOOD GAS, [id number] 11:16:00 Test Item Value Reference Range Comments PH ARTERIAL (BEAKER) (test zcbd=292) 7.44 7.35-7.45 PCO2 ARTERIAL (BEAKER) (test rzwr=939) 34 mmHg 35-45 PO2 ARTERIAL (BEAKER) (test ujzp=611) 204 mmHg 80-90 O2 SATURATION ARTERIAL (BEAKER) (test ixxt=841) 99.4 % 96.0-97.0 HCO3 ARTERIAL (BEAKER) (test vuxx=243) 23 mmol/L 21-29 BASE EXCESS ARTERIAL (BEAKER) (test khcf=415) -1.5 mmol/L -2.0-3.0 PATIENT TEMPERATURE (BEAKER) (test zsjh=7169) 35.3 C FIO2 (BEAKER) (test fwai=9385) 50.0 % POTASSIUM-STAT [id number] 11:16:00 Test Item Value Reference Range Comments POTASSIUM (BEAKER) (test yzah=403) 3.3 meq/L 3.6-5.5 GLUCOSE-STAT [id number] 11:16:00 Test Item Value Reference Range Comments GLUCOSE RANDOM (BEAKER) (test tozq=156) 130 mg/dL 70-110 HGB/HCT (H&H) - STAT [id number] 11:16:00 Test Item Value Reference Range Comments HEMOGLOBIN (BEAKER) (test uvmc=002) 12.4 g/dL 13.0-16.8 HEMATOCRIT (BEAKER) (test vtlo=554) 36.0 % 40.0-50.0 CALCIUM, [id number] 11:16:00 Test Item Value Reference Range Comments CALCIUM IONIZED (BEAKER) (test xxvc=802) 0.90 mmol/L 1.12-1.27 PH, BLOOD (BEAKER) (test yqah=4393) 7.41 SODIUM NA-STAT [id number] 11:15:00 Test Item Value Reference Range Comments SODIUM (BEAKER) (test zuln=321) 136 meq/L 135-148 FINE NEEDLE ASPIRATION BY [id number] 10:55:00Medical Cytology Report Case: [id number] Authorizing Provider: Ravi Meier MD Collected: 2017 1148 Ordering Location: [address] Received : 10/04/2017 0819 Service Pathologist: Tera Villar MD Specimen: Pancreas, Pancreas mass routine cyto in CRR BODY OF PANCREAS MASS, FNA BY CLINICIAN ( CYTOSPINS AND CELL BLOCK OF ASPIRATE): - POSITIVE FOR MALIGNANCY - ADENOCARCINOMA, DUCTAL TYPE Signing Pathologist Direct Phone Line: [phone] [phone] 2.4 cm) irregular mass identified in the body of the pancreasBODY OF PANCREAS MASS FNAPrepared cell block(A2) and 4 cytospins from 22 ml in cytorich red fixativeCollected: [id number]: [id number] [facility], Department of Pathology, [address] [place] [address], [facility] , [address] [place] [address], IX, ABDOMEN, [id number] 08:03:00FINAL REPORT History: Liver lesions Comparison: CT [...] Splenic infarcts. 4. Cholelithiasis. Signed: Marylu Allen [facility] Verified Date/Time: 10/05/2017 08:03:49 Reading Location: [facility] Diagnostic Imaging Reading Room - [place] [address] TISSUE [id number] 15:08:00Surgical Pathology Report Case: [id number] Authorizing Provider: Ravi Meier MD Collected: 10/02/2017 1153 Ordering Location: [address] Received: 10/04/2017 0748 Service Pathologist: Sander Munoz MD Specimen: Mass, PANCREATIC MASS FNA BX PART A PANCREATICMASS, BIOPSY:ADENOCARCINOMA. Signing Pathologist Direct Phone Line: [phone] signed by Sander Munoz MD on 10/04/2017 at 3:08 [id number] massPancreatic mass FNA biopsy The specimen is received in a formalin-filled container labeled with the patient's informationand labeled "pancreatic mass FNA biopsy" and consists of multiple fragments of alfred-red stringy soft tissue measuring 1 x 0.3 x 0.2 cm in aggregate , submitted entirely in A1. CG/ewHEPATIC FUNCTION [id number] 10:31:00 Test Item Value Reference Range Comments TOTAL PROTEIN (BEAKER) (test mlkt=752) 5.9 gm/dL 6.0-8.3 ALBUMIN (BEAKER) (test efzd=9048) 3.5 g/dL 3.5-5.0 BILIRUBIN TOTAL (BEAKER) (test ehmd=778) 0.5 mg/dL 0.2-1.2 BILIRUBIN DIRECT (BEAKER) (test idjz=222) 0.3 mg/dL 0.1-0.5 ALKALINE PHOSPHATASE (BEAKER) (test usuz=832) 83 U/L 40-150 AST (SGOT) (BEAKER) (test fwmv=432) 30 U/L 5-34 ALT (SGPT) (BEAKER) (test fhxu=465) 22 U/L 6-55 BASIC METABOLIC [id number] 10:31:00 Test Item Value Reference Range Comments SODIUM (BEAKER) (test 134 meq/L 136-145 ynqn=982) POTASSIUM (BEAKER) (test 3.9 meq/L 3.5-5.1 fqfl=388) CHLORIDE (BEAKER) (test 102 meq/L 98-107 uked=379) CO2 (BEAKER) (test 23 meq/L 22-29 znco=700) BLOOD UREA NITROGEN 7 mg/dL 7-21 (BEAKER) (test vdhe=078) CREATININE (BEAKER) (test 0.74 mg/dL 0.57-1.25 lfrv=697) GLUCOSE RANDOM (BEAKER) 104 mg/dL 70-105 (test jiij=005) CALCIUM (BEAKER) (test 8.5 mg/dL 8.4-10.2 ahjd=679) EGFR (BEAKER) (test 102 mL/min/1.73 sq m ESTIMATED GFR IS NOT mfmb=9128) ACCURATE CREATININE CLEARANCE IN PREDICTING GLOMERULAR FILTRATION RATE. ESTIMATED GFR IS NOT APPLICABLE FOR DIALYSIS PATIENTS. FINE NEEDLE ASPIRATE (FNA) [id number] 10:00:00 Test Item Value Reference Range Comments CYTOLOGY RESULT POINTER (BEAKER) (test See Separate Report oiil=5388) [id number] 07:38:00 Test Item Value Reference Range Comments PROTIME (BEAKER) (test yjvu=880) 16.2 seconds 11.7-14.7 INR (BEAKER) (test glyd=734) 1.3 <=5.9 PARTIAL THROMBOPLASTIN TIME (BEAKER) (test 33.2 seconds 22.5-36.0 zjxo=018) RECOMMENDED COUMADIN/WARFARIN INR THERAPY RANGESSTANDARD DOSE: 2.0 - 3.0 Includes: PROPHYLAXIS forvenous thrombosis, systemic embolization; TREATMENT for venous thrombosis and/or pulmonary embolus.HIGH RISK: Target INR is 2.5-3.5 for patients with mechanical heart valves.CBC W/PLT COUNT & AUTO [id number] 06:51:00 Test Item Value Reference Range Comments WHITE BLOOD CELL COUNT (BEAKER) (test vlan=380) 5.7 K/ L 3.5-10.5 RED BLOOD CELL COUNT (BEAKER) (test tobs=221) 4.22 M/ L 4.63-6.08 HEMOGLOBIN (BEAKER) (test hwdi=798) 12.3 GM/DL 13.7-17.5 HEMATOCRIT (BEAKER) (test pyjx=003) 36.9 % 40.1-51.0 MEAN CORPUSCULAR VOLUME (BEAKER) (test plds=816) 87.4 fL 79.0-92.2 MEAN CORPUSCULAR HEMOGLOBIN (BEAKER) (test 29.1 pg 25.7-32.2 smjv=555) MEAN CORPUSCULAR HEMOGLOBIN CONC (BEAKER) (test 33.3 GM/DL 32.3-36.5 yusu=188) RED CELL DISTRIBUTION WIDTH (BEAKER) (test 12.3 % 11.6-14.4 vbsh=670) PLATELET COUNT (BEAKER) (test scun=885) 196 K/CU MM 150-450 MEAN PLATELET VOLUME (BEAKER) (test vevk=865) 11.2 fL 9.4-12.4 NUCLEATED RED BLOOD CELLS (BEAKER) (test 0 /100 WBC 0-0 unlv=467) NEUTROPHILS RELATIVE PERCENT (BEAKER) (test 66 % fnkh=688) LYMPHOCYTES RELATIVE PERCENT (BEAKER) (test 21 % tkfy=097) MONOCYTES RELATIVE PERCENT (BEAKER) (test 9 % tdwh=442) EOSINOPHILS RELATIVE PERCENT (BEAKER) (test 3 % zjzg=890) BASOPHILS RELATIVE PERCENT (BEAKER) (test 1 % wvcg=206) NEUTROPHILS ABSOLUTE COUNT (BEAKER) (test 3.76 K/ L 1.78-5.38 vxwl=885) LYMPHOCYTES ABSOLUTE COUNT (BEAKER) (test 1.22 K/ L 1.32-3.57 sitp=967) MONOCYTES ABSOLUTE COUNT (BEAKER) (test 0.52 K/ L 0.30-0.82 dwwb=376) EOSINOPHILS ABSOLUTE COUNT (BEAKER) (test 0.17 K/ L 0.04-0.54 pnps=121) BASOPHILS ABSOLUTE COUNT (BEAKER) (test 0.03 K/ L 0.01-0.08 nvnq=559) IMMATURE GRANULOCYTES-RELATIVE PERCENT (BEAKER) 1 % 0-1 (test ayus=8793) HEPATIC FUNCTION [id number] 07:40:00 Test Item Value Reference Range Comments TOTAL PROTEIN (BEAKER) (test mkbf=080) 6.7 gm/dL 6.0-8.3 ALBUMIN (BEAKER) (test kssk=0952) 4.0 g/dL 3.5-5.0 BILIRUBIN TOTAL (BEAKER) (test wqpa=057) 0.7 mg/dL 0.2-1.2 BILIRUBIN DIRECT (BEAKER) (test mmjr=350) 0.4 mg/dL 0.1-0.5 ALKALINE PHOSPHATASE (BEAKER) (test svvw=329) 97 U/L 40-150 AST (SGOT) (BEAKER) (test axxy=905) 31 U/L 5-34 ALT (SGPT) (BEAKER) (test rumi=757) 22 U/L 6-55 BASIC METABOLIC [id number] 07:40:00 Test Item Value Reference Range Comments SODIUM (BEAKER) (test 136 meq/L 136-145 ifmy=760) POTASSIUM (BEAKER) (test 4.2 meq/L 3.5-5.1 uwrv=381) CHLORIDE (BEAKER) (test 101 meq/L 98-107 uvfv=216) CO2 (BEAKER) (test 25 meq/L 22-29 jhut=456) BLOOD UREA NITROGEN 8 mg/dL 7-21 (BEAKER) (test ukmb=921) CREATININE (BEAKER) (test 0.78 mg/dL 0.57-1.25 ufkv=176) GLUCOSE RANDOM (BEAKER) 102 mg/dL 70-105 (test agxb=300) CALCIUM (BEAKER) (test 9.4 mg/dL 8.4-10.2 svoh=376) EGFR (BEAKER) (test 96 mL/min/1.73 sq m ESTIMATED GFR IS NOT rpau=5591) ACCURATE CREATININE CLEARANCE IN PREDICTING GLOMERULAR FILTRATION RATE. ESTIMATED GFR IS NOT APPLICABLE FOR DIALYSIS PATIENTS. CBC W/PLT COUNT & AUTO [id number] 07:08:00 Test Item Value Reference Range Comments WHITE BLOOD CELL COUNT (BEAKER) (test dxtt=211) 6.9 K/ L 3.5-10.5 RED BLOOD CELL COUNT (BEAKER) (test fodl=537) 4.57 M/ L 4.63-6.08 HEMOGLOBIN (BEAKER) (test siil=457) 13.4 GM/DL 13.7-17.5 HEMATOCRIT (BEAKER) (test xgzl=764) 40.3 % 40.1-51.0 MEAN CORPUSCULAR VOLUME (BEAKER) (test jsdx=761) 88.2 fL 79.0-92.2 MEAN CORPUSCULAR HEMOGLOBIN (BEAKER) (test 29.3 pg 25.7-32.2 mbqh=316) MEAN CORPUSCULAR HEMOGLOBIN CONC (BEAKER) (test 33.3 GM/DL 32.3-36.5 cfxt=980) RED CELL DISTRIBUTION WIDTH (BEAKER) (test 12.5 % 11.6-14.4 ilwd=160) PLATELET COUNT (BEAKER) (test suev=133) 192 K/CU MM 150-450 MEAN PLATELET VOLUME (BEAKER) (test xlin=556) 11.7 fL 9.4-12.4 NUCLEATED RED BLOOD CELLS (BEAKER) (test 0 /100 WBC 0-0 msvn=948) NEUTROPHILS RELATIVE PERCENT (BEAKER) (test 67 % yazf=131) LYMPHOCYTES RELATIVE PERCENT (BEAKER) (test 22 % ywjc=775) MONOCYTES RELATIVE PERCENT (BEAKER) (test 9 % pdkx=230) EOSINOPHILS RELATIVE PERCENT (BEAKER) (test 2 % tjgc=567) BASOPHILS RELATIVE PERCENT (BEAKER) (test 1 % mdpt=104) NEUTROPHILS ABSOLUTE COUNT (BEAKER) (test 4.59 K/ L 1.78-5.38 uuci=837) LYMPHOCYTES ABSOLUTE COUNT (BEAKER) (test 1.50 K/ L 1.32-3.57 uvzp=158) MONOCYTES ABSOLUTE COUNT (BEAKER) (test 0.60 K/ L 0.30-0.82 lhfc=984) EOSINOPHILS ABSOLUTE COUNT (BEAKER) (test 0.13 K/ L 0.04-0.54 gtcd=578) BASOPHILS ABSOLUTE COUNT (BEAKER) (test 0.04 K/ L 0.01-0.08 hhju=044) IMMATURE GRANULOCYTES-RELATIVE PERCENT (BEAKER) 0 % 0-1 (test jrhg=5265) HEPATIC FUNCTION [id number] 06:42:00 Test Item Value Reference Range Comments TOTAL PROTEIN (BEAKER) (test hera=414) 5.9 gm/dL 6.0-8.3 ALBUMIN (BEAKER) (test uqik=9375) 3.7 g/dL 3.5-5.0 BILIRUBIN TOTAL (BEAKER) (test necw=907) 0.7 mg/dL 0.2-1.2 BILIRUBIN DIRECT (BEAKER) (test zlth=980) 0.4 mg/dL 0.1-0.5 ALKALINE PHOSPHATASE (BEAKER) (test coxo=532) 87 U/L 40-150 AST (SGOT) (BEAKER) (test vzox=569) 20 U/L 5-34 ALT (SGPT) (BEAKER) (test amvw=848) 16 U/L 6-55 BASIC METABOLIC [id number] 06:42:00 Test Item Value Reference Range Comments SODIUM (BEAKER) (test 134 meq/L 136-145 xkgw=800) POTASSIUM (BEAKER) (test 4.0 meq/L 3.5-5.1 uxhm=669) CHLORIDE (BEAKER) (test 102 meq/L 98-107 nsxe=039) CO2 (BEAKER) (test 25 meq/L 22-29 kfbc=556) BLOOD UREA NITROGEN 9 mg/dL 7-21 (BEAKER) (test tkuu=218) CREATININE (BEAKER) (test 0.83 mg/dL 0.57-1.25 fijh=502) GLUCOSE RANDOM (BEAKER) 101 mg/dL 70-105 (test tlup=385) CALCIUM (BEAKER) (test 8.9 mg/dL 8.4-10.2 qvef=306) EGFR (BEAKER) (test 89 mL/min/1.73 sq m ESTIMATED GFR IS NOT vgmz=3389) ACCURATE CREATININE CLEARANCE IN PREDICTING GLOMERULAR FILTRATION RATE. ESTIMATED GFR IS NOT APPLICABLE FOR DIALYSIS PATIENTS. [id number] 06:09:00 Test Item Value Reference Range Comments PROTIME (BEAKER) (test ufoq=943) 15.8 seconds 11.7-14.7 INR (BEAKER) (test xnhu=776) 1.3 <=5.9 PARTIAL THROMBOPLASTIN TIME (BEAKER) (test 34.8 seconds 22.5-36.0 ibih=091) RECOMMENDED COUMADIN/WARFARIN INR THERAPY RANGESSTANDARD DOSE: 2.0 - 3.0 Includes: PROPHYLAXIS forvenous thrombosis, systemic embolization; TREATMENT for venous thrombosis and/or pulmonary embolus.HIGH RISK: Target INR is 2.5-3.5 for patients with mechanical heart valves.PROTHROMBIN [id number] 06:08: 00 Test Item Value Reference Range Comments PROTIME (BEAKER) (test dddd=683) 15.8 seconds 11.7-14.7 INR (BEAKER) (test nhdv=215) 1.3 <=5.9 RECOMMENDED COUMADIN/WARFARIN INR THERAPY RANGESSTANDARD DOSE: 2.0 - 3.0 Includes: PROPHYLAXIS forvenous thrombosis, systemic embolization; TREATMENT for venous thrombosis and/or pulmonary embolus.HIGH RISK: Target INR is 2.5-3.5 for patients with mechanical heart valves.CBC W/PLT COUNT & AUTO [id number] 05:59:00 Test Item Value Reference Range Comments WHITE BLOOD CELL COUNT (BEAKER) (test beuu=403) 7.2 K/ L 3.5-10.5 RED BLOOD CELL COUNT (BEAKER) (test sfrx=981) 4.34 M/ L 4.63-6.08 HEMOGLOBIN (BEAKER) (test dphk=069) 12.8 GM/DL 13.7-17.5 HEMATOCRIT (BEAKER) (test iotx=879) 38.5 % 40.1-51.0 MEAN CORPUSCULAR VOLUME (BEAKER) (test fgvv=271) 88.7 fL 79.0-92.2 MEAN CORPUSCULAR HEMOGLOBIN (BEAKER) (test 29.5 pg 25.7-32.2 pftb=953) MEAN CORPUSCULAR HEMOGLOBIN CONC (BEAKER) (test 33.2 GM/DL 32.3-36.5 wjxj=245) RED CELL DISTRIBUTION WIDTH (BEAKER) (test 12.5 % 11.6-14.4 cbas=664) PLATELET COUNT (BEAKER) (test sncf=807) 165 K/CU MM 150-450 MEAN PLATELET VOLUME (BEAKER) (test njyp=179) 11.4 fL 9.4-12.4 NUCLEATED RED BLOOD CELLS (BEAKER) (test 0 /100 WBC 0-0 rdal=642) NEUTROPHILS RELATIVE PERCENT (BEAKER) (test 63 % lhgg=192) LYMPHOCYTES RELATIVE PERCENT (BEAKER) (test 24 % ppcd=838) MONOCYTES RELATIVE PERCENT (BEAKER) (test 11 % bhdn=078) EOSINOPHILS RELATIVE PERCENT (BEAKER) (test 2 % dzuw=145) BASOPHILS RELATIVE PERCENT (BEAKER) (test 0 % weme=290) NEUTROPHILS ABSOLUTE COUNT (BEAKER) (test 4.52 K/ L 1.78-5.38 arqk=871) LYMPHOCYTES ABSOLUTE COUNT (BEAKER) (test 1.73 K/ L 1.32-3.57 tfsf=548) MONOCYTES ABSOLUTE COUNT (BEAKER) (test 0.78 K/ L 0.30-0.82 niuj=052) EOSINOPHILS ABSOLUTE COUNT (BEAKER) (test 0.13 K/ L 0.04-0.54 njdq=204) BASOPHILS ABSOLUTE COUNT (BEAKER) (test 0.03 K/ L 0.01-0.08 xnit=975) IMMATURE GRANULOCYTES-RELATIVE PERCENT (BEAKER) 0 % 0-1 (test mqvl=9161)
[2018-05-03] MEDS ORDERED: NA CHLORIDE 0.9% 500 ML ONE (13:09)
[2018-05-03 13:34] LABS: Absolute Lymphocytes (CBC) 1.9 K/uL (0.7-4.9); Absolute Monocytes 1.8 K/uL (0.1-1.3); Absolute Neutrophil 4.5 K/uL (1.8-8.0); Basophils % 1.7 % (0-1.3); Eosinophils % 3.3 % (0-4.4); Hematocrit 37.7 % (39.6-49.0); Lymphocytes % 21.9 % (15.3-44.8); MCH 34.5 pg (27.0-35.0); MCV 100.8 fL (80-100); MPV 11.1 fL (7.6-11.3); Monocytes % 20.5 % (3.3-12.3); RBC Red Blood Cell Count 3.74 M/uL (4.33-5.43)
[2018-05-03 13:49] LABS: BUN Blood Urea Nitrogen 12 mg/dL (7-18); Bicarbonate 28 mmol/L (21-32); Glucose Level 94 mg/dL (74-106); Sodium Level 132 mmol/L (136-145)
--- NOTE | 2018-05-03 14:24 | RAD REPORT ---
EXAM DESCRIPTION: CT - Head Brain Wo Cont - 05/03/2018 2:04 pm CLINICAL HISTORY: Headache COMPARISON: December 2017 TECHNIQUE: Computed axial tomography of the head was obtained. IV contrast was not requested. All CT scans are performed using dose optimization technique as appropriate and may include automated exposure control or mA/KV adjustment according to patient size. FINDINGS: An intracranial bleed is not seen . The ventricles are normal in caliber. No extra-axial fluid collection is noted. Fluid within the sinuses/ mastoids is not seen. IMPRESSION: No acute intracranial abnormality is seen. If patient's symptoms persist MRI of the bra in would be recommended.
--- NOTE | 2018-05-03 14:41 | RAD REPORT ---
EXAM DESCRIPTION: RAD - Abdomen 1 View (KUB) - 05/03/2018 2:32 pm CLINICAL HISTORY: Abdomen pain. FINDINGS: The bowel gas pattern is unremarkable. Surgical clips are present within the abdomen. Vascular calcifications are noted
[2018-05-03 14:45] LABS: Urine White Blood Cell Casts OK
[2018-05-03 14:46] LABS: Blood Morphology Comment NOT SEEN (NOT SEEN); Platelet Estimate ADEQ
[2018-05-03] MEDS ORDERED: HYDROCODONE/APAP 5/325 MG TAB ONE (15:03)
[2018-05-03] MEDS ORDERED: ACETAMINOPHEN 500 MG TAB ONE (15:11)
[2018-05-03] MEDS ORDERED: TRAMADOL HCL 50 MG TAB ONE (15:11)
--- NOTE | 2018-05-03 16:03 | EDPHYS ---
Physician Documentation [facility] Name: Bruce France Age: 77 yrs Sex: Male : 1940 Arrival Date: 05/03/2018 Time: 12:12 Bed 19 Private MD: ED Physician Felix Denton HPI: 05/03 13:23 This 77 yrs old Male presents to ER via Wheelchair with complaints of rn Dehydration. 13:23 Reports generalized weakness, constipation, bowel problems, for several months, no rn fever, no longer on chemo because was too weak per his oncologist, reports saw GI yesterday given new bowel regimen, told to stop laxatives and such. Has had chronic problems with constipation, recently admitted and needed enemas for this. No new pain or issues. Reports chronic abd pain since diagnosis of cancer, chronic constipation, and chronic weakness but states a little more confused this AM, which has improved, as well and seemed weaker. . Onset: The symptoms/episode began/occurred at an unknown time. Severity of symptoms: At their worst the symptoms were moderate in the emergency department the symptoms have improved. The patient has experienced similar episodes in the past. The patient has been recently seen by a physician:. Historical: - Allergies: 12:29 Codeine; ch - Home Meds: 12:25 aspirin 81 mg Oral TbEC 1 tab once daily [Active]; Fish Oil Oral daily [Active]; rb1 irbesartan 300 mg Oral tab 1 tab once daily [Active]; metoprolol tartrate 50 mg Oral tab 1 tab 2 times per day [Active]; multivitamin Oral tab daily [Active]; pantoprazole 40 mg Oral TbEC 1 tab once daily [Active]; Milo Oil-1000 Oral daily [Active]; Senna Lax 8.6 mg Oral tab 2 tabs twice a day [Active]; sertraline 50 mg Oral tab 1 tab once daily [Active]; Stool Softener Oral three times a day [Active]; Super B-50 Complex Oral daily [Active]; tamsulosin 0.4 mg Oral cp24 1 cap once daily [Active]; tramadol 50 mg Oral tab as needed [Active]; Zofran (as hydrochloride) 4 mg Oral tab as needed [Active]; - PMHx: 12:29 Atrial Fib; GERD; Hernia; Hypertension; Pancreatitc cancer; skin cancer; ch - PSHx: 12:29 spleenectomy; 2/3 of pancreas removal; ch - Immunization history:: Adult Immunizations up to date. - Social history:: Smoking status: Patient/guardian denies using tobacco. - Ebola Screening: : Patient negative for fever greater than or equal to 101.5 degrees Fahrenheit, and additional compatible Ebola Virus Disease symptoms Patient denies exposure to infectious person Patient denies travel to an Ebola-affected area in the 21 days before illness onset No symptoms or risks identified at this time. - Family history:: not pertinent. - Hospitalizations: : The patient was recently seen at [facility]. ROS: 13:23 Constitutional: Negative for fever, chills, and weight loss, Eyes: Negative for injury, rn pain, redness, and discharge, ENT: Negative for injury, pain, and discharge, Neck: Negative for injury, pain, and swelling, Cardiovascular: Negative for chest pain, palpitations, and edema, Respiratory: Negative for shortness of breath, cough, wheezing, and pleuritic chest pain, Abdomen/GI: + abd pain and constipation MS/Extremity: Negative for injury and deformity, Skin: Negative for injury, rash, and discoloration, Neuro: + headache and generalized weakness Exam: 13:23 Constitutional: This is a well developed, well nourished patient who is awake, alert, rn and in no acute distress. Head/Face: Normocephalic, atraumatic. Eyes: Pupils equal round and reactive to light, extra-ocular motions intact. Lids and lashes normal. Conjunctiva and sclera are non-icteric and not injected. Cornea within normal limits. Periorbital areas with no swelling, redness, or edema. ENT: dry MM, no stridor Cardiovascular: regular, bradycardic Respiratory: Lungs have equal breath sounds bilaterally, clear to auscultation. No increased work of breathing, no retractions or nasal flaring. Abdomen/GI: soft, mild diffuse tenderness, non-focal exam, no skin changes, non-distended MS/ Extremity: Pulses equal, no cyanosis. Neurovascular intact. Full, normal range of motion. Equal circumference. Neuro: Awake and alert, GCS 15, oriented to person, place, time, and situation. Cranial nerves II-XII grossly intact. Motor strength 4/5 in all extremities. Sensory grossly intact. Vital Signs: 12:29 BP 181 / 81; Pulse 49; Resp 20; Pulse Ox 98% on R/A; Weight 80.29 kg; Height 6 ft. ch (182.88 cm); Pain 5/10; 13:30 BP 195 / 78; Pulse 45; Resp 19; Pulse Ox 100% on R/A; rb1 14:30 BP 194 / 75; Pulse 48; Resp 18; Pulse Ox 98% on R/A; rb1 15:15 BP 168 / 62; Pulse 49; Resp 17; Pulse Ox 99% on R/A; rb1 16:00 BP 196 / 75; Pulse 58; Resp 18; Pulse Ox 99% on R/A; rb1 12:29 Body Mass Index 24.01 (80.29 kg, 182.88 cm) ch MDM: 12:26 Patient medically screened. rn 15:01 ED course: Sinus andrea on ECG but his metoprolol just got increased and added another rn BP med, normal w/u thus far, normal ct head, normal neuro exam. Will dc home as no new complaints, reports weakness and abd discomfort present for some time, his hernia has not changed, and constipation has been treated with new med from GI. Has f/u appt tomorrow with Dr. Magdaleno. . 15:41 Differential Diagnosis Dehydration, electrolyte derangement. Data reviewed: vital rn signs, nurses notes, lab test result(s), EKG, radiologic studies, plain films, and as a result, I will discharge patient. Counseling: I had a detailed discussion with the patient and/or guardian regarding: the historical points, exam findings, and any diagnostic results supporting the discharge/admit diagnosis, lab results, radiology results, the need for outpatient follow up, to return to the emergency department if symptoms worsen or persist or if there are any questions or concerns that arise at home. Response to treatment: the patient's symptoms have mildly improved after treatment, and as a result, I will discharge patient. Special discussion: I discussed with the patient/guardian in detail that at this point there is no indication for admission to the hospital. It is understood, however, that if the symptoms persist or worsen the patient needs to return immediately for re-evaluation. 05/03 12:55 Order name: CBC with Diff; Complete Time: 15:01 rn 05/03 12:55 Order name: Basic Metabolic Panel; Complete Time: 14:46 rn 05/03 12:55 Order name: CT Head Brain wo Cont; Complete Time: 14:46 rn 05/03 12:55 Order name: XRAY KUB; Complete Time: 14:46 rn 05/03 13:53 Order name: CBC Smear Scan; Complete Time: 15:01 [facility] 05/03 15:53 Order name: Urine Dipstick--Ancillary (enter results) bd 05/03 12:55 Order name: IV Start; Complete Time: 13:09 rn 05/03 12:55 Order name: EKG; Complete Time: 13:16 rn 05/03 12:55 Order name: EKG - Nurse/Tech; Complete Time: 15:23 rn 05/03 12:55 Order name: Urine Dipstick-Ancillary (obtain specimen); Complete Time: 16:53 rn Administered Medications: 13:15 Drug: NS 0.9% 500 ml Route: IV; Rate: bolus; Site: right forearm; rb1 14:30 Follow up: IV Status: Completed infusion rb1 15:35 Drug: traMADol 50 mg Route: PO; rb1 16:05 Follow up: Response: No adverse reaction; Pain is decreased rb1 16:05 Follow up: Response: No adverse reaction; Pain is decreased rb1 15:35 Drug: Tylenol 1000 mg Route: PO; rb1 16:05 Follow up: Response: No adverse reaction; Pain is decreased rb1 Disposition: 05/03/18 16:02 Discharged to Home. Impression: Dehydration, Weakness, Constipation, unspecified, Bradycardia, unspecified. - Condition is Stable. - Discharge Instructions: Bradycardia, Adult, Constipation, Adult, Dehydration, Adult, Weakness. - Medication Reconciliation Form, Thank You Letter, Antibiotic Education, Prescription Opioid Use form. - Follow up: Private Physician; When: As needed; Reason: Recheck today's complaints, Re-evaluation by your physician. - Problem is new. - Symptoms have improved. Signatures: Dispatcher [employer] [facility] Madison Alexis, RN RN Felix Gomez MD MD rn Barber, Rebecca, RN RN rb1 Corrections: (The following items were deleted from the chart) 13:26 13:23 The patient has not recently seen a physician, rn rn 16:47 16:02 05/03/2018 16:02 Discharged to Home. Impression: Dehydration; Weakness; rb1 Constipation, unspecified; Bradycardia, unspecified. Condition is Stable. Forms are Medication Reconciliation Form, Thank You Letter, Antibiotic Education, Prescription Opioid Use. Follow up: Private Physician; When: As needed; Reason: Recheck today's complaints, Re-evaluation by your physician. Problem is new. Symptoms have improved. rn
--- NOTE | 2018-05-03 16:03 | ER ---
Nurse's Notes [facility] Name: Bruce France Age: 77 yrs Sex: Male : 1940 Arrival Date: 05/03/2018 Time: 12:12 Bed 19 Private MD: Diagnosis: Dehydration;Weakness;Constipation, unspecified;Bradycardia, unspecified Presentation: 05/03 12:27 Presenting complaint: Patient states: headaches, abdominal pain, weight loss. this has ch been going on for several months. I have pancreatic cancer but they told me I lost 8 lbs in one day, my home health said to come in. Transition of care: patient was not received from another setting of care. Onset of symptoms was February 2018. Risk Assessment: Do you want to hurt yourself or someone else? Patient reports no desire to harm self or others. Initial Sepsis Screen: Does the patient meet any 2 criteria? No. Patient's initial sepsis screen is negative. Does the patient have a suspected source of infection? No. Patient's initial sepsis screen is negative. Care prior to arrival: None. 12:27 Method Of Arrival: Wheelchair 12:27 Acuity: BASSEM 3 Triage Assessment: 12:29 General: Appears in no apparent distress. uncomfortable, Behavior is quiet. Pain: Complains of pain in head and abdomen. Historical: - Allergies: 12:29 Codeine; ch - Home Meds: 12:25 aspirin 81 mg Oral TbEC 1 tab once daily [Active]; Fish Oil Oral daily [Active]; rb1 irbesartan 300 mg Oral tab 1 tab once daily [Active]; metoprolol tartrate 50 mg Oral tab 1 tab 2 times per day [Active]; multivitamin Oral tab daily [Active]; pantoprazole 40 mg Oral TbEC 1 tab once daily [Active]; Gardner Oil-1000 Oral daily [Active]; Senna Lax 8.6 mg Oral tab 2 tabs twice a day [Active]; sertraline 50 mg Oral tab 1 tab once daily [Active]; Stool Softener Oral three times a day [Active]; Super B-50 Complex Oral daily [Active]; tamsulosin 0.4 mg Oral cp24 1 cap once daily [Active]; tramadol 50 mg Oral tab as needed [Active]; Zofran (as hydrochloride) 4 mg Oral tab as needed [Active]; - PMHx: 12:29 Atrial Fib; GERD; Hernia; Hypertension; Pancreatitc cancer; skin cancer; ch - PSHx: 12:29 spleenectomy; 2/3 of pancreas removal; ch - Immunization history:: Adult Immunizations up to date. - Social history:: Smoking status: Patient/guardian denies using tobacco. - Ebola Screening: : Patient negative for fever greater than or equal to 101.5 degrees Fahrenheit, and additional compatible Ebola Virus Disease symptoms Patient denies exposure to infectious person Patient denies travel to an Ebola-affected area in the 21 days before illness onset No symptoms or risks identified at this time. - Family history:: not pertinent. - Hospitalizations: : The patient was recently seen at [facility]. Screenin:25 Abuse screen: Denies threats or abuse. Nutritional screening: Decreased appetite per rb1 pt. report.. Tuberculosis screening: No symptoms or risk factors identified. Fall Risk No fall in past 12 months (0 pts). Secondary diagnosis (15 points) impaired mobility, No IV (0 pts). Ambulatory Aid- Crutches/Cane/Walker (15 pts). Gait- Impaired (20 pts.). Mental Status- Overestimates/Forgets Limitations (15 pts.). Total Cain Fall Scale indicates High Risk Score (45 or more points). Fall prevention measures have been instituted. Side Rails Up X 2 Placed Close to Nursing Station 1:1 Attendant Assigned Frequent Obs/Assessments Occuring Family Present and informed to notify staff if the need to leave the bedside As available patient and family educated on Fall Prevention Program and Strategies. Assessment: 12:25 General: Appears uncomfortable, Behavior is calm, cooperative, Reports fatigue for rb1 Denies fever. General: stated, "He seems disoriented." Pt. had the middle and tail of pancreas removed on October 06, 2017 due to pancreatic cancer. In October the pt. started a five month chemo regimen that was discontinued by physician due to weakness.. Pain: Complains of pain in head and abdomen Pain currently is 10 out of 10 on a pain scale. Neuro: Level of Consciousness is awake, alert, obeys commands, Oriented to person, place, time, situation. Neuro: Reports dizziness, headache frontal area. Cardiovascular: Capillary refill < 3 seconds is brisk in bilateral fingers. Cardiovascular: Denies chest pain. Respiratory: Airway is patent Respiratory effort is even, unlabored, Respiratory pattern is regular, symmetrical, Denies cough. GI: Reports constipation, nausea. : No signs and/or symptoms were reported regarding the genitourinary system. Derm: Skin is pink, warm \\T\\ dry. Musculoskeletal: Range of motion: intact in all extremities. 13:20 Reassessment: Patient appears in no apparent distress at this time. No changes from rb1 previously documented assessment. Family at bedside. 14:19 Reassessment: Patient appears in no apparent distress at this time. Patient and/or rb1 family updated on plan of care and expected duration. Pain level reassessed. Patient is alert, oriented x 3, equal unlabored respirations, skin warm/dry/pink. 15:19 Reassessment: Patient appears in no apparent distress at this time. Patient and/or rb1 family updated on plan of care and expected duration. Pain level reassessed. Patient is alert, oriented x 3, equal unlabored respirations, skin warm/dry/pink. Family at bedside. 16:15 Reassessment: Patient appears in no apparent distress at this time. Patient and/or rb1 family updated on plan of care and expected duration. Pain level reassessed. Patient is alert, oriented x 3, equal unlabored respirations, skin warm/dry/pink. Pain has decreased. Vital Signs: 12:29 BP 181 / 81; Pulse 49; Resp 20; Pulse Ox 98% on R/A; Weight 80.29 kg; Height 6 ft. (182.88 cm); Pain 5/10; 13:30 BP 195 / 78; Pulse 45; Resp 19; Pulse Ox 100% on R/A; rb1 14:30 BP 194 / 75; Pulse 48; Resp 18; Pulse Ox 98% on R/A; rb1 15:15 BP 168 / 62; Pulse 49; Resp 17; Pulse Ox 99% on R/A; rb1 16:00 BP 196 / 75; Pulse 58; Resp 18; Pulse Ox 99% on R/A; rb1 12:29 Body Mass Index 24.01 (80.29 kg, 182.88 cm) ED Course: 12:12 Patient arrived in ED. as 12:25 Patient has correct armband on for positive identification. Bed in low position. Call rb1 light in reach. Side rails up X 1. Pulse ox on. NIBP on. 12:26 Denton, Felix, MD is Attending Physician. rn 12:28 Triage completed. ch 12:29 Arm band placed on left wrist. Patient placed in an exam room, on a stretcher, on pulse ch oximetry. 12:50 Judi Sarmiento, RN is Primary Nurse. rb1 13:07 Inserted saline lock: 22 gauge in right forearm, using aseptic technique. em1 13:58 EKG done, by biodiesel technology manager. reviewed by Felix Denton MD. sm3 14:05 CT Head Brain wo Cont In Process Unspecified. EDMS 14:07 Patient moved to radiology via stretcher. jb2 14:30 X-ray completed. Patient tolerated procedure well. jb2 14:31 XRAY KUB In Process Unspecified. EDMS 14:42 Patient moved back from radiology. jb2 16:30 No provider procedures requiring assistance completed. IV discontinued, intact, rb1 bleeding controlled, No redness/swelling at site. Pressure dressing applied. Administered Medications: 13:15 Drug: NS 0.9% 500 ml Route: IV; Rate: bolus; Site: right forearm; rb1 14:30 Follow up: IV Status: Completed infusion rb1 15:35 Drug: traMADol 50 mg Route: PO; rb1 16:05 Follow up: Response: No adverse reaction; Pain is decreased rb1 16:05 Follow up: Response: No adverse reaction; Pain is decreased rb1 15:35 Drug: Tylenol 1000 mg Route: PO; rb1 16:05 Follow up: Response: No adverse reaction; Pain is decreased rb1 Outcome: 16:02 Discharge ordered by MD. rn 16:30 Patient left the ED. rb1 16:30 Discharged to home via wheelchair, with family. rb1 16:30 Condition: stable 16:30 Discharge instructions given to patient, Instructed on discharge instructions, follow up and referral plans. Demonstrated understanding of instructions, follow-up care, Prescriptions given X none Signatures: Dispatcher [employer] EDMS Madison Alexis, Nael Christianson RN, ch jb2 Rowena Magaña Roman, MD MD rn Martinez, Eric em1 Judi Sarmiento, SUSHANT RN rb1 Katerina Jimenez sm3 Corrections: (The following items were deleted from the chart) 16:48 16:47 Patient left the ED. rb1 rb1
[2018-05-03 16:31] LABS: Urine Blood 1+ (NEG); Urine Glucose NEGATIVE (NEG); Urine Protein NEGATIVE (NEG); Urine Specific Gravity 1.015 (1.005-1.030); Urine pH 7.5 (5.0-7.0)
[2018-05-03 17:00] VITALS: O2SAT 99
[2018-05-03 17:01] VITALS: BP 196/75
--- NOTE | 2018-05-04 07:54 | EKG ---
Test Date: 2018-05-03 Test Time: 13:47:22 Rehab Aide: JUDY MEASUREMENT RESULTS: Intervals: Rate: 46 AR: 190 QRSD: 82 QT: 480 QTc: 420 [place]: P: 60 AR: 190 QRS: 56 T: 62 INTERPRETIVE STATEMENTS: Marked sinus bradycardia Abnormal ECG Compared to ECG 04/04/2018 00:54:36 Sinus rhythm no longer present Electronically Signed On 05-04-18 07:52:04 CDT by Primo Stewart
== END 2018-05-03 16:47 | disposition home or self-care (01) ==
LOC: ER 12:10
DX: E86.0 Dehydration (principal); R00.1 Bradycardia, unspecified; K59.00 Constipation, unspecified; I10 Essential (primary) hypertension; I48.91 Unspecified atrial fibrillation; Z79.82 Long term (current) use of aspirin; Z88.5 Allergy status to narcotic agent; Z85.07 Personal history of malignant neoplasm of pancreas; Z85.828 Personal history of other malignant neoplasm of skin
CPT/HCPCS: 36415; 70450; 74018; 80048; 81003; 85025; 93005; 96360; 99284

== ENCOUNTER 2018-05-05 20:31 | Inpatient (IN) | payer OTHER ==
--- OUTSIDE RECORDS SUMMARY | 2018-05-05 20:34 | XMS REPORT | Clinical Summary ---
:1940 Author Organization [facility] Address [address] [place] [address] Phone Care Team Providers Name Role Phone [...] Pass Gastroenterology 10/02/2017 Surgery Gastroenterology Hardeep, TARI [facility] ENDOSCOPY,ULTRASOUND Hardeep Felix MD 10/01/2017 Hospital Encounter General Internal [facility] - Medicine MD Wendy hypertension;Pancrea 10/11/2017 Kylie Amanda tic mass;Splenic Tricia infarct;Pancreatic MD Karishma adenocarcinoma Chiquita Currie (HCC);Drug-induced MD Maria Guadalupe constipation;Chest Carey, Heather pain, unspecified MD Brigido type;Fever, Darrell, unspecified fever Liban cause;LeukocytosisElfego MD unspecified type;Hypophosphatasi a;Urinary retention;Hypokalemi a after 05/04/2017 Social History Tobacco Use Types Packs/Day Years [...] Not on file Implants 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 Device Laser Tissue Welding - Salbu-Green Solder Investigational N/A: LASER TISSUE 34 / Implanted: Qty: 1 on 10/06/2017 by Vik Bhatti MD Devices Pancreas WELD[employer] ALBU-GREEN SOLDER / Dev Laser Tiss [place] Device Laser Tissue Welding - Sd-Albumin Lamina Investigational N/A: LASER TISSUE DEVICE LASER TISSUE WELDING / Implanted: Qty: 1 on 10/06/2017 by Vik Bhatti MD Devices Pancreas WELDING INC D-ALBUMIN LAMINA / Cath Exp Silv Soak Hydraulic Miner Blasting 12.5cmx [id number] - Sna Pain N/A: MICHEAL-ABAD [id number] 01/03/2020 [id number] / Implanted: Qty: 1 on 10/06/2017 by Vik Bhatti MD Mgmt/Stimulator Abdomen K NA / [id number] Cath Exp Silv Soak Hydraulic Miner Blasting 12.5cmx [id number] - Sna Pain N/A: MICHEAL-CLAR [id number] 08/30/2019 [id number] / Implanted: Qty: 1 on 10/06/2017 by Vik Bhatti MD Mgmt/Stimulator Abdomen K NA / [id number] Block Nrv C-Blk 1-7ml/Hr 600ml [id number] - Sna Pain N/A: HALYARD [id number] 11/21/2019 [id number] / Implanted: Qty: 1 on 10/06/2017 by Vik Bhatti MD Mgmt/Stimulator Abdomen HEALTH NA / [id number] Procedures Procedure Name Priority Date/Time Associated Diagnosis Comments PANCREATECTOMY,W/ 10/06/2017 8:15 AM Malignant neoplasm of SPLENECTOMY CDT pancreas, unspecified location of malignancy (HCC) UPPER 10/02/2017 11:00 AM pancreatic mass ENDOSCOPY,ULTRASOUND CDT after 05/04/2017 Results US abdomen complete (11/05/2017 1:27 PM)Only the most recent of2 resultswithin the time period is included. Specimen Performing Laboratory [facility] FINAL REPORT TECHNIQUE: Grayscale ultrasound of the [...] MD Report Verified Date/Time:11/05/2017 15:21:33 Reading Location: [facility] P006J Ultrasound Reading Room Procedure Note Interface, [...] Report Verified Date/Time: 11/05/2017 15:21:33 Reading Location: [facility] P006J Ultrasound Reading Room and Creatinine (11/05/2017 11:24 AM) Component Value Ref Range BUN 9 7 - 21 mg/dL Creatinine 0.81 0.57 - 1.25 mg/dL EGFR 92Comment: ESTIMATED GFR IS NOT ACCURATE mL/min/1.73 sq m CREATININE CLEARANCE IN PREDICTING GLOMERULAR FILTRATION RATE. ESTIMATED GFR IS NOT APPLICABLE FOR DIALYSIS PATIENTS. Specimen Performing Laboratory Blood [facility] [address] [address] CBC with platelet count + automated diff [...] - 1 % Specimen Performing Laboratory Blood [address] [address] Urinalysis w/ Microscopic (11/05/2017 11:24 AM) Component Value Ref Range Color, UA Yellow Clarity, UA Hazy Specific [place], UA 1.010 1.001 - 1.035 pH, UA 7.0 5.0 - 8.0 Protein, UA Negative Negative Glucose, UA Negative Negative Ketones, UA Negative Negative Bilirubin, UA Negative Negative Blood, UA Negative Negative Nitrite, UA Negative Negative Leukocytes, UA Negative Negative Urobilinogen, UA 0.2 0.2 - 1.0 mg/dL RBC, UA 1 /HPF WBC, UA 0 /HPF Specimen Source Specimen Performing Laboratory Urine [address] [address] CBC with platelet count + automated diff (11/05/2017 11:24 AM)Only the most recent of8 resultswithin the time period is included. Specimen Performing Laboratory Blood Narrative The following orders were created for panel order CBC with platelet count + automated diff. Procedure Abnormality Status --------- ------ CBC with platelet count ...[[id number]]AbnormalFinal result Please view results for these tests on the individual orders. Sodium (11/05/2017 11:24 AM) Component Value Ref Range Sodium 138 136 - 145 meq/L Specimen Performing Laboratory Blood [address] [address] Potassium (11/05/2017 11:24 AM) Component Value Ref Range Potassium 5.0 3.5 - 5.1 meq/L Specimen Performing Laboratory Blood [address] [address] Phosphorus (11/05/2017 11:24 AM)Only the most recent of6 resultswithin the time period is included. Component Value Ref Range Phosphorus 4.1 2.3 - 4.7 mg/dL Specimen Performing Laboratory Blood [address] [address] Magnesium (11/05/2017 11:24 AM)Only the most recent of6 resultswithin the time period is included. Component Value Ref Range Magnesium 2.0 1.6 - 2.6 mg/dL Specimen Performing Laboratory [address] [address] Lipase (11/05/2017 11:24 AM)Only the most recent of6 resultswithin the time period is included. Component Value Ref Range Lipase 22 8 - 78 U/L Specimen Performing Laboratory Blood [address] [address] Glucose (11/05/2017 11:24 AM) Component Value Ref Range Glucose 113 (H) 70 - 105 mg/dL Specimen Performing Laboratory [address] [address] Chloride (11/05/2017 11:24 AM) Component Value Ref Range Chloride 102 98 - 107 meq/L Specimen Performing Laboratory [address] [address] Calcium (11/05/2017 11:24 AM)Only the most recent of2 resultswithin the time period is included. Component Value Ref Range Calcium 10.0 8.4 - 10.2 mg/dL Specimen Performing Laboratory Blood [address] [address] Amylase (11/05/2017 11:24 AM)Only the most recent of3 resultswithin the time period is included. Component Value Ref Range Amylase 47 25 - 125 U/L Specimen Performing Laboratory Blood [address] [address] Hepatic function panel (11/05/2017 11:24 AM)Only the [...] - 55 U/L Specimen Performing Laboratory Blood [address] [address] RHYTHM STRIP - SCAN (10/13/2017 11:20 AM)CT [...] MD Report Verified Date/Time:10/11/2017 16:07:26 Reading Location: [address] Body Reading Room Procedure Note [...] Report Verified Date/Time: 10/11/2017 16:07:26 Reading Location: [facility] C013Y CT Body Reading Room Basic Metabolic [...] Specimen Performing Laboratory Blood - Arm, Left [address] [address] Amylase, body fluid (10/09/2017 5:14 PM)Only the most recent of2 resultswithin the time period is included. Component Value Ref Range Amylase, Fluid >67[address] U/L Specimen Performing Laboratory Body Fluid - CHIVO Drain [address] [address] Narrative Absence of reference range indicates that [...] MD Report Verified Date/Time:10/09/2017 11:20:08 Reading Location: [facility] C0T Transitional Reading Room Procedure Note Interface, [...] Report Verified Date/Time: 10/09/2017 11:20:08 Reading Location: [facility] C013T Transitional Reading Room Troponin I (10/09/2017 9:40 AM)Only the most recent of3 resultswithin the time period is included. Component Value Ref Range Troponin I 0.03 0.00 - 0.03 ng/mL Specimen Performing Laboratory Blood [address] [address] Narrative Troponin I (TnI) levels must be [...] Specimen Performing Laboratory Blood - Arm, Right [address] [address] Creatine Kinase (CK), Total and MB (10/08/2017 3:31 PM) Component Value Ref Range Total CK 268 (H) 29 - 200 U/L CK-MB 2.9 0.0 - 6.6 ng/mL MB Relative Index 1.1 % Specimen Performing Laboratory Blood [address] [address] Narrative CK-MB Reference Range: <6.7Normal 6.7-10.0Borderline >10.0 Abnormal 2D Echo W/Doppler(CW/PW/Color) (10/08/2017 1:10 PM) Component Value Ref Range Ejection Fraction Specimen Performing Laboratory [facility] ECHO [facility] Narrative Transthoracic Echocardiography Report (TTE) Demographics Patient NameJULIANN MURRIETA Date of Study2017 CRAWLEY Male Visit [id number] Unknown Room Number 1530 Number Date of 1940Referring Ayah Carey MD Age 77 year(s)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 [facility] 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 Juan Coleman Interpreting Francesco Love MD Physician [...] Name JULIANN MURRIETA Date of Study 10/08/2017 EASLEY Gender Male Visit Number [id number] Race Unknown Room Number 1530 Number Date of 1940 Referring Physician Heather Carey MD Age 77 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(s) 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 [facility] 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 Juan Love MD Physician Procedure Type of [...] lead (10/08/2017 8:58 AM) Specimen Performing Laboratory Fifteen Re[facility] MUSE Narrative Ventricular Rate 90 BPM Atrial Rate 90 BPM P-R Interval 168 ms QRS Duration 86 ms Q-T Interval 368 ms QTC Calculation(Bazett) 450 ms P Frederick 49 degrees R Frederick 36 degrees T Frederick 14 degrees Normal sinus rhythm ST abnormality, possible digitalis effect Abnormal ECG When compared with ECG of 06-OCT-2017 07:25, Premature supraventricular complexes are no longer Present Confirmed by MD GUERRERO JOSEPH P ([id number]) on 10/08/2017 2:53:40 PM Procedure Note Interface, External Ris In - 10/08/2017 2:53 PM CDT Ventricular Rate 90 BPM Atrial Rate 90 BPM P-R Interval 168 ms QRS Duration 86 ms Q-T Interval 368 ms QTC Calculation(Bazett) 450 ms P Frederick 49 degrees R Frederick 36 degrees T Frederick 14 degrees Normal sinus rhythm ST abnormality, possible digitalis effect Abnormal ECG When compared with ECG of 06-OCT-2017 07:25, Premature supraventricular complexes are no longer Present Confirmed by MD GUERRERO JOSEPH P ([id number]) on 10/08/2017 2:53:40 PM TRANSFUSION SERVICE REPORT - SCAN (10/07/2017 5:41 PM)Tissue Exam (10/06/2017 12:45 PM)Only the most recent of2 resultswithin the time period is included. Component Value Ref Range Case Report Surgical Pathology Report Case: [id number] Authorizing Provider:Vik BhattiJOANNEollected: 10/06/2017 1245 Ordering Location: [address] Received: 10/06/2017 1305 Service Pathologist: Gissel [...] pT2 N1 Signing Pathologist Direct Phone Line: [phone] COMMENT Gross evaluation of pancreas reveals a [...] FINDINGS Additional Pathologic Findings:Chronic pancreatitis CPT Code(s) 43367, 28946, 26772, 38358 x1 CLINICAL HISTORY Pancreatic tumor GROSS DESCRIPTION [...] tissue is inked black. Photographs are taken. Lockstitch Front Edge Tape Sewer sections are submitted as follows: A1, proximal [...] surface in ked orange; A8 to A11, rental sales representative sections of the posterior pancreas; A12 to A15, rental sales representative sections of the anterior pancreas to include A13 to A15, tumor and pancreas with splenic vein followi ng light decal; A16, rental sales representative section of the spleen; A17, [...] CK5/6. Specimen Performing Laboratory Tissue - Pancreas [address] [address] [facility]RL CRITICAL LABS (ABG,NA,K,H&H,GLUCOSE) (10/06/2017 12:36 PM)Only the most recent of2 resultswithin the time period is included. Specimen Performing Laboratory Blood, Arterial Narrative The following orders were created for panel order RRL CRITICAL LABS (ABG,NA,K,H&H,GLUCOSE). Procedure Abnormality Status --------- ------ Blood gas, arterial[[id number]]AbnormalFinal result Sodium Na-Stat Lab[[id number]] NormalFinal result Potassium-Stat Lab[[id number]] AbnormalFinal result Glucose-Stat Lab[[id number]] AbnormalFinal result HGB/HCT (H&H)-Stat Lab[[id number]] Abnormal Final result Please view results for these tests on the individual orders. Potassium-Stat Lab (10/06/2017 12:36 PM)Only the most recent of2 resultswithin the time period is included. Component Value Ref Range Potassium 3.3 (L) 3.6 - 5.5 meq/L Specimen Performing Laboratory Blood, Arterial [address] [address] Sodium Na-Stat Lab (10/06/2017 12:36 PM)Only the most recent of2 resultswithin the time period is included. Component Value Ref Range Sodium 137 135 - 148 meq/L Specimen Performing Laboratory Blood, Arterial [address] [address] Glucose-Stat Lab (10/06/2017 12:36 PM)Only the most recent of2 resultswithin the time period is included. Component Value Ref Range Glucose 142 (H) 70 - 110 mg/dL Specimen Performing Laboratory Blood, [address] [address] HGB/HCT (H&H)-Stat Lab (10/06/2017 12:36 PM)Only the most recent of2 resultswithin the time period is included. Component Value Ref Range Hemoglobin 11.6 (L) 13.0 - 16.8 g/dL Hematocrit 34.0 (L) 40.0 - 50.0 % Specimen Performing Laboratory Blood, Arterial [address] [address] Blood gas, arterial (10/06/2017 12:36 PM)Only the [...] 21.0 % Specimen Performing Laboratory Blood, Arterial [address] [address] ANESTHESIA SPINAL BLOCK (10/06/2017 8:48 AM) Narrative [...] sitting Prep: Betadine Patient monitoring: heart rate, athletic monitor and continuous pulse ox Approach: midline Location: [...] sitting Prep: Betadine Patient monitoring: heart rate, athletic monitor and continuous pulse ox Approach: midline Location: L3-4 Injection technique: single-shot Needle Needle type: Pencan Needle gauge: 25 G Needle length: 13 cm Assessment Sensory level: T10 Events: cerebrospinal fluid Additional Notes Pt tolerated the procedure well. Type and screen, automated (10/06/2017 5:04 AM) Component Value Ref Range ABO/RH AUTOMATED (BEAKER) A NEGATIVE Ab Scrn NEGATIVE Specimen Performing Laboratory Blood - Hand, [facility] [address] [place] [address] MR abdomen without & with IV contrast (10/05/2017 3:55 AM) Specimen Performing Laboratory Fifteen Reasons RIS Narrative FINAL REPORT History: Liver lesions [...] MD Report Verified Date/Time:10/05/2017 08:03:49 Reading Location: [facility] Diagnostic Imaging Reading Room - [place] [address] Procedure Note Interface, External Ris In [...] Report Verified Date/Time: 10/05/2017 08:03:49 Reading Location: [facility] Diagnostic Imaging Reading Room - [place] [address] /aPTT (10/04/2017 6:03 AM)Only the most recent of2 resultswithin the time period is included. Component Value Ref Range Protime 16.2 (H) 11.7 - 14.7 seconds INR 1.3 <=5.9 PTT 33.2 22.5 - 36.0 seconds Specimen Performing Laboratory Blood - Arm, [place] [address] Narrative RECOMMENDED COUMADIN/WARFARIN INR THERAPY RANGES STANDARD DOSE: 2.0 - 3.0 Includes: PROPHYLAXIS for venous thrombosis, systemic embolization; TREATMENT for venous thrombosis and/or pulmonary embolus. HIGH RISK: Target INR is 2.5-3.5 for patients with mechanical heart valves. Carbohydrate antigen 19-9 (CA 19-9) (10/03/2017 5:35 PM) Component Value Ref Range CA 19-9 634 (H) <34 U/mL Comment: This test was performed using the Siemens (DialMyApp) Chemiluminescent method. Values obtained from different assay methods cannot be used interchangeably. CA19-9 levels, regardless of value, should not be interpreted as absolute evidence of the presence or absence of disease. Specimen Performing Laboratory Blood - Arm, Left [facility] [address] [place] [address] Narrative Performing Lab E[facility] [address] [place] [address] Mary Childress MD, PhD CT abd/pelvis - [...] MD Report Verified Date/Time:10/08/2017 12:45:18 Reading Location: [facility] Diagnostic Imaging Reading Room - [place] [address] Addendum Ends FINAL REPORT CT OF THE [...] MD Report Verified Date/Time:10/03/2017 13:09:28 Reading Location: [facility] C013Y CT Body Reading Room Procedure Note [...] Report Verified Date/Time: 10/08/2017 12:45:18 Reading Location: [facility] Diagnostic Imaging Reading Room - [facility] F1 [address] Addendum Ends FINAL REPORT [...] Report Verified Date/Time: 10/03/2017 13:09:28 Reading Location: [facility] C013Y CT Body Reading Room chest with IV contrast (10/03/2017 12:16 PM) Specimen Performing Laboratory Dheere Bolo Narrative Addendum Begins REPORT STATUS:A ADDENDUM: The following addendum is being made to comply with coding criteria, and does not substantially change the findings or recommendations of the original report. Additional technique: CT of the abdomen is also performed without contrast. Signed: Stephen Horne MD Report Verified Date/Time:10/08/2017 12:45:18 Reading Location: [facility] Diagnostic Imaging Reading Room - [facility] F1 1120 Addendum Ends FINAL REPORT [...] MD Report Verified Date/Time:10/03/2017 13:09:28 Reading Location: [facility] C013Y CT Body Reading Room Procedure Note [...] Report Verified Date/Time: 10/08/2017 12:45:18 Reading Location: [facility] Diagnostic Imaging Reading Room - [facility] F1 [address]120 Addendum Ends FINAL REPORT [...] Report Verified Date/Time: 10/03/2017 13:09:28 Reading Location: [facility] C013Y CT Body Reading Room RT OF PROCEDURE - ENDOSCOPY URL (10/02/2017 1:08 PM)Fine Needle Aspirate ( 10/02/2017 11:48 AM) Component Value Ref Range Cytology See Separate Report Specimen Performing Laboratory [place] [address] Fine Needle Aspirate by Clinician (10/02/2017 11:48 AM) Component Value Ref Range Case Report Medical Cytology Report Case: [id number] Authorizing Provider:Ravi Meier MDCollected: 10/02/2017 1148 Ordering Location: [address] Received: 10/04/2017 0819 Service Pathologist: Tera Villar MD Specimen:Pancreas, Pancreas mass routine cyto in CRR DIAGNOSIS BODY OF PANCREAS MASS, FNA BY CLINICIAN (CYTOSPINS AND CELL BLOCK OF ASPIRATE): - POSITIVE FOR MALIGNANCY - ADENOCARCINOMA, DUCTAL TYPE Signing Pathologist Direct Phone Line: [phone] CPT Code(s) 69298, 684[address] CLINICAL DATA (3.9 x 2.4 cm) irregular mass identified in the body of the pancreas SPECIMEN SOURCE BODY OF PANCREAS MASS FNA GROSS DESCRIPTION Prepared cell block(A2) and 4 cytospins from 22 ml in cytorich red fixative Collected: [id number] Received: [id number] Technical component was performed at [facility], Department of Pathology, [address] [place] [address], Professional component was performed [facility], at Department of Pathology, [address] [place] [address], Specimen Performing Laboratory Fine Needle Aspirate - Pancreas [address] [address] Prothrombin time/INR (10/02/2017 5:15 AM) Component Value Ref Range Protime 15.8 (H) 11.7 - 14.7 seconds INR 1.3 <=5.9 Specimen Performing Laboratory Blood - Arm, Left [address] [address] Narrative RECOMMENDED COUMADIN/WARFARIN INR THERAPY RANGES STANDARD DOSE: 2.0 - 3.0 Includes: PROPHYLAXIS for venous thrombosis, systemic embolization; TREATMENT for venous thrombosis and/or pulmonary embolus. HIGH RISK: Target INR is 2.5-3.5 for patients with mechanical heart valves. after 05/04/2017
--- OUTSIDE RECORDS SUMMARY | 2018-05-05 20:35 | XMS REPORT ---
:1940 Author Organization [facility] Address [address] [place] [id number] Care Team Providers Name Role Phone VIK [...] Value Reference Range Comments COLOR (BEAKER) (test ybfj=208) Yellow CLARITY (BEAKER) (test wsvy=524) Hazy SPECIFIC GRAVITY UA (BEAKER) (test borb=798) 1.010 1.001-1.035 PH UA (BEAKER) (test fsab=181) 7.0 5.0-8.0 PROTEIN UA (BEAKER) (test klyo=990) Negative Negative GLUCOSE UA (BEAKER) (test oeif=603) Negative Negative KETONES UA (BEAKER) (test pfmb=800) Negative Negative BILIRUBIN UA (BEAKER) (test gvpm=723) Negative Negative BLOOD UA (BEAKER) (test vkok=753) Negative Negative NITRITE UA (BEAKER) (test xudc=901) Negative Negative LEUKOCYTE ESTERASE UA (BEAKER) (test dswj=867) Negative Negative UROBILINOGEN UA (BEAKER) (test utzs=281) 0.2 mg/dL 0.2-1.0 RBC UA (BEAKER) (test peig=569) 1 /HPF WBC UA (BEAKER) (test xxbg=643) 0 /HPF SOURCE(BEAKER) (test gbht=3790) U/S, ABDOMINAL, [id number] 15:21:00Reason for exam:->post op f/ uFINAL REPORT [...] Verified Date/Time: 11/05/2017 15: 21:33 Reading Location: [address] Ultrasound Reading Room [id number] 11 :55:00 Test Item Value Reference Range Comments POTASSIUM (BEAKER) (test eqdo=592) 5.0 meq/L 3.5-5.1 [id number] 11:55:00 Test Item Value Reference Range Comments MAGNESIUM (BEAKER) (test rqny=161) 2.0 mg/dL 1.6-2.6 [id number] 11:55:00 Test Item Value Reference Range Comments PHOSPHORUS (BEAKER) (test fgjt=295) 4.1 mg/dL 2.3-4.7 [id number] 11:55:00 Test Item Value Reference Range Comments SODIUM (BEAKER) (test zzit=373) 138 meq/L 136-145 HEPATIC FUNCTION [id number] 11:55:00 Test Item Value Reference Range Comments TOTAL PROTEIN (BEAKER) (test fupm=597) 7.0 gm/dL 6.0-8.3 ALBUMIN (BEAKER) (test kjad=7793) 4.3 g/dL 3.5-5.0 BILIRUBIN TOTAL (BEAKER) (test bmev=040) 0.4 mg/dL 0.2-1.2 BILIRUBIN DIRECT (BEAKER) (test rmxp=668) 0.2 mg/dL 0.1-0.5 ALKALINE PHOSPHATASE (BEAKER) (test vxtw=705) 96 U/L 40-150 AST (SGOT) (BEAKER) (test yccd=937) 27 U/L 5-34 ALT (SGPT) (BEAKER) (test nrqh=476) 24 U/L 6-55 [id number] 11:55:00 Test Item Value Reference Range Comments AMYLASE (BEAKER) (test bhqg=085) 47 U/L 25-125 [id number] 11:55:00 Test Item Value Reference Range Comments CALCIUM (BEAKER) (test jkwq=852) 10.0 mg/dL 8.4-10.2 [id number] 11:55:00 Test Item Value Reference Range Comments CHLORIDE (BEAKER) (test mvpj=566) 102 meq/L 98-107 [id number] 11:55:00 Test Item Value Reference Range Comments GLUCOSE RANDOM (BEAKER) (test swtb=989) 113 mg/dL 70-105 [id number] 11:55:00 Test Item Value Reference Range Comments LIPASE (BEAKER) (test viao=909) 22 U/L 8-78 BUN AND [id number] 11:55:00 Test Item Value Reference Range Comments BLOOD UREA NITROGEN 9 mg/dL 7-21 (BEAKER) (test gvwq=085) CREATININE (BEAKER) (test 0.81 mg/dL 0.57-1.25 imrx=003) EGFR (BEAKER) (test 92 mL/min/1.73 sq m ESTIMATED GFR IS NOT wcea=3176) ACCURATE CREATININE CLEARANCE IN PREDICTING GLOMERULAR FILTRATION RATE. ESTIMATED GFR IS NOT APPLICABLE FOR DIALYSIS PATIENTS. CBC W/PLT COUNT & AUTO [id number] 11:39:00 Test Item Value Reference Range Comments WHITE BLOOD CELL COUNT (BEAKER) (test qius=249) 7.2 K/ L 3.5-10.5 RED BLOOD CELL COUNT (BEAKER) (test ihjj=842) 4.67 M/ L 4.63-6.08 HEMOGLOBIN (BEAKER) (test raqa=896) 13.3 GM/DL 13.7-17.5 HEMATOCRIT (BEAKER) (test rbzu=094) 41.0 % 40.1-51.0 MEAN CORPUSCULAR VOLUME (BEAKER) (test wdrx=109) 87.8 fL 79.0-92.2 MEAN CORPUSCULAR HEMOGLOBIN (BEAKER) (test 28.5 pg 25.7-32.2 zmbv=979) MEAN CORPUSCULAR HEMOGLOBIN CONC (BEAKER) (test 32.4 GM/DL 32.3-36.5 pnhk=002) RED CELL DISTRIBUTION WIDTH (BEAKER) (test 14.5 % 11.6-14.4 stch=503) PLATELET COUNT (BEAKER) (test klhq=498) 298 K/CU MM 150-450 MEAN PLATELET VOLUME (BEAKER) (test lzwp=159) 10.8 fL 9.4-12.4 NUCLEATED RED BLOOD CELLS (BEAKER) (test 0 /100 WBC 0-0 przw=166) NEUTROPHILS RELATIVE PERCENT (BEAKER) (test 53 % jvno=997) LYMPHOCYTES RELATIVE PERCENT (BEAKER) (test 24 % zevr=187) MONOCYTES RELATIVE PERCENT (BEAKER) (test 10 % ytus=815) EOSINOPHILS RELATIVE PERCENT (BEAKER) (test 12 % utgd=049) BASOPHILS RELATIVE PERCENT (BEAKER) (test 1 % vwed=807) NEUTROPHILS ABSOLUTE COUNT (BEAKER) (test 3.79 K/ L 1.78-5.38 djsc=616) LYMPHOCYTES ABSOLUTE COUNT (BEAKER) (test 1.72 K/ L 1.32-3.57 nebo=021) MONOCYTES ABSOLUTE COUNT (BEAKER) (test 0.70 K/ L 0.30-0.82 hvdx=116) EOSINOPHILS ABSOLUTE COUNT (BEAKER) (test 0.88 K/ L 0.04-0.54 kayv=164) BASOPHILS ABSOLUTE COUNT (BEAKER) (test 0.04 K/ L 0.01-0.08 selq=459) IMMATURE GRANULOCYTES-RELATIVE PERCENT (BEAKER) 0 % 0-1 (test sxkd=7679) TISSUE [id number] 17:34:00Surgical Pathology Report Case: [id number] Authorizing Provider: Vik Bhatti MD Collected: 10/06/2017 1245 Ordering Location: [address] Received: 10/06/2017 1305 Service Pathologist: Gissel [...] STAGE pT2 N1 Signing Pathologist Direct PhoneLine: [phone] signed by Gissel Villanueva MD on 10/19/2017 [...] ADDITIONAL FINDINGS Additional Pathologic Findings: Chronic pancreatitis 55150, 10284, 75116, 07956 h4Yyfmpjbtli tumorA. Received fresh labeled "pancreas , distal [...] tissue is inked black. Photographs are taken. Rheumatologist sections are submitted as follows: A1, proximal [...] surface inked orange ; A8 to A11, retail customer service representative sections of the posterior pancreas; A12 to A15, retail customer service representative sections of the anterior pancreas to include A13 to A15, tumor and pancreas with splenic vein following light decal; A16, retail customer service representative section of the spleen; A17, five [...] for p63 (nuclear) and positive for CK5/6.CT, [id number] 16:07:00Patient will need PO contrast; will [...] Verified Date/Time: 10/11/2017 16:07 :26 Reading Location: [facility] C013Y CT Body Reading Room U/S, ABDOMINAL, [id number] 14:13:00Reason for exam:->Post surgical resection Research ProtocolFINAL [...] MDReport Verified Date/Time: 10/11/2017 14:13:03 Reading Location: [facility] P006J Ultrasound Reading Room [id number] 08:42:00 Test Item Value Reference Range Comments LIPASE (BEAKER) (test wpgr=796) 10 U/L 878 HEPATIC FUNCTION [id number] 08:42:00 Test Item Value Reference Range Comments TOTAL PROTEIN (BEAKER) (test pxom=994) 5.8 gm/dL 6.0-8.3 ALBUMIN (BEAKER) (test racw=1544) 3.4 g/dL 3.5-5.0 BILIRUBIN TOTAL (BEAKER) (test ookt=338) 0.6 mg/dL 0.2-1.2 BILIRUBIN DIRECT (BEAKER) (test tmop=162) 0.3 mg/dL 0.1-0.5 ALKALINE PHOSPHATASE (BEAKER) (test namr=445) 93 U/L 40-150 AST (SGOT) (BEAKER) (test eqaj=097) 57 U/L 5-34 ALT (SGPT) (BEAKER) (test nmqn=820) 60 U/L 6-55 [id number] 06:45:00 Test Item Value Reference Range Comments PHOSPHORUS (BEAKER) (test odzi=985) 3.9 mg/dL 2.3-4.7 [id number] 06:45:00 Test Item Value Reference Range Comments MAGNESIUM (BEAKER) (test npaw=050) 2.0 mg/dL 1.6-2.6 BASIC METABOLIC [id number] 06:45:00 Test Item Value Reference Range Comments SODIUM (BEAKER) (test 135 meq/L 136-145 pjdd=328) POTASSIUM (BEAKER) (test 3.4 meq/L 3.5-5.1 sbdu=794) CHLORIDE (BEAKER) (test 99 meq/L 98-107 smlh=464) CO2 (BEAKER) (test 26 meq/L 22-29 fein=475) BLOOD UREA NITROGEN 8 mg/dL 7-21 (BEAKER) (test kxio=695) CREATININE (BEAKER) (test 0.67 mg/dL 0.57-1.25 htsb=440) GLUCOSE RANDOM (BEAKER) 114 mg/dL 70-105 (test ripe=933) CALCIUM (BEAKER) (test 8.9 mg/dL 8.4-10.2 scde=389) EGFR (BEAKER) (test 114 mL/min/1.73 sq m ESTIMATED GFR IS NOT zzfw=1448) ACCURATE CREATININE CLEARANCE IN PREDICTING GLOMERULAR FILTRATION RATE. ESTIMATED GFR IS NOT APPLICABLE FOR DIALYSIS PATIENTS. CBC W/PLT COUNT & AUTO [id number] 06:18:00 Test Item Value Reference Range Comments WHITE BLOOD CELL COUNT (BEAKER) (test zult=406) 10.1 K/ L 3.5-10.5 RED BLOOD CELL COUNT (BEAKER) (test noyq=642) 4.15 M/ L 4.63-6.08 HEMOGLOBIN (BEAKER) (test jzab=262) 11.8 GM/DL 13.7-17.5 HEMATOCRIT (BEAKER) (test ltjm=100) 35.6 % 40.1-51.0 MEAN CORPUSCULAR VOLUME (BEAKER) (test virb=572) 85.8 fL 79.0-92.2 MEAN CORPUSCULAR HEMOGLOBIN (BEAKER) (test 28.4 pg 25.7-32.2 rxce=527) MEAN CORPUSCULAR HEMOGLOBIN CONC (BEAKER) (test 33.1 GM/DL 32.3-36.5 augc=773) RED CELL DISTRIBUTION WIDTH (BEAKER) (test 12.9 % 11.6-14.4 uymr=678) PLATELET COUNT (BEAKER) (test aops=809) 432 K/CU MM 150-450 MEAN PLATELET VOLUME (BEAKER) (test xhyq=775) 10.6 fL 9.4-12.4 NUCLEATED RED BLOOD CELLS (BEAKER) (test 0 /100 WBC 0-0 odht=053) NEUTROPHILS RELATIVE PERCENT (BEAKER) (test 61 % yjof=542) LYMPHOCYTES RELATIVE PERCENT (BEAKER) (test 14 % fhka=255) MONOCYTES RELATIVE PERCENT (BEAKER) (test 10 % bkfa=076) EOSINOPHILS RELATIVE PERCENT (BEAKER) (test 11 % hkif=941) BASOPHILS RELATIVE PERCENT (BEAKER) (test 0 % qcvw=511) NEUTROPHILS ABSOLUTE COUNT (BEAKER) (test 6.14 K/ L 1.78-5.38 mbip=113) LYMPHOCYTES ABSOLUTE COUNT (BEAKER) (test 1.41 K/ L 1.32-3.57 pvbe=043) MONOCYTES ABSOLUTE COUNT (BEAKER) (test 0.97 K/ L 0.30-0.82 pydb=894) EOSINOPHILS ABSOLUTE COUNT (BEAKER) (test 1.12 K/ L 0.04-0.54 rlgx=957) BASOPHILS ABSOLUTE COUNT (BEAKER) (test 0.04 K/ L 0.01-0.08 vrog=582) IMMATURE GRANULOCYTES-RELATIVE PERCENT (BEAKER) 4 % 0-1 (test yjvx=3856) [id number] 10:39:00 Test Item Value Reference Range Comments PHOSPHORUS (BEAKER) (test fklw=277) 3.3 mg/dL 2.3-4.7 [id number] 10:39:00 Test Item Value Reference Range Comments MAGNESIUM (BEAKER) (test uars=626) 1.8 mg/dL 1.6-2.6 BASIC METABOLIC [id number] 10:39:00 Test Item Value Reference Range Comments SODIUM (BEAKER) (test 135 meq/L 136-145 oskf=558) POTASSIUM (BEAKER) (test 3.3 meq/L 3.5-5.1 nsca=965) CHLORIDE (BEAKER) (test 100 meq/L 98-107 hmxv=616) CO2 (BEAKER) (test 26 meq/L 22-29 ypoj=808) BLOOD UREA NITROGEN 9 mg/dL 7-21 (BEAKER) (test ndaq=448) CREATININE (BEAKER) (test 0.67 mg/dL 0.57-1.25 gszr=231) GLUCOSE RANDOM (BEAKER) 110 mg/dL 70-105 (test htki=284) CALCIUM (BEAKER) (test 8.7 mg/dL 8.4-10.2 pbmj=358) EGFR (BEAKER) (test 114 mL/min/1.73 sq m ESTIMATED GFR IS NOT gyhk=0955) ACCURATE CREATININE CLEARANCE IN PREDICTING GLOMERULAR FILTRATION RATE. ESTIMATED GFR IS NOT APPLICABLE FOR DIALYSIS PATIENTS. CBC W/PLT COUNT & AUTO [id number] 06:42:00 Test Item Value Reference Range Comments WHITE BLOOD CELL COUNT (BEAKER) (test wwjj=599) 10.4 K/ L 3.5-10.5 RED BLOOD CELL COUNT (BEAKER) (test twwv=746) 4.02 M/ L 4.63-6.08 HEMOGLOBIN (BEAKER) (test xoql=616) 11.5 GM/DL 13.7-17.5 HEMATOCRIT (BEAKER) (test fahm=162) 34.5 % 40.1-51.0 MEAN CORPUSCULAR VOLUME (BEAKER) (test lqhq=686) 85.8 fL 79.0-92.2 MEAN CORPUSCULAR HEMOGLOBIN (BEAKER) (test 28.6 pg 25.7-32.2 upyr=657) MEAN CORPUSCULAR HEMOGLOBIN CONC (BEAKER) (test 33.3 GM/DL 32.3-36.5 abtn=127) RED CELL DISTRIBUTION WIDTH (BEAKER) (test 12.7 % 11.6-14.4 etmd=715) PLATELET COUNT (BEAKER) (test gwda=672) 389 K/CU MM 150-450 MEAN PLATELET VOLUME (BEAKER) (test pqks=843) 10.6 fL 9.4-12.4 NUCLEATED RED BLOOD CELLS (BEAKER) (test 0 /100 WBC 0-0 tzsl=764) NEUTROPHILS RELATIVE PERCENT (BEAKER) (test 72 % prgz=877) LYMPHOCYTES RELATIVE PERCENT (BEAKER) (test 10 % zlrf=996) MONOCYTES RELATIVE PERCENT (BEAKER) (test 7 % fjjv=732) EOSINOPHILS RELATIVE PERCENT (BEAKER) (test 8 % ptxk=733) BASOPHILS RELATIVE PERCENT (BEAKER) (test 0 % ujds=347) NEUTROPHILS ABSOLUTE COUNT (BEAKER) (test 7.51 K/ L 1.78-5.38 kgvg=668) LYMPHOCYTES ABSOLUTE COUNT (BEAKER) (test 1.06 K/ L 1.32-3.57 hssm=290) MONOCYTES ABSOLUTE COUNT (BEAKER) (test 0.76 K/ L 0.30-0.82 gqca=203) EOSINOPHILS ABSOLUTE COUNT (BEAKER) (test 0.84 K/ L 0.04-0.54 ddel=755) BASOPHILS ABSOLUTE COUNT (BEAKER) (test 0.02 K/ L 0.01-0.08 yive=879) IMMATURE GRANULOCYTES-RELATIVE PERCENT (BEAKER) 2 % 0-1 (test tlen=6966) AMYLASE, BODY [id number] 18:24:00 Test Item Value Reference Range Comments AMYLASE FLUID (BEAKER) (test dewa=982) > U/L Absence of reference range indicates that normals have not been defined.Assay performance has not been validated for this type of specimen.RAD, CHEST, 1 VIEW , NON [id number] 11:20:00Reason for exam:->feverShould this be performed at [...] Verified Date/Time: 10/09/2017 11:20: 08 Reading Location: [address] Transitional Reading Room 11:20 AMTROPONIN [id number] 10:37:00 Test Item Value Reference Range Comments TROPONIN I (BEAKER) (test wsik=344) 0.03 ng/mL 0.00-0.03 Troponin I (TnI) levels [...] failure, acidosis, acute neurological disease, and persistent tachyarrhythmia.[id number] 10:29:00 Test Item Value Reference Range Comments MAGNESIUM (BEAKER) (test 1.9 mg/dL 1.6-2.6 Specimen slightly hemolyzed ntby=560) [id number] 10:29:00 Test Item Value Reference Range Comments PHOSPHORUS (BEAKER) (test 2.5 mg/dL 2.3-4.7 Specimen slightly hemolyzed ubzo=736) BASIC METABOLIC [id number] 10:29:00 Test Item Value Reference Range Comments SODIUM (BEAKER) (test 134 meq/L 136-145 hlil=204) POTASSIUM (BEAKER) (test 3.8 meq/L 3.5-5.1 Specimen slightly lavt=513) hemolyzed CHLORIDE (BEAKER) (test 101 meq/L 98-107 glfg=752) CO2 (BEAKER) (test 19 meq/L 22-29 rgjn=211) BLOOD UREA NITROGEN 12 mg/dL 7-21 (BEAKER) (test zkai=903) CREATININE (BEAKER) (test 0.70 mg/dL 0.57-1.25 Specimen slightly wttp=151) hemolyzed GLUCOSE RANDOM (BEAKER) 142 mg/dL 70-105 (test encm=416) CALCIUM (BEAKER) (test 8.5 mg/dL 8.4-10.2 fkss=686) EGFR (BEAKER) (test 109 mL/min/1.73 sq m ESTIMATED GFR IS NOT ayru=0836) ACCURATE CREATININE CLEARANCE IN PREDICTING GLOMERULAR FILTRATION RATE. ESTIMATED GFR IS NOT APPLICABLE FOR DIALYSIS PATIENTS. HEPATIC FUNCTION [id number] 10:29:00 Test Item Value Reference Range Comments TOTAL PROTEIN (BEAKER) (test 5.8 gm/dL 6.0-8.3 Specimen slightly hemolyzed gyja=686) ALBUMIN (BEAKER) (test 3.4 g/dL 3.5-5.0 Specimen slightly hemolyzed tktf=2898) BILIRUBIN TOTAL (BEAKER) (test 0.6 mg/dL 0.2-1.2 Specimen slightly hemolyzed yzsl=020) BILIRUBIN DIRECT (BEAKER) (test 0.2 mg/dL 0.1-0.5 Specimen slightly hemolyzed rnmd=432) ALKALINE PHOSPHATASE (BEAKER) 83 U/L 40-150 (test mrva=340) AST (SGOT) (BEAKER) (test 39 U/L 5-34 Specimen slightly hemolyzed mcpp=725) ALT (SGPT) (BEAKER) (test 33 U/L 6-55 Specimen slightly hemolyzed dsmb=499) [id number] 10:29:00 Test Item Value Reference Range Comments AMYLASE (BEAKER) (test vaew=930) 13 U/L 25-125 Specimen slightly hemolyzed [id number] 10:29:00 Test Item Value Reference Range Comments LIPASE (BEAKER) (test mzty=698) 12 U/L 8-78 HEPATIC FUNCTION [id number] 16:18:00 Test Item Value Reference Range Comments TOTAL PROTEIN (BEAKER) (test jthr=803) 5.6 gm/dL 6.0-8.3 ALBUMIN (BEAKER) (test uigg=7816) 3.6 g/dL 3.5-5.0 BILIRUBIN TOTAL (BEAKER) (test iyvv=707) 0.5 mg/dL 0.2-1.2 BILIRUBIN DIRECT (BEAKER) (test uhaz=402) 0.2 mg/dL 0.1-0.5 ALKALINE PHOSPHATASE (BEAKER) (test nmps=017) 76 U/L 40-150 AST (SGOT) (BEAKER) (test anvm=186) 36 U/L 5-34 ALT (SGPT) (BEAKER) (test dmbb=989) 31 U/L 6-55 CREATINE KINASE (CK), TOTAL AND [id number] 16:10:00 Test Item Value Reference Range Comments CREATINE KINASE TOTAL (BEAKER) (test gboc=968) 268 U/L 29-200 CREATINE KINASE-MB (BEAKER) (test tour=923) 2.9 ng/mL 0.0-6.6 CREATINE KINASE-MB INDEX (BEAKER) (test teki=473) 1.1 % CK-MB Reference Range:<6.7 Normal6.7-10.0 Borderline>10.0 AbnormalTROPONIN [id number] 16:10:00 Test Item Value Reference Range Comments TROPONIN I (BEAKER) (test gqix=039) 0.04 ng/mL 0.00-0.03 Troponin I (TnI) levels [...] failure, acidosis, acute neurological disease, and persistent tachyarrhythmia.[id number] 16:04:00 Test Item Value Reference Range Comments LIPASE (BEAKER) (test ijxu=933) 29 U/L 8-78 CALCIUM, [id number] 15:46:00 Test Item Value Reference Range Comments CALCIUM IONIZED (BEAKER) (test phct=989) 1.05 mmol/L 1.12-1.27 PH, BLOOD (BEAKER) (test pmmv=3066) 7.41 CT, ABDOMEN - PELVIS, PANCREAS [id number] 12:45:00Reason for exam:-&gt ;Pancreatic mass suspectedAddendum BeginsREPORT STATUS:A ADDENDUM:The following addendum is being made to comply with coding criteria, and does not substantially change the findings or recommendations of the original report. Additional technique:CT of the abdomen is also performed without contrast. Signed: Stephen Kowalski MDReport Verified Date/Time: 2017 12:45:18 Reading Location: [facility] DiagnosticImaging Reading Room - [place] [id number] EndsFINAL REPORT CT OF THE CHEST, ABDOMEN, [...] Verified Date/ Time: 10/03/2017 13:09:28 Reading Location: [facility] B1 C013Y CT Body Reading Room CT, CHEST, WITH [id number] 12:45:00Addendum BeginsREPORT STATUS:A ADDENDUM:The following addendum is being made to comply with coding criteria, and does not substantially change the findings or recommendations of the original report. Additional technique:CT of the abdomen is also performed without contrast. Signed: Stephen Kowalski Verified Date /Time: 10/08/2017 12:45:18 Reading Location: [facility] DiagnosticImaging Reading Room - [place] [address] [id number] OF THE CHEST, [...] Verified Date/ Time: 10/03/2017 13:09:28 Reading Location: [address] Body Reading Room TROPONIN [id number] 09:44:00 Test Item Value Reference Range Comments TROPONIN I (BEAKER) (test yehf=385) 0.05 ng/mL 0.00-0.03 Troponin I (TnI) levels [...] failure, acidosis, acute neurological disease, and persistent tachyarrhythmia.[id number] 05:34:00 Test Item Value Reference Range Comments PHOSPHORUS (BEAKER) (test llrx=988) 1.8 mg/dL 2.3-4.7 [id number] 05:34:00 Test Item Value Reference Range Comments MAGNESIUM (BEAKER) (test ysuk=972) 2.2 mg/dL 1.6-2.6 BASIC METABOLIC [id number] 05:34:00 Test Item Value Reference Range Comments SODIUM (BEAKER) (test 135 meq/L 136-145 zhya=011) POTASSIUM (BEAKER) (test 3.8 meq/L 3.5-5.1 pmyw=963) CHLORIDE (BEAKER) (test 102 meq/L 98-107 rpkt=601) CO2 (BEAKER) (test 25 meq/L 22-29 ihem=718) BLOOD UREA NITROGEN 14 mg/dL 7-21 (BEAKER) (test iyxf=771) CREATININE (BEAKER) (test 0.72 mg/dL 0.57-1.25 lmcz=492) GLUCOSE RANDOM (BEAKER) 118 mg/dL 70-105 (test axep=886) CALCIUM (BEAKER) (test 8.5 mg/dL 8.4-10.2 rsfv=683) EGFR (BEAKER) (test 105 mL/min/1.73 sq m ESTIMATED GFR IS NOT ulsb=4555) ACCURATE CREATININE CLEARANCE IN PREDICTING GLOMERULAR FILTRATION RATE. ESTIMATED GFR IS NOT APPLICABLE FOR DIALYSIS PATIENTS. CBC W/PLT COUNT & AUTO [id number] 04:57:00 Test Item Value Reference Range Comments WHITE BLOOD CELL COUNT (BEAKER) (test gsfn=202) 20.2 K/ L 3.5-10.5 RED BLOOD CELL COUNT (BEAKER) (test wnho=807) 3.88 M/ L 4.63-6.08 HEMOGLOBIN (BEAKER) (test njjz=180) 11.4 GM/DL 13.7-17.5 HEMATOCRIT (BEAKER) (test mxmn=004) 33.5 % 40.1-51.0 MEAN CORPUSCULAR VOLUME (BEAKER) (test tuyd=120) 86.3 fL 79.0-92.2 MEAN CORPUSCULAR HEMOGLOBIN (BEAKER) (test 29.4 pg 25.7-32.2 lsur=952) MEAN CORPUSCULAR HEMOGLOBIN CONC (BEAKER) (test 34.0 GM/DL 32.3-36.5 mois=087) RED CELL DISTRIBUTION WIDTH (BEAKER) (test 12.8 % 11.6-14.4 jczi=452) PLATELET COUNT (BEAKER) (test xyjp=385) 298 K/CU MM 150-450 MEAN PLATELET VOLUME (BEAKER) (test urgn=075) 11.3 fL 9.4-12.4 NUCLEATED RED BLOOD CELLS (BEAKER) (test 0 /100 WBC 0-0 iris=242) NEUTROPHILS RELATIVE PERCENT (BEAKER) (test 87 % fyad=019) LYMPHOCYTES RELATIVE PERCENT (BEAKER) (test 6 % eoyt=726) MONOCYTES RELATIVE PERCENT (BEAKER) (test 5 % xrjv=684) EOSINOPHILS RELATIVE PERCENT (BEAKER) (test 1 % luiz=183) BASOPHILS RELATIVE PERCENT (BEAKER) (test 0 % dvmp=238) NEUTROPHILS ABSOLUTE COUNT (BEAKER) (test 17.65 K/ L 1.78-5.38 ywyt=079) LYMPHOCYTES ABSOLUTE COUNT (BEAKER) (test 1.12 K/ L 1.32-3.57 jven=835) MONOCYTES ABSOLUTE COUNT (BEAKER) (test 1.09 K/ L 0.30-0.82 nybp=313) EOSINOPHILS ABSOLUTE COUNT (BEAKER) (test 0.15 K/ L 0.04-0.54 nwsj=374) BASOPHILS ABSOLUTE COUNT (BEAKER) (test 0.04 K/ L 0.01-0.08 ofna=129) IMMATURE GRANULOCYTES-RELATIVE PERCENT (BEAKER) 1 % 0-1 (test ckpo=8522) CALCIUM, [id number] 16:06:00 Test Item Value Reference Range Comments CALCIUM IONIZED (BEAKER) (test mkno=699) 1.08 mmol/L 1.12-1.27 PH, BLOOD (BEAKER) (test liog=3312) 7.39 [id number] 14:10:00 Test Item Value Reference Range Comments LIPASE (BEAKER) (test ifro=958) 33 U/L 8-78 HEPATIC FUNCTION [id number] 14:10:00 Test Item Value Reference Range Comments TOTAL PROTEIN (BEAKER) (test cgkm=311) 6.5 gm/dL 6.0-8.3 ALBUMIN (BEAKER) (test cbvl=8473) 4.2 g/dL 3.5-5.0 BILIRUBIN TOTAL (BEAKER) (test mpez=880) 0.7 mg/dL 0.2-1.2 BILIRUBIN DIRECT (BEAKER) (test lwbq=801) 0.4 mg/dL 0.1-0.5 ALKALINE PHOSPHATASE (BEAKER) (test snav=977) 74 U/L 40-150 AST (SGOT) (BEAKER) (test glso=864) 38 U/L 5-34 ALT (SGPT) (BEAKER) (test jaeg=954) 30 U/L 6-55 BASIC METABOLIC [id number] 04:53:00 Test Item Value Reference Range Comments SODIUM (BEAKER) (test 134 meq/L 136-145 hnxs=539) POTASSIUM (BEAKER) (test 3.8 meq/L 3.5-5.1 tmro=616) CHLORIDE (BEAKER) (test 102 meq/L 98-107 abnr=940) CO2 (BEAKER) (test 18 meq/L 22-29 nerm=119) BLOOD UREA NITROGEN 7 mg/dL 7-21 (BEAKER) (test lysb=591) CREATININE (BEAKER) (test 0.73 mg/dL 0.57-1.25 mjnh=618) GLUCOSE RANDOM (BEAKER) 177 mg/dL 70-105 (test path=536) CALCIUM (BEAKER) (test 8.9 mg/dL 8.4-10.2 qooh=694) EGFR (BEAKER) (test 104 mL/min/1.73 sq m ESTIMATED GFR IS NOT veqc=3174) ACCURATE CREATININE CLEARANCE IN PREDICTING GLOMERULAR FILTRATION RATE. ESTIMATED GFR IS NOT APPLICABLE FOR DIALYSIS PATIENTS. [id number] 04:49:00 Test Item Value Reference Range Comments PHOSPHORUS (BEAKER) (test vngl=014) 2.9 mg/dL 2.3-4.7 [id number] 04:49:00 Test Item Value Reference Range Comments MAGNESIUM (BEAKER) (test lump=993) 1.5 mg/dL 1.6-2.6 AMYLASE, BODY [id number] 04:38:00 Test Item Value Reference Range Comments AMYLASE FLUID (BEAKER) (test rynf=347) 2673 U/L Absence of reference range indicates that normals have not been defined.Assay performance has not been validated for this type of specimen.CBC W/PLT COUNT & amp; AUTO [id number] 04:24:00 Test Item Value Reference Range Comments WHITE BLOOD CELL COUNT (BEAKER) (test bxwn=815) 19.1 K/ L 3.5-10.5 RED BLOOD CELL COUNT (BEAKER) (test kolh=402) 4.48 M/ L 4.63-6.08 HEMOGLOBIN (BEAKER) (test oarm=872) 13.1 GM/DL 13.7-17.5 HEMATOCRIT (BEAKER) (test fqbu=977) 38.3 % 40.1-51.0 MEAN CORPUSCULAR VOLUME (BEAKER) (test qttn=299) 85.5 fL 79.0-92.2 MEAN CORPUSCULAR HEMOGLOBIN (BEAKER) (test 29.2 pg 25.7-32.2 kzfl=921) MEAN CORPUSCULAR HEMOGLOBIN CONC (BEAKER) (test 34.2 GM/DL 32.3-36.5 qbto=093) RED CELL DISTRIBUTION WIDTH (BEAKER) (test 12.6 % 11.6-14.4 mgdi=056) PLATELET COUNT (BEAKER) (test mkkr=110) 283 K/CU MM 150-450 MEAN PLATELET VOLUME (BEAKER) (test udoo=956) 10.8 fL 9.4-12.4 NUCLEATED RED BLOOD CELLS (BEAKER) (test 0 /100 WBC 0-0 dgpw=621) NEUTROPHILS RELATIVE PERCENT (BEAKER) (test 90 % yext=567) LYMPHOCYTES RELATIVE PERCENT (BEAKER) (test 5 % qpxu=922) MONOCYTES RELATIVE PERCENT (BEAKER) (test 4 % hwrf=597) EOSINOPHILS RELATIVE PERCENT (BEAKER) (test 0 % jhwc=685) BASOPHILS RELATIVE PERCENT (BEAKER) (test 0 % dajq=779) NEUTROPHILS ABSOLUTE COUNT (BEAKER) (test 17.18 K/ L 1.78-5.38 hjkf=871) LYMPHOCYTES ABSOLUTE COUNT (BEAKER) (test 0.86 K/ L 1.32-3.57 pmtv=653) MONOCYTES ABSOLUTE COUNT (BEAKER) (test 0.84 K/ L 0.30-0.82 cqka=044) EOSINOPHILS ABSOLUTE COUNT (BEAKER) (test 0.01 K/ L 0.04-0.54 cepn=234) BASOPHILS ABSOLUTE COUNT (BEAKER) (test 0.04 K/ L 0.01-0.08 zndx=649) IMMATURE GRANULOCYTES-RELATIVE PERCENT (BEAKER) 1 % 0-1 (test sals=2618) [id number] 13:44:00 Test Item Value Reference Range Comments CALCIUM (BEAKER) (test wwxp=013) 7.5 mg/dL 8.4-10.2 [id number] 13:42:00 Test Item Value Reference Range Comments LIPASE (BEAKER) (test kgmk=781) 137 U/L 8-78 [id number] 13:42:00 Test Item Value Reference Range Comments AMYLASE (BEAKER) (test xqpu=727) 50 U/L 25-125 CALCIUM, [id number] 13:13:00 Test Item Value Reference Range Comments CALCIUM IONIZED (BEAKER) (test cmth=100) 0.86 mmol/L 1.12-1.27 PH, BLOOD (BEAKER) (test rgyr=3777) 7.41 BLOOD GAS, [id number] 12:49:00 Test Item Value Reference Range Comments PH ARTERIAL (BEAKER) (test shkg=101) 7.41 7.35-7.45 PCO2 ARTERIAL (BEAKER) (test beke=531) 34 mmHg 35-45 PO2 ARTERIAL (BEAKER) (test zugk=243) 194 mmHg 80-90 O2 SATURATION ARTERIAL (BEAKER) (test axtd=478) 99.3 % 96.0-97.0 HCO3 ARTERIAL (BEAKER) (test crhc=675) 21 mmol/L 21-29 BASE EXCESS ARTERIAL (BEAKER) (test ojsa=265) -3.5 mmol/L -2.0-3.0 PATIENT TEMPERATURE (BEAKER) (test wfky=5996) 37.0 C FIO2 (BEAKER) (test vipc=8344) 21.0 % CALCIUM, [id number] 12:49:00 Test Item Value Reference Range Comments CALCIUM IONIZED (BEAKER) (test jdmm=238) 0.98 mmol/L 1.12-1.27 PH, BLOOD (BEAKER) (test nzue=2440) 7.41 GLUCOSE-STAT [id number] 12:49:00 Test Item Value Reference Range Comments GLUCOSE RANDOM (BEAKER) (test xhml=652) 142 mg/dL 70-110 POTASSIUM-STAT [id number] 12:49:00 Test Item Value Reference Range Comments POTASSIUM (BEAKER) (test nmdo=963) 3.3 meq/L 3.6-5.5 HGB/HCT (H&H) - STAT [id number] 12:49:00 Test Item Value Reference Range Comments HEMOGLOBIN (BEAKER) (test gosy=911) 11.6 g/dL 13.0-16.8 HEMATOCRIT (BEAKER) (test ypnl=426) 34.0 % 40.0-50.0 SODIUM NA-STAT [id number] 12:48:00 Test Item Value Reference Range Comments SODIUM (BEAKER) (test onwq=640) 137 meq/L 135-148 BLOOD GAS, [id number] 11:16:00 Test Item Value Reference Range Comments PH ARTERIAL (BEAKER) (test swgu=883) 7.44 7.35-7.45 PCO2 ARTERIAL (BEAKER) (test zaan=631) 34 mmHg 35-45 PO2 ARTERIAL (BEAKER) (test dcto=711) 204 mmHg 80-90 O2 SATURATION ARTERIAL (BEAKER) (test nasw=561) 99.4 % 96.0-97.0 HCO3 ARTERIAL (BEAKER) (test ahkm=081) 23 mmol/L 21-29 BASE EXCESS ARTERIAL (BEAKER) (test wivc=303) -1.5 mmol/L -2.0-3.0 PATIENT TEMPERATURE (BEAKER) (test uhge=7757) 35.3 C FIO2 (BEAKER) (test otmq=1232) 50.0 % POTASSIUM-STAT [id number] 11:16:00 Test Item Value Reference Range Comments POTASSIUM (BEAKER) (test wjqz=487) 3.3 meq/L 3.6-5.5 GLUCOSE-STAT [id number] 11:16:00 Test Item Value Reference Range Comments GLUCOSE RANDOM (BEAKER) (test gsqo=771) 130 mg/dL 70-110 HGB/HCT (H&H) - STAT [id number] 11:16:00 Test Item Value Reference Range Comments HEMOGLOBIN (BEAKER) (test hilx=385) 12.4 g/dL 13.0-16.8 HEMATOCRIT (BEAKER) (test fsoi=037) 36.0 % 40.0-50.0 CALCIUM, [id number] 11:16:00 Test Item Value Reference Range Comments CALCIUM IONIZED (BEAKER) (test ueaf=640) 0.90 mmol/L 1.12-1.27 PH, BLOOD (BEAKER) (test cryf=5449) 7.41 SODIUM NA-STAT [id number] 11:15:00 Test Item Value Reference Range Comments SODIUM (BEAKER) (test tqae=818) 136 meq/L 135-148 FINE NEEDLE ASPIRATION BY [id number] 10:55:00Medical Cytology Report Case: [id number] Authorizing Provider: Ravi Meier MD Collected: 2017 1148 Ordering Location: [address] Received : 10/04/2017 0819 Service Pathologist: Tera Villar MD Specimen: Pancreas, Pancreas mass routine cyto in CRR BODY OF PANCREAS MASS, FNA BY CLINICIAN ( CYTOSPINS AND CELL BLOCK OF ASPIRATE): - POSITIVE FOR MALIGNANCY - ADENOCARCINOMA, DUCTAL TYPE Signing Pathologist Direct Phone Line: [phone] [phone] 2.4 cm) irregular mass identified in the body of the pancreasBODY OF PANCREAS MASS FNAPrepared cell block(A2) and 4 cytospins from 22 ml in cytorich red fixativeCollected: [id number]: [id number] [facility], Department of Pathology, [address] [place] [address], [facility] , [address] [place] [address], PM, ABDOMEN, [id number] 08:03:00FINAL REPORT History: Liver lesions Comparison: CT [...] Splenic infarcts. 4. Cholelithiasis. Signed: Marylu Allen [facility] Verified Date/Time: 10/05/2017 08:03:49 Reading Location: [facility] Diagnostic Imaging Reading Room - [place] [address] TISSUE [id number] 15:08:00Surgical Pathology Report Case: [id number] Authorizing Provider: Ravi Meier MD Collected: 10/02/2017 1153 Ordering Location: [address] Received: 10/04/2017 0748 Service Pathologist: Sander Munoz MD Specimen: Mass, PANCREATIC MASS FNA BX PART A PANCREATICMASS, BIOPSY:ADENOCARCINOMA. Signing Pathologist Direct Phone Line: [phone] signed by Sander Munoz MD on 10/04/2017 at 3:08 [id number] massPancreatic mass FNA biopsy The specimen is received in a formalin-filled container labeled with the patient's informationand labeled "pancreatic mass FNA biopsy" and consists of multiple fragments of alfred-red stringy soft tissue measuring 1 x 0.3 x 0.2 cm in aggregate , submitted entirely in A1. CG/ewHEPATIC FUNCTION [id number] 10:31:00 Test Item Value Reference Range Comments TOTAL PROTEIN (BEAKER) (test iadz=156) 5.9 gm/dL 6.0-8.3 ALBUMIN (BEAKER) (test uoyf=9532) 3.5 g/dL 3.5-5.0 BILIRUBIN TOTAL (BEAKER) (test wlsw=708) 0.5 mg/dL 0.2-1.2 BILIRUBIN DIRECT (BEAKER) (test pajh=010) 0.3 mg/dL 0.1-0.5 ALKALINE PHOSPHATASE (BEAKER) (test tmpa=741) 83 U/L 40-150 AST (SGOT) (BEAKER) (test xrmu=210) 30 U/L 5-34 ALT (SGPT) (BEAKER) (test onks=396) 22 U/L 6-55 BASIC METABOLIC [id number] 10:31:00 Test Item Value Reference Range Comments SODIUM (BEAKER) (test 134 meq/L 136-145 sbgr=897) POTASSIUM (BEAKER) (test 3.9 meq/L 3.5-5.1 rbsr=597) CHLORIDE (BEAKER) (test 102 meq/L 98-107 mxwf=835) CO2 (BEAKER) (test 23 meq/L 22-29 pxps=113) BLOOD UREA NITROGEN 7 mg/dL 7-21 (BEAKER) (test atqx=836) CREATININE (BEAKER) (test 0.74 mg/dL 0.57-1.25 acau=943) GLUCOSE RANDOM (BEAKER) 104 mg/dL 70-105 (test wzcn=156) CALCIUM (BEAKER) (test 8.5 mg/dL 8.4-10.2 ubmq=825) EGFR (BEAKER) (test 102 mL/min/1.73 sq m ESTIMATED GFR IS NOT pyyg=7805) ACCURATE CREATININE CLEARANCE IN PREDICTING GLOMERULAR FILTRATION RATE. ESTIMATED GFR IS NOT APPLICABLE FOR DIALYSIS PATIENTS. FINE NEEDLE ASPIRATE (FNA) [id number] 10:00:00 Test Item Value Reference Range Comments CYTOLOGY RESULT POINTER (BEAKER) (test See Separate Report cwoc=2841) [id number] 07:38:00 Test Item Value Reference Range Comments PROTIME (BEAKER) (test xxqf=353) 16.2 seconds 11.7-14.7 INR (BEAKER) (test ykly=799) 1.3 <=5.9 PARTIAL THROMBOPLASTIN TIME (BEAKER) (test 33.2 seconds 22.5-36.0 ehap=428) RECOMMENDED COUMADIN/WARFARIN INR THERAPY RANGESSTANDARD DOSE: 2.0 - 3.0 Includes: PROPHYLAXIS forvenous thrombosis, systemic embolization; TREATMENT for venous thrombosis and/or pulmonary embolus.HIGH RISK: Target INR is 2.5-3.5 for patients with mechanical heart valves.CBC W/PLT COUNT & AUTO [id number] 06:51:00 Test Item Value Reference Range Comments WHITE BLOOD CELL COUNT (BEAKER) (test xyee=165) 5.7 K/ L 3.5-10.5 RED BLOOD CELL COUNT (BEAKER) (test ubcy=906) 4.22 M/ L 4.63-6.08 HEMOGLOBIN (BEAKER) (test lqud=607) 12.3 GM/DL 13.7-17.5 HEMATOCRIT (BEAKER) (test heja=719) 36.9 % 40.1-51.0 MEAN CORPUSCULAR VOLUME (BEAKER) (test wuej=581) 87.4 fL 79.0-92.2 MEAN CORPUSCULAR HEMOGLOBIN (BEAKER) (test 29.1 pg 25.7-32.2 fanl=618) MEAN CORPUSCULAR HEMOGLOBIN CONC (BEAKER) (test 33.3 GM/DL 32.3-36.5 xros=405) RED CELL DISTRIBUTION WIDTH (BEAKER) (test 12.3 % 11.6-14.4 cmmo=399) PLATELET COUNT (BEAKER) (test zwvv=155) 196 K/CU MM 150-450 MEAN PLATELET VOLUME (BEAKER) (test rmvv=709) 11.2 fL 9.4-12.4 NUCLEATED RED BLOOD CELLS (BEAKER) (test 0 /100 WBC 0-0 wjel=764) NEUTROPHILS RELATIVE PERCENT (BEAKER) (test 66 % zrva=905) LYMPHOCYTES RELATIVE PERCENT (BEAKER) (test 21 % uvid=912) MONOCYTES RELATIVE PERCENT (BEAKER) (test 9 % fehu=762) EOSINOPHILS RELATIVE PERCENT (BEAKER) (test 3 % febe=988) BASOPHILS RELATIVE PERCENT (BEAKER) (test 1 % citu=116) NEUTROPHILS ABSOLUTE COUNT (BEAKER) (test 3.76 K/ L 1.78-5.38 yfwy=171) LYMPHOCYTES ABSOLUTE COUNT (BEAKER) (test 1.22 K/ L 1.32-3.57 qrkk=092) MONOCYTES ABSOLUTE COUNT (BEAKER) (test 0.52 K/ L 0.30-0.82 sjdq=978) EOSINOPHILS ABSOLUTE COUNT (BEAKER) (test 0.17 K/ L 0.04-0.54 oyqr=914) BASOPHILS ABSOLUTE COUNT (BEAKER) (test 0.03 K/ L 0.01-0.08 zqwt=469) IMMATURE GRANULOCYTES-RELATIVE PERCENT (BEAKER) 1 % 0-1 (test fjfj=7804) HEPATIC FUNCTION [id number] 07:40:00 Test Item Value Reference Range Comments TOTAL PROTEIN (BEAKER) (test doid=392) 6.7 gm/dL 6.0-8.3 ALBUMIN (BEAKER) (test tsxu=9447) 4.0 g/dL 3.5-5.0 BILIRUBIN TOTAL (BEAKER) (test kgjg=721) 0.7 mg/dL 0.2-1.2 BILIRUBIN DIRECT (BEAKER) (test jkvo=542) 0.4 mg/dL 0.1-0.5 ALKALINE PHOSPHATASE (BEAKER) (test vjpn=753) 97 U/L 40-150 AST (SGOT) (BEAKER) (test kysz=425) 31 U/L 5-34 ALT (SGPT) (BEAKER) (test fqxk=275) 22 U/L 6-55 BASIC METABOLIC [id number] 07:40:00 Test Item Value Reference Range Comments SODIUM (BEAKER) (test 136 meq/L 136-145 ugmw=873) POTASSIUM (BEAKER) (test 4.2 meq/L 3.5-5.1 bouh=842) CHLORIDE (BEAKER) (test 101 meq/L 98-107 vwgs=561) CO2 (BEAKER) (test 25 meq/L 22-29 ajye=739) BLOOD UREA NITROGEN 8 mg/dL 7-21 (BEAKER) (test nwug=474) CREATININE (BEAKER) (test 0.78 mg/dL 0.57-1.25 xrgz=393) GLUCOSE RANDOM (BEAKER) 102 mg/dL 70-105 (test cmqq=124) CALCIUM (BEAKER) (test 9.4 mg/dL 8.4-10.2 mlpx=572) EGFR (BEAKER) (test 96 mL/min/1.73 sq m ESTIMATED GFR IS NOT tdhs=2410) ACCURATE CREATININE CLEARANCE IN PREDICTING GLOMERULAR FILTRATION RATE. ESTIMATED GFR IS NOT APPLICABLE FOR DIALYSIS PATIENTS. CBC W/PLT COUNT & AUTO [id number] 07:08:00 Test Item Value Reference Range Comments WHITE BLOOD CELL COUNT (BEAKER) (test kvnf=912) 6.9 K/ L 3.5-10.5 RED BLOOD CELL COUNT (BEAKER) (test soqt=934) 4.57 M/ L 4.63-6.08 HEMOGLOBIN (BEAKER) (test hrlw=773) 13.4 GM/DL 13.7-17.5 HEMATOCRIT (BEAKER) (test nztb=862) 40.3 % 40.1-51.0 MEAN CORPUSCULAR VOLUME (BEAKER) (test wiwi=021) 88.2 fL 79.0-92.2 MEAN CORPUSCULAR HEMOGLOBIN (BEAKER) (test 29.3 pg 25.7-32.2 ucul=041) MEAN CORPUSCULAR HEMOGLOBIN CONC (BEAKER) (test 33.3 GM/DL 32.3-36.5 fizl=183) RED CELL DISTRIBUTION WIDTH (BEAKER) (test 12.5 % 11.6-14.4 lbyl=781) PLATELET COUNT (BEAKER) (test plna=944) 192 K/CU MM 150-450 MEAN PLATELET VOLUME (BEAKER) (test onyg=437) 11.7 fL 9.4-12.4 NUCLEATED RED BLOOD CELLS (BEAKER) (test 0 /100 WBC 0-0 qurw=053) NEUTROPHILS RELATIVE PERCENT (BEAKER) (test 67 % acpk=568) LYMPHOCYTES RELATIVE PERCENT (BEAKER) (test 22 % tkbe=141) MONOCYTES RELATIVE PERCENT (BEAKER) (test 9 % olun=676) EOSINOPHILS RELATIVE PERCENT (BEAKER) (test 2 % rhol=262) BASOPHILS RELATIVE PERCENT (BEAKER) (test 1 % ynif=190) NEUTROPHILS ABSOLUTE COUNT (BEAKER) (test 4.59 K/ L 1.78-5.38 xxje=534) LYMPHOCYTES ABSOLUTE COUNT (BEAKER) (test 1.50 K/ L 1.32-3.57 hgjy=683) MONOCYTES ABSOLUTE COUNT (BEAKER) (test 0.60 K/ L 0.30-0.82 wrft=063) EOSINOPHILS ABSOLUTE COUNT (BEAKER) (test 0.13 K/ L 0.04-0.54 vhor=904) BASOPHILS ABSOLUTE COUNT (BEAKER) (test 0.04 K/ L 0.01-0.08 dfmo=167) IMMATURE GRANULOCYTES-RELATIVE PERCENT (BEAKER) 0 % 0-1 (test nihk=5404) HEPATIC FUNCTION [id number] 06:42:00 Test Item Value Reference Range Comments TOTAL PROTEIN (BEAKER) (test blrz=699) 5.9 gm/dL 6.0-8.3 ALBUMIN (BEAKER) (test hcbk=2158) 3.7 g/dL 3.5-5.0 BILIRUBIN TOTAL (BEAKER) (test yybo=643) 0.7 mg/dL 0.2-1.2 BILIRUBIN DIRECT (BEAKER) (test drgn=267) 0.4 mg/dL 0.1-0.5 ALKALINE PHOSPHATASE (BEAKER) (test ieum=035) 87 U/L 40-150 AST (SGOT) (BEAKER) (test yjyt=580) 20 U/L 5-34 ALT (SGPT) (BEAKER) (test ivmy=733) 16 U/L 6-55 BASIC METABOLIC [id number] 06:42:00 Test Item Value Reference Range Comments SODIUM (BEAKER) (test 134 meq/L 136-145 ohxl=072) POTASSIUM (BEAKER) (test 4.0 meq/L 3.5-5.1 jfjv=971) CHLORIDE (BEAKER) (test 102 meq/L 98-107 ykyh=776) CO2 (BEAKER) (test 25 meq/L 22-29 nzto=170) BLOOD UREA NITROGEN 9 mg/dL 7-21 (BEAKER) (test acmz=682) CREATININE (BEAKER) (test 0.83 mg/dL 0.57-1.25 wfzq=241) GLUCOSE RANDOM (BEAKER) 101 mg/dL 70-105 (test fspm=281) CALCIUM (BEAKER) (test 8.9 mg/dL 8.4-10.2 jxom=089) EGFR (BEAKER) (test 89 mL/min/1.73 sq m ESTIMATED GFR IS NOT hxum=3806) ACCURATE CREATININE CLEARANCE IN PREDICTING GLOMERULAR FILTRATION RATE. ESTIMATED GFR IS NOT APPLICABLE FOR DIALYSIS PATIENTS. [id number] 06:09:00 Test Item Value Reference Range Comments PROTIME (BEAKER) (test pdsh=426) 15.8 seconds 11.7-14.7 INR (BEAKER) (test tlen=092) 1.3 <=5.9 PARTIAL THROMBOPLASTIN TIME (BEAKER) (test 34.8 seconds 22.5-36.0 vceq=201) RECOMMENDED COUMADIN/WARFARIN INR THERAPY RANGESSTANDARD DOSE: 2.0 - 3.0 Includes: PROPHYLAXIS forvenous thrombosis, systemic embolization; TREATMENT for venous thrombosis and/or pulmonary embolus.HIGH RISK: Target INR is 2.5-3.5 for patients with mechanical heart valves.PROTHROMBIN [id number] 06:08: 00 Test Item Value Reference Range Comments PROTIME (BEAKER) (test mwpi=487) 15.8 seconds 11.7-14.7 INR (BEAKER) (test qvyi=826) 1.3 <=5.9 RECOMMENDED COUMADIN/WARFARIN INR THERAPY RANGESSTANDARD DOSE: 2.0 - 3.0 Includes: PROPHYLAXIS forvenous thrombosis, systemic embolization; TREATMENT for venous thrombosis and/or pulmonary embolus.HIGH RISK: Target INR is 2.5-3.5 for patients with mechanical heart valves.CBC W/PLT COUNT & AUTO [id number] 05:59:00 Test Item Value Reference Range Comments WHITE BLOOD CELL COUNT (BEAKER) (test tgjs=404) 7.2 K/ L 3.5-10.5 RED BLOOD CELL COUNT (BEAKER) (test axhi=341) 4.34 M/ L 4.63-6.08 HEMOGLOBIN (BEAKER) (test opeb=890) 12.8 GM/DL 13.7-17.5 HEMATOCRIT (BEAKER) (test gcnn=324) 38.5 % 40.1-51.0 MEAN CORPUSCULAR VOLUME (BEAKER) (test erxn=732) 88.7 fL 79.0-92.2 MEAN CORPUSCULAR HEMOGLOBIN (BEAKER) (test 29.5 pg 25.7-32.2 pyjm=093) MEAN CORPUSCULAR HEMOGLOBIN CONC (BEAKER) (test 33.2 GM/DL 32.3-36.5 urtj=367) RED CELL DISTRIBUTION WIDTH (BEAKER) (test 12.5 % 11.6-14.4 wkhl=687) PLATELET COUNT (BEAKER) (test geep=402) 165 K/CU MM 150-450 MEAN PLATELET VOLUME (BEAKER) (test rrjv=974) 11.4 fL 9.4-12.4 NUCLEATED RED BLOOD CELLS (BEAKER) (test 0 /100 WBC 0-0 nfcl=558) NEUTROPHILS RELATIVE PERCENT (BEAKER) (test 63 % rird=490) LYMPHOCYTES RELATIVE PERCENT (BEAKER) (test 24 % djgs=277) MONOCYTES RELATIVE PERCENT (BEAKER) (test 11 % ogbz=390) EOSINOPHILS RELATIVE PERCENT (BEAKER) (test 2 % fszu=316) BASOPHILS RELATIVE PERCENT (BEAKER) (test 0 % tdwj=349) NEUTROPHILS ABSOLUTE COUNT (BEAKER) (test 4.52 K/ L 1.78-5.38 uayd=463) LYMPHOCYTES ABSOLUTE COUNT (BEAKER) (test 1.73 K/ L 1.32-3.57 eyma=406) MONOCYTES ABSOLUTE COUNT (BEAKER) (test 0.78 K/ L 0.30-0.82 pjyj=897) EOSINOPHILS ABSOLUTE COUNT (BEAKER) (test 0.13 K/ L 0.04-0.54 sfta=952) BASOPHILS ABSOLUTE COUNT (BEAKER) (test 0.03 K/ L 0.01-0.08 hzzh=721) IMMATURE GRANULOCYTES-RELATIVE PERCENT (BEAKER) 0 % 0-1 (test uzcp=0070)
[2018-05-05] MEDS ORDERED: FENTANYL CITR 100 MCG/2 ML ONE ×2 (21:22→22:08)
[2018-05-05] MEDS ORDERED: ONDANSETRON 4 MG/2 ML VIAL ONE (21:22)
[2018-05-05] MEDS ORDERED: PANTOPRAZOLE 40 MG INJ ONE (21:22)
[2018-05-05 21:23] LABS: Absolute Lymphocytes (CBC) 1.4 K/uL (0.7-4.9); Absolute Monocytes 0.9 K/uL (0.1-1.3); Absolute Neutrophil 7.1 K/uL (1.8-8.0); Basophils % 0.7 % (0-1.3); Hematocrit 43.5 % (39.6-49.0); Lymphocytes % 14.5 % (15.3-44.8); MCH 34.2 pg (27.0-35.0); MCV 100.4 fL (80-100); MPV 11.9 fL (7.6-11.3); Monocytes % 9.5 % (3.3-12.3); RBC Red Blood Cell Count 4.33 M/uL (4.33-5.43)
[2018-05-05] MEDS ORDERED: NA CHLORIDE 0.9% 1,000 ML ONE (21:23)
[2018-05-05 21:25] LABS: Protime INR 1.11
[2018-05-05 21:46] LABS: ALT/SGPT 28 U/L (12-78); AST/SGOT 33 U/L (15-37); Albumin 3.8 g/dL (3.4-5.0); Alkaline Phosphatase 129 U/L (45-117); BUN Blood Urea Nitrogen 11 mg/dL (7-18); Bicarbonate 22 mmol/L (21-32); Bilirubin Direct 0.3 mg/dL (0-0.2); Bilirubin Total 0.8 mg/dL (0.2-1.0); Glucose Level 156 mg/dL (74-106); Lipase 94 U/L (73-393); Magnesium 1.6 mg/dL (1.8-2.4); NT PRO-BNP 519 pg/mL (<450); Potassium 3.4 mmol/L (3.5-5.1); Protein, Total 8.1 g/dL (6.4-8.2); Sodium Level 129 mmol/L (136-145); Troponin (Emerg Dept Use Only) < 0.02 ng/mL (0.0-0.045)
[2018-05-05 22:00] LABS: Anisocytosis 1+; Blood Morphology Comment NOTED (NOT SEEN); Platelet Estimate ADEQ; Platelets, Giant FEW; Urine White Blood Cell Casts OK
[2018-05-05 22:01] LABS: Poikilocytosis 2+
[2018-05-05] MEDS ORDERED: NS KCL 20MEQ 1,000 ML IV ONE (22:44)
--- NOTE | 2018-05-05 23:01 | ER ---
Nurse's Notes [facility] Name: Bruce France Age: 77 yrs Sex: Male : 1940 Arrival Date: 05/05/2018 Time: 20:37 Bed 2 Private MD: Rikki Karimi Diagnosis: Weakness;Abdominal tenderness;Hypokalemia;Hypomagnesemia Presentation: 05/05 20:42 Presenting complaint: EMS states: EMS called to pt's residence family reported he was ea complaining of abd pain, headache and generalized weakness. Pt reported his abd pain started 2 days ago and has been constipated for the past week. Transition of care: patient was not received from another setting of care. Onset of symptoms was May 05, 2018. Risk Assessment: Do you want to hurt yourself or someone else? Patient reports no desire to harm self or others. Initial Sepsis Screen: Does the patient meet any 2 criteria? RR > 20 per min. No. Patient's initial sepsis screen is negative. Does the patient have a suspected source of infection? No. Patient's initial sepsis screen is negative. Care prior to arrival: None. 20:42 Method Of Arrival: EMS: [facility] ea 20:42 Acuity: BASSEM 3 ea Triage Assessment: 20:40 General: Appears uncomfortable, Behavior is cooperative. Pain: Complains of pain in ea right upper quadrant, left upper quadrant, right lower quadrant and left lower quadrant Unable to use pain scale. Patient appears to be grimacing, to be guarding, to be moaning, restless. Neuro: Level of Consciousness is lethargic, Oriented to none. Cardiovascular: Heart tones S1 S2 present Patient's skin is warm and dry. Respiratory: Airway is patent Respiratory effort is even, unlabored, Respiratory pattern is regular, symmetrical, Breath sounds are clear. GI: Abdomen is non-distended, Bowel sounds present X 4 quads. Abdomen is tender to palpation X 4 quads. GI: Parent/caregiver reports the patient having constipation. Derm: Skin is pink, warm \T\ dry. Historical: - Allergies: 20:51 Codeine; ea - Home Meds: 20:51 Zofran (as hydrochloride) 4 mg Oral tab as needed [Active]; tramadol 50 mg Oral tab as ea needed [Active]; tamsulosin 0.4 mg Oral cp24 1 cap once daily [Active]; sertraline 50 mg Oral tab 1 tab once daily [Active]; Senna Lax 8.6 mg Oral tab 2 tabs twice a day [Active]; Super B-50 Complex Oral daily [Active]; Stool Softener Oral three times a day [Active]; aspirin 81 mg Oral TbEC 1 tab once daily [Active]; Fish Oil Oral daily [Active]; irbesartan 300 mg Oral tab 1 tab once daily [Active]; metoprolol tartrate 50 mg Oral tab 1 tab 2 times per day [Active]; pantoprazole 40 mg Oral TbEC 1 tab once daily [Active]; multivitamin Oral tab daily [Active]; [employer]-1000 Oral daily [Active]; - PMHx: 20:51 skin cancer; Pancreatitc cancer; Atrial Fib; GERD; Hernia; Hypertension; ea - PSHx: 20:51 2/3 of pancreas removal; spleenectomy; ea - Immunization history:: Adult Immunizations unknown. - Social history:: Smoking status: unknown. - Ebola Screening: : No symptoms or risks identified at this time. - Family history:: not pertinent. Screenin:55 Abuse screen: Denies threats or abuse. Nutritional screening: No deficits noted. ea Tuberculosis screening: No symptoms or risk factors identified. Fall Risk None identified. IV access (20 points). Assessment: 21:50 Reassessment: Patient and/or family updated on plan of care and expected duration. Pain ea level reassessed. Pt oriented to self, respirations even and unlabored chest expansions even and symmetrical. No s/s of pain or discomfort noted at this time. 22:50 Reassessment: Patient and/or family updated on plan of care and expected duration. Pain ea level reassessed. Pt resting with eyes closed, respirations even and unlabored. Chest expansion even and symmetrical. No s/s of pain or discomfort at this time. 23:50 Reassessment: Patient and/or family updated on plan of care and expected duration. Pain ea level reassessed. Pt resting with eyes closed, respirations even and unlabored, chest expansions even and symmetrical. No s/s of pain or discomfort noted at this time. 05/06 00:00 Reassessment: Patient and/or family updated on plan of care and expected duration. Pain ea level reassessed. Pt restless attempting to get out of bed, unable to verbalize needs at this time, pointing to urinal, family reports he is unsteady when ambulating. straight cath performed, pt tolerated well, 650 cc of urine noted it bag, provider notified, order obtained for indwelling Novak. 18 Fr Novak placed, pt tolerating well, clear urine noted. 01:00 Reassessment: Patient and/or family updated on plan of care and expected duration. Pain ea level reassessed. Pt resting with eyes closed, respirations even and unlabored, chest expansions even and symmetrical. No s/s of pain or discomfort noted at this time. 02:00 Reassessment: Report called to Pablo CANCHOLA. ea 02:18 Reassessment: Patient and/or family updated on plan of care and expected duration. Pain ea level reassessed. Pt resting with eyes closed, respirations even and unlabored, chest expansions even and symmetrical. No s/s of pain or discomfort noted at this time. Vital Signs: 05/05 20:42 BP 193 / 85; Pulse 92; Resp 21; Temp 97.1; Pulse Ox 98% ; Weight 83.91 kg; Height 6 ft. ea 1 in. (185.42 cm); 21:30 BP 180 / 74; Pulse 72; Resp 18; Pulse Ox 100% ; ea 22:30 BP 157 / 90; Pulse 87; Resp 18; Temp 98; Pulse Ox 100% ; ea 23:39 BP 166 / 91; Pulse 83; Resp 18; Temp 98.2; Pulse Ox 100% ; ea 05/06 00:00 BP 149 / 83; Pulse 70; Resp 18; Pulse Ox 100% ; ea 01:50 BP 151 / 82; Pulse 75; Resp 18; Pulse Ox 100% ; ea 02:51 BP 165 / 72; Pulse 80; Resp 18; Temp 98; Pulse Ox 100% ; Pain 0/10; ea 05/05 20:42 Body Mass Index 24.41 (83.91 kg, 185.42 cm) ea ED Course: 05/05 19:45 Patient has correct armband on for positive identification. Bed in low position. Call ea light in reach. Side rails up X2. 20:37 Patient arrived in ED. ea 20:40 Arm band placed on right wrist. Patient placed in an exam room, on a stretcher, on ea monitoring coordinator, on pulse oximetry. 20:46 Triage completed. ea 20:49 Inserted saline lock: 20 gauge in right antecubital area, using aseptic technique. ds4 Blood collected. 20:52 Mik Solorzano MD is Attending Physician. sylvester 20:58 Rikki Karimi DO is Private Physician. mr 21:03 Avelina Dotson, RN is Primary Nurse. ea 21:32 Radiology exam delayed due to lab results not completed at this time. (BUN/Creatinine). vr 21:44 Procalcitonin Sent. ds4 21:44 Lactate Sent. ds4 21:44 Troponin (Emerg Dept Use Only) Sent. ds4 21:44 Magnesium Sent. ds4 21:44 NT PRO-BNP Sent. ds4 21:45 Lipase Sent. ds4 21:45 Basic Metabolic Panel Sent. ds4 21:45 Hepatic Function Sent. ds4 21:45 CBC with Diff Sent. ds4 22:10 CT completed. Pt tolerated procedure poorly. Patient moved back from radiology. nj 22:18 CT Head Brain wo Cont In Process Unspecified. EDMS 22:19 XRAY Chest (1 view) In Process Unspecified. EDMS 22:19 Chest Abdomen Pelvis W Cont In Process Unspecified. EDMS 22:59 Janine Bernal MD is Hospitalizing Provider. sylvester 23:11 No provider procedures requiring assistance completed. Patient admitted, IV remains in ea place. 23:51 Urine Culture Sent. ds4 05/06 00:00 Novak cath inserted, using sterile technique, 18 Fr., by az, balloon inflated, to ea gravity drainage, urine specimen collected. Administered Medications: 05/05 21:24 Drug: ProTONIX 40 mg Route: IVP; Site: right antecubital; ea 21:55 Follow up: Response: No adverse reaction ea 21:25 Drug: NS 0.9% 1000 ml Route: IV; Rate: 1 bolus; Site: right antecubital; ea 05/06 02:57 Follow up: Response: No adverse reaction; IV Status: Infusion continued upon admission ea 05/05 21:25 Drug: Zofran 4 mg Route: IVP; Site: right antecubital; ea 21:55 Follow up: Response: No adverse reaction; Marked relief of symptoms ea 21:56 Follow up: Response: No adverse reaction; Pain is decreased ea 21:26 Drug: fentaNYL (PF) 25 mcg Route: IVP; Site: right antecubital; ea 23:51 Follow up: Response: No adverse reaction; Pain is decreased ea 22:33 Drug: fentaNYL (PF) 25 mcg Route: IVP; Site: right antecubital; ea 22:45 Follow up: Response: No adverse reaction; Pain is decreased ea 22:56 Drug: Magnesium Sulfate 1 grams Route: IVPB; Infused Over: 1 hrs; Site: right ea antecubital; 05/06 00:00 Follow up: Response: No adverse reaction; IV Status: Completed infusion; IV Intake: ea 100ml 05/05 22:56 Drug: NS 0.9% with KCl 20 mEq/L 1000 ml Route: IV; Rate: 125 ml/hr; Site: right ea antecubital; 05/06 02:58 Follow up: Response: No adverse reaction; IV Status: Infusion continued upon admission ea Intake: 00:00 IV: 100ml; Total: 100ml. ea Outcome: 05/05 23:00 Decision to Hospitalize by Provider. sylvester 05/06 00:00 Instructed on the need for admit. ea 02:55 Admitted to Med/surg accompanied by nurse, room 230, Report called to Pablo CANCHOLA ea 02:55 Condition: improved 02:59 Patient left the ED. ea Signatures: Dispatcher [employer] EDMik Villarreal MD MD cha Rivera, Claudia Villa, Norbert Lobato Nathan nj Antunez, Elena, RN RN shakira
--- NOTE | 2018-05-05 23:01 | EDPHYS ---
Physician Documentation [facility] Name: Bruce France Age: 77 yrs Sex: Male : 1940 Arrival Date: 05/05/2018 Time: 20:37 Bed 2 Private MD: Rikki Karimi ED Physician Mik Solorzano HPI: 05/05 21:07 This 77 yrs old Male presents to ER via EMS with complaints of General sylvester Weakness, Abdominal Pain. 21:07 The patient complains of pain to the forehead, left frontal area, left temporal area, sylvester right frontal area and right temporal area. The patient describes the headache as aching, a pressure. Onset: The symptoms/episode began/occurred 1 week(s) ago. The patient presents with abdominal pain in the upper abdomen, in the lower abdomen, abdominal distention in the upper abdomen, in the lower abdomen. Onset: The symptoms/episode began/occurred 3 day(s) ago. The patient presents with decreased mental status. Onset: The symptoms/episode began/occurred 3 day(s) ago. Possible causes: unknown. Severity of symptoms: At its worst the pain was mild, moderate, in the emergency department the pain is unchanged. Historical: - Allergies: 20:51 Codeine; ea - Home Meds: 20:51 Zofran (as hydrochloride) 4 mg Oral tab as needed [Active]; tramadol 50 mg Oral tab as ea needed [Active]; tamsulosin 0.4 mg Oral cp24 1 cap once daily [Active]; sertraline 50 mg Oral tab 1 tab once daily [Active]; Senna Lax 8.6 mg Oral tab 2 tabs twice a day [Active]; Super B-50 Complex Oral daily [Active]; Stool Softener Oral three times a day [Active]; aspirin 81 mg Oral TbEC 1 tab once daily [Active]; Fish Oil Oral daily [Active]; irbesartan 300 mg Oral tab 1 tab once daily [Active]; metoprolol tartrate 50 mg Oral tab 1 tab 2 times per day [Active]; pantoprazole 40 mg Oral TbEC 1 tab once daily [Active]; multivitamin Oral tab daily [Active]; [place] Oil-1000 Oral daily [Active]; - PMHx: 20:51 skin cancer; Pancreatitc cancer; Atrial Fib; GERD; Hernia; Hypertension; ea - PSHx: 20:51 2/3 of pancreas removal; spleenectomy; ea - Immunization history:: Adult Immunizations unknown. - Social history:: Smoking status: unknown. - Ebola Screening: : No symptoms or risks identified at this time. - Family history:: not pertinent. ROS: 21:07 Constitutional: Negative for fever, chills, and weight loss, Eyes: Negative for injury, sylvester pain, redness, and discharge, ENT: Negative for injury, pain, and discharge, Neck: Negative for injury, pain, and swelling, Cardiovascular: Negative for chest pain, palpitations, and edema, Respiratory: Negative for shortness of breath, cough, wheezing, and pleuritic chest pain, Back: Negative for injury and pain, : Negative for injury, bleeding, discharge, and swelling, MS/Extremity: Negative for injury and deformity, Skin: Negative for injury, rash, and discoloration, Psych: Negative for depression, anxiety, suicide ideation, homicidal ideation, and hallucinations, Allergy/Immunology: Negative for hives, rash, and allergies, Endocrine: Negative for neck swelling, polydipsia, polyuria, polyphagia, and marked weight changes, Hematologic/Lymphatic: Negative for swollen nodes, abnormal bleeding, and unusual bruising. 21:07 Abdomen/GI: Positive for abdominal pain, nausea, vomiting. 21:07 Neuro: Positive for headache. Exam: 21:07 Constitutional: This is a well developed, well nourished patient who is awake, alert, sylvester and in no acute distress. Head/Face: Normocephalic, atraumatic. Eyes: Pupils equal round and reactive to light, extra-ocular motions intact. Lids and lashes normal. Conjunctiva and sclera are non-icteric and not injected. Cornea within normal limits. Periorbital areas with no swelling, redness, or edema. ENT: Nares patent. No nasal discharge, no septal abnormalities noted. Tympanic membranes are normal and external auditory canals are clear. Oropharynx with no redness, swelling, or masses, exudates, or evidence of obstruction, uvula midline. Mucous membranes moist. Neck: Trachea midline, no thyromegaly or masses palpated, and no cervical lymphadenopathy. Supple, full range of motion without nuchal rigidity, or vertebral point tenderness. No Meningismus. Chest/axilla: Normal chest wall appearance and motion. Nontender with no deformity. No lesions are appreciated. Cardiovascular: Regular rate and rhythm with a normal S1 and S2. No gallops, murmurs, or rubs. Normal PMI, no JVD. No pulse deficits. Respiratory: Lungs have equal breath sounds bilaterally, clear to auscultation and percussion. No rales, rhonchi or wheezes noted. No increased work of breathing, no retractions or nasal flaring. Back: No spinal tenderness. No costovertebral tenderness. Full range of motion. Male : Normal genitalia with no discharge or lesions. Skin: Warm, dry with normal turgor. Normal color with no rashes, no lesions, and no evidence of cellulitis. MS/ Extremity: Pulses equal, no cyanosis. Neurovascular intact. Full, normal range of motion. Psych: Awake, alert, with orientation to person, place and time. Behavior, mood, and affect are within normal limits. 21:07 Abdomen/GI: Inspection: abdomen appears normal, Bowel sounds: normal, Palpation: moderate abdominal tenderness, in the epigastric area, right upper quadrant, left upper quadrant, right lower quadrant and left lower quadrant, Liver: no appreciated palpable abnormalities, Hernia: not appreciated. Vital Signs: 20:42 BP 193 / 85; Pulse 92; Resp 21; Temp 97.1; Pulse Ox 98% ; Weight 83.91 kg; Height 6 ft. ea 1 in. (185.42 cm); 21:30 BP 180 / 74; Pulse 72; Resp 18; Pulse Ox 100% ; ea 22:30 BP 157 / 90; Pulse 87; Resp 18; Temp 98; Pulse Ox 100% ; ea 23:39 BP 166 / 91; Pulse 83; Resp 18; Temp 98.2; Pulse Ox 100% ; ea 05/06 00:00 BP 149 / 83; Pulse 70; Resp 18; Pulse Ox 100% ; ea 01:50 BP 151 / 82; Pulse 75; Resp 18; Pulse Ox 100% ; ea 02:51 BP 165 / 72; Pulse 80; Resp 18; Temp 98; Pulse Ox 100% ; Pain 0/10; ea 05/05 20:42 Body Mass Index 24.41 (83.91 kg, 185.42 cm) ea MDM: 05/05 20:52 Patient medically screened. [facility] 21:09 Data reviewed: vital signs, nurses notes, lab test result(s), EKG, radiologic studies, [facility] CT scan, plain films. 05/05 20:40 Order name: Basic Metabolic Panel; Complete Time: 22:16 05/05 20:40 Order name: CBC with Diff; Complete Time: 22:16 05/05 20:40 Order name: Creatinine for Radiology; Complete Time: 22:16 05/05 20:40 Order name: Hepatic Function; Complete Time: 22:16 05/05 20:40 Order name: Lipase; Complete Time: 22:16 05/05 21:06 Order name: PT-INR; Complete Time: 22:16 [facility] 05/05 21:06 Order name: Blood Culture Adult (2) [facility] 05/05 21:06 Order name: Procalcitonin; Complete Time: 22:16 [facility] 05/05 21:06 Order name: Lactate [facility] 05/05 21:06 Order name: Urine Culture [facility] 05/05 21:17 Order name: Troponin (Emerg Dept Use Only); Complete Time: 22:16 [facility] 05/05 21:06 Order name: XRAY Chest (1 view) [facility] 05/05 21:06 Order name: CT Head Brain wo Cont [facility] 05/05 21:17 Order name: NT PRO-BNP; Complete Time: 22:16 [facility] 05/05 21:17 Order name: Magnesium; Complete Time: 22:16 [facility] 05/05 21:32 Order name: CBC Smear Scan; Complete Time: 22:16 [facility] 05/05 22:17 Order name: Chest Abdomen Pelvis W Cont [facility] 05/05 23:53 Order name: Urine Dipstick--Ancillary (enter results) [facility] 05/06 02:05 Order name: Urine Dipstick-Ancillary [facility] 05/05 20:40 Order name: IV Saline Lock; Complete Time: 20:49 05/05 20:40 Order name: Labs collected and sent; Complete Time: 20:49 05/05 21:06 Order name: EKG; Complete Time: 21:07 [facility] 05/05 21:06 Order name: Cardiac monitoring; Complete Time: 21:44 [facility] 05/05 21:06 Order name: EKG - Nurse/Tech; Complete Time: 21:26 [facility] 05/05 21:06 Order name: O2 Per Protocol; Complete Time: 21:21 [facility] 05/05 21:06 Order name: O2 Sat Monitoring; Complete Time: 21:20 [facility] 05/05 21:06 Order name: Urine Dipstick-Ancillary (obtain specimen); Complete Time: 23:51 [facility] 05/05 23:04 Order name: CONS Physician Consult EDOK 05/06 01:14 Order name: Straight Cath; Complete Time: 01:15 ea 05/06 01:14 Order name: Novak; Complete Time: 01:14 ea Administered Medications: 21:24 Drug: ProTONIX 40 mg Route: IVP; Site: right antecubital; ea 21:55 Follow up: Response: No adverse reaction ea 21:25 Drug: NS 0.9% 1000 ml Route: IV; Rate: 1 bolus; Site: right antecubital; ea 05/06 02:57 Follow up: Response: No adverse reaction; IV Status: Infusion continued upon admission 05/05 21:25 Drug: Zofran 4 mg Route: IVP; Site: right antecubital; ea 21:55 Follow up: Response: No adverse reaction; Marked relief of symptoms ea 21:56 Follow up: Response: No adverse reaction; Pain is decreased ea 21:26 Drug: fentaNYL (PF) 25 mcg Route: IVP; Site: right antecubital; ea 23:51 Follow up: Response: No adverse reaction; Pain is decreased ea 22:33 Drug: fentaNYL (PF) 25 mcg Route: IVP; Site: right antecubital; ea 22:45 Follow up: Response: No adverse reaction; Pain is decreased ea 22:56 Drug: Magnesium Sulfate 1 grams Route: IVPB; Infused Over: 1 hrs; Site: right ea antecubital; 05/06 00:00 Follow up: Response: No adverse reaction; IV Status: Completed infusion; IV Intake: ea 100ml 05/05 22:56 Drug: NS 0.9% with KCl 20 mEq/L 1000 ml Route: IV; Rate: 125 ml/hr; Site: right ea antecubital; 05/06 02:58 Follow up: Response: No adverse reaction; IV Status: Infusion continued upon admission ea Disposition: 05/05/18 23:00 Hospitalization ordered by Janine Bernal for Inpatient Admission. Preliminary diagnosis are Weakness, Abdominal tenderness, Hypokalemia, Hypomagnesemia. - Bed requested for Telemetry/MedSurg (Inpatient). - Status is Inpatient Admission. ea - Condition is Fair. - Problem is new. - Symptoms have improved. UTI on Admission? No Signatures: Dispatcher [employer] [facility] Pricila Farah RN RN Mik Reese MD MD cha Antunez, Elena, RN RN ea Corrections: (The following items were deleted from the chart) 05/05 21:16 21:07 MAGNESIUM+C.LAB.BRZ ordered. EDOK EDOK 21:16 21:07 PROBNP+C.LAB.BRZ ordered. EDOK EDOK 21:16 21:07 TROPONIN (EMERG DEPT USE ONLY)+C.LAB.BRZ ordered. EDOK EDOK 22:17 21:07 Abdomen Pelvis W Con+CT.RAD.BRZ ordered. [facility] 05/06 01:37 05/05 23:00 Hospitalization Ordered by Janine Bernal MD for Inpatient Admission. shannon Preliminary diagnosis is Weakness; Abdominal tenderness; Hypokalemia; Hypomagnesemia. Bed requested for Telemetry/MedSurg (Inpatient). Status is Inpatient Admission. Condition is Fair. Problem is new. Symptoms have improved. UTI on Admission? No. sylvester 05/06 02:59 01:37 05/05/2018 23:00 Hospitalization Ordered by Janine Bernal MD for Inpatient ea Admission. Preliminary diagnosis is Weakness; Abdominal tenderness; Hypokalemia; Hypomagnesemia. Bed requested for Telemetry/MedSurg (Inpatient). Status is Inpatient Admission. Condition is Fair. Problem is new. Symptoms have improved. UTI on Admission? No. shannon
--- NOTE | 2018-05-06 01:18 | P.HP ---
Certification for Inpatient Patient admitted to: Inpatient With expected LOS: >2 Midnights Practitioner: I am a practitioner with admitting privileges, knowledge of patient current condition, hospital course, and medical plan of care. Services: Services provided to patient in accordance with Admission requirements found in Title 42 Section 412.3 of the Code of Federal Regulations Patient History Date of Service: 05/05/18 Reason for admission: Acute encephalopathy History of Present Illness: Mr France is a 77-year-old male with history of atrial fibrillation, hypertension, accredited cancer and status post pancreatic mass resection, was constipated for the last week. He was also complaining of headache. Today the patient became confused and disoriented, he had chills but no fever. He was complaining of abdominal pain associated with some nausea and vomiting. Lab work remarkable for normal WBC count, elevated lactate with normal procalcitonin. Sodium and chloride were also decreased consistent with volume depletion. In ER, the patient was mostly restless. After place a Novak catheter, and draining more than 800 cc's, the patient became more comfortable was unable to relax. Allergies codeine Adverse Reaction (Verified 04/04/18 05:28) Nausea/Vomiting Home medications list reviewed: Yes Home Medications: Multivitamin [Multivitamins] 1 each PO DAILY 09/09/16 Aspirin [Aspir-Low] 81 mg PO DAILY 03/21/18 Diazepam [Valium] 5 mg PO DAILY PRN 03/21/18 Docosahexanoic AC/Epa [Fish Oil 1,000 MG*] 1,000 mg PO DAILY 03/21/18 Docusate Sodium [Stool Softener] 3 tab PO DAILY 03/21/18 Ferrous Fumarate/Vit Bcomp&C [Super B-Complex Caplet] 1 tab PO DAILY 03/21/18 Green Tea [place] Extract [Green Tea] 1 cap PO DAILY 03/21/18 Irbesartan [Avapro] 300 mg PO DAILY 03/21/18 Metoprolol Succinate [Toprol Xl] 50 mg PO BID 03/21/18 Ondansetron [Zofran (Odt)*] 4 mg PO Q4HP PRN 03/21/18 Pantoprazole Sodium [Protonix] 40 mg PO DAILY 03/21/18 Polyethylene Glycol 3350 [Miralax] 17 gm PO DAILY 03/21/18 [place] Oil/[place]-3 Fatty Acids [Sv [place] Oil 1,000 mg Softgel] 1 cap PO DAILY 03/21/18 Sennosides [Senna Lax] 2 tab PO BID 03/21/18 Sertraline HCl 50 mg PO DAILY 03/21/18 Tamsulosin [Flomax*] 0.4 mg PO DAILY 03/21/18 Tramadol HCl [Ultram] 50 mg PO Q4H PRN 03/21/18 Levofloxacin [Levaquin] 500 mg PO DAILY 10 Days #10 tablet 04/06/18 Pantoprazole Sodium [Protonix] 40 mg PO BID #60 tablet. 04/06/18 metroNIDAZOLE [Flagyl] 500 mg PO Q8H 10 Days #30 tablet 04/06/18 - Past Medical/Surgical History Diabetic: No -: Pancreatic cancer -: Afib -: Enlarge prostate -: GERD -: Depression -: Pancreatic resection - Family History Mother -: Heart disease - Social History Alcohol use: No CD- Drugs: No Caffeine use: Yes Place of Residence: Home Review of Systems 10-point ROS is otherwise unremarkable Physical Examination - Physical Exam General: Alert, In no apparent distress, Confused HEENT: Atraumatic, PERRLA, EOMI, Sclerae nonicteric Neck: Supple, 2+ carotid pulse no bruit, No LAD, Without JVD or thyroid abnormality Respiratory: Clear to auscultation bilaterally, Normal air movement Cardiovascular: Regular rate/rhythm, Normal S1 S2 Gastrointestinal: Hypoactive, Tenderness (Diffuse tenderness to palpation) Musculoskeletal: No tenderness Integumentary: No rashes Neurological: Normal speech, Normal strength at 5/5 x4 extr, Normal tone Lymphatics: No axilla or inguinal lymphadenopathy - Studies Laboratory Data (last 24 hrs) 05/05/18 20:55: PT 13.1 H, INR 1.11 05/05/18 20:55: Magnesium Cancelled 05/05/18 20:55: Creatinine 0.90 05/05/18 20:55: WBC 9.5, Hgb 14.8, Hct 43.5 D, Plt Count 286 05/05/18 20:55: Sodium 129 L, Potassium 3.4 L, BUN 11, Creatinine 0.90, Glucose 156 H, Magnesium 1.6 L, Total Bilirubin 0.8, AST 33, ALT 28, Alkaline Phosphatase 129 H, Lipase 94 Assessment and Plan - Problems (Diagnosis) (1) Urine retention Current Visit: Yes Status: Acute (2) Dehydration Current Visit: Yes Status: Acute (3) Hyponatremia Current Visit: Yes Status: Acute (4) Metastatic liver disease Current Visit: Yes Status: Acute (5) Abdominal pain Onset Date: 03/22/18 Current Visit: No Status: Acute Qualifiers: Abdominal location: generalized Qualified Code(s): R10.84 - Generalized abdominal pain (6) History of pancreatic cancer Current Visit: No Status: Chronic (7) History of resection of pancreas Current Visit: No Status: Chronic - Plan Patient will be admitted to the hospital due to acute encephalopathy, in context of volume depletion. He had also a urinary retention episode. CT scan abdomen and pelvis remarkable for significant amount of stool in his bowels, and also multiple liver lesions concerning for metastatic disease. Will continue on IV fluids, start Flomax, order Fleet enema, and consult oncologist team. - Advance Directives Does patient have a Living Will: Yes Does patient have a Durable POA for Healthcare: Yes - Code Status/Comfort Care Code Status Assessed: Yes Code Status: Full Code
[2018-05-06 02:05] LABS: Urine Blood 1+ (NEG); Urine Glucose NEGATIVE (NEG); Urine Protein 1+ (NEG); Urine Specific Gravity 1.015 (1.005-1.030)
[2018-05-06] MEDS ORDERED: FLEET ENEMA ADULT PR PRN (02:23)
[2018-05-06] MEDS: NA CHLORIDE 0.9% 1,000 ML IV SCH ×3 (03:41→22:10)
[2018-05-06] MEDS ORDERED: KETOROLAC 30 MG/ML INJ IV PRN (05:53)
--- NOTE | 2018-05-06 06:50 | EKG ---
Test Date: 2018-05-05 Test Time: 21:11:53 Wax Pourer: SARAI MEASUREMENT RESULTS: Intervals: Rate: 74 KS: 176 QRSD: 86 QT: 452 QTc: 501 [place]: P: 53 KS: 176 QRS: 59 T: 55 INTERPRETIVE STATEMENTS: Normal sinus rhythm Prolonged QT Abnormal ECG Compared to ECG 05/03/2018 13:47:22 Prolonged QT interval now present Sinus bradycardia no longer present Electronically Signed On 05-06-18 06:49:03 CDT by Tim Magdaleno
[2018-05-06] MEDS ORDERED: MAGNESIUM SULFATE 1 gm IVPB 1 GM/100 ML BAG IV ONE (07:41)
[2018-05-06] MEDS ORDERED: INFLUENZA VACCINE (for 3y+) 0.5 ML DOSE IMVAC ONE (08:00)
--- NOTE | 2018-05-06 08:03 | RAD REPORT ---
EXAM DESCRIPTION: CT - Chest Abdomen Pelvis W Cont - 05/05/2018 10:19 pm CLINICAL HISTORY: Chest and abdominal pain/pancreatic cancer COMPARISON: CT chest March, TECHNIQUE: Computed axial tomography of the chest, abdomen and pelvis was obtained. 100 cc Isovue-30 0 was administered intravenously. Oral contrast was not requested. This limits evaluation of bowel. P reliminary report was generated by virtual radiologic in review prior to this dictation All CT scans are performed using dose optimization technique as appropriate and may include automated exposure control or mA/KV adjustment according to patient size. FINDINGS: A pleural effusion is not present. Mild right lower lobe atelectasis is present. The left lung is clear. No mediastinal or hilar lymphadenopathy is noted. At least 4 low to intermediate density lesions are present within the liver. Largest is in the dome m easuring 23 millimeters. Visualized lesions are within the right lobe of the liver. A couple small he patic cysts are seen. Spleen and portion of the pancreas have been removed. Pancreatic head and portion of pancreatic body are normal in size and density. Gallstones are seen. An adrenal mass is not visualized. Kidneys appear unremarkable. There is no evidence of diverticulitis. Ventral hernia within the upper abdomen is seen. Neck measure s couple centimeters. IMPRESSION: Mild right lower lobe atelectasis Multiple hepatic lesions consistent with metastases likely from pancreatic neoplasm. Cholelithiasis without evidence of cholecystitis
--- NOTE | 2018-05-06 08:03 | RAD REPORT ---
EXAM DESCRIPTION: Nadiat Single View05/05/2018 10:24 pm CLINICAL HISTORY: Chest pain COMPARISON: 04/04/2018 FINDINGS: The lungs appear clear of acute infiltrate. The heart is mildly enlarged. The aorta is to rtuous/ectatic IMPRESSION: No acute abnormalities displayed
[2018-05-06] MEDS ORDERED: POTASSIUM CL SA 10 MEQ TAB PO ONE (08:35)
[2018-05-06] MEDS: ENOXAPARIN 40 MG/0.4 ML SQ SCH ×2 (08:46→09:49)
--- NOTE | 2018-05-06 09:12 | RAD REPORT ---
EXAM DESCRIPTION: CT - Head Brain Wo Cont - 05/05/2018 10:19 pm CLINICAL HISTORY: Dizziness COMPARISON: None. TECHNIQUE: Computed axial tomography of the head was obtained. IV contrast was not requested.Prelimi nary report generated by virtual radiologic interview prior to dictation All CT scans are performed using dose optimization technique as appropriate and may include automated exposure control or mA/KV adjustment according to patient size. FINDINGS: Images at the base of the brain particularly the cerebellum are degraded by beam hardening artifact. The evaluation of the cerebellum is nondiagnostic. An intracranial bleed is not seen . The ventricles are normal in caliber. No extra-axial fluid collection is noted. Fluid within the sinuses/ mastoids is not seen. IMPRESSION: Nondiagnostic evaluation of the cerebellum No acute intracranial abnormality is seen. If patient's symptoms persist MRI of the brain would be r ecommended.
[2018-05-06] MEDS: ACETAMINOPHEN 500 MG TAB PO PRN (09:46)
[2018-05-06] MEDS ORDERED: SENOSIDES 8.6 MG TAB PO PRN (11:08)
[2018-05-06] MEDS ORDERED: FENTANYL 25 MCG/PATCH TD ONE (11:08)
--- NOTE | 2018-05-06 13:07 | PN ---
Date of Progress Note: 05/06/2018 Subjective: The patient seen and examined. Chart reviewed and case discussed with RN and at mather hospital bedside. Treatment plan explained, all questions answered. The patient did not have a good night. Still having significant amount of pain and still very constipated. Code Status: Full. Review of Systems: Negative except as above. Medications: List reviewed. Physical Examination: Vital Signs: Temperature is 98.8, heart rate 97, blood pressure 140/99, respirations 18, O2 96% on r oom air. General: Awake, alert, oriented x3, ill-appearing male, elderly. CV: S1, S2. No murmur. Respiratory: Clear to auscultation bilaterally. No wheezing or stridor. Gastrointestinal: Abdomen is soft. Tenderness to palpation in the epigastric region. No involuntar y guarding. No rigidity. Extremities: No clubbing, cyanosis, or edema. Neurologic: Nonfocal. Laboratory Data: Potassium 3.8, magnesium 1.7, lactate 1.4. Blood culture and urine culture pending . Assessment And Plan: A 77-year-old male with: 1.Acute dehydration. We will continue with IV fluids. 2.Urinary retention. The patient has Novak catheter in place. We will continue with Flomax. 3.Hyponatremia. Continue to monitor sodium levels. Continue IV fluids. 4.Pancreatic cancer status post resection, chemotherapy, now with liver metastases on CT. Dr. Ladi Ray with Hematology has been consulted. 5.Generalized abdominal pain secondary to constipation. 6.Narcotic-induced constipation. We will continue Linzess at stool softeners. 7.Hypomagnesemia. We will replace and monitor. 8.Hypokalemia, replaced. Plan: As above. Overall, poor prognosis. SA/MODL Voice ID: [id number] Report ID: [id number]
[2018-05-06] MEDS: METOPROLOL XL 50 MG TAB PO SCH (16:46)
[2018-05-06] MEDS: NIFEDIPINE XL 60 MG TABLET PO SCH (16:47)
[2018-05-06] MEDS: HYDROCODONE/APAP 5/325 MG TAB PO PRN (18:27)
[2018-05-06] MEDS: ONDANSETRON 4 MG/2 ML VIAL IV PRN (18:28)
[2018-05-06 20:46] LABS: Urine Appearance CLEAR; Urine Bilirubin NEGATIVE (NEG); Urine Blood 2+ (NEG); Urine Color YELLOW; Urine Glucose NEGATIVE (NEG); Urine Protein 1+ (NEG); Urine Specific Gravity <=1.005 (1.005-1.030); Urine Urobilinogen 0.2 mg/dL (0.2-1.0)
[2018-05-06 20:48] LABS: Urine Microscopic Reflex ORDER UMIC
[2018-05-06] MEDS: Linaclotide [Linzess] 145 MCG CAPSULE PO SCH ×2 (21:00→23:06)
[2018-05-06 21:06] LABS: Urine Bacteria NONE SEEN /HPF (NONE SEEN)
[2018-05-06 21:07] LABS: Urine Culture Reflex Order NOT NEEDED; Urine Mucus 1+ /HPF (NONE SEEN)
[2018-05-06] MEDS: POLYETHYL GLY 3350 17 GM/DOSE PO SCH (22:03)
[2018-05-06] MEDS: TAMSULOSIN 0.4 MG SR CAP PO SCH (22:04)
[2018-05-06] MEDS: DOCUSATE NA/SENNA CONC 1 TAB PO SCH (22:04)
--- NOTE | 2018-05-07 00:07 | P.CNS ---
Date of Consult: 05/07/18 Reason for Consult: Hyponatremia. Requesting Physician: Rosi Saenz Chief Complaint: Acute encephalopathy History of Present Illness: Mr France is a 77-year-old male with history of atrial fibrillation, hypertension, accredited cancer and status post pancreatic mass resection, was constipated for the last week. He was also complaining of headache. Today the patient became confused and disoriented, he had chills but no fever. He was complaining of abdominal pain associated with some nausea and vomiting. Lab work remarkable for normal WBC count, elevated lactate with normal procalcitonin. Sodium and chloride were also decreased consistent with volume depletion. In ER, the patient was mostly restless. After place a Novak catheter, and draining more than 800 cc's, the patient became more comfortable was unable to relax. 21:07 This 77 yrs old Male presents to ER via EMS with complaints of General sylvester Weakness, Abdominal Pain. 21:07 The patient complains of pain to the forehead, left frontal area, left temporal area, sylvester right frontal area and right temporal area. The patient describes the headache as aching, a pressure. Onset: The symptoms/episode began/occurred 1 week(s) ago. The patient presents with abdominal pain in the upper abdomen, in the lower abdomen, abdominal distention in the upper abdomen, in the lower abdomen. Onset: The symptoms/episode began/occurred 3 day(s) ago. The patient presents with decreased mental status. Onset: The symptoms/episode began/occurred 3 day(s) ago. Possible causes: unknown. Severity of symptoms: At its worst the pain was mild, moderate, in the emergency department the pain is unchanged. Allergies codeine Adverse Reaction (Verified 05/06/18 08:29) Nausea/Vomiting Home medications list reviewed: Yes Home Medications: Acetaminophen 500 mg PO Q4H PRN 05/06/18 Aspirin 81 mg PO DAILY 05/06/18 Linaclotide [Linzess] 145 mcg PO BEDTIME 05/06/18 Metoprolol Succinate 50 mg PO BID 05/06/18 Multivitamin [Multivitamins] 1 each PO DAILY 05/06/18 Nifedipine [Nifedipine ER] 60 mg PO DAILY 05/06/18 Ondansetron [Zofran] 4 mg PO Q6H PRN 05/06/18 Pantoprazole Sodium 40 mg PO DAILY 05/06/18 Sertraline [Zoloft] 50 mg PO DAILY 05/06/18 Tamsulosin [Flomax] 0.4 mg PO BEDTIME 05/06/18 hydroCHLOROthiazide [Hydrochlorothiazide] 25 mg PO DAILY 05/06/18 traMADol HCL [Ultram*] 1 tab PO Q6H PRN 05/06/18 - Past Medical/Surgical History Diabetic: No -: Pancreatic cancer -: Afib -: Enlarge prostate -: GERD -: Depression -: Pancreatic resection; mass removed -: Spleenectomy - Family History Mother Medical History: Heart disease, Hypertension - Social History Smoking Status: Unknown if ever smoked Alcohol use: No CD- Drugs: No Caffeine use: Yes Place of Residence: Home Review of Systems 10-point ROS is otherwise unremarkable General: Weakness, Malaise Cardiovascular: Light Headedness Gastrointestinal: Nausea Neurological: Weakness, Confusion Physical Examination Temp Pulse Resp BP Pulse Ox 98.4 F 63 16 159/72 H 97 05/06/18 20:00 05/06/18 20:00 05/06/18 20:00 05/06/18 20:00 05/06/18 20:00 General: In no apparent distress, Cooperative HEENT: Atraumatic, Mucous membr. moist/pink Neck: Supple Respiratory: Clear to auscultation bilaterally, Normal air movement Cardiovascular: No edema, Regular rate/rhythm, No rubs Gastrointestinal: Soft and benign, Non-distended, No guarding Musculoskeletal: No clubbing, No contractures Integumentary: No rashes, No cyanosis Neurological: Normal speech Blood work reviewed in the chart. Na 129; K 3.4 Imagings Data: EXAM DESCRIPTION: CT - Chest Abdomen Pelvis W Cont - 05/05/2018 10:19 pm CLINICAL HISTORY: Chest and abdominal pain/pancreatic cancer COMPARISON: CT chest March, TECHNIQUE: Computed axial tomography of the chest, abdomen and pelvis was obtained. 100 cc Isovue-300 was administered intravenously. Oral contrast was not requested. This limits evaluation of bowel. Preliminary report was generated by virtual radiologic in review prior to this dictation All CT scans are performed using dose optimization technique as appropriate and may include automated exposure control or mA/KV adjustment according to patient size. FINDINGS: A pleural effusion is not present. Mild right lower lobe atelectasis is present. The left lung is clear. No mediastinal or hilar lymphadenopathy is noted. At least 4 low to intermediate density lesions are present within the liver. Largest is in the dome measuring 23 millimeters. Visualized lesions are within the right lobe of the liver. A couple small hepatic cysts are seen. Spleen and portion of the pancreas have been removed. Pancreatic head and portion of pancreatic body are normal in size and density. Gallstones are seen. An adrenal mass is not visualized. Kidneys appear unremarkable. There is no evidence of diverticulitis. Ventral hernia within the upper abdomen is seen. Neck measures couple centimeters. IMPRESSION: Mild right lower lobe atelectasis Multiple hepatic lesions consistent with metastases likely from pancreatic neoplasm. Cholelithiasis without evidence of cholecystitis Conclusions/Impression: A/ Hyponatremia. Hypokalemia. Hypomagnesemia. HTN, variable. BPH, stable. Constipation, uncontrolled. Chronic abdominal pain, uncontrolled. Pancreatic cancer with new liver lesions. P/ Continue current POC and Medications. Agree with IVF. Replete potassium and magnesium. Start oral magnesium. Encourage nutrition. Agree with fentanyl patch. AM labs. Daily weight. Thank you kindly for the consultation. Case discussed with Dr. Saenz.
[2018-05-07 06:09] LABS: Absolute Lymphocytes (CBC) 1.7 K/uL (0.7-4.9); Absolute Monocytes 1.9 K/uL (0.1-1.3); Eosinophils % 1.9 % (0-4.4); Hematocrit 37.3 % (39.6-49.0); Lymphocytes % 17.1 % (15.3-44.8); MCH 34.5 pg (27.0-35.0); MPV 11.5 fL (7.6-11.3); Monocytes % 19.4 % (3.3-12.3)
[2018-05-07] MEDS: HYDROCODONE/APAP 5/325 MG TAB PO PRN (06:13)
[2018-05-07 06:21] LABS: BUN Blood Urea Nitrogen 10 mg/dL (7-18); Bicarbonate 27 mmol/L (21-32); Glucose Level 98 mg/dL (74-106); Magnesium 1.8 mg/dL (1.8-2.4); Potassium 3.9 mmol/L (3.5-5.1); Sodium Level 136 mmol/L (136-145)
[2018-05-07 07:06] LABS: Blood Morphology Comment NOT SEEN (NOT SEEN); Platelet Estimate ADEQ; Platelets, Giant FEW; Urine White Blood Cell Casts OK
[2018-05-07] MEDS: NA CHLORIDE 0.9% 1,000 ML IV SCH ×3 (07:24→22:28)
[2018-05-07] MEDS ORDERED: MAGNESIUM SULFATE 1 gm IVPB 1 GM/100 ML BAG IV ONE (09:00)
[2018-05-07] MEDS ORDERED: hydroCHLOROthiazide 25 MG TAB PO SCH (09:00)
[2018-05-07] MEDS ORDERED: PANTOPRAZOLE 40MG TABLET PO SCH (09:00)
[2018-05-07] MEDS: ENOXAPARIN 40 MG/0.4 ML SQ SCH (09:00)
[2018-05-07] MEDS ORDERED: POTASSIUM 25 MEQ EFFERV TAB PO ONE (09:04)
[2018-05-07] MEDS: ASPIRIN 81 MG CHEWABLE TABLET PO SCH (09:25)
[2018-05-07] MEDS: DOCUSATE NA/SENNA CONC 1 TAB PO SCH ×2 (09:25→20:21)
[2018-05-07] MEDS: MAGNESIUM OXIDE 400 MG TAB PO SCH ×2 (09:25→20:22)
[2018-05-07] MEDS: POLYETHYL GLY 3350 17 GM/DOSE PO SCH ×2 (09:26→20:21)
[2018-05-07] MEDS: NIFEDIPINE XL 60 MG TABLET PO SCH (09:29)
[2018-05-07] MEDS: METOPROLOL XL 50 MG TAB PO SCH ×2 (09:30→20:23)
[2018-05-07] MEDS: ACETAMINOPHEN 500 MG TAB PO PRN ×2 (10:55→17:08)
[2018-05-07] MEDS: SERTRALINE HCL 50 MG TAB PO SCH (10:55)
[2018-05-07] MEDS: MAGNESIUM HYDROXIDE 8% 30 ML PO PRN (12:30)
--- NOTE | 2018-05-07 15:29 | PN ---
Date of Progress Note: 05/07/2018 History: The patient seen and examined. Chart reviewed and case discussed with RN. The patient much more awake and alert today. Case discussed with Dr. Calderon. The patient does have new lesions of the liver while on chemotherapy. Overall, poor prognosis. Dr. Calderon to have a family meeting today. Review of Systems: Negative except as above. The patient does report some constipation. Medications: List reviewed. Physical Examination: Vital Signs: Temperature 99, heart rate 71, blood pressure 166/77, respirations 18, O2 97% on room air. General: Awake, alert, oriented x3, elderly male, in some mild distress due to pain. CV: S1 and S2. No murmurs. Regular rate and rhythm. Peripheral pulses present. Respiratory: Moving air well bilaterally. No wheezing. Gastrointestinal: Abdomen is soft. Mild tenderness to palpation. No rebound or guarding. No hepatomegaly. Extremities: No clubbing, cyanosis, or edema. Neurologic: Nonfocal. Laboratory Data: Sodium 136, potassium 3.9, chloride 103, CO2 27, BUN 10, creatinine 0.7, glucose 98, calcium 8.3, magnesium 1.8. WBC 9.9, H and H 12.8, 37.3, platelets 259, neutrophils 60%. Blood culture no growth to date. Urine culture shows no growth to date. Assessment And Plan: A 77-year-old male with: 1. Acute dehydration, improving. Continue with IV fluids. 2. Urinary retention, improved. The patient is more awake and alert. We will discontinue Novak catheter and have voiding trial. Continue with Flomax. 3. Hyponatremia, resolved. Sodium corrected. 4. Hypokalemia, replaced. 5. Hypomagnesemia, replaced. We will continue to monitor. 6. Hypocalcemia. 7. Pancreatic cancer status post resection, chemotherapy, now with liver metastases. Dr. Calderon on board. She is scheduled to have a family meeting today to update the patient, and recommend hospice has overall poor prognosis with new lesion developing while undergoing chemotherapy. 8. Generalized abdominal pain secondary to constipation. We will continue with bowel regimen. Add Milk of Magnesia. 9. Narcotic induced constipation. Continue linzess, bowel regimen w stool softners . 10. Gastrointestinal, deep vein thrombosis prophylaxis addressed. Overall poor prognosis. SA/MODL Voice ID: [id number] Report ID: [id number] MTDD
[2018-05-07] MEDS: AMYLASE/LIPASE/PROTEASE CAP PO SCH ×2 (17:05→21:00)
[2018-05-07] MEDS ORDERED: MORPHINE 2 MG/ML SYR IV PRN (18:35)
[2018-05-07] MEDS: TAMSULOSIN 0.4 MG SR CAP PO SCH (20:21)
[2018-05-07] MEDS: HYDROMORPHONE ORAL 2 MG TAB PO PRN (20:22)
[2018-05-07] MEDS: Linaclotide [Linzess] 145 MCG CAPSULE PO SCH (21:00)
--- NOTE | 2018-05-08 00:05 | PN ---
BRIEF CONSULT/PROGRESS NOTE Reason For Consultation: Liver metastases. Brief History Of Present Illness: Mr. France is a 77-year-old gentleman who is well known to me fro m the [facility] where he has been followed for the pancreatic cancer. 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 At surgery on 10/08/2017, the tumor was invading into the peripancreatic adipose tissue with lymphov ascular invasion and perineural invasion, 08/10 lymph node showed evidence of metastatic cancer. He s tarted on adjuvant chemotherapy with gemcitabine for this stage IIB pancreatic cancer on 11/17/2017. Unfortunately, he was able to receive only 5/6 cycles of planned chemotherapy because he developed s evere generalized abdominal pain in February of 2018. CT scans of the abdomen done on 03/09/2018 and 0 04/06/2018, revealed no etiology for the pain; however, the most recent CT abdomen and pelvis done in the emergency room on 05/05/2018 revealed multiple hypodense lesions consistent with metastatic cance r in the liver. I was asked to see him for the recurrent metastatic pancreatic cancer. Subjectively, Mr. France appears to be comfortable with his at his bedside when I visited them this evening. He complains of a 5/10 headache, which he describes as a dull heaviness from the nape of the neck to the frontal area and sharp shooting pain in his head between 8-10 times a day. He als o complains of abdominal pain currently at a 3/10. He has had a lot of problem with constipation, wh ich has worsened in the past 2 months, he did have a bowel movement earlier today. The Novak is out and he is voiding urine. Objective: Vital Signs: He has been afebrile. Temperature was 99.2 at 4 p.m. today, pulse 77, resp irations 18 per minute, blood pressure 130/63, saturating about 96% on room air. General: Reveals a chronically ill-looking man. No icterus was noted. Abdomen: Soft. Liver and spleen were not palpable. Bowel sounds present. Neurologic: He is alert and oriented with no acute focal deficits. Extremities: Show no edema. Lab Data: CBC from earlier today revealed a mild anemia, hemoglobin 12.8, white count and platelet c ount were normal. Chemistries on admission revealed sodium of 129, potassium was 3.4, magnesium was 1.6. Renal function and liver function were unremarkable. Assessment And Plan: 1.Recurrent metastatic pancreatic cancer. His cancer progressed while on adjuvant chemotherapy. 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 I had a long discussion with Mr. France and his . His current performance status is poor (ECOG PS 3) and he would not be a candidate for further palliative chemotherapy given the refractory disease and the difficulties he had with single agent c hemotherapy in the recent past. The progression while on chemotherapy also suggests a particularly a ggressive and refractory cancer. I have strongly recommended the best supportive care in the setting of hospice to address pain, constipation, and other symptoms which seem to be worsening. They are a greeable to hospice services and we will refer him to [facility] for the same. Prognosis is poor. Median survival is to the order of 6 months or last and this was shared with the patient. He has an [id number] DNR and does not want heroic measures. 2.Pain. I started him on a fentanyl patch 25 mcg yesterday. He appears to be more comfortable toda y. We will discontinue the hydrocodone and start him on Dilaudid 2 mg p.o. q.4 hours p.r.n. for anyi kthrough pain. I plan to titrate his pain medications up as needed while on hospice. 3.Constipation. He will continue on Senokot 2 p.o. b.i.d. and MiraLax b.i.d. daily. 4.Urinary retention. This could be due to an enlarging prostate or pain medications as well as immo bilization. Currently, he is voiding freely. He may need a Novak or straight cath p.r.n. while on h ospice. Thank you for asking me to see Mr. France. Please do not hesitate to call me if you have any furthe r questions. CHAR/UMBERTO Voice ID: [id number] Report ID: [id number]
[2018-05-08] MEDS: HYDROMORPHONE ORAL 2 MG TAB PO PRN ×2 (05:54→17:20)
[2018-05-08 07:35] LABS: BUN Blood Urea Nitrogen 7 mg/dL (7-18); Bicarbonate 24 mmol/L (21-32); Glucose Level 108 mg/dL (74-106); Magnesium 1.8 mg/dL (1.8-2.4); Potassium 3.8 mmol/L (3.5-5.1); Sodium Level 132 mmol/L (136-145)
[2018-05-08] MEDS: AMYLASE/LIPASE/PROTEASE CAP PO SCH ×4 (07:49→17:15)
[2018-05-08] MEDS: ACETAMINOPHEN 500 MG TAB PO PRN ×3 (07:49→20:47)
[2018-05-08] MEDS: PANTOPRAZOLE 40MG TABLET PO SCH (07:53)
[2018-05-08] MEDS ORDERED: POTASSIUM 25 MEQ EFFERV TAB PO ONE (08:09)
[2018-05-08] MEDS ORDERED: MAGNESIUM SULFATE 1 gm IVPB 1 GM/100 ML BAG IV ONE (08:09)
[2018-05-08] MEDS: POLYETHYL GLY 3350 17 GM/DOSE PO SCH ×3 (09:00→20:51)
[2018-05-08] MEDS: DIAZEPAM 5 MG TABLET PO SCH ×3 (09:30→20:49)
[2018-05-08] MEDS: ENOXAPARIN 40 MG/0.4 ML SQ SCH (09:43)
[2018-05-08] MEDS: METOPROLOL XL 50 MG TAB PO SCH ×2 (09:44→20:48)
[2018-05-08] MEDS: MAGNESIUM OXIDE 400 MG TAB PO SCH ×2 (09:44→20:48)
[2018-05-08] MEDS: ASPIRIN 81 MG CHEWABLE TABLET PO SCH (09:45)
[2018-05-08] MEDS: DOCUSATE NA/SENNA CONC 1 TAB PO SCH ×2 (09:45→20:47)
[2018-05-08] MEDS: NIFEDIPINE XL 60 MG TABLET PO SCH (09:45)
[2018-05-08] MEDS: NA CHLORIDE 0.9% 1,000 ML IV SCH ×3 (09:46→20:50)
[2018-05-08] MEDS: SERTRALINE HCL 50 MG TAB PO SCH (09:46)
[2018-05-08] MEDS ORDERED: FENTANYL 25 MCG/PATCH TD SCH (10:00)
[2018-05-08] MEDS: ONDANSETRON 4 MG/2 ML VIAL IV PRN (10:20)
--- NOTE | 2018-05-08 20:21 | PN ---
Date of Progress Note: 05/08/2018 Subjective: The patient was seen and examined. Chart reviewed and case discussed with RN and Dr. Cb barr. The patient had a long discussion with Dr. Calderon, his oncologist yesterday, regarding the spread of his metastatic disease and his overall poor prognosis. Hospice was recommended and the family agr eed. The patient chose [facility]. Review of Systems: Negative except as above. The patient continues to have some abdominal pain, however, did pass a bow el movement. Medications: List reviewed. Objective: Vital Signs: Temperature 97.9, heart rate 75, blood pressure 154/74, respirations 18, O2 97% on room air. General: Awake, alert, oriented x3, some mild distress due to pain, elderly male. CV: S1, S2. Peripheral pulses present. Regular rate and rhythm. Respiratory: Moving air well bilaterally. No wheezing. Gastrointestinal: Abdomen is soft, tenderness to palpation, with no rebound tenderness, but voluntar y guarding. No signs of peritonitis. No rigidity. Bowel sounds positive. Extremities: No clubbing, cyanosis, or edema. Neurologic: Nonfocal. Laboratory Data: Sodium 132, potassium 3.8, chloride 101, CO2 of 24, BUN 7, creatinine 0.5, glucose 108, calcium 8.4, magnesium 1.8. Assessment And Plan: A 77-year-old male with: 1.Acute dehydration, resolved. We will discontinue IV fluids. The patient is tolerating p.o. intak e well. 2.Urinary retention, resolved. We will continue with Flomax. Novak catheter was discontinued. No difficulty voiding. 3.Hyponatremia. Sodium dropped back down to 132. We will continue to monitor, asymptomatic. 4.Hypokalemia, replaced. 5.Hypomagnesemia, replaced. 6.Pancreatic cancer, status post resection, chemotherapy, now with liver metastases and likely perit perez carcinomatosis leading to significant abdominal pain and constipation. Appreciate Dr. Calderon's i nput. She is recommending hospice due to overall poor prognosis as the patient failed adjuvant chemo therapy, not a candidate for palliative treatment. The patient agrees with hospice care. He underst ands that this is caring comfort measures, and was shifting gears away from invasive measurements inc luding IV including chemotherapy, radiation therapy, and other modalities of treatment. The patient voiced understanding. Hospice will be set up through [facility]. 7.Generalized abdominal pain secondary to constipation in addition to probable peritoneal carcinomat osis. We will adjust pain medications. Continue Duragesic patch. Continue IV Dilaudid. 8.Likely narcotic-induced constipation. Continue bowel regimen. 9.Gastrointestinal and deep venous thrombosis prophylaxis, addressed. 10.Overall poor prognosis. Per Oncology, 6 months median survival. The patient is DNR, out of hosp ital DNR has been signed. Family present and agree. /UMBERTO Voice ID: [id number] Report ID: [id number]
[2018-05-08] MEDS: TAMSULOSIN 0.4 MG SR CAP PO SCH (20:48)
[2018-05-08] MEDS: Linaclotide [Linzess] 145 MCG CAPSULE PO SCH (20:52)
[2018-05-09] MEDS: NA CHLORIDE 0.9% 1,000 ML IV SCH ×2 (04:57→10:23)
[2018-05-09 06:41] VITALS: BMI 24.0
[2018-05-09] MEDS: PANTOPRAZOLE 40MG TABLET PO SCH (08:15)
[2018-05-09] MEDS: AMYLASE/LIPASE/PROTEASE CAP PO SCH ×2 (08:15→13:36)
[2018-05-09] MEDS: POLYETHYL GLY 3350 17 GM/DOSE PO SCH (10:35)
[2018-05-09] MEDS: ENOXAPARIN 40 MG/0.4 ML SQ SCH (10:37)
[2018-05-09] MEDS: MAGNESIUM OXIDE 400 MG TAB PO SCH (10:38)
[2018-05-09] MEDS: ASPIRIN 81 MG CHEWABLE TABLET PO SCH (10:39)
[2018-05-09] MEDS: METOPROLOL XL 50 MG TAB PO SCH (10:39)
[2018-05-09] MEDS: DOCUSATE NA/SENNA CONC 1 TAB PO SCH (10:39)
[2018-05-09] MEDS: SERTRALINE HCL 50 MG TAB PO SCH (10:41)
[2018-05-09] MEDS: ACETAMINOPHEN 500 MG TAB PO PRN (10:49)
[2018-05-09] MEDS: MAGNESIUM HYDROXIDE 8% 30 ML PO PRN (10:49)
[2018-05-09 12:00] VITALS: O2SAT 97
[2018-05-09] MEDS: NIFEDIPINE XL 60 MG TABLET PO SCH (13:37)
[2018-05-09] MEDS: DIAZEPAM 5 MG TABLET PO SCH (13:38)
[2018-05-09 13:40] VITALS: BP 175/80
[2018-05-09 14:07] VITALS: TEMP 100.1
[2018-05-09] MEDS: HYDROMORPHONE ORAL 2 MG TAB PO PRN (14:38)
[2018-05-09] MEDS ORDERED: INFLUENZA VACCINE (for 3y+) 0.5 ML DOSE IMVAC ONE (15:00)
--- NOTE | 2018-05-10 06:49 | DS ---
Date of Discharge: 05/09/2018 Consultants: Dr. Calderon and Dr. Karimi with Hematology and Nephrology respectively. Admitting Diagnoses: 1.Abdominal pain, generalized. 2.Acute urinary retention. 3.Acute dehydration. 4.Altered mental status. 5.Hyponatremia. 6.Metastatic liver disease. 7.History of pancreatic cancer. 8.History of pancreatic resection. Discharge Diagnoses: 1.Acute dehydration, resolved. 2.Urinary retention, resolved. 3.Hyponatremia, improving. 4.Hypokalemia, replaced. 5.Hypomagnesemia, replaced. 6.Pancreatic cancer, status post resection and chemotherapy, now with liver metastases and peritonea l carcinomatosis. Not a candidate for further treatment. 7.Generalized abdominal pain secondary to constipation and peritoneal carcinomatosis. 8.Narcotic induced constipation. 9.Headache, probable atypical migraine. 10.Atrial fibrillation. Hospital Course: The patient is a 77-year-old male who has history of atrial fibrillation, hypertens ion, had recent pancreatic mass resection, has been on chemotherapy, following Dr. Calderon, comes in wit h confusion. The patient was found to have urinary retention. Novak catheter was placed use. He th en had clearing of his mental status, was able to be awake and alert. He was able to urinate on his own after Novak catheter was discontinued. The patient's cultures remained negative on imaging study ; however, he was found to have new lesions of the liver which were likely metastatic from the pancre atic neoplasm. He also has some cholelithiasis. His abdominal pain was felt to be due to the narcot ic induced constipation as well as peritoneal carcinomatosis. The patient was seen by his oncologist , Dr. Calderon, who recommended hospice care as patient has failed therapy and developed liver lesions wh ile on chemotherapy. The patient was unable to tolerate a mild dose of chemotherapy initially and is not a candidate for any further treatment. Dr. Calderon recommended hospice. The patient and family ag soraya to hospice care and comfort, which was set up to [facility]. The patient did report headaches, which are thought to be probably atypical migraine. He did report some improvement with pain medications. He is also taking diazepam for anxiety which also seemed to help him sleep and improve the headache s. The patient overall has a very poor prognosis. Six months is the median survival. The patient w as placed on a bowel regimen and he was able to have some bowel movements. The patient unfortunately has a poor prognosis and was then discharged to home with hospice for care and comfort measures. Co ndition is fair at this time. Followup: Follow up with Dr. Calderon as needed. Diet: As tolerated. Activities: Fall precautions. No driving or operating heavy machinery while on narcotics and benzod iazepines. Physical Examination: General: Awake, alert, oriented x3. Some mild distress. Elderly male, ill-appearing, frail. CV: S1, S2, irregularly irregular. Respiratory: Moving air well bilaterally. Abdomen: Soft. Mild tenderness to palpation. Nondistended. Voluntary guarding and some rigidity p resent. Extremities: No clubbing, cyanosis, or edema. Neurologic: Nonfocal. Total time spent discharging the patient was 41 minutes. SERA Voice ID: [id number] Report ID: [id number]
== END 2018-05-09 15:10 | disposition hospice, home (50) | DRG 71 ==
LOC: ER 20:31 → ERHOLD 23:01 → 2ND 05-06 02:12
PROVIDERS: ADMIT Internal Medicine; ATTEND Family Medicine
DX: G93.40 Encephalopathy, unspecified (principal); E87.1 Hypo-osmolality and hyponatremia; C25.9 Malignant neoplasm of pancreas, unspecified; C78.7 Secondary malignant neoplasm of liver and intrahepatic bile duct; C78.6 Secondary malignant neoplasm of retroperitoneum and peritoneum; Z66 Do not resuscitate; R33.9 Retention of urine, unspecified; E86.0 Dehydration; R10.84 Generalized abdominal pain; E83.42 Hypomagnesemia; E87.6 Hypokalemia; K59.03 Drug induced constipation; I48.91 Unspecified atrial fibrillation; F32.9 Major depressive disorder, single episode, unspecified; K21.9 Gastro-esophageal reflux disease without esophagitis; N40.0 Benign prostatic hyperplasia without lower urinary tract symptoms; D64.9 Anemia, unspecified; G43.809 Other migraine, not intractable, without status migrainosus; K80.20 Calculus of gallbladder without cholecystitis without obstruction
CPT/HCPCS: 36415; 51702; 70450; 71045; 71260; 74018; 74177; 80048; 80076; 81003; 81015; 83605; 83690; 83735; 83880; 84132; 84145; 84484; 85025; 85610; 87040; 87086; 87088; 93005; 96360; 96361; 96365; 96375; 97163; 99284; 99285; C9113; J1650; J2405; J3010; J3475; J7030; Q2035; Q9967